=== PATIENT | female | born 1945 | race Caucasian/White ===

== ENCOUNTER 2017-07-30 09:58 | Observation (INO) | payer MEDICARE, OTHER ==
[2017-07-30] MEDS ORDERED: DUONEB 0.5-3 MG/3 ml Neb IH ONE ×2 (10:34→10:45)
--- NOTE | 2017-07-30 10:42 | ERPHSYRPT ---
- History of Present Illness Time Seen by Provider: 07/30/17 10:20 Source: patient Exam Limitations: clinical condition Patient Subjective Stated Complaint: Cough since 07/11, worse x3 days. Triage Nursing Assessment: Pt presents to the ED with complaints of cough since 07/11/2017. Hx of cough. Daughter states pt was diagnosed with pneumonia on 2017. No distress noted. Pt denies pain. Skin PWD. Physician History: PATIENT WITH A HISTORY OF 50 PACK YEAR SMOKER, QUIT 5 YEARS AGO, TYPE 2 DIABETES, HYPERTENSION, TREATED FOR BRONCHITIS 3 WEEKS AGO, NOW COMPLAINS OF NONPRODUCTIVE COUGH X 3 DAYS. DENIES DYPNEA, FEVER, CHILLS OR CHEST PAIN. Timing/Duration: day(s) Cough Quality/Degree: moderate, dry cough Possible Cause: occasional episodes Modifying Factors: Improves With: coughing Associated Symptoms: denies symptoms International travel in last 2 weeks: No Allergies/Adverse Reactions: tramadol Allergy (Mild, Verified 05/27/14 11:53) dizzy Home Medications: Aspirin 81 gm Chew [Baby Aspirin 81 mg Chew] 81 mg PO HS 01/01/14 [History ] Donepezil HCl [Aricept] 5 mg PO DAILY 01/01/14 [History] Furosemide [Lasix] 40 mg PO DAILY 01/01/14 [History] Metoprolol Succinate 50 mg [Toprol Xl 50 MG] 50 mg PO BID 01/01/14 [ History] Potassium Chloride 10 Meq Tab* [Klor Con 10 MEQ] 10 meq PO HS 01/01/14 [ History] Ranitidine HCl [Zantac] 300 mg PO DAILY 01/01/14 [History] Insulin Aspart [NovoLOG Insulin] 10 unit SQ TID 05/27/14 [History] Insulin Glargine [Lantus Insulin] 20 unit SQ HS 05/27/14 [History] Liraglutide [Victoza 2-Ang] 1.8 mg SQ DAILY 07/30/17 [History] Methenamine 1 gm MC BID 07/30/17 [History] Solifenacin Succinate [Vesicare] 10 mg PO DAILY 07/30/17 [History] Venlafaxine HCl ER 75 mg [Effexor XR 75 MG] 75 mg PO DAILY 07/30/17 [ History] Hx Tetanus, Diphtheria Vaccination/Date Given: Yes Hx Influenza Vaccination/Date Given: Yes Hx Pneumococcal Vaccination/Date Given: Yes Immunizations Up to Date: Yes - Review of Systems Constitutional: No Fever, No Chills Eyes: No Symptoms Ears, Nose, & Throat: No Symptoms Respiratory: Cough, No Dyspnea Cardiac: No Chest Pain, No Edema, No Syncope Abdominal/Gastrointestinal: No Symptoms, No Abdominal Pain, No Nausea, No Vomiting, No Diarrhea Genitourinary Symptoms: No Symptoms, No Dysuria Musculoskeletal: No Symptoms, No Back Pain, No Neck Pain Skin: No Rash Neurological: No Symptoms, No Dizziness, No Focal Weakness, No Sensory Changes Psychological: No Symptoms Endocrine: No Symptoms All Other Systems: Reviewed and Negative - Past Medical History Pertinent Past Medical History: Yes Neurological History: No Pertinent History ENT History: Cataracts Cardiac History: High Cholesterol, Hypertension, Myocardial Infarction ([place]) Respiratory History: COPD Endocrine Medical History: Diabetes Type II Musculoskeletal History: Arthritis, Fractures GI Medical History: Polyps History: Renal Disease, Other Psycho-Social History: Bipolar, Depression Female Reproductive Disorders: No Pertinent History - Past Surgical History Past Surgical History: Yes Neuro Surgical History: No Pertinent History Cardiac: Cardiac Catheterization, Cardiac Stent Respiratory: No Pertinent History Genitourinary: No Pertinent History Musculoskeletal: Joint Replacement Female Surgical History: Hysterectomy Other Surgical History: SEVERAL STENTS. SURGERY ON BOTH FEET FROM CLUB FEET - Social History Smoking Status: Former smoker How long have you smoked: 50 Exposure to second hand smoke: No Drug Use: none Patient Lives Alone: No - Female History Hx Now: No - Nursing Vital Signs Nursing Vital Signs: Initial Vital Signs Temperature 98.5 F 07/30/17 10:03 Pulse Rate 80 07/30/17 10:03 Respiratory Rate 18 07/30/17 10:03 Blood Pressure 125/74 07/30/17 10:03 O2 Sat by Pulse Oximetry 94 L 07/30/17 10:03 Pain Scale Pain Intensity 0 - Physical Exam General Appearance: no apparent distress, alert Eye Exam: PERRL/EOMI, eyes nml inspection Ears, Nose, Throat Exam: normal ENT inspection, TMs normal, pharynx normal, moist mucous membranes Neck Exam: normal inspection, non-tender, supple, full range of motion Respiratory Exam: normal breath sounds, lungs clear, other (WITH OCCASIONAL RIGHT BASILAR WHEEZE), No respiratory distress Cardiovascular Exam: regular rate/rhythm, normal heart sounds Gastrointestinal/Abdomen Exam: soft, normal bowel sounds (OBESITY, NONTENDER), No tenderness Back Exam: normal inspection, No CVA tenderness, No vertebral tenderness Extremity Exam: normal inspection, normal range of motion Neurologic Exam: alert, oriented x 3, cooperative, normal mood/affect, sensation nml, No motor deficits Skin Exam: normal color, warm, dry, No rash Lymphatic Exam: No adenopathy SpO2: 94 Oxygen Delivery: Room Air - Radiology Exams Chest X-ray Interpretation: Discussed w/ radiologist (NEW RIGHT INFRAHILAR ) Ordered Tests: Active Orders 24 hr Category Date Time Status Up With Assistance ROUTINE Activity 07/30/17 13:22 Active Code Status Order ROUTINE Care 07/30/17 13:22 Active IV Care Q6H Care 07/30/17 13:22 Active IV Insertion STAT Care 07/30/17 10:[address] in Observation ROUTINE Care 07/30/17 13:22 Active Saleem Dubone, Apply ROUTINE Care 07/30/17 13:22 Active Vital Signs Q4H Care 07/30/17 13:22 Active Weight,Daily 0600 Care 07/30/17 13:22 Active 2000 Calorie ADA Diet 07/30/17 Dinner Active Regular Diet Diet 07/30/17 Dinner Active CHEST 1 VIEW (PORTABLE) Stat Exams 07/30/17 10:46 Completed BLOOD CULTURE Stat Lab 07/30/17 10:35 Received BMP Stat Lab 07/30/17 10:45 Completed CBC W DIFF Stat Lab 07/30/17 10:45 Completed UA W/RFX UR CULTURE Stat Lab 07/30/17 13:16 Ordered Oxygen NASAL CANNULA 2 lpm RT 07/30/17 13:22 Active Peak Expiratory Flow Rate ONCE RT 07/30/17 10:34 Active Pulse Oximetry CONTINUOUS RT 07/30/17 13:24 Active Respiratory Nebulizer STAT RT 07/30/17 10:36 Active Transfer Order Routine Transfer 07/30/17 Ordered Medication Summary Generic Name Dose Route Start Last Admin Trade Name Freq PRN Reason Stop Dose Admin Albuterol/Ipratropium 3 ml 07/30/17 15:00 Duoneb 0.5-3 Mg/3 Ml Neb IH 08/29/17 14:59 Q4HRT ROQUE Aspirin 81 mg 07/30/17 22:00 Ecotrin 81 Mg PO 08/29/17 21:59 QHS [facility] Donepezil HCl 5 mg 07/31/17 10:00 Aricept 10 Mg PO 08/30/17 09:59 DAILY [facility] Furosemide 40 mg 07/31/17 10:00 Lasix 40 Mg PO 08/30/17 09:59 DAILY [facility] Azithromycin 500 mg in 250 mls @ 250 mls/hr 07/31/17 10:00 Zithromax 500 Mg/ 250 Ml Nacl Premix IV 08/30/17 09:59 Q24H10 ROQUE Ceftriaxone Sodium/Dextrose 1 g in 50 mls @ 100 mls/hr 07/31/17 10:00 Rocephin 1 Gm-D5w 50 Ml Bag IV 08/30/17 09:59 Q24H10 [facility] Insulin Aspart 10 unit 07/30/17 17:00 Novolog Insulin SQ 08/29/17 16:59 TIDWM [facility] Insulin Glargine 20 unit 07/30/17 22:00 Lantus Insulin SQ 08/29/17 21:59 HS [facility] Levalbuterol HCl 1.25 mg 07/30/17 13:36 Xopenex 1.25 Mg/0.5 Ml Ud Nebule IH 08/29/17 13:35 Q2HPRN PRN DIFFICULTY BREATHING Metoprolol Tartrate 50 mg 07/30/17 22:00 Lopressor 50 Mg PO 08/29/17 21:59 BID [facility] Venlafaxine HCl 75 mg 07/31/17 10:00 Effexor Xr 75 Mg PO 08/30/17 09:59 DAILY [facility] Discontinued Medications Generic Name Dose Route Start Last Admin Trade Name Freq PRN Reason Stop Dose Admin Albuterol/Ipratropium 3 ml 07/30/17 10:34 07/30/17 10:46 Duoneb 0.5-3 Mg/3 Ml Neb IH 07/30/17 10:35 3 ml STAT ONE Administration Albuterol/Ipratropium Confirm 07/30/17 10:45 Duoneb 0.5-3 Mg/3 Ml Neb Administered 07/30/17 10:46 Dose 3 ml IH .STK-MED ONE Ceftriaxone Sodium/Dextrose 1 g in 50 mls @ 100 mls/hr 07/30/17 11:15 11:26 Rocephin 1 Gm-D5w 50 Ml Bag IV 07/30/17 11:44 100 ml/hr STAT STA 100 mls/hr Administration Azithromycin 500 mg in 250 mls @ 250 mls/hr 07/30/17 11:15 07/30/17 13:00 Zithromax 500 Mg/ 250 Ml Nacl Premix IV 07/30/17 12:14 Not Given STAT STA Azithromycin Confirm 07/30/17 11:22 Zithromax 500 Mg/ 250 Ml Nacl Premix Administered 07/30/17 11:23 Dose 500 mg in 250 mls @ ud IV .STK-MED ONE Ceftriaxone Sodium/Dextrose Confirm 07/30/17 11:22 Rocephin 1 Gm-D5w 50 Ml Bag Administered 07/30/17 11:23 Dose 1 g in 50 mls @ ud IV .STK-MED ONE Azithromycin 500 mg in 250 mls @ 250 mls/hr 07/30/17 11:36 07/30/17 11:48 Zithromax 500 Mg/ 250 Ml Nacl Premix IV 07/30/17 12:35 250 ml/hr STAT STA 250 mls/hr Administration Lab/Rad Data: Laboratory Result Diagrams 07/30/17 10:45 07/30/17 10:45 Laboratory Results 07/30/17 07/30/17 Range/Units 10:45 10:45 WBC 8.2 (4.0-10.5) K/mm3 RBC 3.89 L (4.1-5.4) M/mm3 Hgb 10.7 L (12.0-16.0) gm/dl Hct 34.4 L (35-47) % MCV 88.4 (78-100) fl MCH 27.5 (26-32) pg MCHC 31.1 L (32-36) g/dl RDW 15.9 H (11.5-14.0) % Plt Count 212 (150-450) K/mm3 MPV 10.1 H (6-9.5) fl Gran % 68.0 H (36.0-66.0) % Eos # (Auto) 0.26 (0-0.5) Absolute Lymphs (auto) 1.78 (1.0-4.6) Absolute Monos (auto) 0.58 (0.0-1.3) Lymphocytes % 21.6 L (24.0-44.0) % Monocytes % 7.0 (0.0-12.0) % Eosinophils % 3.2 (0.00-5.0) % Basophils % 0.2 (0.0-0.4) % Absolute Granulocytes 5.60 (1.4-6.9) Basophils # 0.02 (0-0.4) Sodium 140 (137-145) mmol/L Potassium 4.7 (3.5-5.1) mmol/L Chloride 102 (98-107) mmol/L Carbon Dioxide 26 (22-30) mmol/L Anion Gap 16.1 H (5-15) MEQ/L BUN 38 H (7-17) mg/dL Creatinine 1.40 H (0.52-1.04) mg/dL Estimated GFR 39.3 ML/MIN Glucose 319 H (74-106) mg/dL Calcium 9.0 (8.4-10.2) mg/dL - Progress Progress Note: 07/30/17 11:48 IV SALINE LOCK, ROCEPPHIN 1GM AND ZITHROMAX 500MG IVPB Blood Culture(s) Obtained: Yes Antibiotics given: Yes Discussed with DrMaurizio: Shona (DISCUSSED WITH DR Yunior RODRÍGUEZ AT 1310 FOR OBSERVATION) - Departure Time of Disposition: 14:47 Departure Disposition: Observation Clinical Impression: PNEUMONIA Condition: Stable Critical Care Time: No Referrals: EREN RODRÍGUEZ [Primary Care Provider] -
--- NOTE | 2017-07-30 10:58 | XRAY ---
Indication: Cough. Comparison: May 27, 2014. Portable apical lordotic chest demonstrates new right infrahilar infiltrate/atelectasis. Remaining heart and lungs unremarkable. Bony thorax intact again with mild osteopenia and degenerative changes.
[2017-07-30 11:13] LABS: BASOPHIL % 0.2 % (0.0-0.4); Basophil (Absolute #) 0.02 (0-0.4); Eosinophil % 3.2 % (0.00-5.0); Eosinophil (Absolute #) 0.26 (0-0.5); Hematocrit 34.4 % (35-47); Hemoglobin 10.7 gm/dl (12.0-16.0); Lymphocyte (Absolute #) 1.78 (1.0-4.6); Lymphocytes % 21.6 % (24.0-44.0); Mean Cell Volume 88.4 fl (78-100); Mean Corpuscular Hemoglobin 27.5 pg (26-32); Mean Corpuscular Hgb Concent. 31.1 g/dl (32-36); Mean Platelet Volume 10.1 fl (6-9.5); Monocyte (Absolute #) 0.58 (0.0-1.3); Platelet Count 212 K/mm3 (150-450); Red Blood Count 3.89 M/mm3 (4.1-5.4); Red Cell Distribution Width 15.9 % (11.5-14.0); White Blood Count 8.2 K/mm3 (4.0-10.5)
[2017-07-30] MEDS ORDERED: ROCEPHIN 1 Gm-D5w 50 ml Bag** 1 G/50 ML IVPB IV STA (11:15)
[2017-07-30] MEDS ORDERED: Zithromax 500 MG/ 250 ML NaCl Premix 500 MG/250 ML IVPB IV STA ×2 (11:15→11:36)
[2017-07-30] MEDS ORDERED: Zithromax 500 MG/ 250 ML NaCl Premix 500 MG/250 ML IVPB IV ONE (11:22)
[2017-07-30] MEDS ORDERED: ROCEPHIN 1 Gm-D5w 50 ml Bag** 1 G/50 ML IVPB IV ONE (11:22)
[2017-07-30 11:32] LABS: ANION GAP 16.1 MEQ/L (5-15); Creatinine 1 1.4 mg/dL (0.52-1.04); Potassium 4.7 mmol/L (3.5-5.1)
[2017-07-30] MEDS ORDERED: Xopenex 1.25 MG/0.5 ML UD NEBULE IH PRN (13:36)
[2017-07-30] MEDS ORDERED: DUONEB 0.5-3 MG/3 ml Neb IH PRN (14:44)
[2017-07-30] MEDS ORDERED: DUONEB 0.5-3 MG/3 ml Neb IH SCH (15:00)
[2017-07-30] MEDS: NovoLOG Insulin SQ PRN ×2 (17:20→22:13)
[2017-07-30] MEDS: NovoLOG Insulin SQ SCH (17:20)
[2017-07-30] MEDS ORDERED: Klor Con 10 MEQ PO SCH (22:00)
[2017-07-30] MEDS ORDERED: Lopressor 50 MG PO SCH (22:00)
[2017-07-30] MEDS ORDERED: ECOTRIN 81 MG PO SCH (22:00)
[2017-07-30] MEDS ORDERED: Lantus Insulin SQ SCH (22:00)
[2017-07-30] MEDS: Toprol Xl 50 MG PO SCH (22:12)
[2017-07-31 01:44] LABS: Appearance CLEAR (CLEAR); Bacteria FEW /HPF (NEGATIVE); Bilirubin NEGATIVE (NEGATIVE); Blood TRACE NON-HEM Ery/ul (0-5); Epithelial Cells RARE /HPF (FEW); Glucose NEGATIVE (NEGATIVE); Ketones NEGATIVE (NEGATIVE); Leukocyte Esterase 1+ (NEGATIVE); Nitrite NEGATIVE (NEGATIVE); Protein,Urine Dip TRACE (Negative); RBC 0-2 /HPF (0-2); Urobilinogen NORMAL mg/dL (0-1)
[2017-07-31 07:39] VITALS: O2SAT 95
[2017-07-31 07:40] VITALS: BP 158/70; PULSE 90
[2017-07-31] MEDS: NovoLOG Insulin SQ SCH (08:17)
[2017-07-31] MEDS: NovoLOG Insulin SQ PRN (08:17)
--- NOTE | 2017-07-31 08:46 | PCM.HP ---
History of Present Illness - Chief Complaint Chief Complaint: pneumonia Date: 07/31/17 History of Present Illness: is a 72 year old female. who was treated for pneumonia last month but was still having coughing and choking from the coughing and having severe pain in her epigastric area. She was choking on her phlegm and her daughter witnessed this and shew as having difficult breathing from this and she was brought to the ED. She has been having intermittent diarrhea and gas and nausea and indigestion as well. She was having pain and didn't want to eat some of her meals. Medications & Allergies Home Medications: Home Medication List Aspirin 81 gm Chew [Baby Aspirin 81 mg Chew] 81 mg PO HS 01/01/14 [ History Confirmed 07/30/17] Donepezil HCl [Aricept] 5 mg PO DAILY 01/01/14 [History Confirmed 07/30/17] Furosemide [Lasix] 40 mg PO DAILY 01/01/14 [History Confirmed 07/30/17] Metoprolol Succinate 50 mg [Toprol Xl 50 MG] 50 mg PO BID 01/01/14 [ History Confirmed 07/30/17] Potassium Chloride 10 Meq Tab* [Klor Con 10 MEQ] 10 meq PO HS 01/01/14 [ History Confirmed 07/30/17] Ranitidine HCl [Zantac] 300 mg PO DAILY 01/01/14 [History Confirmed 07/30/17] Insulin Aspart [NovoLOG Insulin] 10 unit SQ TID 05/27/14 [History Confirmed 07/30/17] Insulin Glargine [Lantus Insulin] 20 unit SQ HS 05/27/14 [History Confirmed 07/30/17] Liraglutide [Victoza 2-Ang] 1.8 mg SQ DAILY 07/30/17 [History Confirmed 07/30/17 ] Methenamine 1 gm MC BID 07/30/17 [History Confirmed 07/30/17] Solifenacin Succinate [Vesicare] 10 mg PO DAILY 07/30/17 [History Confirmed 05/18] Venlafaxine HCl ER 75 mg [Effexor XR 75 MG] 75 mg PO DAILY 07/30/17 [ History Confirmed 07/30/17] Allergies/Adverse Reactions: Allergies Allergy/AdvReac Type Severity Reaction Status Date / Time tramadol Allergy Mild dizzy Verified 05/27/14 11:53 - Past Medical History Past Medical History: Yes Neurological History: No Pertinent History ENT History: Cataracts Cardiac History: High Cholesterol, Hypertension, Myocardial Infarction ([place]) Respiratory History: COPD Endocrine Medical History: Diabetes Type II Musculoskelatal History: Arthritis, Fractures GI Medical History: Polyps History: Renal Disease, Other Pyscho-Social History: Bipolar, Depression Reproductive Disorders: No Pertinent History - Female History Are you now?: No - Past Surgical History Past Surgical History: Yes Neuro Surgical History: No Pertinent History Cardiac History: Cardiac Catheterization, Cardiac Stent Respiratory Surgery: No Pertinent History Genitourinary Surgical Hx: No Pertinent History Musculskeletal Surgical Hx: Joint Replacement Female Surgical History: Hysterectomy Other Surgical History: SEVERAL STENTS. SURGERY ON BOTH FEET FROM CLUB FEET - Social History Smoking Status: Former smoker How long have you smoked: 55 Exposure to second hand smoke: No Alcohol: None Drug Use: none - Physical Exam Vital Signs: Vital Signs - 24 hr Temp Pulse Resp BP Pulse Ox 07/31/17 07:39 90 20 158/70 95 07/31/17 07:38 82 18 95 07/31/17 04:00 18 07/31/17 00:00 98.7 F 93 H 18 136/79 93 L 07/30/17 20:17 83 18 93 L 07/30/17 19:59 99.7 F 87 16 116/67 93 L 07/30/17 16:00 98.1 F 79 22 137/65 94 L 07/30/17 14:51 98.1 F 79 22 137/65 94 L 07/30/17 14:44 79 18 93 L 07/30/17 13:46 94 L 07/30/17 13:05 75 18 07/30/17 10:46 71 22 93 L 07/30/17 10:03 98.5 F 80 18 125/74 94 L General Appearance: no apparent distress, alert, obese Neurologic Exam: alert, oriented x 3, cooperative, normal mood/affect, nml cerebellar function, nml station & gait, sensation nml, No motor deficits Eye Exam: PERRL/EOMI, eyes nml inspection Ears, Nose, Throat Exam: normal ENT inspection, TMs normal, pharynx normal, moist mucous membranes Neck Exam: normal inspection, non-tender, supple, full range of motion Respiratory Exam: normal breath sounds, lungs clear, No respiratory distress Cardiovascular Exam: regular rate/rhythm, normal heart sounds, normal peripheral pulses Gastrointestinal/Abdomen Exam: soft, normal bowel sounds, No tenderness, No mass Back Exam: normal inspection, normal range of motion, No CVA tenderness, No vertebral tenderness Extremity Exam: normal inspection, normal range of motion, pelvis stable Skin Exam: normal color, warm, dry, No rash Lymphatic Exam: No adenopathy Results - Labs Lab/Micro Results: Accuchecks Date 07/30/17 Time 21:00 Accucheck Value: 227 Accucheck Value: 205 Lab Results-Last 24 Hours 07/31/17 Range/Units 01:06 Ur Collection Type CLEAN CATCH Urine Color YELLOW (YELLOW) Urine Appearance CLEAR (CLEAR) Urine pH 9.0 (5-6) Ur Specific [place] 00 (1.005-1.025) Urine Protein TRACE (Negative) Urine Ketones NEGATIVE (NEGATIVE) Urine Blood TRACE NON-HEM (0-5) David/ul Urine Nitrite NEGATIVE (NEGATIVE) Urine Bilirubin NEGATIVE (NEGATIVE) Urine Urobilinogen NORMAL (0-1) mg/dL Ur Leukocyte Esterase 1+ (NEGATIVE) Urine Microscopic RBC 0-2 (0-2) /HPF Urine Microscopic WBC 2-5 (0-5) /HPF Ur Epithelial Cells RARE (FEW) /HPF Calcium Oxalate Crystal 5-10 (NEGATIVE) /HPF Triple Phos Crystals 10-25 (NEGATIVE) /HPF Urine Bacteria FEW (NEGATIVE) /HPF Urine Culture Reflexed YES (NO) Urine Glucose NEGATIVE (NEGATIVE) mg/dL Specimen Received 07/31/17 0115 Microbiology 07/31/17 01:06 Urine Culture - Preliminary Clean Catch Midstream NO GROWTH TO DATE Accuchecks Date 07/30/17 Time 21:00 Accucheck Value: 227 Accucheck Value: 205 - Other Procedures and Tests Respiratory Therapy 07/30/17 13:22 Oxygen NASAL CANNULA 2 lpm 07/30/17 14:44 Respiratory Nebulizer UD Assessment/Plan (1) Pneumonia Current Visit: Yes Status: Acute Assessment & Plan: doing much better will finish coarse with cefidinir and azithromycin Code(s): J18.9 - PNEUMONIA, UNSPECIFIED ORGANISM (2) GERD (gastroesophageal reflux disease) Current Visit: Yes Status: Acute Assessment & Plan: will change her h2 margarito to ppi and f/u in office in 2 weeks she is currently eating gravy with no abdominal pain or nausea making gerd seem more likely then gallbladder dysfunction at this time. Code(s): K21.9 - GASTRO-ESOPHAGEAL REFLUX DISEASE WITHOUT ESOPHAGITIS (3) Diabetes mellitus Current Visit: Yes Status: Chronic Assessment & Plan: uncontrolled due to diet noncompliance Code(s): E11.9 - TYPE 2 DIABETES MELLITUS WITHOUT COMPLICATIONS (4) COPD (chronic obstructive pulmonary disease) Current Visit: Yes Status: Acute (5) CKD (chronic kidney disease) Current Visit: Yes Status: Acute Qualifiers: Chronic kidney disease stage: stage 3 (moderate) Qualified Code(s): N18.3 - Chronic kidney disease, stage 3 (moderate) Code(s): N18.9 - CHRONIC KIDNEY DISEASE, UNSPECIFIED (6) CAD (coronary artery disease) Current Visit: Yes Status: Chronic Code(s): I25.10 - ATHSCL HEART DISEASE OF [place] CORONARY ARTERY W/O ANG PCTRS (7) Obesity Current Visit: Yes Status: Chronic Code(s): E66.9 - OBESITY, UNSPECIFIED
--- NOTE | 2017-07-31 08:57 | PCM.DCORD ---
- Discharge Discharge Date: 07/31/17 Disposition: Home, Self-Care Condition: Stable Prescriptions: New Omeprazole 40 mg PO DAILY #30 capsule. Cefdinir 300 mg [Omnicef 300 mg] 300 mg PO BID #14 capsule Azithromycin 250 mg [Zithromax 250 MG TABLET] 250 mg PO DAILY #4 tablet Continue Furosemide [Lasix] 40 mg PO DAILY Aspirin 81 gm Chew [Baby Aspirin 81 mg Chew] 81 mg PO HS Metoprolol Succinate 50 mg [Toprol Xl 50 MG] 50 mg PO BID Potassium Chloride 10 Meq Tab* [Klor Con 10 MEQ] 10 meq PO HS Donepezil HCl [Aricept] 5 mg PO DAILY Insulin Glargine [Lantus Insulin] 20 unit SQ HS Insulin Aspart [NovoLOG Insulin] 10 unit SQ TID Liraglutide [Victoza 2-Ang] 1.8 mg SQ DAILY Solifenacin Succinate [Vesicare] 10 mg PO DAILY Methenamine 1 gm MC BID Venlafaxine HCl ER 75 mg [Effexor XR 75 MG] 75 mg PO DAILY Discontinued Ranitidine HCl [Zantac] 300 mg PO DAILY Follow up with: EREN RODRÍGUEZ [Primary Care Provider] - 1 Week
[2017-07-31] MEDS: Toprol Xl 50 MG PO SCH (09:40)
[2017-07-31] MEDS ORDERED: ROCEPHIN 1 Gm-D5w 50 ml Bag** 1 G/50 ML IVPB IV SCH (10:00)
[2017-07-31] MEDS ORDERED: Zithromax 500 MG/ 250 ML NaCl Premix 500 MG/250 ML IVPB IV SCH (10:00)
[2017-07-31] MEDS ORDERED: Pepcid 20 MG PO SCH (10:00)
[2017-07-31] MEDS ORDERED: Lasix 40 MG PO SCH (10:00)
[2017-07-31] MEDS ORDERED: Aricept 10 MG PO SCH (10:00)
[2017-07-31] MEDS ORDERED: NON-FORMULARY ITEM (Ranitidine Hcl [Zantac] 300 MG) PO SCH (10:00)
[2017-07-31] MEDS ORDERED: Effexor XR 75 MG PO SCH ×2 (10:00)
== END 2017-07-31 10:35 | disposition home health service (06) ==
LOC: ED 09:58 → MED SURG 14:01
PROVIDERS: ADMIT Family Medicine; ATTEND Family Medicine
DX: J18.9 Pneumonia, unspecified organism (principal); K21.9 Gastro-esophageal reflux disease without esophagitis; E11.9 Type 2 diabetes mellitus without complications; Z79.4 Long term (current) use of insulin; J44.9 Chronic obstructive pulmonary disease, unspecified; N18.3 Chronic kidney disease, stage 3 (moderate); I25.10 Atherosclerotic heart disease of native coronary artery without angina pectoris; E66.9 Obesity, unspecified; Z79.899 Other long term (current) drug therapy
CPT/HCPCS: 36000; 36415; 71045; 80048; 81000; 83036; 85025; 87040; 87086; 93268; 94150; 94640; 94760; 96365; 96366; 99285; J0456; J0696; A9270-GY; G0378

== ENCOUNTER 2017-12-08 08:07 | Day surgery (SDC) | payer MEDICARE, OTHER ==
--- NOTE | 2017-12-08 07:57 | OP ---
DATE OF SURGERY: 12/08/2017 HISTORY OF PRESENT ILLNESS: The patient is a 72 year-old with no prior colonoscopy. She had some rectal bleeding, morbidly obese. She has had some rectal bleeding. She is in need of a colonoscopy for further evaluation. PAST MEDICAL HISTORY: Significant for dementia, diabetes, cardiopulmonary disease and obesity. Suprapubic catheter in the past noted to have urinary retention. Hypertension, diabetes, chronic obstructive pulmonary disease. She had seven or nine stents in the past she said. She had spastic bladder requiring cath. PAST SURGICAL HISTORY: Hysterectomy. Foot surgery. Right knee surgery. Left hip surgery. She had some hemorrhoid surgery in the past. She had prior hysterectomy per Dr. Woodruff in the past. MEDICATIONS: Lasix, Lopressor, VESIcare, methenamine, NovoLog, aspirin, Effexor, Zocor, Lopressor, Victoza, potassium, Lantus, trazodone, tramadol, stool softener. ALLERGIES: NKDA. FAMILY HISTORY: Negative in regards to this problem. SOCIAL HISTORY: No alcohol abuse. REVIEW OF SYSTEMS: Twelve systems reviewed per admission assessment. No chest pain or palpitations other systems negative or noncontributory as above and per preadmission questionnaire. PHYSICAL EXAMINATION: GENERAL: No acute distress. HEENT: Sclerae nonicteric. NECK: No JVD. CHEST: Equal excursion, nonlabored breathing. CVS: Regular rate and rhythm. ABDOMEN: Soft. No peritoneal signs. EXTREMITIES: No significant edema. NEURO: Alert, oriented, moving extremities symmetrically. No gross motor deficits noted. IMPRESSION: A chronically ill female with history of rectal bleeding. I felt she would benefit from colonoscopy. She is in quite good health. Shown the risk sheet. Risk explained in detail risk of bleeding and infection, risk of bowel injury or perforation possibly requiring open procedure, risk of missed or nondiagnosis or incomplete exam possibly requiring barium enema, other studies or procedures, general risk of anesthesia or sedation, risk of cardiopulmonary event given her comorbidities but not limited to. Otherwise proceed with outpatient colonoscopy.
[~2017-12-08 08:07] MED LIST: Lactated Ringers 1,000 ML IV SCH
[2017-12-08 10:29] VITALS: BP 137/91; PULSE 95; O2SAT 94
== END 2017-12-08 11:50 | disposition home or self-care (01) ==
LOC: SDC 08:07
PROVIDERS: ATTEND Surgery
DX: K62.5 Hemorrhage of anus and rectum (principal); Z53.09 Procedure and treatment not carried out because of other contraindication; E66.01 Morbid (severe) obesity due to excess calories; F03.90 Unspecified dementia, unspecified severity, without behavioral disturbance, psychotic disturbance, mood disturbance, and anxiety; E11.9 Type 2 diabetes mellitus without complications; I10 Essential (primary) hypertension; J44.9 Chronic obstructive pulmonary disease, unspecified; N32.89 Other specified disorders of bladder; Z79.899 Other long term (current) drug therapy

== ENCOUNTER 2017-12-08 11:45 | Observation (INO) | payer MEDICARE, OTHER ==
[2017-12-08] MEDS ORDERED: Golytely Solution 4000 ML PO ONE (12:27)
[2017-12-08] MEDS ORDERED: Colace 100 MG PO PRN (13:49)
[2017-12-08] MEDS ORDERED: MEDICATION INTERVENTION MC SCH ×2 (14:45→15:00)
[2017-12-08] MEDS ORDERED: NovoLOG Insulin SQ PRN (16:23)
[2017-12-08] MEDS ORDERED: NovoLOG Insulin SQ SCH (16:30)
--- NOTE | 2017-12-08 17:57 | PCM.HP ---
History of Present Illness - Chief Complaint Chief Complaint: GI BLEED; colonoscopy prep Date: 12/08/17 History of Present Illness: is a 72 year old female. 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 She was having the colonoscopy for rectal bleeding and is still having rectal bleeding. She has home nursing but does not have 24 hour care and is dependent on others to help change her depends. She has a suprapubic urine catheter. She denies any current pain. - Review of Systems Constitutional: No Fever, No Chills Eyes: No Symptoms Ears, Nose, & Throat: No Symptoms Respiratory: No Cough, No Short Of Breath Cardiac: No Chest Pain, No Edema, No Syncope Abdominal/Gastrointestinal: No Abdominal Pain, No Vomiting Genitourinary Symptoms: No Dysuria Musculoskeletal: No Back Pain, No Neck Pain Skin: No Rash Neurological: No Dizziness, No Focal Weakness, No Sensory Changes Psychological: No Symptoms Endocrine: No Symptoms Hematologic/Lymphatic: No Symptoms Immunological/Allergic: No Symptoms Medications & Allergies Home Medications: Home Medication List Aspirin 81 gm Chew [Baby Aspirin 81 mg Chew] 81 mg PO HS 01/01/14 [ History Confirmed 12/08/17] Donepezil HCl [Aricept] 5 mg PO DAILY 01/01/14 [History Confirmed 12/08/17] Furosemide [Lasix] 40 mg PO DAILY 01/01/14 [History Confirmed 12/08/17] Potassium Chloride 10 Meq Tab* [Klor Con 10 MEQ] 10 meq PO HS 01/01/14 [ History Confirmed 12/08/17] Insulin Aspart [NovoLOG Insulin] 15 unit SQ TID 05/27/14 [History Confirmed 12/08/17] Insulin Glargine [Lantus Insulin] 45 unit SQ HS 05/27/14 [History Confirmed 12/08/17] Liraglutide [Victoza 2-Ang] 1.8 mg SQ DAILY 07/30/17 [History Confirmed 12/08/17 ] Methenamine 1 gm MC BID 07/30/17 [History Confirmed 12/08/17] Solifenacin Succinate [Vesicare] 10 mg PO DAILY 07/30/17 [History Confirmed 01/15] Venlafaxine HCl ER 75 mg [Effexor XR 75 MG] 75 mg PO DAILY 07/30/17 [ History Confirmed 12/08/17] Docusate Sodium [Stool Softener] 100 mg PO DAILY PRN 12/01/17 [History Confirmed 12/08/17] Metoprolol Tartrate 50 mg [Lopressor 50 MG] 50 mg PO BID 12/01/17 [ History Confirmed 12/08/17] Simvastatin 10 mg [Zocor 10MG] 10 mg PO QPM 12/01/17 [History Confirmed 01/15] Trazodone HCl 50 mg [Desyrel 50 mg] 50 mg PO HS 12/01/17 [History Confirmed 12/08/17] Allergies/Adverse Reactions: Allergies Allergy/AdvReac Type Severity Reaction Status Date / Time tramadol Allergy Mild dizzy Verified 05/27/14 11:53 - Past Medical History Past Medical History: Yes Neurological History: No Pertinent History ENT History: Cataracts Cardiac History: High Cholesterol, Hypertension, Myocardial Infarction ([place]) Respiratory History: COPD Endocrine Medical History: Diabetes Type II Musculoskelatal History: Arthritis, Fractures GI Medical History: Polyps History: Renal Disease, Other Pyscho-Social History: Bipolar, Depression Reproductive Disorders: No Pertinent History Comment: daughter states "she is difficulty at times and won't do what she is told" "going to try to get her to take the bowel prep" - Female History Hx Last Menstrual Period: N/A Are you now?: No - Past Surgical History Past Surgical History: Yes Neuro Surgical History: No Pertinent History Cardiac History: Cardiac Catheterization, Cardiac Stent Respiratory Surgery: No Pertinent History GI Surgical History: No Pertinent History Genitourinary Surgical Hx: No Pertinent History Musculskeletal Surgical Hx: Joint Replacement Female Surgical History: Hysterectomy Other Surgical History: SEVERAL STENTS. SURGERY ON BOTH FEET FROM CLUB FEET - Social History Smoking Status: Former smoker How long have you smoked: 55 Exposure to second hand smoke: No Alcohol: None Drug Use: none - Physical Exam Vital Signs: Vital Signs - 24 hr Temp Pulse Resp BP Pulse Ox 12/08/17 15:59 97.7 F 89 18 164/89 98 12/08/17 13:55 97.8 F 97 H 18 142/65 98 12/08/17 12:22 97.8 F 97 H 18 142/65 98 12/08/17 11:59 97.8 F 97 H 18 142/65 98 General Appearance: no apparent distress, alert, obese Neurologic Exam: alert, cooperative (she is not oriented to current time. she is oriented to person and place. She has difficulty with the situation and is unable to recall recent events for the last 48 hours.), No normal mood/affect ( she has a jovial affect but also cussing at the nurses abruptly often as well then smiling and laughing.) Eye Exam: No scleral icterus Ears, Nose, Throat Exam: moist mucous membranes Neck Exam: non-tender, supple Respiratory Exam: normal breath sounds, lungs clear Cardiovascular Exam: regular rate/rhythm, normal heart sounds, normal peripheral pulses Gastrointestinal/Abdomen Exam: soft, normal bowel sounds, No tenderness Extremity Exam: pedal edema Skin Exam: warm, dry Results - Labs Lab/Micro Results: Accuchecks Accucheck Value: 184 Accuchecks Accucheck Value: 184 Assessment/Plan (1) Rectal bleeding Current Visit: Yes Status: Acute Assessment & Plan: she has been having rectal bleeding and attempted outpatient prep but was unsuccessful limited by her dementia and her obesity with limited mobility and dependence on nursing for changing her depends at home. She will continue with bowel prep and plan for colonoscopy in am. Code(s): K62.5 - HEMORRHAGE OF ANUS AND RECTUM (2) Diabetes mellitus Current Visit: Yes Status: Chronic Code(s): E11.9 - TYPE 2 DIABETES MELLITUS WITHOUT COMPLICATIONS (3) COPD (chronic obstructive pulmonary disease) Current Visit: Yes Status: Chronic (4) CAD (coronary artery disease) Current Visit: Yes Status: Chronic Code(s): I25.10 - ATHSCL HEART DISEASE OF [place] CORONARY ARTERY W/O ANG PCTRS (5) GERD (gastroesophageal reflux disease) Current Visit: Yes Status: Acute Code(s): K21.9 - GASTRO-ESOPHAGEAL REFLUX DISEASE WITHOUT ESOPHAGITIS (6) Obesity Current Visit: Yes Status: Chronic Code(s): E66.9 - OBESITY, UNSPECIFIED (7) CKD stage 3 secondary to diabetes Current Visit: Yes Status: Chronic Code(s): E11.22 - TYPE 2 DIABETES MELLITUS W DIABETIC CHRONIC KIDNEY DISEASE; N18.3 - CHRONIC KIDNEY DISEASE, STAGE 3 (MODERATE) (8) Vascular dementia Current Visit: Yes Status: Chronic Code(s): F01.50 - VASCULAR DEMENTIA WITHOUT BEHAVIORAL DISTURBANCE (9) Pseudobulbar affect Current Visit: Yes Status: Chronic Code(s): F48.2 - PSEUDOBULBAR AFFECT
[2017-12-08] MEDS ORDERED: Zocor 10MG PO SCH (22:00)
[2017-12-08] MEDS ORDERED: Klor Con 10 MEQ PO SCH (22:00)
[2017-12-08] MEDS ORDERED: Lantus Insulin SQ SCH (22:00)
[2017-12-08] MEDS ORDERED: Lopressor 50 MG PO SCH (22:00)
[2017-12-08] MEDS ORDERED: DESYREL 50 MG PO SCH (22:00)
[2017-12-08] MEDS ORDERED: METHENAMINE 1 GM MC SCH (22:00)
[2017-12-09] MEDS ORDERED: Lactated Ringers 1,000 ML IV SCH (05:00)
[2017-12-09 07:20] VITALS: BP 178/93; PULSE 87; O2SAT 94
--- NOTE | 2017-12-09 08:31 | OP ---
SURGERY DATE/TIME: 12/09/2017 0739 PREOPERATIVE DIAGNOSIS: Rectal bleeding. POSTOPERATIVE DIAGNOSIS: Transverse colon polyp sessile measuring approximately 1 x 2 cm in diameter. Sigmoid diverticulosis. PROCEDURE: Colonoscopy with polypectomy. SURGEON: Dr. Solis. ANESTHESIA: MAC. Medications given by anesthesia department. HISTORY: The patient is a 72 year-old white female who presents now with problems with rectal bleeding. Apparently the patient had difficulty getting cleaned out and she had to be brought into the hospital. She was apparently originally scheduled for Dr. Fernando but she was not cleaned out properly enough. They therefore asked me to do the procedure on subsequent day after having received Golytely. The patient was appraised of the risks of the procedure including the risk of perforation, phlebitis, untoward reaction to medication, bleeding and missed lesions. The patient verbalized her understanding and desired to have the procedure performed. DESCRIPTION OF PROCEDURE: The patient was given the medications by the anesthesia department. She had continuous pulse oximetry, ECG monitoring, intermittent blood pressure monitoring and tidal CO2 monitoring during the examination. She was placed in the left lateral decubitus position. A digital rectal examination was performed and revealed normal anal sphincter tone and no masses. The flexible Olympus pediatric colonoscope was used to intubate the rectum. A view of the colon was developed sequentially to the cecum. Upon insertion and withdrawal there was noted a sessile polyp in the transverse colon and this was removed using multiple passes of hot biopsy forceps. There was also noted to be sigmoid diverticula with no stigmata of recent bleeding. The scope was removed from the patient who tolerated the procedure well and was sent back to OP recovery in good condition. The prep was noted to be fair to good.
[2017-12-09] MEDS ORDERED: TRANDATE 20 MG/5 ML SYRINGE IV ONE (09:49)
[2017-12-09] MEDS ORDERED: SUBLIMAZE 100 MCG/2 ML IV ONE (09:49)
[2017-12-09] MEDS ORDERED: DIPRIVAN 200 MG/20 ML IV ONE (09:49)
[2017-12-09] MEDS ORDERED: NON-FORMULARY ITEM (Solifenacin Succinate [Vesicare] 10 MG) PO SCH (10:00)
[2017-12-09] MEDS ORDERED: Aricept 10 MG PO SCH (10:00)
[2017-12-09] MEDS ORDERED: Lasix 40 MG PO SCH (10:00)
[2017-12-09] MEDS ORDERED: Effexor XR 75 MG PO SCH (10:00)
[2017-12-09] MEDS ORDERED: Ditropan 5 MG PO SCH (10:00)
[2017-12-09] MEDS ORDERED: NON-FORMULARY ITEM (Donepezil Hcl [Aricept] 5 MG) PO SCH (10:00)
--- NOTE | 2017-12-09 21:56 | PCM.DS ---
Discharge Summary Date of Admission: 12/08/17 11:45 Admitting Physician: EREN RODRÍGUEZ Primary Care Provider: EREN RODRÍGUEZ Allergies Allergies tramadol Allergy (Mild, Verified 05/27/14 11:53) dizzy Hospital Summary - Vitals & Intake/Output Vital Signs: Vital Signs Temperature 98.1 F 12/09/17 07:18 Pulse Rate 87 12/09/17 07:18 Respiratory Rate 18 12/09/17 09:30 Blood Pressure 178/93 12/09/17 07:18 O2 Sat by Pulse Oximetry 94 L 12/09/17 07:18 Intake & Output: Intake & Output 12/07/17 12/08/17 12/09/17 12/10/17 11:59 11:59 11:59 11:59 Intake Total 3140 Output Total 2750 Balance 390 Weight 136.9 kg - Lab Lab Results-Last 24 Hrs: Accuchecks Date 12/09/17 Date 12/08/17 Time 07:14 Time 22:00 Accucheck Value: 107 Lab Results-Last 24 Hours 12/08/17 Range/Units 07:00 Hemoglobin A1c 8.15 H (4.5-6.0) % Micro Results-Entire Visit: Accuchecks Date 12/09/17 Date 12/08/17 Time 07:14 Time 22:00 Accucheck Value: 107 - Procedures and Test Procedures and Tests throughout Hospitalization: Therapy Orders & Screens 12/08/17 14:54 OT Screen per Nursing Assess ONCE Comment: Protocol Order Physician Instructions: Greater than 3 points order OT Admission Screening Reason For Exam: Triggered on Admission Diagnosis: GI BLEED; colonoscopy prep Open Wound/Cellutlitis/Pressure Ulcers: No Acute Fx/ORIF/Change in wt bearing status: No Severe MUSCULOSKELETAL pain: No ADL Dysfunction: Yes Acute CVA w/Hemiparesis/Hemiplegia: No Decreased Functional Mobility/Strength: Yes Sprain/Strain: No Acute Post-op Mobility Dysfunction: No Total Points: 4 PT Screen per Nursing Assess ONCE Comment: Protocol Order Physician Instructions: Greater than 3 points order PT Admission Screenin Reason For Exam: Triggered on Admission Diagnosis: GI BLEED; colonoscopy prep Open Wound/Cellutlitis/Pressure Ulcers: No Acute Fx/ORIF/Change in wt bearing status: No Severe MUSCULOSKELETAL pain: No ADL Dysfunction: Yes Acute CVA w/Hemiparesis/Hemiplegia: No Decreased Functional Mobility/Strength: Yes Sprain/Strain: No Acute Post-op Mobility Dysfunction: No Total Points: 4 12/08/17 16:12 OT Screen per Nursing Assess ONCE Comment: Protocol Order Physician Instructions: Greater than 3 points order OT Admission Screening Reason For Exam: Triggered on Admission Diagnosis: GI BLEED; colonoscopy prep Open Wound/Cellutlitis/Pressure Ulcers: No Acute Fx/ORIF/Change in wt bearing status: No Severe MUSCULOSKELETAL pain: No ADL Dysfunction: Yes Acute CVA w/Hemiparesis/Hemiplegia: No Decreased Functional Mobility/Strength: Yes Sprain/Strain: No Acute Post-op Mobility Dysfunction: No Total Points: 4 PT Screen per Nursing Assess ONCE Comment: Protocol Order Physician Instructions: Greater than 3 points order PT Admission Screenin Reason For Exam: Triggered on Admission Diagnosis: GI BLEED; colonoscopy prep Open Wound/Cellutlitis/Pressure Ulcers: No Acute Fx/ORIF/Change in wt bearing status: No Severe MUSCULOSKELETAL pain: No ADL Dysfunction: Yes Acute CVA w/Hemiparesis/Hemiplegia: No Decreased Functional Mobility/Strength: Yes Sprain/Strain: No Acute Post-op Mobility Dysfunction: No Total Points: 4 Final Diagnosis/Problem List - Final Discharge Diagnosis/Problem (1) Rectal bleeding Status: Acute (2) Diabetes mellitus Status: Chronic (3) COPD (chronic obstructive pulmonary disease) Status: Chronic (4) CAD (coronary artery disease) Status: Chronic (5) GERD (gastroesophageal reflux disease) Status: Acute (6) Obesity Status: Chronic (7) CKD stage 3 secondary to diabetes Status: Chronic (8) Vascular dementia Status: Chronic (9) Pseudobulbar affect Status: Chronic - Discharge Disposition: Home, Self-Care Condition: Good Prescriptions: Continue Furosemide [Lasix] 40 mg PO DAILY Aspirin 81 gm Chew [Baby Aspirin 81 mg Chew] 81 mg PO HS Potassium Chloride 10 Meq Tab* [Klor Con 10 MEQ] 10 meq PO HS Donepezil HCl [Aricept] 5 mg PO DAILY Insulin Glargine [Lantus Insulin] 45 unit SQ HS Insulin Aspart [NovoLOG Insulin] 15 unit SQ TID Liraglutide [Victoza 2-Ang] 1.8 mg SQ DAILY Solifenacin Succinate [Vesicare] 10 mg PO DAILY Methenamine 1 gm MC BID Venlafaxine HCl ER 75 mg [Effexor XR 75 MG] 75 mg PO DAILY Metoprolol Tartrate 50 mg [Lopressor 50 MG] 50 mg PO BID Simvastatin 10 mg [Zocor 10MG] 10 mg PO QPM Docusate Sodium [Stool Softener] 100 mg PO DAILY PRN PRN Reason: soft stools Trazodone HCl 50 mg [Desyrel 50 mg] 50 mg PO HS Instructions: Diverticulosis (DC), Colon Polyps (DC) Follow up with: EREN RODRÍGUEZ [Primary Care Provider] - 12/24/17 1:00 pm
== END 2017-12-09 09:50 | disposition home or self-care (01) ==
LOC: MED SURG 11:45
PROVIDERS: ADMIT Family Medicine; ATTEND Family Medicine
DX: K63.5 Polyp of colon (principal); K57.30 Diverticulosis of large intestine without perforation or abscess without bleeding; K62.5 Hemorrhage of anus and rectum; J44.9 Chronic obstructive pulmonary disease, unspecified; I25.10 Atherosclerotic heart disease of native coronary artery without angina pectoris; K21.9 Gastro-esophageal reflux disease without esophagitis; F01.50 Vascular dementia, unspecified severity, without behavioral disturbance, psychotic disturbance, mood disturbance, and anxiety; F48.2 Pseudobulbar affect; E11.22 Type 2 diabetes mellitus with diabetic chronic kidney disease; E11.65 Type 2 diabetes mellitus with hyperglycemia; I12.9 Hypertensive chronic kidney disease with stage 1 through stage 4 chronic kidney disease, or unspecified chronic kidney disease; N18.3 Chronic kidney disease, stage 3 (moderate); Z79.4 Long term (current) use of insulin; I25.2 Old myocardial infarction; M19.90 Unspecified osteoarthritis, unspecified site; Z86.010 Personal history of colon polyps; F31.9 Bipolar disorder, unspecified; Z79.899 Other long term (current) drug therapy
CPT/HCPCS: 36415; 45384; 82962; 83036; 94250; G0378; 88305; 99100; J2704; J3010; A9270-GY

== ENCOUNTER 2018-02-06 10:08 | Emergency (ER) | payer MEDICARE, OTHER ==
--- NOTE | 2018-02-06 10:43 | ERPHSYRPT ---
- History of Present Illness Time Seen by Provider: 02/06/18 10:31 Source: family, EMS Exam Limitations: other (dementia) Patient Subjective Stated Complaint: Pt states "I am not getting much urine in my urinary cath and I have been urinating out my urethra and normally I just dribble." Triage Nursing Assessment: Pt alert and oriented X 3, skin pwd. PT able to speak in clear full sentences. PT has supra pubic cath in place with slight pink colored urine. PT leaking around suprpubic insertion site. Physician History: The patient is a morbidly obese 72-year-old female with her daughter who has POA complaining of not urinating through her suprapubic catheter for 2 days. The home health care nurse evaluated her catheter yesterday and flushed. Today there is scant pink urine coming through her suprapubic catheter. She is urinating around the catheter. She denies fever or chills. She denies pain of any kind. She is a diabetic and for the last 5 days her morning blood glucose levels have gone from 100 on Friday to 400 on Friday. She has not changed her diabetic medicine regimen. Pt rivaspo complains of cough for 1 week. Her past medical history is significant for orbital obesity, neurogenic bladder, suprapubic catheter placement 5 years ago, hypertension, high cholesterol, diabetes, GERD, dementia, psuedobulbar affect, CAD, and cardiac stents. She arrived by ambulance this morning. She has an appointment with the nurse practitioner in urology on . Timing/Duration: day(s) (2), gradual onset, worse Activites at Onset: none Severity of Pain-Max: none Severity of Pain-Current: none Prior abdominal problems: none Sexual intercourse history: not active Modifying Factors: Improves With: nothing Associated Symptoms: dysuria Allergies/Adverse Reactions: tramadol Allergy (Mild, Verified 05/27/14 11:53) dizzy Home Medications: Aspirin 81 gm Chew [Baby Aspirin 81 mg Chew] 81 mg PO HS 01/01/14 [History ] Donepezil HCl [Aricept] 5 mg PO DAILY 01/01/14 [History] Furosemide [Lasix] 40 mg PO DAILY 01/01/14 [History] Potassium Chloride 10 Meq Tab* [Klor Con 10 MEQ] 10 meq PO HS 01/01/14 [ History] Insulin Aspart [NovoLOG Insulin] 15 unit SQ TID 05/27/14 [History] Insulin Glargine [Lantus Insulin] 45 unit SQ HS 05/27/14 [History] Liraglutide [Victoza 2-Ang] 1.8 mg SQ DAILY 07/30/17 [History] Methenamine 1 gm MC BID 07/30/17 [History] Solifenacin Succinate [Vesicare] 10 mg PO DAILY 07/30/17 [History] Venlafaxine HCl ER 75 mg [Effexor XR 75 MG] 75 mg PO DAILY 07/30/17 [ History] Docusate Sodium [Stool Softener] 100 mg PO DAILY PRN 12/01/17 [History] Metoprolol Tartrate 50 mg [Lopressor 50 MG] 50 mg PO BID 12/01/17 [History ] Simvastatin 10 mg [Zocor 10MG] 10 mg PO QPM 12/01/17 [History] Trazodone HCl 50 mg [Desyrel 50 mg] 50 mg PO HS 12/01/17 [History] Ferrous Sulfate 325 mg [Feosol 325 mg] 65 mg PO DAILY 02/06/18 [History] Omeprazole 40 mg PO DAILY 02/06/18 [History] Hx Tetanus, Diphtheria Vaccination/Date Given: Yes Hx Influenza Vaccination/Date Given: Yes Hx Pneumococcal Vaccination/Date Given: No - Review of Systems Constitutional: No Fever, No Chills Eyes: No Symptoms Ears, Nose, & Throat: No Symptoms Respiratory: No Cough, No Dyspnea Cardiac: No Chest Pain, No Edema, No Syncope Abdominal/Gastrointestinal: No Abdominal Pain, No Nausea, No Vomiting, No Diarrhea Genitourinary Symptoms: Other (urination around her suprapubic cath) Musculoskeletal: No Back Pain, No Neck Pain Skin: No Rash Neurological: No Dizziness, No Focal Weakness, No Sensory Changes Psychological: No Symptoms Endocrine: No Symptoms Hematologic/Lymphatic: No Symptoms Immunological/Allergic: No Symptoms All Other Systems: Reviewed and Negative - Past Medical History Pertinent Past Medical History: Yes Neurological History: No Pertinent History ENT History: Cataracts Cardiac History: High Cholesterol, Hypertension, Myocardial Infarction ([place]) Respiratory History: COPD Endocrine Medical History: Diabetes Type II Musculoskeletal History: Arthritis, Fractures GI Medical History: Polyps History: Renal Disease, Other Psycho-Social History: Bipolar, Depression Female Reproductive Disorders: No Pertinent History Other Medical History: daughter states "she is difficulty at times and won't do what she is told" "going to try to get her to take the bowel prep" - Past Surgical History Past Surgical History: Yes Neuro Surgical History: No Pertinent History Cardiac: Cardiac Catheterization, Cardiac Stent Respiratory: No Pertinent History Gastrointestinal: No Pertinent History Genitourinary: No Pertinent History Musculoskeletal: Joint Replacement Female Surgical History: Hysterectomy Other Surgical History: SEVERAL STENTS. SURGERY ON BOTH FEET FROM CLUB FEET - Social History Smoking Status: Former smoker How long have you smoked: 55 Exposure to second hand smoke: No Drug Use: none Patient Lives Alone: Yes - Female History Hx Now: No - Nursing Vital Signs Nursing Vital Signs: Initial Vital Signs Temperature 97.8 F 02/06/18 10:10 Pulse Rate 82 02/06/18 10:10 Respiratory Rate 16 02/06/18 10:10 Blood Pressure 151/94 02/06/18 10:10 O2 Sat by Pulse Oximetry 99 02/06/18 10:10 Pain Scale Pain Intensity 2 - Physical Exam General Appearance: no apparent distress, alert, obese Eye Exam: PERRL/EOMI, eyes nml inspection Ears, Nose, Throat Exam: normal ENT inspection, TMs normal, pharynx normal, moist mucous membranes Neck Exam: normal inspection, non-tender, supple, full range of motion Respiratory Exam: normal breath sounds, lungs clear, No respiratory distress Cardiovascular Exam: regular rate/rhythm, normal heart sounds, normal peripheral pulses Gastrointestinal/Abdomen Exam: soft, other (suprapubic cath in place; scant pink tinged liquid in cath tubing), No tenderness, No mass Pelvic Exam: not done Rectal Exam: not done Back Exam: normal inspection, normal range of motion, No CVA tenderness, No vertebral tenderness Extremity Exam: normal inspection, normal range of motion, pelvis stable Neurologic Exam: alert, oriented x 3, cooperative, field support representative II-XII nml as tested, normal mood/affect, sensation nml, No motor deficits Skin Exam: normal color, warm, dry Lymphatic Exam: No adenopathy SpO2 Interpretation: normal SpO2: 99 Oxygen Delivery: Room Air - Radiology Exams Chest X-ray Interpretation: Reviewed by me, Teleradiologist Report (per Dr Duron), Negative Ordered Tests: Active Orders 24 hr Category Date Time Status CHEST 1 VIEW (PORTABLE) Stat Exams 02/06/18 10:50 Completed BMP Stat Lab 02/06/18 11:13 Completed CBC W DIFF Stat Lab 02/06/18 11:13 Completed CULTURE,URINE Stat Lab 02/06/18 10:50 Received UA W/RFX UR CULTURE Stat Lab 02/06/18 10:50 Completed Lab/Rad Data: Laboratory Result Diagrams 02/06/18 11:13 02/06/18 11:13 Laboratory Results 02/06/18 02/06/18 02/06/18 Range/Units 11:13 11:13 10:50 WBC 8.4 (4.0-10.5) K/mm3 RBC 4.00 L (4.1-5.4) M/mm3 Hgb 10.8 L (12.0-16.0) gm/dl Hct 35.1 (35-47) % MCV 87.8 (78-100) fl MCH 27.0 (26-32) pg MCHC 30.8 L (32-36) g/dl RDW 15.8 H (11.5-14.0) % Plt Count 226 (150-450) K/mm3 MPV 10.0 H (6-9.5) fl Gran % 70.9 H (36.0-66.0) % Eos # (Auto) 0.25 (0-0.5) Absolute Lymphs (auto) 1.59 (1.0-4.6) Absolute Monos (auto) 0.58 (0.0-1.3) Lymphocytes % 19.0 L (24.0-44.0) % Monocytes % 6.9 (0.0-12.0) % Eosinophils % 3.0 (0.00-5.0) % Basophils % 0.2 (0.0-0.4) % Absolute Granulocytes 5.93 (1.4-6.9) Basophils # 0.02 (0-0.4) Sodium 137 (137-145) mmol/L Potassium 5.0 (3.5-5.1) mmol/L Chloride 99 (98-107) mmol/L Carbon Dioxide 32 H (22-30) mmol/L Anion Gap 11.6 (5-15) MEQ/L BUN 42 H (7-17) mg/dL Creatinine 1.54 H (0.52-1.04) mg/dL Estimated GFR 35.2 ML/MIN Glucose 344 H (74-106) mg/dL Calcium 8.8 (8.4-10.2) mg/dL Urine Color YELLOW (YELLOW) Urine Appearance SLIGHTLY CLOUDY (CLEAR) Urine pH 7.0 (5-6) Ur Specific [place] 1.012 (1.005-1.025) Urine Protein 100 (Negative) Urine Ketones NEGATIVE (NEGATIVE) Urine Blood LARGE (0-5) David/ul Urine Nitrite NEGATIVE (NEGATIVE) Urine Bilirubin NEGATIVE (NEGATIVE) Urine Urobilinogen NEGATIVE (0-1) mg/dL Ur Leukocyte Esterase LARGE (NEGATIVE) Urine WBC (Auto) 51-100 (0-5) /HPF Urine RBC (Auto) >101 (0-2) /HPF U Epithel Cells (Auto) RARE (FEW) /HPF Urine Bacteria (Auto) FEW (NEGATIVE) /HPF Amorphous Crystals FEW (NEGATIVE) /HPF Urine Mucus (Auto) SLIGHT (NEGATIVE) /HPF Urine Culture Reflexed YES (NO) Urine Glucose >=500 (NEGATIVE) mg/dL - Progress Progress: unchanged Progress Note: 02/06/18 13:36 The patient has a UTI and a nonfunctional or at least intermittently functional suprapubic catheter. I spoke with the home health care nurse about replacing the catheter. She will come to the patient's home late this afternoon and replace it. In the meantime the patient will begin antibiotic treatment. Counseled pt/family regarding: diagnosis, need for follow-up - Departure Time of Disposition: 13:37 Departure Disposition: Home Clinical Impression: UTI (urinary tract infection) Condition: Stable Critical Care Time: No Referrals: EREN RODRÍGUEZ [Primary Care Provider] - Additional Instructions: You have a suprapubic catheter that is only functioning intermittently. You also have a UTI. You were given Rocephin 1 g IM in the ER. Take Keflex 500 mg 4 times a day for 7 days. As you know, I spoke with the home health nurse and she will arrive at your home noted this afternoon to change the suprapubic catheter. Follow-up with the urology nurse practitioner as scheduled next . Prescriptions: Cephalexin Mh 500 mg [Keflex 500 mg] 1 cap PO QID #28 capsule
--- NOTE | 2018-02-06 11:14 | XRAY ---
Indication: Cough. Comparison: July 30, 2017. Portable chest demonstrates minimal left midlung atelectasis/scarring with stable left infrahilar calcified nodes. No focal infiltrate, consolidation, or large effusion. Heart is not enlarged again with heavy mitral valve calcifications. Bony thorax intact again with mild osteopenia and degenerative changes. Impression: Nonacute chest with chronic features.
[2018-02-06 11:33] LABS: BASOPHIL % 0.2 % (0.0-0.4); Basophil (Absolute #) 0.02 (0-0.4); Eosinophil (Absolute #) 0.25 (0-0.5); Granulocyte Absolute (ANC) 5.93 (1.4-6.9); Granulocytes % 70.9 % (36.0-66.0); Hematocrit 35.1 % (35-47); Hemoglobin 10.8 gm/dl (12.0-16.0); Lymphocyte (Absolute #) 1.59 (1.0-4.6); Mean Cell Volume 87.8 fl (78-100); Mean Corpuscular Hgb Concent. 30.8 g/dl (32-36); Monocyte (Absolute #) 0.58 (0.0-1.3); Monocytes % 6.9 % (0.0-12.0); Platelet Count 226 K/mm3 (150-450); Red Cell Distribution Width 15.8 % (11.5-14.0); White Blood Count 8.4 K/mm3 (4.0-10.5)
[2018-02-06 11:51] LABS: ANION GAP 11.6 MEQ/L (5-15); Calcium 8.8 mg/dL (8.4-10.2); Creatinine 1 1.54 mg/dL (0.52-1.04)
[2018-02-06 12:55] LABS: Appearance SLIGHTLY CLOUDY (CLEAR); Bilirubin NEGATIVE (NEGATIVE); Blood LARGE Ery/ul (0-5); Glucose >=500 mg/dL (NEGATIVE); Ketones NEGATIVE (NEGATIVE); Leukocyte Esterase LARGE (NEGATIVE); Nitrite NEGATIVE (NEGATIVE); Protein,Urine Dip 100 (Negative); Specific Gravity 1.012 (1.005-1.025); Urobilinogen NEGATIVE mg/dL (0-1)
[2018-02-06 12:59] VITALS: BP 175/92; PULSE 85
[2018-02-06] MEDS ORDERED: Rocephin 1000 MG INJ IM ONE (13:39)
[2018-02-06 13:41] VITALS: O2SAT 99
[2018-02-06] MEDS ORDERED: Rocephin 1000 MG INJ ONE (13:46)
== END 2018-02-06 14:08 | disposition home or self-care (01) ==
LOC: ED 10:08
DX: N39.0 Urinary tract infection, site not specified (principal); T83.018A Breakdown (mechanical) of other urinary catheter, initial encounter; Z79.899 Other long term (current) drug therapy; E11.9 Type 2 diabetes mellitus without complications; Z79.4 Long term (current) use of insulin
CPT/HCPCS: 36415; 71045; 80048; 81001; 85025; 87077; 87086; 87186; 96372; 99284; J0696

== ENCOUNTER 2018-06-03 09:55 | Emergency (ER) | payer MEDICARE, OTHER ==
[2018-06-03] MEDS ORDERED: Zofran 4 MG/2 ML VIAL IV ONE (10:17)
--- NOTE | 2018-06-03 10:25 | ERPHSYRPT ---
- History of Present Illness Time Seen by Provider: 06/03/18 10:03 Historian: patient, family, old records Exam Limitations: no limitations Physician History: patient presents with CC of Abd pain for 2-3 days intermittant with N&V x 1-2 days; also diarrhea x 1 week - yellow ; no fever; no chills; no trauma or travel ; no change in meds other then stopped stool softners when diarrhea started Timing/Duration: yesterday (pain wiht N&V started), week(s) (one onset diarhea) , intermittent, worse Activities at Onset: none Quality: cramping, sharpness Abdominal Pain Onset Location: RUQ Pain Radiation: no radiation Severity of Pain-Max: severe Severity of Pain-Current: mild Modifying Factors: Improves With: vomiting, other (belching) Associated Symptoms: diarrhea, loss of appetite, nausea, vomiting Previous symptoms: no prior history Allergies/Adverse Reactions: tramadol Allergy (Mild, Verified 06/03/18 10:26) dizzy Home Medications: Aspirin 81 gm Chew [Baby Aspirin 81 mg Chew] 81 mg PO HS 01/01/14 [History ] Donepezil HCl [Aricept] 5 mg PO DAILY 01/01/14 [History] Furosemide [Lasix] 40 mg PO DAILY 01/01/14 [History] Potassium Chloride 10 Meq Tab* [Klor Con 10 MEQ] 10 meq PO HS 01/01/14 [ History] Insulin Aspart [NovoLOG Insulin] 15 unit SQ TID 05/27/14 [History] Insulin Glargine [Lantus Insulin] 45 unit SQ HS 05/27/14 [History] Liraglutide [Victoza 2-Ang] 1.8 mg SQ DAILY 07/30/17 [History] Methenamine 1 gm MC BID 07/30/17 [History] Solifenacin Succinate [Vesicare] 10 mg PO DAILY 07/30/17 [History] Venlafaxine HCl ER 75 mg [Effexor XR 75 MG] 75 mg PO DAILY 07/30/17 [ History] Docusate Sodium [Stool Softener] 100 mg PO DAILY PRN 12/01/17 [History] Metoprolol Tartrate 50 mg [Lopressor 50 MG] 50 mg PO BID 12/01/17 [History ] Simvastatin 10 mg [Zocor 10MG] 10 mg PO QPM 12/01/17 [History] Trazodone HCl 50 mg [Desyrel 50 mg] 150 mg PO HS 12/01/17 [History] Ferrous Sulfate 325 mg [Feosol 325 mg] 65 mg PO DAILY 02/06/18 [History] Omeprazole 40 mg PO DAILY 02/06/18 [History] Metformin HCl 500 mg [Glucophage 500 MG] 500 mg PO BIDWM 06/03/18 [History ] Mirabegron [Myrbetriq] 50 mg PO DAILY 06/03/18 [History] Hx Tetanus, Diphtheria Vaccination/Date Given: Yes Hx Influenza Vaccination/Date Given: Yes Hx Pneumococcal Vaccination/Date Given: No - Review of Systems Constitutional: No Symptoms Eyes: No Symptoms Ears, Nose, & Throat: No Symptoms Respiratory: No Cough, No Dyspnea, No Wheezing Cardiac: No Chest Pain, No Palpitations, No Syncope Abdominal/Gastrointestinal: Abdominal Pain, Nausea, Vomiting (bile), Diarrhea ( yellow), No Constipation, No Hematemesis, No Hematochezia, No Melena Genitourinary Symptoms: Other (indwelling catheter not changed this week) Musculoskeletal: Arthralgias, No Fall, No Injury, No Joint Redness, No Joint Pain Skin: No Symptoms Neurological: No Symptoms Psychological: Emotional Lability (increased recently), No Alcohol Abuse, No Drug Abuse, No Suicidal Ideations, No Homicidal Ideations, No Hallucinations Endocrine: No Symptoms Hematologic/Lymphatic: No Symptoms Immunological/Allergic: No Symptoms - Past Medical History Pertinent Past Medical History: Yes Neurological History: No Pertinent History ENT History: Cataracts Cardiac History: High Cholesterol, Hypertension, Myocardial Infarction ([place]) Respiratory History: COPD Endocrine Medical History: Diabetes Type II Musculoskeletal History: Arthritis, Fractures GI Medical History: Polyps History: Renal Disease, Other Psycho-Social History: Bipolar, Depression Female Reproductive Disorders: No Pertinent History Other Medical History: daughter states "she is difficulty at times and won't do what she is told" "going to try to get her to take the bowel prep" - Past Surgical History Past Surgical History: Yes Neuro Surgical History: No Pertinent History Cardiac: Cardiac Catheterization, Cardiac Stent Respiratory: No Pertinent History Gastrointestinal: No Pertinent History Genitourinary: No Pertinent History Musculoskeletal: Joint Replacement Female Surgical History: Hysterectomy Other Surgical History: SEVERAL STENTS. SURGERY ON BOTH FEET FROM CLUB FEET - Social History Smoking Status: Former smoker How long have you smoked: 55 Exposure to second hand smoke: No Alcohol Use: None Drug Use: none Patient Lives Alone: Yes Significant Family History: heart disease, diabetes, hypertension - Female History Hx Now: No - Nursing Vital Signs Nursing Vital Signs: Initial Vital Signs Temperature 97.5 F 06/03/18 10:09 Pulse Rate 83 06/03/18 10:09 Blood Pressure 153/101 06/03/18 10:09 O2 Sat by Pulse Oximetry 96 06/03/18 10:09 Pain Scale Pain Intensity 0 - Physical Exam General Appearance: mild distress, alert, obese (morbid) Eye Exam: PERRL/EOMI, eyes nml inspection, No photophobia Ears, Nose, Throat Exam: normal ENT inspection, TMs normal, pharynx normal, dry mucous membranes, No pharyngeal erythema, No tonsillar exudate Neck Exam: normal inspection, non-tender, supple, full range of motion, No meningismus, No JVD Respiratory Exam: normal breath sounds, lungs clear, airway intact, No chest tenderness, No respiratory distress, No crackles/rales, No rhonchi, No wheezing Cardiovascular Exam: regular rate/rhythm, normal heart sounds, normal peripheral pulses, capillary refill <2 sec, edema, No murmur Gastrointestinal/Abdomen Exam: soft, normal bowel sounds, tenderness (RUQ> LLQ; ), distention (minimal), guarding (RUQ only), hernia (small soft umbilical easily reducible), No mass, No rebound, No hepatomegaly, No organomegaly Pelvic Exam: deferred Rectal Exam: deferred Back Exam: normal inspection, normal range of motion, No CVA tenderness, No vertebral tenderness, No decreased range of motion Extremity Exam: normal inspection, normal range of motion, pelvis stable, pedal edema (3+ bialteral), No rose marie's sign, No joint swelling Neurologic Exam: alert, oriented x 3, cooperative, dinkey operator II-XII nml as tested, normal mood/affect, nml cerebellar function, sensation nml, No nml station & gait (du to obesity; inswelling catheter and general aches and pains) Skin Exam: normal color, warm, dry, No rash, No petechiae, No cyanosis Lymphatic Exam: No adenopathy SpO2 Interpretation: normal SpO2: 96 O2 Delivery: Room Air - Course Nursing assessment & vital signs reviewed: Yes - CT Exams Abdomen/Pelvis CT Interpretation: Tele-radiologist Report, Other (renal cysts; diverticulosis; small umbilical hernia) - Radiology Ultrasound Exam Gallbladder Ultrasound: tele radiology report, negative (for stones), Other (multiple renal cysts and a fatty pancreas) Ordered Tests: Active Orders 24 hr Category Date Time Status IV Insertion STAT Care 06/03/18 10:17 Active NPO (ED) STAT Care 06/03/18 10:17 Active Re-Check Vital Signs STAT Care 06/03/18 10:17 Active ABDOMEN AND PELVIS W/0 CONTRAS [CT] Stat Exams 06/03/18 10:51 Ordered GALLBLADDER [US] Stat Exams 06/03/18 10:18 Completed AMYLASE Stat Lab 06/03/18 10:25 Completed CBC W DIFF Stat Lab 06/03/18 10:25 Completed CMP Stat Lab 06/03/18 10:25 Completed CULTURE,URINE Stat Lab 06/03/18 11:22 Received LIPASE Stat Lab 06/03/18 10:25 Completed Lactic Acid Stat Lab 06/03/18 10:28 Results UA W/RFX UR CULTURE Stat Lab 06/03/18 10:18 Uncollected Medication Summary Generic Name Dose Route Start Last Admin Trade Name Freq PRN Reason Stop Dose Admin Sodium Chloride 1,000 mls @ 50 mls/hr 06/03/18 10:30 06/03/18 10:51 Sodium Chloride 0.9% 1000 Ml IV 07/03/18 10:29 50 mls/hr .Q20H ROQUE Administration Discontinued Medications Generic Name Dose Route Start Last Admin Trade Name Freq PRN Reason Stop Dose Admin Ondansetron HCl 4 mg 06/03/18 10:17 06/03/18 10:51 Zofran 4 Mg/2 Ml Vial IV 06/03/18 10:18 4 mg STAT ONE Administration Ondansetron HCl Confirm 06/03/18 10:48 Zofran 4 Mg/2 Ml Vial Administered 06/03/18 10:49 Dose 4 mg .ROUTE .[employer] ONE Lab/Rad Data: Laboratory Result Diagrams 06/03/18 10:25 06/03/18 10:25 Laboratory Results 06/03/18 06/03/18 06/03/18 Range/Units 11:22 10:28 10:25 WBC (4.0-10.5) K/mm3 RBC (4.1-5.4) M/mm3 Hgb (12.0-16.0) gm/dl Hct (35-47) % MCV (78-100) fl MCH (26-32) pg MCHC (32-36) g/dl RDW (11.5-14.0) % Plt Count (150-450) K/mm3 MPV (6-9.5) fl Gran % (36.0-66.0) % Eos # (Auto) (0-0.5) Absolute Lymphs (auto) (1.0-4.6) Absolute Monos (auto) (0.0-1.3) Lymphocytes % (24.0-44.0) % Monocytes % (0.0-12.0) % Eosinophils % (0.00-5.0) % Basophils % (0.0-0.4) % Absolute Granulocytes (1.4-6.9) Basophils # (0-0.4) Sodium 138 (137-145) mmol/L Potassium 4.4 (3.5-5.1) mmol/L Chloride 101 (98-107) mmol/L Carbon Dioxide 28 (22-30) mmol/L Anion Gap 14.5 (5-15) MEQ/L BUN 40 H (7-17) mg/dL Creatinine 1.82 H (0.52-1.04) mg/dL Estimated GFR 29.0 ML/MIN Glucose 270 H (74-106) mg/dL Lactic Acid 2.1 H (0.4-2.0) Calcium 9.4 (8.4-10.2) mg/dL Total Bilirubin 0.40 (0.2-1.3) mg/dL AST 19 (14-36) U/L ALT 19 (0-35) U/L Alkaline Phosphatase 121 (38-126) U/L Serum Total Protein 8.3 H (6.3-8.2) g/dL Albumin 4.0 (3.5-5.0) g/dL Amylase 57 (30-110) U/L Lipase 53 (23-300) U/L Urine Color YELLOW (YELLOW) Urine Appearance CLOUDY (CLEAR) Urine pH 5.0 (5-6) Ur Specific [place] 1.016 (1.005-1.025) Urine Protein 100 (Negative) Urine Ketones NEGATIVE (NEGATIVE) Urine Blood MODERATE (0-5) David/ul Urine Nitrite POSITIVE (NEGATIVE) Urine Bilirubin NEGATIVE (NEGATIVE) Urine Urobilinogen NEGATIVE (0-1) mg/dL Ur Leukocyte Esterase LARGE (NEGATIVE) Urine WBC (Auto) >100 (0-5) /HPF Urine RBC (Auto) 51-100 (0-2) /HPF U Epithel Cells (Auto) NONE (FEW) /HPF Urine Bacteria (Auto) MANY (NEGATIVE) /HPF Amorphous Crystals FEW (NEGATIVE) /HPF Urine Mucus (Auto) SLIGHT (NEGATIVE) /HPF Urine Culture Reflexed YES (NO) Urine Glucose 50 (NEGATIVE) mg/dL 06/03/18 Range/Units 10:25 WBC 8.4 (4.0-10.5) K/mm3 RBC 4.18 (4.1-5.4) M/mm3 Hgb 11.4 L (12.0-16.0) gm/dl Hct 36.5 (35-47) % MCV 87.3 (78-100) fl MCH 27.2 (26-32) pg MCHC 31.2 L (32-36) g/dl RDW 15.7 H (11.5-14.0) % Plt Count 220 (150-450) K/mm3 MPV 9.7 H (6-9.5) fl Gran % 62.8 (36.0-66.0) % Eos # (Auto) 0.25 (0-0.5) Absolute Lymphs (auto) 2.27 (1.0-4.6) Absolute Monos (auto) 0.56 (0.0-1.3) Lymphocytes % 27.1 (24.0-44.0) % Monocytes % 6.7 (0.0-12.0) % Eosinophils % 3.0 (0.00-5.0) % Basophils % 0.4 (0.0-0.4) % Absolute Granulocytes 5.27 (1.4-6.9) Basophils # 0.03 (0-0.4) Sodium (137-145) mmol/L Potassium (3.5-5.1) mmol/L Chloride (98-107) mmol/L Carbon Dioxide (22-30) mmol/L Anion Gap (5-15) MEQ/L BUN (7-17) mg/dL Creatinine (0.52-1.04) mg/dL Estimated GFR ML/MIN Glucose (74-106) mg/dL Lactic Acid (0.4-2.0) Calcium (8.4-10.2) mg/dL Total Bilirubin (0.2-1.3) mg/dL AST (14-36) U/L ALT (0-35) U/L Alkaline Phosphatase (38-126) U/L Serum Total Protein (6.3-8.2) g/dL Albumin (3.5-5.0) g/dL Amylase (30-110) U/L Lipase (23-300) U/L Urine Color (YELLOW) Urine Appearance (CLEAR) Urine pH (5-6) Ur Specific [place] (1.005-1.025) Urine Protein (Negative) Urine Ketones (NEGATIVE) Urine Blood (0-5) David/ul Urine Nitrite (NEGATIVE) Urine Bilirubin (NEGATIVE) Urine Urobilinogen (0-1) mg/dL Ur Leukocyte Esterase (NEGATIVE) Urine WBC (Auto) (0-5) /HPF Urine RBC (Auto) (0-2) /HPF U Epithel Cells (Auto) (FEW) /HPF Urine Bacteria (Auto) (NEGATIVE) /HPF Amorphous Crystals (NEGATIVE) /HPF Urine Mucus (Auto) (NEGATIVE) /HPF Urine Culture Reflexed (NO) Urine Glucose (NEGATIVE) mg/dL reviewed - Progress Progress: improved (after meds and tests), pain not gone completely, re- examined (after tests) Progress Note: 06/03/18 10:33 will start IV; give meds; daughter at bedside; labs pending; US GB pending; will monitor and recheck 06/03/18 10:53 N&V resolved currently; daughter at bedside; GB US neg for stones- did show multiple renal cysts and a fatty pancrease; will get a CT of the Abdomen for etiology of pain; CBC ok Lactic acid slight up at 2.1; will monitor and recheck 06/03/18 11:[address]; CMP ok except BS = 270; BUN/CR = 40/ 1.82 06/03/18 11:48 daughter at bedside; discussed findings and treatment plan; instructions given Counseled pt/family regarding: lab results, diagnosis, need for follow-up, rad results - Departure Time of Disposition: 11:49 Departure Disposition: Home Clinical Impression: Diabetes mellitus, Renal insufficiency, Obesity, UTI (urinary tract infection) , Abdominal pain in female, Vomiting Condition: Stable Critical Care Time: No Referrals: EREN RODRÍGUEZ [Primary Care Provider] - Instructions: Acute Abdomen (Belly Pain), Adult (DC), Urinary Tract Infections in Adults Additional Instructions: clear fluids 12 hrs; Follow-up with family doctor as directed. Call for appointment. Return if any problems. If you smoke please stop. Call or follow up with your family doctor for assistance if you need it to stop. Please wear your seatbelt when driving. Have a nice day. Thank you for allowing us to participate in your care today. :o) Dr Irvin Davila Prescriptions: Sulfamethoxazole/Trimethoprim [Bactrim 400-80 mg Tablet] 1 each PO BID #20 tablet
[2018-06-03 10:29] LABS: Lactic Acid 2.1 (0.4-2.0)
[2018-06-03] MEDS ORDERED: Sodium Chloride 0.9% 1000 ML 1,000 ML IV SCH (10:30)
[2018-06-03 10:38] LABS: BASOPHIL % 0.4 % (0.0-0.4); Basophil (Absolute #) 0.03 (0-0.4); Eosinophil (Absolute #) 0.25 (0-0.5); Granulocyte Absolute (ANC) 5.27 (1.4-6.9); Granulocytes % 62.8 % (36.0-66.0); Hematocrit 36.5 % (35-47); Hemoglobin 11.4 gm/dl (12.0-16.0); Lymphocyte (Absolute #) 2.27 (1.0-4.6); Lymphocytes % 27.1 % (24.0-44.0); Mean Cell Volume 87.3 fl (78-100); Mean Corpuscular Hemoglobin 27.2 pg (26-32); Mean Corpuscular Hgb Concent. 31.2 g/dl (32-36); Mean Platelet Volume 9.7 fl (6-9.5); Monocyte (Absolute #) 0.56 (0.0-1.3); Monocytes % 6.7 % (0.0-12.0); Platelet Count 220 K/mm3 (150-450); Red Blood Count 4.18 M/mm3 (4.1-5.4); Red Cell Distribution Width 15.7 % (11.5-14.0); White Blood Count 8.4 K/mm3 (4.0-10.5)
[2018-06-03 10:46] LABS: ANION GAP 14.5 MEQ/L (5-15); BILIRUBIN,TOTAL 0.4 mg/dL (0.2-1.3); Calcium 9.4 mg/dL (8.4-10.2); Creatinine 1 1.82 mg/dL (0.52-1.04); Potassium 4.4 mmol/L (3.5-5.1); Total Protein 8.3 g/dL (6.3-8.2)
[2018-06-03] MEDS ORDERED: Sodium Chloride 0.9% 1000 ML 1,000 ML ONE (10:48)
[2018-06-03] MEDS ORDERED: Zofran 4 MG/2 ML VIAL ONE (10:48)
--- NOTE | 2018-06-03 11:20 | XRAY ---
Indication: Right upper quadrant pain/tenderness. Nausea and vomiting. Two-dimensional gallbladder sonogram performed. Comparison: April 22, 2008. Gallbladder normally distended again without gallstones, wall thickening, or pericholecystic fluid. Common bile duct measures 5.1 mm. No intrahepatic biliary distention. Right kidney measures 8.8 x 4.6 x 5.4 cm with a few new cysts, largest 2.9 cm. Remaining visualized portions of the liver and pancreas appear sonographically unremarkable. No ascites. Impression: 1. New right renal cysts. 2. Remaining gallbladder sonogram is negative.
[2018-06-03 11:35] LABS: Amourphous Crystal FEW /HPF (NEGATIVE); Appearance CLOUDY (CLEAR); Bacteria MANY /HPF (NEGATIVE); Bilirubin NEGATIVE (NEGATIVE); Blood MODERATE Ery/ul (0-5); Glucose 50 mg/dL (NEGATIVE); Ketones NEGATIVE (NEGATIVE); Leukocyte Esterase LARGE (NEGATIVE); Mucus SLIGHT /HPF (NEGATIVE); Nitrite POSITIVE (NEGATIVE); Protein,Urine Dip 100 (Negative); RBC 51-100 /HPF (0-2); Specific Gravity 1.016 (1.005-1.025); Urobilinogen NEGATIVE mg/dL (0-1); WBC >100 /HPF (0-5)
--- NOTE | 2018-06-03 11:40 | XRAY ---
Indication: Abdomen pain 2-3 days. Intermittent nausea and vomiting. Diarrhea. Multiple contiguous axial images obtained through the abdomen and pelvis without contrast as ordered. Comparison: September 07, 2009. Lung bases again demonstrates minimal bibasilar atelectasis/scarring, left posterior gutter calcified granuloma, and chunky left infrahilar calcified nodes. No infiltrate or effusion. Heart is not enlarged again with mitral valve and coronary calcifications. Interval left hip arthroplasty with bipolar prosthesis producing beam artifact limiting this level. Noncontrasted stomach and bowel loops appear nonobstructed. Appendix not seen. There are now scattered descending and sigmoid diverticulosis. Again previous hysterectomy. Again there are bilateral renal cysts, largest left upper pole today measuring 5.1 cm, previously 3.1 cm. Also new 3.4 cm right lower pole exophytic cyst. New small bilateral perinephric fluid/stranding as seen with obstructive uropathy as well as inflammatory/infectious process. However no renal calculus or hydronephrosis. New suprapubic catheter in situ. Stable hepatic/splenic calcified granulomas. Remaining liver, gallbladder, pancreas, spleen, adrenal glands, kidneys, and ureters are unremarkable for noncontrast exam. Again mild scattered aortoiliac calcifications without AAA. Osseous structures again demonstrates mild/moderate multilevel degenerative spondylosis and mild levoscoliosis. New small fatty umbilical hernia. Impression: 1. New left hip arthroplasty with prosthesis producing extreme beam artifact limiting this level. 2. Again bilateral renal cysts with enlarging left upper pole exophytic cyst. Also new right lower pole exophytic cyst, new small bilateral perinephric fluid/stranding, and new suprapubic catheter in situ. Negative solid renal mass or evidence for obstructive uropathy on this noncontrast exam. 3. New descending/sigmoid diverticulosis without diverticulitis and new small fatty umbilical hernia. 4. Again heavy mitral valve calcifications and evidence for old granulomatous disease. CT DI 23.68
[2018-06-03 12:09] VITALS: BP 100/57; PULSE 89; O2SAT 93
== END 2018-06-03 12:25 | disposition home or self-care (01) ==
LOC: ED 09:55
DX: E11.9 Type 2 diabetes mellitus without complications (principal); N28.9 Disorder of kidney and ureter, unspecified; E66.01 Morbid (severe) obesity due to excess calories; N39.0 Urinary tract infection, site not specified; R10.9 Unspecified abdominal pain; I10 Essential (primary) hypertension; R11.10 Vomiting, unspecified; J44.9 Chronic obstructive pulmonary disease, unspecified; E78.00 Pure hypercholesterolemia, unspecified; F31.9 Bipolar disorder, unspecified; K63.5 Polyp of colon; Z79.899 Other long term (current) drug therapy; I25.2 Old myocardial infarction
CPT/HCPCS: 36000; 36415; 74176; 76705; 80053; 81001; 82150; 83605; 83690; 85025; 87077; 87086; 87186; 96374; 99284; J2405

== ENCOUNTER 2018-10-22 08:30 | Inpatient (IN) | payer MEDICARE, OTHER ==
[2018-10-22] MEDS ORDERED: Sodium Chloride 0.9% 1000 ML 1,000 ML IV SCH (09:00)
--- NOTE | 2018-10-22 09:18 | ERPHSYRPT ---
- History of Present Illness Time Seen by Provider: 10/22/18 08:45 Source: patient, family, EMS Exam Limitations: clinical condition Patient Subjective Stated Complaint: PT states "they tell my I fell last night. ". Pt Daughter states "She moved an oak dresser 6 inches, her walker was 4 feet in front of her and she has all these new bruises on her from last night." Triage Nursing Assessment: PT presented via medic 1 and placed in room 4. PT alert and oriented X 3, skin pwd. Pt has bruising noted to left arm, chest, left chin, right hand. PT in no apparent respiratory confused. Physician History: PATIENT WITH A HISTORY OF DEMENTIA, CORONARY ARTERY DISEASE, MYOCARDIAL INFARCTION WITH 9 STENTS, TYPE 2 DIABETES, HYPERTENSION, MORBIDLY OBESE, WAS FOUND ON FLOOR SINCE LAST NIGHT AFTER FALL. PATIENT DENIES PAIN, HEADACHE, NECK PAIN BUT HAS BRUISING OVER FACE, CHEST AND EXTREMITIES. Occurred: yesterday Reason for Fall: lost balance (WHILE ATTEMPTING TO MOVE DRESSER) Injuries/Pain Location: upper extremity, chest Loss of Consciousness: other (UNKNOWN) Severity of Pain-Max: none Severity of Pain-Current: none Modifying Factors: Improves With: nothing Associated Symptoms (Fall): denies symptoms Allergies/Adverse Reactions: tramadol Allergy (Mild, Verified 06/03/18 10:26) dizzy Home Medications: Aspirin 81 gm Chew [Baby Aspirin 81 mg Chew] 81 mg PO HS 01/01/14 [History ] Donepezil HCl [Aricept] 5 mg PO DAILY 01/01/14 [History] Furosemide [Lasix] 40 mg PO DAILY 01/01/14 [History] Potassium Chloride 10 Meq Tab* [Klor Con 10 MEQ] 10 meq PO HS 01/01/14 [ History] Insulin Aspart [NovoLOG Insulin] 15 unit SQ TID 05/27/14 [History] Insulin Glargine [Lantus Insulin] 45 unit SQ HS 05/27/14 [History] Liraglutide [Victoza 2-Ang] 1.8 mg SQ DAILY 07/30/17 [History] Methenamine 1 gm MC BID 07/30/17 [History] Solifenacin Succinate [Vesicare] 10 mg PO DAILY 07/30/17 [History] Venlafaxine HCl ER 75 mg [Effexor XR 75 MG] 75 mg PO DAILY 07/30/17 [ History] Docusate Sodium [Stool Softener] 100 mg PO DAILY PRN 12/01/17 [History] Metoprolol Tartrate 50 mg [Lopressor 50 MG] 50 mg PO BID 12/01/17 [History ] Simvastatin 10 mg [Zocor 10MG] 10 mg PO QPM 12/01/17 [History] Trazodone HCl 50 mg [Desyrel 50 mg] 150 mg PO HS 12/01/17 [History] Ferrous Sulfate 325 mg [Feosol 325 mg] 65 mg PO DAILY 02/06/18 [History] Omeprazole 40 mg PO DAILY 02/06/18 [History] Mirabegron [Myrbetriq] 50 mg PO DAILY 06/03/18 [History] Hx Tetanus, Diphtheria Vaccination/Date Given: Yes Hx Influenza Vaccination/Date Given: Yes Hx Pneumococcal Vaccination/Date Given: No Immunizations Up to Date: Yes - Review of Systems Constitutional: No Fever, No Chills Eyes: No Symptoms Ears, Nose, & Throat: No Symptoms Respiratory: No Symptoms, No Cough, No Dyspnea Cardiac: No Symptoms, No Chest Pain, No Edema, No Syncope Abdominal/Gastrointestinal: No Symptoms, No Abdominal Pain, No Nausea, No Vomiting, No Diarrhea Genitourinary Symptoms: No Symptoms, No Dysuria Musculoskeletal: No Symptoms, No Back Pain, No Neck Pain Skin: No Rash Neurological: No Dizziness, No Focal Weakness, No Sensory Changes Psychological: No Symptoms Endocrine: No Symptoms All Other Systems: Reviewed and Negative - Past Medical History Pertinent Past Medical History: Yes Neurological History: No Pertinent History ENT History: Cataracts Cardiac History: High Cholesterol, Hypertension, Myocardial Infarction (NH) Respiratory History: COPD Endocrine Medical History: Diabetes Type II Musculoskeletal History: Arthritis, Fractures GI Medical History: Polyps History: Renal Disease, Other Psycho-Social History: Bipolar, Depression Female Reproductive Disorders: No Pertinent History Other Medical History: daughter states "she is difficulty at times and won't do what she is told" "going to try to get her to take the bowel prep" - Past Surgical History Past Surgical History: Yes Neuro Surgical History: No Pertinent History Cardiac: Cardiac Catheterization, Cardiac Stent Respiratory: No Pertinent History Gastrointestinal: No Pertinent History Genitourinary: No Pertinent History Musculoskeletal: Joint Replacement Female Surgical History: Hysterectomy Other Surgical History: SEVERAL STENTS. SURGERY ON BOTH FEET FROM CLUB FEET - Social History Smoking Status: Former smoker How long have you smoked: 55 Exposure to second hand smoke: Yes Alcohol Use: None Drug Use: none Patient Lives Alone: Yes Significant Family History: heart disease, diabetes, hypertension - Female History Hx Now: No - Nursing Vital Signs Nursing Vital Signs: Initial Vital Signs Temperature 97.8 F 10/22/18 08:31 Pulse Rate 116 H 10/22/18 08:31 Respiratory Rate 20 10/22/18 08:31 Blood Pressure 151/98 10/22/18 08:31 O2 Sat by Pulse Oximetry 96 10/22/18 08:31 Pain Scale Pain Intensity 0 - Shea Coma Score Best Eye Response (Shea): (4) open spontaneously Best Verbal Response (Shea): (5) oriented Best Motor Response (Shea): (6) obeys commands Shea Total: 15 - Physical Exam General Appearance: no apparent distress, alert Head Injury: ecchymosis (OVER LEFT MANDIBLE), swelling, tenderness Eye Exam: PERRL/EOMI ENT Exam: airway nml Neck Exam: normal inspection, No tenderness Respiratory/Chest Exam: chest tenderness, normal breath sounds, ecchymosis ( ECCHYMOSIS WITH TENDERNESS ACROSS ANTERIOR CHEST WALL, 3RD TO 6TH RIBS WITH TENDERNESS AND STERNAL TENDERNESS), No respiratory distress Cardiovascular Exam: normal heart sounds, regular rate/rhythm Gastrointestinal Exam: soft, normal bowel sounds, tenderness (LEFT UPPER QUAD, NO PALBABLE), No distention, No guarding, No ecchymosis Back Exam: normal inspection, No vertebral tenderness Extremity Exam: normal range of motion, pelvis stable, bony point tenderness ( SLIGHT ECCHYMOSIS OVER LEFT HAND PROXIMAL TO DISTAL 5TH METATARSAL, THERE IS MARKED BILATERAL CALF TENDERNESS, 2+ PITTING EDEMA), No deformities Peripheral Pulses: carotid (R): 2+, carotid (L): 2+, femoral (R): 2+, femoral (L ): 2+, dorsalis-pedis (R): 2+, dorsalis-pedis (L): 2+ Neurologic Exam: alert, oriented x 3, cooperative, sensation nml, No motor deficits Skin Exam: normal color, warm, dry SpO2 Interpretation: normal SpO2: 96 O2 Delivery: Room Air - Course EKG Interpreted by Me: RATE, Sinus Rhythm, Sinus Tach, Left Garretson Deviation, Non- specific ST Changes - Radiology Exams Left Hand X-ray Interpretation: Discussed w/ radiologist, Negative, No Fracture - CT Exams Head CT Interpretation: Discussed w/radiologist, No/Intracranial Hemorrhag Maxillofacial Bones CT Interpretation: Discussed w/radiologist, No Fracture (LEFT TMJ DEGENERATIVE ARTHRITIS) Chest CT Interpretation: Discussed w/radiologist, No Fracture, Other (THERE IS AN 11MM RIGHT LOWER LOBE NONCALCIFIED SPICULATED NODULE) Cervical Spine CT Interpretation: Discussed w/radiologist, No Fracture Ordered Tests: Active Orders 24 hr Category Date Time Status ACCUCHECK [Accucheck] STAT Care 10/22/18 13:03 Ordered Statement Clerks Supervisor STAT Care 10/22/18 09:04 Active EKG-ER Only STAT Care 10/22/18 09:00 Active IV Insertion STAT Care 10/22/18 09:00 Active ABDOMEN AND PELVIS W/0 CONTRAS [CT] Stat Exams 10/22/18 09:45 Completed CERVICAL SPINE WO CONTRAST [CT] Stat Exams 10/22/18 09:02 Completed CHEST WITHOUT CONTRAST [CT] Stat Exams 10/22/18 09:46 Completed FACIAL BONES WO CONTRAST [CT] Stat Exams 10/22/18 09:02 Completed HAND (MINIMUM 3 VIEWS) Stat Exams 10/22/18 09:05 Completed HEAD WITHOUT CONTRAST [CT] Stat Exams 10/22/18 09:02 Completed VENOUS BILATERAL EXTREMITY [US] Stat Exams 10/22/18 11:07 Completed AMYLASE Stat Lab 10/22/18 09:30 Completed BLOOD CULTURE Stat Lab 10/22/18 11:10 Received CBC W DIFF Stat Lab 10/22/18 09:30 Completed CMP Stat Lab 10/22/18 09:30 Completed CULTURE,URINE Stat Lab 10/22/18 10:00 Received LIPASE Stat Lab 10/22/18 09:30 Completed Lactic Acid Stat Lab 10/22/18 09:08 Completed MAGNESIUM Stat Lab 10/22/18 09:30 Completed PROTIME WITH INR Stat Lab 10/22/18 09:30 Completed TROPONIN Q3H Lab 10/22/18 09:15 Completed TROPONIN Q3H Lab 10/22/18 15:15 Ordered TROPONIN Q3H Lab 10/22/18 18:15 Ordered TROPONIN Q3H Lab 10/22/18 21:15 Ordered UA W/RFX UR CULTURE Stat Lab 10/22/18 10:00 Completed Medication Summary Generic Name Dose Route Start Last Admin Trade Name Doreen PRN Reason Stop Dose Admin Sodium Chloride 1,000 mls @ 20 mls/hr 10/22/18 09:00 10/22/18 09:21 Sodium Chloride 0.9% 1000 Ml IV 11/21/18 08:59 20 mls/hr .Q24H ROQUE Administration Discontinued Medications Generic Name Dose Route Start Last Admin Trade Name Doreen PRN Reason Stop Dose Admin Fentanyl Citrate 25 mcg 10/22/18 09:55 10/22/18 10:07 Sublimaze 100 Mcg/2 Ml IV 10/22/18 09:56 25 mcg STAT ONE Administration Fentanyl Citrate Confirm 10/22/18 10:06 Sublimaze 100 Mcg/2 Ml Administered 10/22/18 10:07 Dose 100 mcg .ROUTE .STK-MED ONE Ceftriaxone Sodium/Dextrose 2 g in 50 mls @ 100 mls/hr 10/22/18 10:39 10:53 Rocephin 2 Gm-D5w 50ml Bag IV 10/22/18 11:08 50 mls/hr STAT STA 50 mls/hr Administration Ceftriaxone Sodium/Dextrose Confirm 10/22/18 10:46 Rocephin 2 Gm-D5w 50ml Bag Administered 10/22/18 10:47 Dose 2 g in 50 mls @ ud IV .STK-MED ONE Insulin Human Regular 4 unit 10/22/18 10:41 10/22/18 10:53 Novolin R IV 10/22/18 10:42 4 unit STAT ONE Administration Insulin Human Regular Confirm 10/22/18 10:46 Novolin R Administered 10/22/18 10:47 Dose 4 unit .ROUTE .STK-MED ONE Ondansetron HCl 4 mg 10/22/18 09:54 10/22/18 10:07 Zofran 4 Mg/2 Ml Vial IV 10/22/18 09:55 4 mg STAT ONE Administration Ondansetron HCl Confirm 10/22/18 10:06 Zofran 4 Mg/2 Ml Vial Administered 10/22/18 10:07 Dose 4 mg .ROUTE .STK-MED ONE Lab/Rad Data: Laboratory Result Diagrams 10/22/18 09:30 10/22/18 09:30 Laboratory Results 10/22/18 10/22/18 10/22/18 Range/Units 10:00 09:30 09:30 WBC (4.0-10.5) K/mm3 RBC (4.1-5.4) M/mm3 Hgb (12.0-16.0) gm/dl Hct (35-47) % MCV (78-100) fl MCH (26-32) pg MCHC (32-36) g/dl RDW (11.5-14.0) % Plt Count (150-450) K/mm3 MPV (6-9.5) fl Gran % (36.0-66.0) % Eos # (Auto) (0-0.5) Absolute Lymphs (auto) (1.0-4.6) Absolute Monos (auto) (0.0-1.3) Lymphocytes % (24.0-44.0) % Monocytes % (0.0-12.0) % Eosinophils % (0.00-5.0) % Basophils % (0.0-0.4) % Absolute Granulocytes (1.4-6.9) Basophils # (0-0.4) PT 11.8 (9.95-12.35) SECONDS INR 1.04 (0.8-3.0) Sodium 140 (137-145) mmol/L Potassium 4.7 (3.5-5.1) mmol/L Chloride 104 (98-107) mmol/L Carbon Dioxide 27 (22-30) mmol/L Anion Gap 13.1 (5-15) MEQ/L BUN 48 H (7-17) mg/dL Creatinine 1.71 H (0.52-1.04) mg/dL Estimated GFR 31.1 ML/MIN Glucose 361 H (74-106) mg/dL Lactic Acid (0.4-2.0) Calcium 9.5 (8.4-10.2) mg/dL Magnesium 1.6 (1.6-2.3) mg/dL Total Bilirubin 0.40 (0.2-1.3) mg/dL AST 29 (14-36) U/L ALT 17 (0-35) U/L Alkaline Phosphatase 123 (38-126) U/L Troponin I (0.000-0.034) ng/mL Serum Total Protein 8.1 (6.3-8.2) g/dL Albumin 3.9 (3.5-5.0) g/dL Amylase 79 (30-110) U/L Lipase 64 (23-300) U/L Urine Color YELLOW (YELLOW) Urine Appearance CLOUDY (CLEAR) Urine pH 6.0 (5-6) Ur Specific [place] 1.013 (1.005-1.025) Urine Protein 100 (Negative) Urine Ketones TRACE (NEGATIVE) Urine Blood LARGE (0-5) David/ul Urine Nitrite NEGATIVE (NEGATIVE) Urine Bilirubin NEGATIVE (NEGATIVE) Urine Urobilinogen NEGATIVE (0-1) mg/dL Ur Leukocyte Esterase LARGE (NEGATIVE) Urine WBC (Auto) >100 (0-5) /HPF Urine RBC (Auto) 26-50 (0-2) /HPF U Epithel Cells (Auto) RARE (FEW) /HPF Urine Bacteria (Auto) MODERATE (NEGATIVE) /HPF Urine Mucus (Auto) SLIGHT (NEGATIVE) /HPF Urine Culture Reflexed ORDERED SEPARATELY (NO) Urine Glucose >=500 (NEGATIVE) mg/dL 10/22/18 10/22/18 10/22/18 Range/Units 09:30 09:15 09:08 WBC 12.0 H (4.0-10.5) K/mm3 RBC 4.38 (4.1-5.4) M/mm3 Hgb 12.4 (12.0-16.0) gm/dl Hct 38.6 (35-47) % MCV 88.1 (78-100) fl MCH 28.3 (26-32) pg MCHC 32.1 (32-36) g/dl RDW 15.8 H (11.5-14.0) % Plt Count 216 (150-450) K/mm3 MPV 10.2 H (6-9.5) fl Gran % 84.7 H (36.0-66.0) % Eos # (Auto) 0.08 (0-0.5) Absolute Lymphs (auto) 1.07 (1.0-4.6) Absolute Monos (auto) 0.65 (0.0-1.3) Lymphocytes % 8.9 L (24.0-44.0) % Monocytes % 5.4 (0.0-12.0) % Eosinophils % 0.7 (0.00-5.0) % Basophils % 0.3 (0.0-0.4) % Absolute Granulocytes 10.16 H (1.4-6.9) Basophils # 0.03 (0-0.4) PT (9.95-12.35) SECONDS INR (0.8-3.0) Sodium (137-145) mmol/L Potassium (3.5-5.1) mmol/L Chloride (98-107) mmol/L Carbon Dioxide (22-30) mmol/L Anion Gap (5-15) MEQ/L BUN (7-17) mg/dL Creatinine (0.52-1.04) mg/dL Estimated GFR ML/MIN Glucose (74-106) mg/dL Lactic Acid 1.8 (0.4-2.0) Calcium (8.4-10.2) mg/dL Magnesium (1.6-2.3) mg/dL Total Bilirubin (0.2-1.3) mg/dL AST (14-36) U/L ALT (0-35) U/L Alkaline Phosphatase (38-126) U/L Troponin I 0.034 (0.000-0.034) ng/mL Serum Total Protein (6.3-8.2) g/dL Albumin (3.5-5.0) g/dL Amylase (30-110) U/L Lipase (23-300) U/L Urine Color (YELLOW) Urine Appearance (CLEAR) Urine pH (5-6) Ur Specific [place] (1.005-1.025) Urine Protein (Negative) Urine Ketones (NEGATIVE) Urine Blood (0-5) David/ul Urine Nitrite (NEGATIVE) Urine Bilirubin (NEGATIVE) Urine Urobilinogen (0-1) mg/dL Ur Leukocyte Esterase (NEGATIVE) Urine WBC (Auto) (0-5) /HPF Urine RBC (Auto) (0-2) /HPF U Epithel Cells (Auto) (FEW) /HPF Urine Bacteria (Auto) (NEGATIVE) /HPF Urine Mucus (Auto) (NEGATIVE) /HPF Urine Culture Reflexed (NO) Urine Glucose (NEGATIVE) mg/dL - Progress Progress Note: 10/22/18 13:09 IV NORMAL SALINE 50ML/HR, ZOFRAN 4MG, FENTANYL 25MCG IV, 10/22/18 13:22 ACCUCHECK [id number] Discussed with : Irma (DISCUSSED WITH DR HICKS AT 1323 FOR ADMISSION) - Departure Departure Disposition: In-patient Admission Clinical Impression: FREQUENT FALLS, FACIAL/CHEST CONTUSIONS, URINARY TRACT INFECTION Condition: Stable Critical Care Time: No Referrals: EREN RODRÍGUEZ [ACTIVE STAFF] -
[2018-10-22 09:26] LABS: BASOPHIL % 0.3 % (0.0-0.4); Basophil (Absolute #) 0.03 (0-0.4); Eosinophil % 0.7 % (0.00-5.0); Eosinophil (Absolute #) 0.08 (0-0.5); Granulocyte Absolute (ANC) 10.16 (1.4-6.9); Granulocytes % 84.7 % (36.0-66.0); Hematocrit 38.6 % (35-47); Hemoglobin 12.4 gm/dl (12.0-16.0); Lymphocyte (Absolute #) 1.07 (1.0-4.6); Lymphocytes % 8.9 % (24.0-44.0); Mean Cell Volume 88.1 fl (78-100); Mean Corpuscular Hemoglobin 28.3 pg (26-32); Mean Corpuscular Hgb Concent. 32.1 g/dl (32-36); Mean Platelet Volume 10.2 fl (6-9.5); Monocyte (Absolute #) 0.65 (0.0-1.3); Monocytes % 5.4 % (0.0-12.0); Platelet Count 216 K/mm3 (150-450); Red Blood Count 4.38 M/mm3 (4.1-5.4); Red Cell Distribution Width 15.8 % (11.5-14.0)
[2018-10-22 09:27] LABS: INR 1.04 (0.8-3.0); PROTIME 11.8 SECONDS (9.95-12.35)
--- NOTE | 2018-10-22 09:30 | XRAY ---
Indication: Pain following fall. Comparison: None 3 views of the left hand demonstrates osteopenia, minimal/mild degenerative changes of all IP joints, moderate degenerative changes base of 1st metacarpal, and radiocarpal joint space narrowing. No other bony, articular, or soft tissue abnormalities.
[2018-10-22 09:34] LABS: ALBUMIN 3.9 g/dL (3.5-5.0); ANION GAP 13.1 MEQ/L (5-15); BILIRUBIN,TOTAL 0.4 mg/dL (0.2-1.3); Calcium 9.5 mg/dL (8.4-10.2); Creatinine 1 1.71 mg/dL (0.52-1.04); Potassium 4.7 mmol/L (3.5-5.1); Total Protein 8.1 g/dL (6.3-8.2)
[2018-10-22 09:39] LABS: MAGNESIUM 1.6 mg/dL (1.6-2.3)
[2018-10-22] MEDS ORDERED: Zofran 4 MG/2 ML VIAL IV ONE (09:54)
[2018-10-22] MEDS ORDERED: SUBLIMAZE 100 MCG/2 ML IV ONE (09:55)
[2018-10-22] MEDS ORDERED: Zofran 4 MG/2 ML VIAL ONE (10:06)
[2018-10-22] MEDS ORDERED: SUBLIMAZE 100 MCG/2 ML ONE (10:06)
[2018-10-22 10:24] LABS: Appearance CLOUDY (CLEAR); Bacteria MODERATE /HPF (NEGATIVE); Bilirubin NEGATIVE (NEGATIVE); Blood LARGE Ery/ul (0-5); Epithelial Cells RARE /HPF (FEW); Glucose >=500 mg/dL (NEGATIVE); Ketones TRACE (NEGATIVE); Leukocyte Esterase LARGE (NEGATIVE); Mucus SLIGHT /HPF (NEGATIVE); Nitrite NEGATIVE (NEGATIVE); Protein,Urine Dip 100 (Negative); RBC 26-50 /HPF (0-2); Specific Gravity 1.013 (1.005-1.025); Urobilinogen NEGATIVE mg/dL (0-1); WBC >100 /HPF (0-5)
[2018-10-22] MEDS ORDERED: ROCEPHIN 2 Gm-D5w 50ML BAG** 2 G/50 ML IVPB IV STA (10:39)
[2018-10-22] MEDS ORDERED: NovoLIN R IV ONE (10:41)
[2018-10-22] MEDS ORDERED: NovoLIN R ONE (10:46)
[2018-10-22] MEDS ORDERED: ROCEPHIN 2 Gm-D5w 50ML BAG** 2 G/50 ML IVPB IV ONE (10:46)
--- NOTE | 2018-10-22 11:24 | XRAY ---
Indication: Bilateral calf pain and swelling. Two-dimensional sonogram and color Doppler imaging of the major venous vessels of the left and right leg was performed. Comparison: Left leg venous exam August 10, 2010. General Service Technician notes technically difficult exam due to uncooperative patient. No thrombus seen in the examined deep venous vessels of the left and right leg including greater saphenous vein. Veins demonstrate normal compressibility. Venous waveforms are normal with and without augmentation. Impression: Left and right legs again negative for DVT.
--- NOTE | 2018-10-22 12:24 | XRAY ---
Indication: Patient found on floor. Left chin bruising. History dementia. Multiple contiguous axial images obtained through the head without contrast. Comparison: June 02, 2011. A few images slightly degraded by motion artifact. Grossly stable age-appropriate global atrophy and minimal periventricular degenerative micro-ischemia. No gross acute intracranial hemorrhage, abnormal extra-axial fluid collection, or mass effect. Fourth ventricle is midline without hydrocephalus. Bony calvarium intact. Visualized paranasal sinuses and mastoid air cells are clear. Impression: Mild motion artifact. Grossly stable nonacute senile brain. CTDI 69.79
--- NOTE | 2018-10-22 12:29 | XRAY ---
Indication: Patient found on floor. Left chin bruising. History dementia. Multiple contiguous axial images obtained through the facial bones. Sagittal and coronal reformatted images obtained. Comparison: None. No acute fracture, suspicious bony lesions, or radiopaque foreign body. Orbits including roof, rose, and floors intact. Paranasal sinuses and nasal passages are clear. Mild nasal septal deviation to the right. Right upper tooth dental caries. Left TMJ demonstrate moderate degenerative changes. Visualized noncontrasted soft tissues unremarkable. CT head and CT cervical spine reported separately. Impression: 1. Negative acute facial bone fracture. 2. Incidental nasal septal deviation, right upper tooth dental caries, and left TMJ degenerative joint disease. CTDI 59.47
--- NOTE | 2018-10-22 12:33 | XRAY ---
Indication: Patient found on floor. Left chin bruising. History dementia. Multiple contiguous axial images obtained through the cervical spine. Sagittal and coronal reformatted images obtained. Comparison: None. Age-related osteopenia. Axial images are negative for acute fracture, suspicious bony lesions, or spinal canal stenosis. Mild C3-T1 degenerative endplate spurring and mild/moderate multilevel bilateral degenerative facet hypertrophy. Sagittal and coronal reformatted images demonstrates cervical lordotic reversal, positional versus paraspinal spasm. C5-T1 disc space loss. No acute compression fracture, subluxation, or jumped facet. Normal-appearing craniocervical junction. Visualized noncontrasted soft tissues demonstrates moderate bilateral carotid calcifications. CT head and CT chest reported separately. Impression: 1. Cervical lordotic reversal, positional versus paraspinal spasm. 2. Negative acute fracture/subluxation. 3. Osteopenia multilevel degenerative changes. CTDI 62.04
--- NOTE | 2018-10-22 12:51 | XRAY ---
Indication: Patient found on floor. Left chin bruising. History dementia. Multiple contiguous axial images obtained through the chest without contrast as ordered. Comparison: None. There is mild beam artifact from patient's arms. Lungs demonstrates mild bilateral dependent atelectasis and minimal scattered fibrosis/scarring bilaterally. Anterosuperior right lower lobe demonstrates 11 mm noncalcified spiculated nodule (image 35, series 3). 5 mm noncalcified nodule seen in the peripheral left upper lobe (image 33, series 3). Small left posterior gutter calcified granuloma. No infiltrate, consolidation, or effusion. Heart is not enlarged with mitral valve calcifications. Aorta is normal in course and caliber. Mild scattered vascular calcifications including coronary. Subcarinal and left hilar calcified nodes. No pathologic mediastinal lymphadenopathy. Bony thorax intact with age-related osteopenia and mild degenerative changes throughout the spine. Posterior right 9 rib demonstrates 5 mm round sclerotic lesion favoring bone island. CT abdomen reported separately. Impression: 1. Beam artifact from patient's arms. 2. 11 mm right lower lobe noncalcified spiculated nodule. Rule out malignancy. Smaller 5 mm left upper lobe noncalcified indeterminant nodule. 3. Mediastinal/hilar calcified nodes and left lower lobe calcified granuloma appearing old granulomatous disease. 4. Remaining CT chest without contrast exam is negative. CTDI 17.76
--- NOTE | 2018-10-22 12:54 | XRAY ---
Indication: Patient found on floor. Left chin bruising. History dementia. Multiple contiguous axial images obtained through the abdomen and pelvis without contrast as ordered. Comparison: June 03, 2018. There is now mild beam artifact from patient's arms. Again left hip arthroplasty with bipolar prosthesis also produces beam artifact limiting images through the pelvis. CT chest reported separately. Noncontrasted stomach and bowel loops appear nonobstructed again with descending and sigmoid diverticulosis. Stable fatty liver, hepatic/splenic calcified granulomas, bilateral renal cysts, bilateral perinephric fluid/stranding, suprapubic urinary bladder catheter, and hysterectomy. No free fluid/air. Remaining liver, gallbladder, pancreas, spleen, adrenal glands, kidneys, ureters, and bladder appear unremarkable for noncontrast exam. There remains mild scattered aortoiliac calcifications without AAA. Osseous structures intact again with osteopenia, multilevel degenerative spondylosis, and mild levoscoliosis. Stable small fatty umbilical hernia. Impression: 1. Beam artifact from patient's arms and left hip prosthesis. 2. Stable bilateral renal cysts, bilateral perinephric fluid/stranding, and suprapubic bladder catheter. 3. Stable fatty liver, descending/sigmoid diverticulosis without diverticulitis, and small fatty umbilical hernia. 4. Stable osteopenia, multilevel degenerative spondylosis, and levoscoliosis. 5. Remaining CT abdomen/pelvis without contrast exam is negative. CTDI 20.45
[2018-10-22] MEDS ORDERED: DUONEB 0.5-3 MG/3 ml Neb IH PRN (13:27)
[2018-10-22] MEDS: TYLENOL 325 MG PO PRN ×2 (15:24→22:29)
[2018-10-22] MEDS ORDERED: NovoLOG Insulin SQ SCH (16:30)
[2018-10-22] MEDS ORDERED: NovoLOG Insulin SQ PRN (17:30)
[2018-10-22] MEDS ORDERED: MEDICATION INTERVENTION MC SCH (17:30)
[2018-10-22] MEDS: solu-MEDROL 125 MG IV SCH (18:10)
[2018-10-22] MEDS ORDERED: Lantus Insulin SQ SCH (22:00)
[2018-10-22] MEDS ORDERED: BABY ASPIRIN 81 MG CHEW PO SCH (22:00)
[2018-10-22] MEDS ORDERED: ECOTRIN 81 MG PO SCH (22:00)
[2018-10-22] MEDS ORDERED: DESYREL 50 MG PO SCH (22:00)
[2018-10-22] MEDS: Ditropan 5 MG PO SCH (22:28)
[2018-10-22] MEDS: Klor Con 10 MEQ PO SCH (22:29)
[2018-10-22] MEDS: Lopressor 50 MG PO SCH (22:29)
[2018-10-22] MEDS: ENOXAPARIN SODIUM SQ SCH (22:33)
[2018-10-23] MEDS: solu-MEDROL 125 MG IV SCH ×3 (01:57→17:57)
[2018-10-23] MEDS: Sodium Chloride 0.9% 1000 ML 1,000 ML IV SCH ×3 (01:57→20:25)
[2018-10-23] MEDS: TYLENOL 325 MG PO PRN ×2 (02:39→09:23)
[2018-10-23 05:22] LABS: BASOPHIL % 0.1 % (0.0-0.4); Basophil (Absolute #) 0.01 (0-0.4); Eosinophil % 0.1 % (0.00-5.0); Eosinophil (Absolute #) 0.01 (0-0.5); Granulocyte Absolute (ANC) 8.37 (1.4-6.9); Granulocytes % 91.1 % (36.0-66.0); Hematocrit 36.6 % (35-47); Hemoglobin 11.4 gm/dl (12.0-16.0); Lymphocyte (Absolute #) 0.73 (1.0-4.6); Lymphocytes % 7.9 % (24.0-44.0); Mean Cell Volume 90.1 fl (78-100); Mean Corpuscular Hgb Concent. 31.1 g/dl (32-36); Mean Platelet Volume 10.2 fl (6-9.5); Monocyte (Absolute #) 0.07 (0.0-1.3); Monocytes % 0.8 % (0.0-12.0); Platelet Count 206 K/mm3 (150-450); Red Blood Count 4.06 M/mm3 (4.1-5.4); Red Cell Distribution Width 16.1 % (11.5-14.0); White Blood Count 9.2 K/mm3 (4.0-10.5)
[2018-10-23 05:44] LABS: ALBUMIN 3.4 g/dL (3.5-5.0); ANION GAP 12.8 MEQ/L (5-15); BILIRUBIN,TOTAL 0.3 mg/dL (0.2-1.3); Calcium 8.7 mg/dL (8.4-10.2); Creatinine 1 1.77 mg/dL (0.52-1.04); Potassium 5.6 mmol/L (3.5-5.1); Total Protein 7.3 g/dL (6.3-8.2)
[2018-10-23] MEDS ORDERED: NovoLOG Insulin IV ONE ×2 (07:00→08:30)
[2018-10-23] MEDS ORDERED: Lasix 20 MG/2 ML IV SCH (08:45)
--- NOTE | 2018-10-23 09:14 | HP ---
CHIEF COMPLAINT: Fall and could not get up. HISTORY OF PRESENT ILLNESS: The patient is a 73 year-old white female with morbid obesity and diabetes. She normally gets around with a walker at home and is on oxygen as well. Apparently she had fallen sustaining bruising to her left chin area and on her flank areas as well. Apparently the patient reports that she had been on the floor for twelve hours although someone suspected that the patient has some mild dementia. PAST MEDICAL/SURGICAL HISTORY: Otherwise significant for diabetes mellitus type 2, coronary artery disease with previous myocardial infarction. The patient's history was significant for several stents placed. 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 She had joint replacement surgery as well. HOME MEDICATIONS: Includes aspirin 81 mg a day, Aricept 5 mg daily, Lasix 40 mg a day, potassium 10 mEq a day. She uses NovoLog insulin 15 units with meals and 45 units of Lantus in the evening. She is also on Victoza 1.8 mg subcu daily, methenamine 1 gm b.i.d. The patient does have a suprapubic catheter in place. VESIcare 10 mg a day, Effexor 75 mg a day, docusate sodium for stool softener, metoprolol 50 mg b.i.d., Simvastatin 10 mg a day, Desyrel 50 mg 3 tablets at night, iron 325 mg daily, omeprazole 40 mg a day, Myrbetriq 50 mg daily. ALLERGIES: TRAMADOL. PHYSICAL EXAMINATION: The patient's vital signs on admission showed a temperature 97.8F, pulse 116, respiratory rate 20, blood pressure 151/98 with O2 saturation 96%. HEENT: Normocephalic, atraumatic. Pupils equal round reactive to light. Extraocular movements intact. Oropharynx is pink and moist. There is a bruise on the left side of the mandibular area. CHEST: Clear to auscultation with good air movement bilaterally. HEART: Regular rate and rhythm. There is some ecchymosis to the area over the left third to sixth rib area. ABDOMEN: Soft. No palpable masses. EXTREMITIES: Revealed some pitting edema. NEUROLOGIC: The patient appears to be alert and oriented x3 presently. LAB DATA AND TESTS: Lactic acid 1.8. International normalized ratio 1.04. Metabolic panel showed a sugar of 361, BUN 48, creatinine 1.71. Electrolytes normal. Liver enzymes were normal. CBC showed a white count of 12,000, hemoglobin 12.4, PLT count 216,000. Troponin was 0.034. Urine with specific gravity 1.013, yellow and cloudy. Glucose greater than 500. There was greater than 100 white blood cells per high power field and 26 to 50 red blood cells. Chronic indwelling suprapubic catheter. The patient had a creatinine of 6.91. Her x-rays showed no fractures. CT scan of the spine was essentially negative for fracture or subluxation. CT scan of the head showed normal nonacute senile brain. The patient did have venous Doppler's of both legs which were negative for deep venous thrombosis. She had CT scan of the pelvis which essentially showed stable bilateral renal cysts, fatty liver disease but was otherwise essentially negative. CT scan of the chest however did show an 11 mm right lower lobe noncalcified spiculated nodule concerning for malignancy. ASSESSMENT: A patient with fall, dehydration, worrisome possible development of rhabdomyolysis due to the patient's prolonged period of being on the floor and CPK is elevated somewhat. We have been pushing IV fluids at this time to help flush her kidneys and follow that with Lasix. The patient also has urinary tract infection from the chronic indwelling [place] catheter. She has been placed empirically on Rocephin while the cultures for blood and urine are pending. The patient has significant diabetes mellitus type 2 somewhat insulin resistant as her A1C levels are always high and now the patient also has trouble with ambulation. Will obtain OT/PT evaluations for intent of placing her in rehab after her discharge home. We will discuss with her and her family about the possibility of lung malignancy and have direction how aggressive they wish to pursue this management option. We may have to pursue this as an outpatient as I do not believe we will be able to get a CT-guided biopsy of this lesion in this facility.
[2018-10-23] MEDS: Lasix 40 MG PO SCH (09:23)
[2018-10-23] MEDS: Ditropan 5 MG PO SCH ×2 (09:23→22:01)
[2018-10-23] MEDS: ROCEPHIN 2 Gm-D5w 50ML BAG** 2 G/50 ML IVPB IV SCH (09:23)
[2018-10-23] MEDS: Protonix 40MG Tablet PO SCH (09:23)
[2018-10-23] MEDS: Lopressor 50 MG PO SCH ×2 (09:23→22:01)
[2018-10-23] MEDS: Effexor XR 75 MG PO SCH (09:32)
[2018-10-23] MEDS: ENOXAPARIN SODIUM SQ SCH (09:32)
[2018-10-23] MEDS: Aricept 10 MG PO SCH (09:33)
[2018-10-23] MEDS: ECOTRIN 81 MG PO SCH (09:33)
[2018-10-23] MEDS ORDERED: NON-FORMULARY ITEM (Donepezil Hcl [Aricept] 5 MG) PO SCH (10:00)
[2018-10-23] MEDS ORDERED: NON-FORMULARY ITEM (Omeprazole [Omeprazole] 40 MG) PO SCH (10:00)
[2018-10-23] MEDS ORDERED: Klor Con 10 MEQ PO SCH (10:00)
[2018-10-23] MEDS ORDERED: ENOXAPARIN SODIUM SQ SCH (10:00)
[2018-10-23] MEDS ORDERED: NON-FORMULARY ITEM (Solifenacin Succinate [Vesicare] 10 MG) PO SCH (10:00)
[2018-10-23] MEDS ORDERED: ECOTRIN 81 MG PO SCH (10:00)
[2018-10-23] MEDS ORDERED: NovoLOG Insulin SQ ONE (12:21)
[2018-10-23] MEDS: NovoLOG Insulin SQ PRN ×2 (16:56→20:17)
[2018-10-23] MEDS: Lantus Insulin SQ SCH (22:00)
[2018-10-23] MEDS: Klor Con 10 MEQ PO SCH (22:01)
[2018-10-23] MEDS: Desyrel 150 MG PO SCH (22:01)
[2018-10-24] MEDS: NovoLOG Insulin SQ PRN ×6 (00:09→20:19)
[2018-10-24] MEDS: solu-MEDROL 125 MG IV SCH ×3 (02:18→17:03)
[2018-10-24] MEDS: Sodium Chloride 0.9% 1000 ML 1,000 ML IV SCH ×2 (06:15→17:03)
[2018-10-24 06:24] LABS: Hematocrit 33.8 % (35-47); Hemoglobin 10.6 gm/dl (12.0-16.0); Mean Cell Volume 88.9 fl (78-100); Mean Corpuscular Hgb Concent. 31.4 g/dl (32-36); Mean Platelet Volume 10.3 fl (6-9.5); Platelet Count 186 K/mm3 (150-450); Red Cell Distribution Width 15.9 % (11.5-14.0)
[2018-10-24 06:38] LABS: Mean Corpuscular Hemoglobin 27.8 pg (26-32)
[2018-10-24 06:42] LABS: ALBUMIN 3.2 g/dL (3.5-5.0); ANION GAP 11.1 MEQ/L (5-15); BILIRUBIN,TOTAL 0.2 mg/dL (0.2-1.3); Calcium 8.6 mg/dL (8.4-10.2); Creatinine 1 1.72 mg/dL (0.52-1.04); Potassium 4.5 mmol/L (3.5-5.1); Total Protein 6.9 g/dL (6.3-8.2)
[2018-10-24 07:32] LABS: BAND 2 % (0.0-2.0); Lymphocytes 8 % (24-44); Monocyte 1 % (0.0-12.0); Neutrophils 89 % (36.0-66.0); Polychromasia 1+; Rouleau 1+; Total Cells Counted 100
[2018-10-24 07:37] LABS: Basophilic Stippling 1+
[2018-10-24 07:38] LABS: Platelet Estimate NORMAL (NORMAL)
[2018-10-24] MEDS: ROCEPHIN 2 Gm-D5w 50ML BAG** 2 G/50 ML IVPB IV SCH (09:53)
[2018-10-24] MEDS: Lopressor 50 MG PO SCH ×2 (09:54→22:28)
[2018-10-24] MEDS: Aricept 10 MG PO SCH (09:54)
[2018-10-24] MEDS: ECOTRIN 81 MG PO SCH (09:54)
[2018-10-24] MEDS: Ditropan 5 MG PO SCH ×2 (09:54→22:28)
[2018-10-24] MEDS: Lasix 40 MG PO SCH (09:54)
[2018-10-24] MEDS: Protonix 40MG Tablet PO SCH (09:54)
[2018-10-24] MEDS: Effexor XR 75 MG PO SCH (09:54)
[2018-10-24] MEDS: ENOXAPARIN SODIUM SQ SCH (09:55)
[2018-10-24] MEDS ORDERED: PHARMACY DOSING REQUEST MC ONE (11:26)
--- NOTE | 2018-10-24 11:56 | PCM.NOTE ---
Date and Time: 10/24/18 1154 Subjective Assessment: Patient is still feeling ready weak. Patient denies any fever. - Review of Systems Constitutional: No Fever, No Chills Eyes: No Symptoms Ears, Nose, & Throat: No Symptoms Respiratory: No Cough, No Short Of Breath Cardiac: No Chest Pain, No Edema, No Syncope Abdominal/Gastrointestinal: No Abdominal Pain, No Nausea, No Vomiting, No Diarrhea Genitourinary Symptoms: No Dysuria Musculoskeletal: No Back Pain, No Neck Pain Skin: No Rash Neurological: No Dizziness, No Focal Weakness, No Sensory Changes Psychological: No Symptoms Endocrine: No Symptoms Hematologic/Lymphatic: No Symptoms Immunological/Allergic: No Symptoms Objective Exam General Appearance: no apparent distress, alert Neurologic Exam: alert, oriented x 3, cooperative, normal mood/affect, nml cerebellar function, sensation nml, No motor deficits Skin Exam: normal color, warm, dry Eye Exam: PERRL, EOMI, eyes nml inspection Ears, Nose, Throat Exam: normal ENT inspection, pharynx normal, moist mucous membranes Neck Exam: normal inspection, non-tender, supple, full range of motion Respiratory Exam: normal breath sounds, lungs clear, No respiratory distress Cardiovascular Exam: regular rate/rhythm, normal heart sounds Gastrointestinal/Abdomen Exam: soft, No tenderness, No mass Extremity Exam: normal inspection, normal range of motion Back Exam: normal inspection, normal range of motion, No CVA tenderness, No vertebral tenderness Pelvic Exam: deferred Rectal Exam: deferred OBJECTIVE DATA Vital Signs: Vital Signs - 24 hr Temp Pulse Resp BP BP Pulse Ox 10/24/18 08:09 73 18 96 10/24/18 07:15 97.8 F 86 22 144/88 96 10/24/18 04:00 97.9 F 78 19 144/88 94 L 10/24/18 00:00 98.3 F 72 20 149/70 95 10/23/18 20:00 97.9 F 88 19 174/83 94 L 10/23/18 19:46 82 18 94 L 10/23/18 16:00 97.1 F 77 24 161/75 156/72 95 10/23/18 12:00 98.2 F 72 24 150/92 156/72 90 L Oxygen-Last 24 hours O2 Percentage 2 Liters = 28% Oxygen Flowrate (L/min)-RT 2 Oxygen Flowrate (L/min)-RT 2 Oxygen Flowrate (L/min)-RT 2 Pain Assessment - Last Documented Pain Intensity 6 Pain Scale Used 0-10 Pain Scale Intake and Output: Intake & Output 10/21/18 10/22/18 10/23/18 10/24/18 11:59 11:59 11:59 11:59 Intake Total 3699 3854 Output Total 3378 3300 Balance 324 554 Weight 138.346 kg 134.5 kg Lab Results: Accuchecks Date 10/24/18 Date 10/24/18 Date 10/23/18 Date 10/23/18 Time 04:15 Time 00:00 Time 20:00 Time 16:20 Accucheck Value: 384 Accucheck Value: 314 Accucheck Value: 458 Accucheck Value: 469 Lab Results-Last 24 Hours 10/23/18 10/24/18 10/24/18 Range/Units 12:30 05:30 05:30 WBC 11.0 H (4.0-10.5) K/mm3 RBC 3.80 L (4.1-5.4) M/mm3 Hgb 10.6 L (12.0-16.0) gm/dl Hct 33.8 L (35-47) % MCV 88.9 (78-100) fl MCH 27.8 (26-32) pg MCHC 31.4 L (32-36) g/dl RDW 15.9 H (11.5-14.0) % Plt Count 186 (150-450) K/mm3 MPV 10.3 H (6-9.5) fl Segmented Neutrophils 89 H (36.0-66.0) % Band Neutrophils 2 (0.0-2.0) % Lymphocytes (Manual) 8 L (24-44) % Monocytes (Manual) 1 (0.0-12.0) % Platelet Estimate NORMAL (NORMAL) RBC Morphology ABNORMAL Polychromasia 1+ Basophilic Stippling 1+ Rouleaux 1+ Sodium 137 (137-145) mmol/L Potassium 4.5 (3.5-5.1) mmol/L Chloride 106 (98-107) mmol/L Carbon Dioxide 25 (22-30) mmol/L Anion Gap 11.1 (5-15) MEQ/L BUN 55 H (7-17) mg/dL Creatinine 1.72 H (0.52-1.04) mg/dL Estimated GFR 30.9 ML/MIN Glucose 608 H* 353 H (74-106) mg/dL Calcium 8.6 (8.4-10.2) mg/dL Total Bilirubin 0.20 (0.2-1.3) mg/dL AST 23 (14-36) U/L ALT 19 (0-35) U/L Alkaline Phosphatase 82 (38-126) U/L Creatine Kinase 194 H (30-135) U/L Serum Total Protein 6.9 (6.3-8.2) g/dL Albumin 3.2 L (3.5-5.0) g/dL Radiology Exams: Radiology Procedures Category Date Time Status VENOUS BILATERAL EXTREMITY [US] Stat Exams 10/22/18 11:07 Completed Multi-Disciplinary Progress Notes: Multi-Disciplinary Progress Notes 10/24/18 08:12 Respiratory Note by Brianda Encarnacion ROOM AIR RESTING SPO2 95% NO SOB Initialized on 10/24/18 08:12 - END OF NOTE 10/23/18 16:18 Case Management Note by Juana Henderson [employer] PAPERS INITIATED. LEVEL II WAS TRIGGERED. ASSESSMENT PENDING Initialized on 10/23/18 16:18 - END OF NOTE Assessment/Plan (1) UTI (urinary tract infection) Current Visit: Yes Status: Acute Onset Date: ~10/22/18 Qualifiers: Urinary tract infection type: acute cystitis Assessment & Plan: Laboratory Results 10/24/18 10/24/18 10/23/18 Range/Units 05:30 05:30 12:30 WBC 11.0 H (4.0-10.5) K/mm3 RBC 3.80 L (4.1-5.4) M/mm3 Hgb 10.6 L (12.0-16.0) gm/dl Hct 33.8 L (35-47) % MCV 88.9 (78-100) fl MCH 27.8 (26-32) pg MCHC 31.4 L (32-36) g/dl RDW 15.9 H (11.5-14.0) % Plt Count 186 (150-450) K/mm3 MPV 10.3 H (6-9.5) fl Gran % (36.0-66.0) % Eos # (Auto) (0-0.5) Absolute Lymphs (auto) (1.0-4.6) Absolute Monos (auto) (0.0-1.3) Lymphocytes % (24.0-44.0) % Monocytes % (0.0-12.0) % Eosinophils % (0.00-5.0) % Basophils % (0.0-0.4) % Absolute Granulocytes (1.4-6.9) Segmented Neutrophils 89 H (36.0-66.0) % Band Neutrophils 2 (0.0-2.0) % Lymphocytes (Manual) 8 L (24-44) % Monocytes (Manual) 1 (0.0-12.0) % Basophils # (0-0.4) Platelet Estimate NORMAL (NORMAL) RBC Morphology ABNORMAL Polychromasia 1+ Basophilic Stippling 1+ Rouleaux 1+ PT (9.95-12.35) SECONDS INR (0.8-3.0) Sodium 137 (137-145) mmol/L Potassium 4.5 (3.5-5.1) mmol/L Chloride 106 (98-107) mmol/L Carbon Dioxide 25 (22-30) mmol/L Anion Gap 11.1 (5-15) MEQ/L BUN 55 H (7-17) mg/dL Creatinine 1.72 H (0.52-1.04) mg/dL Estimated GFR 30.9 ML/MIN Glucose 353 H 608 H* (74-106) mg/dL Hemoglobin A1c (4.5-6.0) % Lactic Acid (0.4-2.0) Calcium 8.6 (8.4-10.2) mg/dL Magnesium (1.6-2.3) mg/dL Total Bilirubin 0.20 (0.2-1.3) mg/dL AST 23 (14-36) U/L ALT 19 (0-35) U/L Alkaline Phosphatase 82 (38-126) U/L Creatine Kinase 194 H (30-135) U/L Troponin I (0.000-0.034) ng/mL Serum Total Protein 6.9 (6.3-8.2) g/dL Albumin 3.2 L (3.5-5.0) g/dL Prealbumin (17.6-36.0) mg/dL Amylase (30-110) U/L Lipase (23-300) U/L Urine Color (YELLOW) Urine Appearance (CLEAR) Urine pH (5-6) Ur Specific [place] (1.005-1.025) Urine Protein (Negative) Urine Ketones (NEGATIVE) Urine Blood (0-5) David/ul Urine Nitrite (NEGATIVE) Urine Bilirubin (NEGATIVE) Urine Urobilinogen (0-1) mg/dL Ur Leukocyte Esterase (NEGATIVE) Urine WBC (Auto) (0-5) /HPF Urine RBC (Auto) (0-2) /HPF U Epithel Cells (Auto) (FEW) /HPF Urine Bacteria (Auto) (NEGATIVE) /HPF Urine Mucus (Auto) (NEGATIVE) /HPF Urine Culture Reflexed (NO) Urine Glucose (NEGATIVE) mg/dL 10/23/18 10/23/18 10/22/18 Range/Units 05:23 05:23 10:00 WBC 9.2 (4.0-10.5) K/mm3 RBC 4.06 L (4.1-5.4) M/mm3 Hgb 11.4 L (12.0-16.0) gm/dl Hct 36.6 (35-47) % MCV 90.1 (78-100) fl MCH 28.0 (26-32) pg MCHC 31.1 L (32-36) g/dl RDW 16.1 H (11.5-14.0) % Plt Count 206 (150-450) K/mm3 MPV 10.2 H (6-9.5) fl Gran % 91.1 H (36.0-66.0) % Eos # (Auto) 0.01 (0-0.5) Absolute Lymphs (auto) 0.73 L (1.0-4.6) Absolute Monos (auto) 0.07 (0.0-1.3) Lymphocytes % 7.9 L (24.0-44.0) % Monocytes % 0.8 (0.0-12.0) % Eosinophils % 0.1 (0.00-5.0) % Basophils % 0.1 (0.0-0.4) % Absolute Granulocytes 8.37 H (1.4-6.9) Segmented Neutrophils (36.0-66.0) % Band Neutrophils (0.0-2.0) % Lymphocytes (Manual) (24-44) % Monocytes (Manual) (0.0-12.0) % Basophils # 0.01 (0-0.4) Platelet Estimate (NORMAL) RBC Morphology Polychromasia Basophilic Stippling Rouleaux PT (9.95-12.35) SECONDS INR (0.8-3.0) Sodium 136 L (137-145) mmol/L Potassium 5.6 H (3.5-5.1) mmol/L Chloride 103 (98-107) mmol/L Carbon Dioxide 26 (22-30) mmol/L Anion Gap 12.8 (5-15) MEQ/L BUN 50 H (7-17) mg/dL Creatinine 1.77 H (0.52-1.04) mg/dL Estimated GFR 29.9 ML/MIN Glucose 618 H* (74-106) mg/dL Hemoglobin A1c (4.5-6.0) % Lactic Acid (0.4-2.0) Calcium 8.7 (8.4-10.2) mg/dL Magnesium (1.6-2.3) mg/dL Total Bilirubin 0.30 (0.2-1.3) mg/dL AST 38 H (14-36) U/L ALT 21 (0-35) U/L Alkaline Phosphatase 98 (38-126) U/L Creatine Kinase 582 H (30-135) U/L Troponin I (0.000-0.034) ng/mL Serum Total Protein 7.3 (6.3-8.2) g/dL Albumin 3.4 L (3.5-5.0) g/dL Prealbumin (17.6-36.0) mg/dL Amylase (30-110) U/L Lipase (23-300) U/L Urine Color YELLOW (YELLOW) Urine Appearance CLOUDY (CLEAR) Urine pH 6.0 (5-6) Ur Specific [place] 1.013 (1.005-1.025) Urine Protein 100 (Negative) Urine Ketones TRACE (NEGATIVE) Urine Blood LARGE (0-5) David/ul Urine Nitrite NEGATIVE (NEGATIVE) Urine Bilirubin NEGATIVE (NEGATIVE) Urine Urobilinogen NEGATIVE (0-1) mg/dL Ur Leukocyte Esterase LARGE (NEGATIVE) Urine WBC (Auto) >100 (0-5) /HPF Urine RBC (Auto) 26-50 (0-2) /HPF U Epithel Cells (Auto) RARE (FEW) /HPF Urine Bacteria (Auto) MODERATE (NEGATIVE) /HPF Urine Mucus (Auto) SLIGHT (NEGATIVE) /HPF Urine Culture Reflexed ORDERED SEPARATELY (NO) Urine Glucose >=500 (NEGATIVE) mg/dL 10/22/18 10/22/18 10/22/18 Range/Units 09:30 09:30 09:30 WBC (4.0-10.5) K/mm3 RBC (4.1-5.4) M/mm3 Hgb (12.0-16.0) gm/dl Hct (35-47) % MCV (78-100) fl MCH (26-32) pg MCHC (32-36) g/dl RDW (11.5-14.0) % Plt Count (150-450) K/mm3 MPV (6-9.5) fl Gran % (36.0-66.0) % Eos # (Auto) (0-0.5) Absolute Lymphs (auto) (1.0-4.6) Absolute Monos (auto) (0.0-1.3) Lymphocytes % (24.0-44.0) % Monocytes % (0.0-12.0) % Eosinophils % (0.00-5.0) % Basophils % (0.0-0.4) % Absolute Granulocytes (1.4-6.9) Segmented Neutrophils (36.0-66.0) % Band Neutrophils (0.0-2.0) % Lymphocytes (Manual) (24-44) % Monocytes (Manual) (0.0-12.0) % Basophils # (0-0.4) Platelet Estimate (NORMAL) RBC Morphology Polychromasia Basophilic Stippling Rouleaux PT 11.8 (9.95-12.35) SECONDS INR 1.04 (0.8-3.0) Sodium (137-145) mmol/L Potassium (3.5-5.1) mmol/L Chloride (98-107) mmol/L Carbon Dioxide (22-30) mmol/L Anion Gap (5-15) MEQ/L BUN (7-17) mg/dL Creatinine (0.52-1.04) mg/dL Estimated GFR ML/MIN Glucose (74-106) mg/dL Hemoglobin A1c (4.5-6.0) % Lactic Acid (0.4-2.0) Calcium (8.4-10.2) mg/dL Magnesium (1.6-2.3) mg/dL Total Bilirubin (0.2-1.3) mg/dL AST (14-36) U/L ALT (0-35) U/L Alkaline Phosphatase (38-126) U/L Creatine Kinase 691 H (30-135) U/L Troponin I (0.000-0.034) ng/mL Serum Total Protein (6.3-8.2) g/dL Albumin (3.5-5.0) g/dL Prealbumin 15.11 L (17.6-36.0) mg/dL Amylase (30-110) U/L Lipase (23-300) U/L Urine Color (YELLOW) Urine Appearance (CLEAR) Urine pH (5-6) Ur Specific [place] (1.005-1.025) Urine Protein (Negative) Urine Ketones (NEGATIVE) Urine Blood (0-5) David/ul Urine Nitrite (NEGATIVE) Urine Bilirubin (NEGATIVE) Urine Urobilinogen (0-1) mg/dL Ur Leukocyte Esterase (NEGATIVE) Urine WBC (Auto) (0-5) /HPF Urine RBC (Auto) (0-2) /HPF U Epithel Cells (Auto) (FEW) /HPF Urine Bacteria (Auto) (NEGATIVE) /HPF Urine Mucus (Auto) (NEGATIVE) /HPF Urine Culture Reflexed (NO) Urine Glucose (NEGATIVE) mg/dL 10/22/18 10/22/18 10/22/18 Range/Units 09:30 09:30 09:15 WBC 12.0 H (4.0-10.5) K/mm3 RBC 4.38 (4.1-5.4) M/mm3 Hgb 12.4 (12.0-16.0) gm/dl Hct 38.6 (35-47) % MCV 88.1 (78-100) fl MCH 28.3 (26-32) pg MCHC 32.1 (32-36) g/dl RDW 15.8 H (11.5-14.0) % Plt Count 216 (150-450) K/mm3 MPV 10.2 H (6-9.5) fl Gran % 84.7 H (36.0-66.0) % Eos # (Auto) 0.08 (0-0.5) Absolute Lymphs (auto) 1.07 (1.0-4.6) Absolute Monos (auto) 0.65 (0.0-1.3) Lymphocytes % 8.9 L (24.0-44.0) % Monocytes % 5.4 (0.0-12.0) % Eosinophils % 0.7 (0.00-5.0) % Basophils % 0.3 (0.0-0.4) % Absolute Granulocytes 10.16 H (1.4-6.9) Segmented Neutrophils (36.0-66.0) % Band Neutrophils (0.0-2.0) % Lymphocytes (Manual) (24-44) % Monocytes (Manual) (0.0-12.0) % Basophils # 0.03 (0-0.4) Platelet Estimate (NORMAL) RBC Morphology Polychromasia Basophilic Stippling Rouleaux PT (9.95-12.35) SECONDS INR (0.8-3.0) Sodium 140 (137-145) mmol/L Potassium 4.7 (3.5-5.1) mmol/L Chloride 104 (98-107) mmol/L Carbon Dioxide 27 (22-30) mmol/L Anion Gap 13.1 (5-15) MEQ/L BUN 48 H (7-17) mg/dL Creatinine 1.71 H (0.52-1.04) mg/dL Estimated GFR 31.1 ML/MIN Glucose 361 H (74-106) mg/dL Hemoglobin A1c (4.5-6.0) % Lactic Acid (0.4-2.0) Calcium 9.5 (8.4-10.2) mg/dL Magnesium 1.6 (1.6-2.3) mg/dL Total Bilirubin 0.40 (0.2-1.3) mg/dL AST 29 (14-36) U/L ALT 17 (0-35) U/L Alkaline Phosphatase 123 (38-126) U/L Creatine Kinase (30-135) U/L Troponin I 0.034 (0.000-0.034) ng/mL Serum Total Protein 8.1 (6.3-8.2) g/dL Albumin 3.9 (3.5-5.0) g/dL Prealbumin (17.6-36.0) mg/dL Amylase 79 (30-110) U/L Lipase 64 (23-300) U/L Urine Color (YELLOW) Urine Appearance (CLEAR) Urine pH (5-6) Ur Specific [place] (1.005-1.025) Urine Protein (Negative) Urine Ketones (NEGATIVE) Urine Blood (0-5) David/ul Urine Nitrite (NEGATIVE) Urine Bilirubin (NEGATIVE) Urine Urobilinogen (0-1) mg/dL Ur Leukocyte Esterase (NEGATIVE) Urine WBC (Auto) (0-5) /HPF Urine RBC (Auto) (0-2) /HPF U Epithel Cells (Auto) (FEW) /HPF Urine Bacteria (Auto) (NEGATIVE) /HPF Urine Mucus (Auto) (NEGATIVE) /HPF Urine Culture Reflexed (NO) Urine Glucose (NEGATIVE) mg/dL 10/22/18 10/22/18 Range/Units 09:08 09:00 WBC (4.0-10.5) K/mm3 RBC (4.1-5.4) M/mm3 Hgb (12.0-16.0) gm/dl Hct (35-47) % MCV (78-100) fl MCH (26-32) pg MCHC (32-36) g/dl RDW (11.5-14.0) % Plt Count (150-450) K/mm3 MPV (6-9.5) fl Gran % (36.0-66.0) % Eos # (Auto) (0-0.5) Absolute Lymphs (auto) (1.0-4.6) Absolute Monos (auto) (0.0-1.3) Lymphocytes % (24.0-44.0) % Monocytes % (0.0-12.0) % Eosinophils % (0.00-5.0) % Basophils % (0.0-0.4) % Absolute Granulocytes (1.4-6.9) Segmented Neutrophils (36.0-66.0) % Band Neutrophils (0.0-2.0) % Lymphocytes (Manual) (24-44) % Monocytes (Manual) (0.0-12.0) % Basophils # (0-0.4) Platelet Estimate (NORMAL) RBC Morphology Polychromasia Basophilic Stippling Rouleaux PT (9.95-12.35) SECONDS INR (0.8-3.0) Sodium (137-145) mmol/L Potassium (3.5-5.1) mmol/L Chloride (98-107) mmol/L Carbon Dioxide (22-30) mmol/L Anion Gap (5-15) MEQ/L BUN (7-17) mg/dL Creatinine (0.52-1.04) mg/dL Estimated GFR ML/MIN Glucose (74-106) mg/dL Hemoglobin A1c 11.16 H (4.5-6.0) % Lactic Acid 1.8 (0.4-2.0) Calcium (8.4-10.2) mg/dL Magnesium (1.6-2.3) mg/dL Total Bilirubin (0.2-1.3) mg/dL AST (14-36) U/L ALT (0-35) U/L Alkaline Phosphatase (38-126) U/L Creatine Kinase (30-135) U/L Troponin I (0.000-0.034) ng/mL Serum Total Protein (6.3-8.2) g/dL Albumin (3.5-5.0) g/dL Prealbumin (17.6-36.0) mg/dL Amylase (30-110) U/L Lipase (23-300) U/L Urine Color (YELLOW) Urine Appearance (CLEAR) Urine pH (5-6) Ur Specific [place] (1.005-1.025) Urine Protein (Negative) Urine Ketones (NEGATIVE) Urine Blood (0-5) David/ul Urine Nitrite (NEGATIVE) Urine Bilirubin (NEGATIVE) Urine Urobilinogen (0-1) mg/dL Ur Leukocyte Esterase (NEGATIVE) Urine WBC (Auto) (0-5) /HPF Urine RBC (Auto) (0-2) /HPF U Epithel Cells (Auto) (FEW) /HPF Urine Bacteria (Auto) (NEGATIVE) /HPF Urine Mucus (Auto) (NEGATIVE) /HPF Urine Culture Reflexed (NO) Urine Glucose (NEGATIVE) mg/dL UA positive for e coli, sensitive to meropenem Code(s): N39.0 - URINARY TRACT INFECTION, SITE NOT SPECIFIED (2) COPD with acute exacerbation Current Visit: Yes Status: Acute Onset Date: ~10/22/18 Code(s): J44.1 - CHRONIC OBSTRUCTIVE PULMONARY DISEASE W (ACUTE) EXACERBATION (3) Lung nodule Current Visit: Yes Status: Acute Onset Date: ~10/22/18 Code(s): R91.1 - SOLITARY PULMONARY NODULE (4) CAD (coronary artery disease) Current Visit: Yes Status: Chronic Qualifiers: Coronary Disease-Associated Artery/Lesion type: [place] artery Code(s): I25.10 - ATHSCL HEART DISEASE OF [place] CORONARY ARTERY W/O ANG PCTRS (5) CKD (chronic kidney disease) Current Visit: No Status: Chronic Qualifiers: Code(s): N18.9 - CHRONIC KIDNEY DISEASE, UNSPECIFIED
[2018-10-24] MEDS: MERREM 500MG 500 MG in Sodium Chloride 100ML MINI-BAG PLUS 100 ML IV SCH ×2 (12:22→22:28)
[2018-10-24] MEDS: Lantus Insulin SQ SCH (22:28)
[2018-10-24] MEDS: Klor Con 10 MEQ PO SCH (22:28)
[2018-10-24] MEDS: Desyrel 150 MG PO SCH (22:28)
[2018-10-24] MEDS: TYLENOL 325 MG PO PRN (22:35)
[2018-10-25] MEDS: NovoLOG Insulin SQ PRN ×5 (00:18→20:24)
[2018-10-25] MEDS: solu-MEDROL 125 MG IV SCH ×2 (01:43→09:43)
[2018-10-25] MEDS: Sodium Chloride 0.9% 1000 ML 1,000 ML IV SCH ×2 (02:04→11:28)
[2018-10-25] MEDS: ENOXAPARIN SODIUM SQ SCH (09:36)
[2018-10-25] MEDS: Aricept 10 MG PO SCH (09:37)
[2018-10-25] MEDS: Effexor XR 75 MG PO SCH (09:38)
[2018-10-25] MEDS: Ditropan 5 MG PO SCH ×2 (09:39→20:25)
[2018-10-25] MEDS: Colace 100 MG PO PRN (09:39)
[2018-10-25] MEDS: Lasix 40 MG PO SCH (09:39)
[2018-10-25] MEDS: Protonix 40MG Tablet PO SCH (09:40)
[2018-10-25] MEDS: Lopressor 50 MG PO SCH ×2 (09:40→20:25)
[2018-10-25] MEDS: ECOTRIN 81 MG PO SCH (09:41)
[2018-10-25] MEDS: MERREM 500MG 500 MG in Sodium Chloride 100ML MINI-BAG PLUS 100 ML IV SCH ×2 (09:44→20:38)
[2018-10-25] MEDS: DUONEB 0.5-3 MG/3 ml Neb IH SCH ×2 (14:33→18:59)
[2018-10-25] MEDS ORDERED: DIFLUCAN PO SCH (15:00)
[2018-10-25] MEDS: Klor Con 10 MEQ PO SCH (20:26)
[2018-10-25] MEDS: Desyrel 150 MG PO SCH (20:26)
[2018-10-25] MEDS: Lantus Insulin SQ SCH (20:27)
[2018-10-25] MEDS: Sodium Chloride 0.9% 10 ML FLUSH Syringe IV SCH (20:44)
[2018-10-25] MEDS ORDERED: solu-MEDROL 40 MG IV SCH (22:00)
--- NOTE | 2018-10-25 23:54 | PCM.NOTE ---
Date and Time: 10/25/18 2351 Subjective Assessment: Patient's sugars have been higher than usual,is on IV solumedrol from ER,dose reduced.Is having minimal pain from contusions left upper arm and right chest. - Review of Systems Constitutional: Other (weakness is improving) Respiratory: Other, No Cough, No Short Of Breath (at rest) Cardiac: Other (no chest pain other than right sided chest wall tenderness s/p fall) Abdominal/Gastrointestinal: No Abdominal Pain, No Nausea, No Vomiting, No Diarrhea Genitourinary Symptoms: No Dysuria Skin: Rash (was using Nystatin powder but want something stronger.) Objective Exam General Appearance: no apparent distress, alert Neurologic Exam: alert, oriented x 3, normal mood/affect (pleasant ,talkative) Skin Exam: warm, dry, other (large contusion left upper arm with small hematoma, skin intact. is moving arm freely. Right chest contused area with skin intact does not affect breathing .) Respiratory Exam: other (no dyspnea,no rales no ronchi no wheeze.) Cardiovascular Exam: regular rate/rhythm Gastrointestinal/Abdomen Exam: other (obese ,soft nontender,rashunder abdominal lap light red confluent macular ,is dry no drainage.) OBJECTIVE DATA Vital Signs: Vital Signs - 24 hr Temp Pulse Resp BP Pulse Ox 10/25/18 19:52 97.7 F 67 20 198/84 94 L 10/25/18 18:59 66 18 94 L 10/25/18 16:00 98.2 F 67 18 139/65 97 10/25/18 14:37 83 16 95 10/25/18 11:08 97.6 F 63 24 170/85 92 L 10/25/18 09:31 67 18 95 10/25/18 07:06 97.4 F 66 20 185/85 94 L 10/25/18 04:00 98.1 F 62 20 131/79 95 10/25/18 00:00 97.7 F 85 20 137/99 94 L Pain Assessment - Last Documented Pain Intensity 4 Pain Scale Used 0-10 Pain Scale Intake and Output: Intake & Output 10/23/18 10/24/18 10/25/18 10/26/18 11:59 11:59 11:59 11:59 Intake Total 3699 3264 2811 680 Output Total 3377 3300 3100 2300 Balance 324 128 -786 -0681 Weight 134.5 kg Lab Results: Accuchecks Date 10/25/18 Date 10/25/18 Date 10/25/18 Date 10/25/18 Date 10/25/18 Date 10/25/18 Time 20:00 Time 16:30 Time 11:30 Time 07:30 Time 04:00 Time 00:03 Accucheck Value: 316 Accucheck Value: 343 Accucheck Value: 285 Accucheck Value: 197 Accucheck Value: 269 Accucheck Value: 330 Assessment/Plan (1) Hyperglycemia due to type 2 diabetes mellitus Current Visit: Yes Status: Acute Assessment & Plan: lowered IV solumedrol dose Code(s): E11.65 - TYPE 2 DIABETES MELLITUS WITH HYPERGLYCEMIA (2) COPD with acute exacerbation Current Visit: Yes Status: Acute Onset Date: ~10/22/18 Assessment & Plan: improving Code(s): J44.1 - CHRONIC OBSTRUCTIVE PULMONARY DISEASE W (ACUTE) EXACERBATION (3) Chest wall contusion Current Visit: Yes Status: Acute Onset Date: ~10/22/18 (4) UTI (urinary tract infection) Current Visit: Yes Status: Acute Onset Date: ~10/22/18 Qualifiers: Urinary tract infection type: acute cystitis Assessment & Plan: on sensitive antibiotic ,weakness improved. Code(s): N39.0 - URINARY TRACT INFECTION, SITE NOT SPECIFIED (5) Candidal skin infection Current Visit: Yes Status: Acute Assessment & Plan: one dose Diflucan given Code(s): B37.2 - CANDIDIASIS OF SKIN AND NAIL
[2018-10-26] MEDS: NovoLOG Insulin SQ PRN ×6 (00:04→21:39)
[2018-10-26] MEDS: DUONEB 0.5-3 MG/3 ml Neb IH SCH ×3 (06:54→19:05)
[2018-10-26 07:52] LABS: Hemoglobin 11.9 gm/dl (12.0-16.0); Mean Cell Volume 87.9 fl (78-100); Mean Corpuscular Hgb Concent. 32.2 g/dl (32-36); Mean Platelet Volume 10.2 fl (6-9.5); Platelet Count 199 K/mm3 (150-450); Red Blood Count 4.21 M/mm3 (4.1-5.4); Red Cell Distribution Width 16.4 % (11.5-14.0); White Blood Count 9.7 K/mm3 (4.0-10.5)
[2018-10-26 08:16] LABS: Mean Corpuscular Hemoglobin 28.2 pg (26-32)
[2018-10-26 08:27] LABS: ANISOCYTOSIS 1+; BAND 1 % (0.0-2.0); Lymphocytes 10 % (24-44); Monocyte 1 % (0.0-12.0); Neutrophils 88 % (36.0-66.0); Nucleated Red Blood Cell 3 %; Platelet Estimate NORMAL (NORMAL); Total Cells Counted 100
[2018-10-26 08:49] LABS: ALBUMIN 3.3 g/dL (3.5-5.0); ANION GAP 12.8 MEQ/L (5-15); BILIRUBIN,TOTAL 0.3 mg/dL (0.2-1.3); Calcium 8.7 mg/dL (8.4-10.2); Creatinine 1 1.48 mg/dL (0.52-1.04); Potassium 4.6 mmol/L (3.5-5.1); Total Protein 6.9 g/dL (6.3-8.2)
[2018-10-26] MEDS: ENOXAPARIN SODIUM SQ SCH (09:05)
[2018-10-26] MEDS: Ditropan 5 MG PO SCH ×2 (09:06→21:38)
[2018-10-26] MEDS: Effexor XR 75 MG PO SCH (09:06)
[2018-10-26] MEDS: ECOTRIN 81 MG PO SCH (09:06)
[2018-10-26] MEDS: Lasix 40 MG PO SCH (09:07)
[2018-10-26] MEDS: BACTRIM DS TABLET PO SCH ×2 (09:07→21:38)
[2018-10-26] MEDS: Aricept 10 MG PO SCH (09:07)
[2018-10-26] MEDS: Lopressor 50 MG PO SCH ×2 (09:07→21:38)
[2018-10-26] MEDS: Protonix 40MG Tablet PO SCH (09:07)
--- NOTE | 2018-10-26 15:20 | CONS ---
CONSULT DATE: 10/26/2018 REASON FOR CONSULT: Evaluation of abnormal CT scan. HISTORY: Swati Weller is a 73 year-old former smoker who had been hospitalized after being found down on the floor at home. The patient reportedly had severe hypoglycemia. She is noted to have bruises on her arm. As a part of fall work up the patient had a CT chest that revealed a lung nodule measuring 11 mm in the right lower lobe along with a 5 mm left upper lobe nodule which is noncalcified. A follow up was advised. The patient reported quit smoking 15 to 20 years ago but prior to that had smoked about 30 pack years. She denies prior history of pneumonia. She was diagnosed with chronic obstructive pulmonary disease and has a nebulizer but she does not recall the last time she had to use it. Her effort tolerance otherwise is reasonably good and partly limited due to body habitus. PAST MEDICAL HISTORY: Positive for history of diabetes mellitus, myocardial infarction, hyperlipidemia, gastroesophageal reflux disease, over active bladder. PAST SURGICAL HISTORY: Foot surgery. PERSONAL AND SOCIAL HISTORY: She is a . MEDICATIONS: Home and current medications are reviewed. ALLERGIES: ALLERGIES NOTED. PHYSICAL EXAMINATION: This is an elderly woman sitting comfortably in chair, voices no complaints. Vital signs noted. HEENT: Normocephalic. Oral exam shows small oropharynx. NECK: Short. CVS: First and second heart sounds are normal, regular, rhythmic. RESPIRATORY: Shows diminished breath sounds. Clear to auscultation. ABDOMEN: Obese. EXTREMITIES: Left arm bruise is noted. Lower extremities show no significant edema. LABORATORY DATA AND TESTS: Sodium 141, potassium 4.6, chloride 105, bicarb 28, glucose 224, BUN 16, creatinine 1.4. White blood cell count 9.7, hemoglobin 11.9, hematocrit 37, PLT 199,000. Urine show Escherichia coli. CT chest noted. ASSESSMENT: 1) This is a 73 year old woman admitted after a fall noted to have incidental finding of right lower lobe lung nodule and left upper lobe lung nodule measuring 11 and 5 mm respectively. 2) Likely underlying chronic obstructive pulmonary disease but reasonably well preserved effort tolerance. 3) Hyperglycemia. 4) Comorbids as listed above. RECOMMENDATIONS: 1) I discussed with patient the CT findings. 2) Will obtain a PET scan upon discharge, other recommendations depending on PET findings particularly for lung nodules. If it does light up the patient will require biopsy/excision. If not will monitor for stability for at least two years. 3) PFT as outpatient. 4) Further recommendations pending clinical improvement. Advised to follow up with me in two to three weeks upon discharge. Thank you for allowing me to participate in the care of this patient.
[2018-10-26] MEDS: Sodium Chloride 0.9% 10 ML FLUSH Syringe IV SCH ×2 (21:37→22:29)
[2018-10-26] MEDS: Klor Con 10 MEQ PO SCH (21:38)
[2018-10-26] MEDS: Desyrel 150 MG PO SCH (21:38)
[2018-10-26] MEDS: Lantus Insulin SQ SCH (21:38)
[2018-10-27] MEDS: DUONEB 0.5-3 MG/3 ml Neb IH SCH (07:33)
[2018-10-27 07:42] VITALS: PULSE 65; O2SAT 96
[2018-10-27 07:53] VITALS: BP 149/66
[2018-10-27] MEDS: Sodium Chloride 0.9% 10 ML FLUSH Syringe IV SCH (08:01)
[2018-10-27] MEDS: Ditropan 5 MG PO SCH (09:33)
[2018-10-27] MEDS: Aricept 10 MG PO SCH (09:33)
[2018-10-27] MEDS: Colace 100 MG PO PRN (09:33)
[2018-10-27] MEDS: ECOTRIN 81 MG PO SCH (09:33)
[2018-10-27] MEDS: Protonix 40MG Tablet PO SCH (09:33)
[2018-10-27] MEDS: Effexor XR 75 MG PO SCH (09:33)
[2018-10-27] MEDS: Lasix 40 MG PO SCH (09:33)
[2018-10-27] MEDS: Lopressor 50 MG PO SCH (09:33)
[2018-10-27] MEDS: ENOXAPARIN SODIUM SQ SCH (09:34)
[2018-10-27] MEDS: BACTRIM DS TABLET PO SCH (09:34)
== END 2018-10-27 10:42 | disposition swing bed (61) | DRG 690 ==
LOC: ED 08:30 → ICU 14:27
PROVIDERS: ADMIT Family Medicine; ATTEND Family Medicine
DX: N39.0 Urinary tract infection, site not specified (principal); J44.1 Chronic obstructive pulmonary disease with (acute) exacerbation; E11.65 Type 2 diabetes mellitus with hyperglycemia; E86.0 Dehydration; F03.90 Unspecified dementia, unspecified severity, without behavioral disturbance, psychotic disturbance, mood disturbance, and anxiety; N18.9 Chronic kidney disease, unspecified; R91.1 Solitary pulmonary nodule; I25.10 Atherosclerotic heart disease of native coronary artery without angina pectoris; S40.022A Contusion of left upper arm, initial encounter; S20.211A Contusion of right front wall of thorax, initial encounter; B37.2 Candidiasis of skin and nail; E66.01 Morbid (severe) obesity due to excess calories; W18.39XA Other fall on same level, initial encounter; Z68.42 Body mass index [BMI] 45.0-49.9, adult; Y93.89 Activity, other specified; Y92.009 Unspecified place in unspecified non-institutional (private) residence as the place of occurrence of the external cause; Z79.899 Other long term (current) drug therapy; E78.5 Hyperlipidemia, unspecified; M79.662 Pain in left lower leg; M79.661 Pain in right lower leg
CPT/HCPCS: 36000; 36415; 51702; 70450; 70486; 71250; 72125; 73130; 74176; 80053; 81001; 82150; 82550; 82947; 82962; 83036; 83605; 83690; 83735; 83874; 84134; 84484; 85025; 85610; 87040; 87077; 87086; 87186; 93005; 93041; 93970; 94150; 94640; 94760; 94762; 96360; 96361; 96365; 96374; 96375; 99285; J0696; J1650; J1940; J2405; J2920; J2930; J3010; A9270-GY

== ENCOUNTER 2018-10-27 10:06 | Inpatient (IN) | payer MEDICARE, OTHER ==
[2018-10-27] MEDS ORDERED: Aplisol ID ONE (10:11)
[2018-10-27] MEDS ORDERED: Aricept 10 MG PO SCH (11:25)
[2018-10-27] MEDS: TYLENOL 325 MG PO PRN ×2 (12:25→21:30)
[2018-10-27] MEDS: PROVENTIL 2.5 MG/3 ML NEB IH SCH ×2 (13:01→19:47)
[2018-10-27] MEDS: BACTRIM DS TABLET PO SCH (21:28)
[2018-10-27] MEDS: Ditropan 5 MG PO SCH (21:28)
[2018-10-27] MEDS: Desyrel 150 MG PO SCH (21:28)
[2018-10-27] MEDS: Klor Con 10 MEQ PO SCH (21:29)
[2018-10-27] MEDS: Lopressor 50 MG PO SCH (21:29)
[2018-10-27] MEDS: Lantus Insulin SQ SCH (21:29)
[2018-10-27] MEDS: NovoLOG Insulin SQ PRN (21:29)
[2018-10-28] MEDS: PROVENTIL 2.5 MG/3 ML NEB IH SCH ×2 (07:08→12:56)
[2018-10-28] MEDS: BACTRIM DS TABLET PO SCH ×2 (10:44→23:31)
[2018-10-28] MEDS: Protonix 40MG Tablet PO SCH (10:44)
[2018-10-28] MEDS: Ditropan 5 MG PO SCH ×2 (10:45→23:30)
[2018-10-28] MEDS: Effexor XR 75 MG PO SCH (10:45)
[2018-10-28] MEDS: Colace 100 MG PO PRN (10:45)
[2018-10-28] MEDS: ENOXAPARIN SODIUM SQ SCH (10:45)
[2018-10-28] MEDS: ECOTRIN 81 MG PO SCH (10:45)
[2018-10-28] MEDS: Aricept 10 MG PO SCH (10:45)
[2018-10-28] MEDS: Lopressor 50 MG PO SCH ×2 (10:45→23:31)
[2018-10-28] MEDS: Lasix 40 MG PO SCH (10:46)
[2018-10-28] MEDS: NovoLOG Insulin SQ PRN ×2 (13:02→23:31)
[2018-10-28] MEDS ORDERED: PROVENTIL 2.5 MG/3 ML NEB IH PRN (13:12)
[2018-10-28] MEDS: TYLENOL 325 MG PO PRN (13:14)
[2018-10-28] MEDS: Desyrel 150 MG PO SCH (23:30)
[2018-10-28] MEDS: Klor Con 10 MEQ PO SCH (23:30)
[2018-10-28] MEDS: Lantus Insulin SQ SCH (23:31)
[2018-10-29] MEDS: ECOTRIN 81 MG PO SCH (09:19)
[2018-10-29] MEDS: Aricept 10 MG PO SCH (09:19)
[2018-10-29] MEDS: Lopressor 50 MG PO SCH ×2 (09:19→22:26)
[2018-10-29] MEDS: Ditropan 5 MG PO SCH ×2 (09:19→22:25)
[2018-10-29] MEDS: Colace 100 MG PO PRN (09:19)
[2018-10-29] MEDS: Effexor XR 75 MG PO SCH (09:19)
[2018-10-29] MEDS: Protonix 40MG Tablet PO SCH (09:19)
[2018-10-29] MEDS: BACTRIM DS TABLET PO SCH ×2 (09:20→22:25)
[2018-10-29] MEDS: Lasix 40 MG PO SCH (09:20)
[2018-10-29] MEDS: ENOXAPARIN SODIUM SQ SCH (09:20)
[2018-10-29] MEDS: NovoLOG Insulin SQ PRN ×2 (11:53→22:26)
[2018-10-29] MEDS: TYLENOL 325 MG PO PRN ×2 (18:00→22:34)
[2018-10-29] MEDS: Desyrel 150 MG PO SCH (22:25)
[2018-10-29] MEDS: Klor Con 10 MEQ PO SCH (22:25)
[2018-10-29] MEDS: Lantus Insulin SQ SCH (22:27)
[2018-10-30] MEDS: Protonix 40MG Tablet PO SCH (09:24)
[2018-10-30] MEDS: Lopressor 50 MG PO SCH ×2 (09:24→22:14)
[2018-10-30] MEDS: ENOXAPARIN SODIUM SQ SCH (09:25)
[2018-10-30] MEDS: Ditropan 5 MG PO SCH ×2 (09:25→22:14)
[2018-10-30] MEDS: Lasix 40 MG PO SCH (09:25)
[2018-10-30] MEDS: Effexor XR 75 MG PO SCH (09:25)
[2018-10-30] MEDS: BACTRIM DS TABLET PO SCH ×2 (09:25→22:14)
[2018-10-30] MEDS: Colace 100 MG PO PRN (09:25)
[2018-10-30] MEDS: Aricept 10 MG PO SCH (09:25)
[2018-10-30] MEDS: ECOTRIN 81 MG PO SCH (09:25)
[2018-10-30] MEDS: NovoLOG Insulin SQ PRN ×2 (13:00→22:16)
[2018-10-30] MEDS: Desyrel 150 MG PO SCH (22:13)
[2018-10-30] MEDS: Klor Con 10 MEQ PO SCH (22:13)
[2018-10-30] MEDS: Lantus Insulin SQ SCH (22:15)
[2018-10-31] MEDS: Ditropan 5 MG PO SCH ×2 (10:24→22:03)
[2018-10-31] MEDS: BACTRIM DS TABLET PO SCH ×2 (10:24→22:03)
[2018-10-31] MEDS: ECOTRIN 81 MG PO SCH (10:24)
[2018-10-31] MEDS: Effexor XR 75 MG PO SCH (10:24)
[2018-10-31] MEDS: Colace 100 MG PO PRN (10:24)
[2018-10-31] MEDS: Lopressor 50 MG PO SCH ×2 (10:24→22:03)
[2018-10-31] MEDS: ENOXAPARIN SODIUM SQ SCH (10:25)
[2018-10-31] MEDS: Aricept 10 MG PO SCH (10:25)
[2018-10-31] MEDS: Lasix 40 MG PO SCH (10:25)
[2018-10-31] MEDS: Protonix 40MG Tablet PO SCH (10:25)
[2018-10-31] MEDS: NovoLOG Insulin SQ PRN ×2 (17:31→22:04)
[2018-10-31] MEDS: Klor Con 10 MEQ PO SCH (22:03)
[2018-10-31] MEDS: Desyrel 150 MG PO SCH (22:03)
[2018-10-31] MEDS: Lantus Insulin SQ SCH (22:04)
[2018-11-01] MEDS: NYSTOP POWDER 15 GM TP SCH ×2 (10:59→21:49)
[2018-11-01] MEDS: ENOXAPARIN SODIUM SQ SCH (11:00)
[2018-11-01] MEDS: Aricept 10 MG PO SCH (11:00)
[2018-11-01] MEDS: Ditropan 5 MG PO SCH ×2 (11:00→21:47)
[2018-11-01] MEDS: Effexor XR 75 MG PO SCH (11:00)
[2018-11-01] MEDS: Colace 100 MG PO PRN (11:01)
[2018-11-01] MEDS: Protonix 40MG Tablet PO SCH (11:01)
[2018-11-01] MEDS: BACTRIM DS TABLET PO SCH ×2 (11:02→21:48)
[2018-11-01] MEDS: Lopressor 50 MG PO SCH ×2 (11:02→21:48)
[2018-11-01] MEDS: Lasix 40 MG PO SCH (11:02)
[2018-11-01] MEDS: ECOTRIN 81 MG PO SCH (11:02)
[2018-11-01] MEDS: NovoLOG Insulin SQ PRN ×2 (11:14→17:09)
[2018-11-01] MEDS: TYLENOL 325 MG PO PRN (14:21)
[2018-11-01] MEDS: Desyrel 150 MG PO SCH (21:48)
[2018-11-01] MEDS: Lantus Insulin SQ SCH (21:48)
[2018-11-01] MEDS: Klor Con 10 MEQ PO SCH (21:48)
[2018-11-02] MEDS: ENOXAPARIN SODIUM SQ SCH (09:12)
[2018-11-02] MEDS: Aricept 10 MG PO SCH (09:12)
[2018-11-02] MEDS: Ditropan 5 MG PO SCH ×2 (09:13→21:49)
[2018-11-02] MEDS: BACTRIM DS TABLET PO SCH ×2 (09:13→21:49)
[2018-11-02] MEDS: ECOTRIN 81 MG PO SCH (09:13)
[2018-11-02] MEDS: Lopressor 50 MG PO SCH ×2 (09:14→21:50)
[2018-11-02] MEDS: NYSTOP POWDER 15 GM TP SCH ×2 (09:14→21:50)
[2018-11-02] MEDS: Protonix 40MG Tablet PO SCH (09:14)
[2018-11-02] MEDS: Effexor XR 75 MG PO SCH (09:14)
[2018-11-02] MEDS: Lasix 40 MG PO SCH (09:14)
[2018-11-02] MEDS: NovoLOG Insulin SQ PRN ×3 (11:25→21:50)
[2018-11-02] MEDS: TYLENOL 325 MG PO PRN (18:11)
[2018-11-02] MEDS: Desyrel 150 MG PO SCH (21:49)
[2018-11-02] MEDS: Klor Con 10 MEQ PO SCH (21:50)
[2018-11-02] MEDS: Lantus Insulin SQ SCH (21:50)
[2018-11-03] MEDS: Ditropan 5 MG PO SCH ×2 (08:56→22:32)
[2018-11-03] MEDS: ENOXAPARIN SODIUM SQ SCH (08:56)
[2018-11-03] MEDS: Effexor XR 75 MG PO SCH (08:56)
[2018-11-03] MEDS: Lopressor 50 MG PO SCH ×2 (08:56→22:32)
[2018-11-03] MEDS: Colace 100 MG PO PRN (08:56)
[2018-11-03] MEDS: Protonix 40MG Tablet PO SCH (08:56)
[2018-11-03] MEDS: Lasix 40 MG PO SCH (08:56)
[2018-11-03] MEDS: BACTRIM DS TABLET PO SCH ×2 (08:56→22:31)
[2018-11-03] MEDS: ECOTRIN 81 MG PO SCH (08:56)
[2018-11-03] MEDS: Aricept 10 MG PO SCH (08:57)
[2018-11-03] MEDS: NYSTOP POWDER 15 GM TP SCH ×2 (08:57→22:40)
[2018-11-03] MEDS: NovoLOG Insulin SQ PRN ×3 (08:58→22:31)
[2018-11-03] MEDS: TYLENOL 325 MG PO PRN (17:46)
[2018-11-03] MEDS: Desyrel 150 MG PO SCH (22:31)
[2018-11-03] MEDS: Lantus Insulin SQ SCH (22:31)
[2018-11-03] MEDS: Klor Con 10 MEQ PO SCH (22:32)
[2018-11-04] MEDS: Aricept 10 MG PO SCH (09:13)
[2018-11-04] MEDS: BACTRIM DS TABLET PO SCH ×2 (09:14→20:59)
[2018-11-04] MEDS: Lasix 40 MG PO SCH (09:15)
[2018-11-04] MEDS: Ditropan 5 MG PO SCH ×2 (09:15→21:00)
[2018-11-04] MEDS: ECOTRIN 81 MG PO SCH (09:15)
[2018-11-04] MEDS: ENOXAPARIN SODIUM SQ SCH (09:16)
[2018-11-04] MEDS: NYSTOP POWDER 15 GM TP SCH ×2 (09:16→21:02)
[2018-11-04] MEDS: Protonix 40MG Tablet PO SCH (09:16)
[2018-11-04] MEDS: Lopressor 50 MG PO SCH ×2 (09:30→21:00)
[2018-11-04] MEDS: Effexor XR 75 MG PO SCH (09:30)
[2018-11-04] MEDS: NovoLOG Insulin SQ PRN ×2 (11:41→22:28)
[2018-11-04] MEDS: TYLENOL 325 MG PO PRN (18:50)
[2018-11-04] MEDS: Desyrel 150 MG PO SCH (20:58)
[2018-11-04] MEDS: Klor Con 10 MEQ PO SCH (20:59)
[2018-11-04] MEDS: Lantus Insulin SQ SCH (21:00)
[2018-11-05] MEDS: Aricept 10 MG PO SCH (09:36)
[2018-11-05] MEDS: ENOXAPARIN SODIUM SQ SCH (09:36)
[2018-11-05] MEDS: Lasix 40 MG PO SCH (09:36)
[2018-11-05] MEDS: Colace 100 MG PO PRN (09:36)
[2018-11-05] MEDS: Ditropan 5 MG PO SCH ×2 (09:36→21:45)
[2018-11-05] MEDS: Protonix 40MG Tablet PO SCH (09:36)
[2018-11-05] MEDS: Lopressor 50 MG PO SCH ×2 (09:36→21:46)
[2018-11-05] MEDS: ECOTRIN 81 MG PO SCH (09:36)
[2018-11-05] MEDS: BACTRIM DS TABLET PO SCH ×2 (09:36→21:45)
[2018-11-05] MEDS: Effexor XR 75 MG PO SCH (09:36)
[2018-11-05] MEDS: NYSTOP POWDER 15 GM TP SCH ×3 (09:37→23:26)
[2018-11-05] MEDS: NovoLOG Insulin SQ PRN ×2 (12:03→21:47)
[2018-11-05] MEDS: Klor Con 10 MEQ PO SCH (21:45)
[2018-11-05] MEDS: Desyrel 150 MG PO SCH (21:45)
[2018-11-05] MEDS: Lantus Insulin SQ SCH (21:46)
[2018-11-06] MEDS: TYLENOL 325 MG PO PRN (01:02)
[2018-11-06] MEDS: Lasix 40 MG PO SCH (09:46)
[2018-11-06] MEDS: Protonix 40MG Tablet PO SCH (09:46)
[2018-11-06] MEDS: ENOXAPARIN SODIUM SQ SCH (09:47)
[2018-11-06] MEDS: Ditropan 5 MG PO SCH ×2 (09:47→22:57)
[2018-11-06] MEDS: Lopressor 50 MG PO SCH ×2 (09:47→22:57)
[2018-11-06] MEDS: Aricept 10 MG PO SCH (09:47)
[2018-11-06] MEDS: Effexor XR 75 MG PO SCH (09:47)
[2018-11-06] MEDS: ECOTRIN 81 MG PO SCH (09:47)
[2018-11-06] MEDS: BACTRIM DS TABLET PO SCH ×2 (09:47→22:57)
[2018-11-06] MEDS: Colace 100 MG PO PRN (09:47)
[2018-11-06] MEDS: NYSTOP POWDER 15 GM TP SCH ×2 (09:48→22:58)
[2018-11-06] MEDS: NovoLOG Insulin SQ PRN ×3 (11:49→22:58)
[2018-11-06] MEDS: Lantus Insulin SQ SCH (22:57)
[2018-11-06] MEDS: Desyrel 150 MG PO SCH (22:57)
[2018-11-06] MEDS: Klor Con 10 MEQ PO SCH (22:57)
[2018-11-07] MEDS: NovoLOG Insulin SQ PRN ×3 (08:06→22:13)
[2018-11-07] MEDS: Lopressor 50 MG PO SCH ×2 (10:12→22:01)
[2018-11-07] MEDS: TYLENOL 325 MG PO PRN ×2 (10:12→17:34)
[2018-11-07] MEDS: Colace 100 MG PO PRN (10:12)
[2018-11-07] MEDS: BACTRIM DS TABLET PO SCH ×2 (10:12→22:01)
[2018-11-07] MEDS: Aricept 10 MG PO SCH (10:12)
[2018-11-07] MEDS: NYSTOP POWDER 15 GM TP SCH ×2 (10:13→22:17)
[2018-11-07] MEDS: Lasix 40 MG PO SCH (10:13)
[2018-11-07] MEDS: Protonix 40MG Tablet PO SCH (10:13)
[2018-11-07] MEDS: Ditropan 5 MG PO SCH ×2 (10:13→22:01)
[2018-11-07] MEDS: Effexor XR 75 MG PO SCH (10:13)
[2018-11-07] MEDS: ENOXAPARIN SODIUM SQ SCH (10:14)
[2018-11-07] MEDS: ECOTRIN 81 MG PO SCH (10:17)
[2018-11-07] MEDS: Desyrel 150 MG PO SCH (22:01)
[2018-11-07] MEDS: Klor Con 10 MEQ PO SCH (22:01)
[2018-11-07] MEDS: Lantus Insulin SQ SCH (22:10)
[2018-11-08] MEDS: ENOXAPARIN SODIUM SQ SCH (10:52)
[2018-11-08] MEDS: Protonix 40MG Tablet PO SCH (10:52)
[2018-11-08] MEDS: Ditropan 5 MG PO SCH ×2 (10:52→22:52)
[2018-11-08] MEDS: Aricept 10 MG PO SCH (10:52)
[2018-11-08] MEDS: BACTRIM DS TABLET PO SCH ×2 (10:52→22:52)
[2018-11-08] MEDS: Effexor XR 75 MG PO SCH (10:52)
[2018-11-08] MEDS: Lopressor 50 MG PO SCH ×2 (10:52→22:52)
[2018-11-08] MEDS: Colace 100 MG PO PRN (10:52)
[2018-11-08] MEDS: ECOTRIN 81 MG PO SCH (10:53)
[2018-11-08] MEDS: NYSTOP POWDER 15 GM TP SCH ×2 (10:55→22:53)
[2018-11-08] MEDS: Lasix 40 MG PO SCH (10:55)
[2018-11-08] MEDS: NovoLOG Insulin SQ PRN ×2 (17:42→23:05)
[2018-11-08] MEDS: Desyrel 150 MG PO SCH (22:52)
[2018-11-08] MEDS: Klor Con 10 MEQ PO SCH (22:52)
[2018-11-08] MEDS: Lantus Insulin SQ SCH (23:05)
[2018-11-09] MEDS: Protonix 40MG Tablet PO SCH (08:57)
[2018-11-09] MEDS: BACTRIM DS TABLET PO SCH (08:58)
[2018-11-09] MEDS: ENOXAPARIN SODIUM SQ SCH (08:58)
[2018-11-09] MEDS: Effexor XR 75 MG PO SCH (08:58)
[2018-11-09] MEDS: ECOTRIN 81 MG PO SCH (08:58)
[2018-11-09] MEDS: Ditropan 5 MG PO SCH (08:58)
[2018-11-09] MEDS: Colace 100 MG PO PRN (08:58)
[2018-11-09] MEDS: Lasix 40 MG PO SCH (08:58)
[2018-11-09] MEDS: Lopressor 50 MG PO SCH (08:58)
[2018-11-09] MEDS: Aricept 10 MG PO SCH (08:58)
[2018-11-09] MEDS: NYSTOP POWDER 15 GM TP SCH (08:59)
[2018-11-09 10:01] VITALS: BP 134/64; PULSE 70; O2SAT 91
== END 2018-11-09 13:25 | DRG 690 ==
LOC: ICU 10:43 → MED SURG 10-30 10:35
PROVIDERS: ADMIT Family Medicine; ATTEND Family Medicine
DX: N39.0 Urinary tract infection, site not specified (principal); Z68.43 Body mass index [BMI] 50.0-59.9, adult; E86.0 Dehydration; E11.9 Type 2 diabetes mellitus without complications; J44.9 Chronic obstructive pulmonary disease, unspecified; R29.6 Repeated falls; Z99.81 Dependence on supplemental oxygen; I25.2 Old myocardial infarction; Z79.899 Other long term (current) drug therapy; E66.01 Morbid (severe) obesity due to excess calories; Z71.3 Dietary counseling and surveillance
CPT/HCPCS: 82962; 94150; 94640; 94760; J1650; J7609; 97110-GP; A9270-GY

== ENCOUNTER 2019-03-04 11:52 | Inpatient (IN) | payer MEDICARE, OTHER ==
--- NOTE | 2019-03-04 12:03 | ERPHSYRPT ---
- History of Present Illness Time Seen by Provider: 03/04/19 12:03 Source: patient, family Exam Limitations: no limitations Physician History: 73 y/o obese, diabetic white female with mild dementia and is a resident of [facility], presents with rapid heart rate. pt was being evaluated by information security architect dr. krystle kruger at the [facility]. pt has stable pulmonary nodules as evidence on a recent ct chest. pt was found to have a rapid hr of 140. pt has sig cardiac hx including 9 cardiac stents. pt is on asa but no anticoag tx. pt only complaint has been occas heartburn for last couple of weeks. pt has a suprapubic bladder catheter in place. per pts daughter, pt has not been eating or drinking well. 02/18/[address] chest revealing new cardiomegaly, interstitial edema and bilat pleural effusions Timing/Duration: today Activities at Onset: none Quality: burning, other (heartburn) Chest Pain Radiation: no radiation Severity of Pain-Max: none Severity of Pain-Current: none Modifying Factors: Improves With: nothing Nitro Today/Relief: no nitro taken today Aspirin Treatment Today: provided at home Associated Symptoms: heartburn, No shortness of breath, No chest pain Prior Chest Pain/Cardiac Workup: cardiac cath, heart attack (has 9 cardiac stents) Allergies/Adverse Reactions: tramadol Allergy (Mild, Verified 03/04/19 12:20) dizzy Home Medications: Aspirin 81 gm Chew [Baby Aspirin 81 mg Chew] 81 mg PO DAILY 01/01/14 [ History] Donepezil HCl [Aricept] 5 mg PO DAILY 01/01/14 [History] Furosemide [Lasix] 20 mg PO DAILY 01/01/14 [History] Potassium Chloride 10 Meq Tab* [Klor Con 10 MEQ] 10 meq PO HS 01/01/14 [ History] Insulin Aspart [NovoLOG Insulin] 20 unit SQ TIDAC 05/27/14 [History] Insulin Glargine [Lantus Insulin] 45 unit SQ HS 05/27/14 [History] Liraglutide [Victoza 2-Ang] 1.8 mg SQ HS 07/30/17 [History] Methenamine 1 gm PO BID 07/30/17 [History] Solifenacin Succinate [Vesicare] 10 mg PO DAILY 07/30/17 [History] Venlafaxine HCl ER 75 mg [Effexor XR 75 MG] 75 mg PO DAILY 07/30/17 [ History] Metoprolol Tartrate 50 mg [Lopressor 50 MG] 50 mg PO BID 12/01/17 [History ] Simvastatin 10 mg [Zocor 10MG] 10 mg PO QPM 12/01/17 [History] Trazodone HCl 50 mg [Desyrel 50 mg] 150 mg PO HS 12/01/17 [History] Omeprazole 40 mg PO DAILY 02/06/18 [History] Celecoxib [Celebrex] 200 mg PO DAILY 03/04/19 [History] Quetiapine Fumarate 25 mg [Seroquel 25 MG] 75 mg PO BID 03/04/19 [History] Hx Tetanus, Diphtheria Vaccination/Date Given: Yes Hx Influenza Vaccination/Date Given: Yes Hx Pneumococcal Vaccination/Date Given: No - Review of Systems Constitutional: No Symptoms Eyes: No Symptoms Ears, Nose, & Throat: No Symptoms Respiratory: No Symptoms Cardiac: No Symptoms Abdominal/Gastrointestinal: Other (heartburn) Genitourinary Symptoms: No Symptoms Musculoskeletal: No Symptoms Skin: No Symptoms Neurological: No Symptoms Psychological: No Symptoms Endocrine: No Symptoms Hematologic/Lymphatic: No Symptoms Immunological/Allergic: No Symptoms All Other Systems: Reviewed and Negative - Past Medical History Pertinent Past Medical History: Yes Neurological History: No Pertinent History ENT History: Cataracts Cardiac History: High Cholesterol, Hypertension, Myocardial Infarction ([place]) Respiratory History: COPD Endocrine Medical History: Diabetes Type II Musculoskeletal History: Arthritis, Fractures GI Medical History: Polyps History: Renal Disease, Other Psycho-Social History: Bipolar, Depression Female Reproductive Disorders: No Pertinent History Other Medical History: daughter states "she is difficulty at times and won't do what she is told" "going to try to get her to take the bowel prep" - Past Surgical History Past Surgical History: Yes Neuro Surgical History: No Pertinent History Cardiac: Cardiac Catheterization, Cardiac Stent Respiratory: No Pertinent History Gastrointestinal: No Pertinent History Genitourinary: No Pertinent History Musculoskeletal: Joint Replacement Female Surgical History: Hysterectomy Other Surgical History: SEVERAL STENTS. SURGERY ON BOTH FEET FROM CLUB FEET - Social History Smoking Status: Former smoker How long have you smoked: 55 Exposure to second hand smoke: Yes Alcohol Use: None Drug Use: none Patient Lives Alone: Yes Significant Family History: heart disease, diabetes, hypertension - Nursing Vital Signs Nursing Vital Signs: Initial Vital Signs Temperature 98.2 F 03/04/19 11:54 Pulse Rate 135 H 03/04/19 11:54 Respiratory Rate 18 03/04/19 11:54 Blood Pressure 101/78 03/04/19 11:54 O2 Sat by Pulse Oximetry 92 L 03/04/19 11:54 Pain Scale Pain Intensity 0 - Physical Exam General Appearance: no apparent distress, alert, obese Eye Exam: PERRL/EOMI, eyes nml inspection Ears, Nose, Throat Exam: normal ENT inspection, moist mucous membranes Neck Exam: normal inspection, non-tender, supple, full range of motion Respiratory Exam: normal breath sounds, lungs clear, airway intact, No chest tenderness, No respiratory distress Cardiovascular Exam: tachycardia Gastrointestinal/Abdomen Exam: soft, normal bowel sounds, No tenderness Pelvic Exam: not done Rectal Exam: not done Back Exam: normal inspection, normal range of motion, No CVA tenderness, No vertebral tenderness Extremity Exam: normal inspection, normal range of motion, pelvis stable Neurologic Exam: alert, oriented x 3, cooperative, senior asset manager II-XII nml as tested Skin Exam: normal color, warm, dry Lymphatic Exam: No adenopathy SpO2 Interpretation: borderline oxygenation O2 Delivery: Room Air - Course Nursing assessment & vital signs reviewed: Yes EKG Interpreted by Me: RATE ([id number]), NORMAL AXIS, NORMAL INTERVALS, NORMAL QRS, Non-specific ST Changes, Other (new nonspecific st segment changes when compared to ekg dated 10/22/18) Ordered Tests: Active Orders 24 hr Category Date Time Status Tier Truck Driver STAT Care 03/04/19 12:05 Active EKG-ER Only STAT Care 03/04/19 12:03 Active IV Insertion STAT Care 03/04/19 12:03 Active Pulse Oximetry (ED) STAT Care 03/04/19 12:03 Active CBC W DIFF Stat Lab 03/04/19 12:15 Completed CMP Stat Lab 03/04/19 12:15 Completed CULTURE,URINE Stat Lab 03/04/19 13:56 Received D-DIMER QUANTITATION Stat Lab 03/04/19 12:15 Completed NT PRO BNP Stat Lab 03/04/19 12:15 Completed PROTIME WITH INR Stat Lab 03/04/19 12:15 Completed TROPONIN Q3H Lab 03/04/19 12:15 Completed TROPONIN Q3H Lab 03/04/19 15:00 Completed TROPONIN Q3H Lab 03/04/19 18:15 Ordered TROPONIN Q3H Lab 03/04/19 21:15 Ordered TROPONIN Q3H Lab 03/05/19 00:15 Ordered UA W/RFX UR CULTURE Stat Lab 03/04/19 14:10 Completed Transfer Order Routine Transfer 03/04/19 Ordered Medication Summary Generic Name Dose Route Start Last Admin Trade Name Freq PRN Reason Stop Dose Admin Diltiazem HCl 100 mls @ 5 mls/hr 03/04/19 16:09 03/04/19 16:14 Cardizem Drip 100 Mg/100 Ml D5w IV 04/03/19 16:08 5 mg/hr .Q20H PRN 5 mls/hr HEART RATE/ A-FIB Administration Protocol 5 MG/HR Discontinued Medications Generic Name Dose Route Start Last Admin Trade Name Freq PRN Reason Stop Dose Admin Diltiazem HCl 15 mg 03/04/19 14:16 03/04/19 14:25 Cardizem Iv 50 Mg/10 Ml IV 03/04/19 14:17 15 mg STAT ONE Administration Diltiazem HCl Confirm 03/04/19 14:24 Cardizem Iv 50 Mg/10 Ml Administered 03/04/19 14:25 Dose 50 mg IV .STK-MED ONE Enoxaparin Sodium 120 mg 03/04/19 16:14 03/04/19 16:16 Enoxaparin Sodium SQ 03/04/19 16:15 120 mg STAT STA Administration Enoxaparin Sodium Confirm 03/04/19 16:16 Enoxaparin Sodium Administered 03/04/19 16:17 Dose 120 mg SQ .STK-MED ONE Furosemide 40 mg 03/04/19 12:41 03/04/19 12:43 Lasix 40 Mg/4 Ml IV 03/04/19 12:42 40 mg STAT ONE Administration Furosemide Confirm 03/04/19 12:43 Lasix 40 Mg/4 Ml Administered 03/04/19 12:44 Dose 40 mg .ROUTE .STK-MED ONE Sodium Chloride 500 mls @ 250 mls/hr 03/04/19 13:00 03/04/19 15:07 Sodium Chloride 0.9% 500 Ml IV 03/04/19 14:59 Infused .Q2H ONE Infusion Sodium Chloride Confirm 03/04/19 13:06 Sodium Chloride 0.9% 500 Ml Administered 03/04/19 13:07 Dose 500 mls @ ud IV .STK-MED ONE Ceftriaxone Sodium/Dextrose 1 g in 50 mls @ 100 mls/hr 03/04/19 15:39 16:14 Rocephin 1 Gm-D5w 50 Ml Bag IV 03/04/19 16:08 Infused STAT STA Titration Ceftriaxone Sodium/Dextrose Confirm 03/04/19 15:42 Rocephin 1 Gm-D5w 50 Ml Bag Administered 03/04/19 15:43 Dose 1 g in 50 mls @ ud IV .STK-MED ONE Metoprolol Tartrate 2.5 mg 03/04/19 13:26 03/04/19 13:51 Lopressor 5 Mg/5 Ml Injection IV 03/04/19 13:27 2.5 mg STAT ONE Administration Metoprolol Tartrate Confirm 03/04/19 13:50 Lopressor 5 Mg/5 Ml Injection Administered 03/04/19 13:51 Dose 5 mg IV .STK-MED ONE Metoprolol Tartrate 2.5 mg 03/04/19 14:00 03/04/19 14:01 Lopressor 5 Mg/5 Ml Injection IV 03/04/19 14:01 2.5 mg STAT ONE Administration Lab/Rad Data: Laboratory Result Diagrams 03/04/19 12:15 03/04/19 12:15 Laboratory Results 03/04/19 03/04/19 03/04/19 Range/Units 15:00 14:10 12:15 WBC (4.0-10.5) K/mm3 RBC (4.1-5.4) M/mm3 Hgb (12.0-16.0) gm/dl Hct (35-47) % MCV (78-100) fl MCH (26-32) pg MCHC (32-36) g/dl RDW (11.5-14.0) % Plt Count (150-450) K/mm3 MPV (6-9.5) fl Gran % (36.0-66.0) % Eos # (Auto) (0-0.5) Absolute Lymphs (auto) (1.0-4.6) Absolute Monos (auto) (0.0-1.3) Lymphocytes % (24.0-44.0) % Monocytes % (0.0-12.0) % Eosinophils % (0.00-5.0) % Basophils % (0.0-0.4) % Absolute Granulocytes (1.4-6.9) Basophils # (0-0.4) PT (9.95-12.35) SECONDS INR (0.8-3.0) D-Dimer (215-500) ng/mL Sodium (137-145) mmol/L Potassium (3.5-5.1) mmol/L Chloride (98-107) mmol/L Carbon Dioxide (22-30) mmol/L Anion Gap (5-15) MEQ/L BUN (7-17) mg/dL Creatinine (0.52-1.04) mg/dL Estimated GFR ML/MIN Glucose (74-106) mg/dL Calcium (8.4-10.2) mg/dL Total Bilirubin (0.2-1.3) mg/dL AST (14-36) U/L ALT (0-35) U/L Alkaline Phosphatase (38-126) U/L Troponin I < 0.012 < 0.012 (0.000-0.034) ng/mL NT-Pro-B Natriuret Pep (0-900) pg/mL Serum Total Protein (6.3-8.2) g/dL Albumin (3.5-5.0) g/dL Urine Color YELLOW (YELLOW) Urine Appearance SLIGHTLY CLOUDY (CLEAR) Urine pH 7.0 (5-6) Ur Specific [place] 1.005 (1.005-1.025) Urine Protein NEGATIVE (Negative) Urine Ketones NEGATIVE (NEGATIVE) Urine Blood SMALL (0-5) David/ul Urine Nitrite NEGATIVE (NEGATIVE) Urine Bilirubin NEGATIVE (NEGATIVE) Urine Urobilinogen NEGATIVE (0-1) mg/dL Ur Leukocyte Esterase MODERATE (NEGATIVE) Urine WBC (Auto) 16-25 (0-5) /HPF Urine RBC (Auto) 3-5 (0-2) /HPF U Hyaline Cast (Auto) 0-2 (0-2) /LPF U Epithel Cells (Auto) RARE (FEW) /HPF Urine Bacteria (Auto) MODERATE (NEGATIVE) /HPF Urine Mucus (Auto) SLIGHT (NEGATIVE) /HPF Urine Culture Reflexed ORDERED SEPARATELY (NO) Urine Glucose NEGATIVE (NEGATIVE) mg/dL 03/04/19 03/04/19 03/04/19 Range/Units 12:15 12:15 12:15 WBC 8.3 (4.0-10.5) K/mm3 RBC 3.72 L (4.1-5.4) M/mm3 Hgb 10.4 L (12.0-16.0) gm/dl Hct 34.5 L (35-47) % MCV 92.7 (78-100) fl MCH 28.0 (26-32) pg MCHC 30.1 L (32-36) g/dl RDW 15.0 H (11.5-14.0) % Plt Count 235 (150-450) K/mm3 MPV 9.2 (6-9.5) fl Gran % 70.7 H (36.0-66.0) % Eos # (Auto) 0.34 (0-0.5) Absolute Lymphs (auto) 1.49 (1.0-4.6) Absolute Monos (auto) 0.55 (0.0-1.3) Lymphocytes % 18.1 L (24.0-44.0) % Monocytes % 6.7 (0.0-12.0) % Eosinophils % 4.1 (0.00-5.0) % Basophils % 0.4 (0.0-0.4) % Absolute Granulocytes 5.84 (1.4-6.9) Basophils # 0.03 (0-0.4) PT 12.6 H (9.95-12.35) SECONDS INR 1.11 (0.8-3.0) D-Dimer 1587 H* (215-500) ng/mL Sodium 142 (137-145) mmol/L Potassium 4.5 (3.5-5.1) mmol/L Chloride 106 (98-107) mmol/L Carbon Dioxide 28 (22-30) mmol/L Anion Gap 12.7 (5-15) MEQ/L BUN 26 H (7-17) mg/dL Creatinine 1.75 H (0.52-1.04) mg/dL Estimated GFR 30.3 ML/MIN Glucose 212 H (74-106) mg/dL Calcium 9.1 (8.4-10.2) mg/dL Total Bilirubin 0.70 (0.2-1.3) mg/dL AST 18 (14-36) U/L ALT 12 (0-35) U/L Alkaline Phosphatase 77 (38-126) U/L Troponin I (0.000-0.034) ng/mL NT-Pro-B Natriuret Pep 4040 H (0-900) pg/mL Serum Total Protein 7.7 (6.3-8.2) g/dL Albumin 3.7 (3.5-5.0) g/dL Urine Color (YELLOW) Urine Appearance (CLEAR) Urine pH (5-6) Ur Specific [place] (1.005-1.025) Urine Protein (Negative) Urine Ketones (NEGATIVE) Urine Blood (0-5) David/ul Urine Nitrite (NEGATIVE) Urine Bilirubin (NEGATIVE) Urine Urobilinogen (0-1) mg/dL Ur Leukocyte Esterase (NEGATIVE) Urine WBC (Auto) (0-5) /HPF Urine RBC (Auto) (0-2) /HPF U Hyaline Cast (Auto) (0-2) /LPF U Epithel Cells (Auto) (FEW) /HPF Urine Bacteria (Auto) (NEGATIVE) /HPF Urine Mucus (Auto) (NEGATIVE) /HPF Urine Culture Reflexed (NO) Urine Glucose (NEGATIVE) mg/dL - Progress Progress: improved (90), re-examined Air Movement: good Progress Note: 03/04/19 15:29 repeat 12 lead ekg after 500ml saline bolus, lopressor 5mg iv and cardizem 15mg iv time 1443 hr 90 s1/q111 pattern. 1st degree av block. 03/04/19 16:[address] potts and dr. ambriz(pts spud grader) about this pt. i reviewed pt hx, condition, labs, ekg. we all agree to admit pt here at [facility] , icu bed, ivf, cardizem drip, iv antibx, lovenox, and v/q scan in am. pt agrees and prefers to stay at [facility]. Blood Culture(s) Obtained: No Antibiotics given: No Discussed with Dr.: Matthew, Other (dr. dockery) Counseled pt/family regarding: lab results, diagnosis, need for follow-up - Departure Departure Disposition: In-patient Admission Clinical Impression: Tachycardia, UTI (urinary tract infection), CHF (congestive heart failure), Hypotension, Elevated d-dimer, Renal insufficiency Condition: Fair Critical Care Time: Yes Critical Care Time(excluding separately billable procedures): Critical 30-74 mins Referrals: [facility] [LOCATION] - Instructions: Heart Failure
[2019-03-04 12:27] LABS: INR 1.11 (0.8-3.0); PROTIME 12.6 SECONDS (9.95-12.35)
[2019-03-04 12:28] LABS: Absolute Neutrophil Ct (ANC) 5.84 (1.4-6.9); BASOPHIL % 0.4 % (0.0-0.4); Basophil (Absolute #) 0.03 (0-0.4); Eosinophil % 4.1 % (0.00-5.0); Eosinophil (Absolute #) 0.34 (0-0.5); Hematocrit 34.5 % (35-47); Hemoglobin 10.4 gm/dl (12.0-16.0); Lymphocyte (Absolute #) 1.49 (1.0-4.6); Lymphocytes % 18.1 % (24.0-44.0); Mean Cell Volume 92.7 fl (78-100); Mean Corpuscular Hgb Concent. 30.1 g/dl (32-36); Mean Platelet Volume 9.2 fl (6-9.5); Monocyte (Absolute #) 0.55 (0.0-1.3); Monocytes % 6.7 % (0.0-12.0); Neutrophil % 70.7 % (36.0-66.0); Platelet Count 235 K/mm3 (150-450); Red Blood Count 3.72 M/mm3 (4.1-5.4); White Blood Count 8.3 K/mm3 (4.0-10.5)
[2019-03-04 12:40] LABS: ALBUMIN 3.7 g/dL (3.5-5.0); ANION GAP 12.7 MEQ/L (5-15); BILIRUBIN,TOTAL 0.7 mg/dL (0.2-1.3); Calcium 9.1 mg/dL (8.4-10.2); Creatinine 1 1.75 mg/dL (0.52-1.04); Potassium 4.5 mmol/L (3.5-5.1); Total Protein 7.7 g/dL (6.3-8.2)
[2019-03-04] MEDS ORDERED: Lasix 40 MG/4 ML IV ONE (12:41)
[2019-03-04] MEDS ORDERED: Lasix 40 MG/4 ML ONE (12:43)
[2019-03-04] MEDS ORDERED: Sodium Chloride 0.9% 500 ML 500 ML IV ONE ×2 (13:00→13:06)
[2019-03-04] MEDS ORDERED: LOPRESSOR 5 MG/5 ML INJECTION IV ONE ×3 (13:26→14:00)
[2019-03-04] MEDS ORDERED: Cardizem IV 50 MG/10 ML IV ONE ×2 (14:16→14:24)
[2019-03-04 15:22] LABS: Appearance SLIGHTLY CLOUDY (CLEAR); Bacteria MODERATE /HPF (NEGATIVE); Bilirubin NEGATIVE (NEGATIVE); Blood SMALL Ery/ul (0-5); Epithelial Cells RARE /HPF (FEW); Glucose NEGATIVE (NEGATIVE); Hyaline Casts 0-2 /LPF (0-2); Ketones NEGATIVE (NEGATIVE); Leukocyte Esterase MODERATE (NEGATIVE); Mucus SLIGHT /HPF (NEGATIVE); Nitrite NEGATIVE (NEGATIVE); Protein,Urine Dip NEGATIVE (Negative); Specific Gravity 1.005 (1.005-1.025); Urobilinogen NEGATIVE mg/dL (0-1)
[2019-03-04] MEDS ORDERED: ROCEPHIN 1 Gm-D5w 50 ml Bag** 1 G/50 ML IVPB IV STA (15:39)
[2019-03-04] MEDS ORDERED: ROCEPHIN 1 Gm-D5w 50 ml Bag** 1 G/50 ML IVPB IV ONE (15:42)
[2019-03-04] MEDS ORDERED: CARDIZEM DRIP 100 MG/100 ML D5W 100 ML IV PRN (16:09)
[2019-03-04] MEDS ORDERED: ENOXAPARIN SODIUM SQ STA (16:14)
[2019-03-04] MEDS ORDERED: ENOXAPARIN SODIUM SQ ONE (16:16)
[2019-03-04] MEDS ORDERED: Lasix 40 MG/4 ML IV SCH (17:29)
[2019-03-04] MEDS ORDERED: Zofran 4 MG/2 ML VIAL IV PRN (17:29)
[2019-03-04] MEDS ORDERED: TYLENOL 325 MG PO PRN (17:29)
[2019-03-04] MEDS: Sodium Chloride 0.9% 1000 ML 1,000 ML IV SCH (18:34)
[2019-03-04] MEDS: CARDIZEM DRIP 100 MG/100 ML D5W 100 ML IV PRN ×2 (19:00→22:22)
[2019-03-04] MEDS: Lopressor 50 MG PO SCH (19:42)
[2019-03-04] MEDS ORDERED: NovoLOG Insulin ONE (20:53)
[2019-03-04] MEDS: Seroquel 25 MG PO SCH (20:56)
[2019-03-04] MEDS: Lantus Insulin SQ SCH (20:57)
[2019-03-04] MEDS: Zocor 10MG PO SCH (20:57)
[2019-03-04] MEDS: Klor Con 10 MEQ PO SCH (20:57)
[2019-03-04] MEDS: Desyrel 150 MG PO SCH (20:57)
[2019-03-04] MEDS: NovoLIN R SQ PRN (20:58)
[2019-03-04] MEDS ORDERED: ENOXAPARIN SODIUM SQ SCH (22:00)
[2019-03-04] MEDS ORDERED: Sodium Chloride 0.9% 250 ML 250 ML IV SCH (23:20)
[2019-03-05] MEDS: Sodium Chloride 0.9% 1000 ML 1,000 ML IV SCH (03:25)
[2019-03-05 06:50] LABS: Absolute Neutrophil Ct (ANC) 4.29 (1.4-6.9); BASOPHIL % 0.3 % (0.0-0.4); Basophil (Absolute #) 0.02 (0-0.4); Eosinophil % 4.8 % (0.00-5.0); Eosinophil (Absolute #) 0.33 (0-0.5); Hematocrit 33.4 % (35-47); Hemoglobin 9.9 gm/dl (12.0-16.0); Lymphocyte (Absolute #) 1.73 (1.0-4.6); Lymphocytes % 25.1 % (24.0-44.0); Mean Cell Volume 94.4 fl (78-100); Mean Corpuscular Hgb Concent. 29.6 g/dl (32-36); Mean Platelet Volume 9.5 fl (6-9.5); Monocyte (Absolute #) 0.52 (0.0-1.3); Monocytes % 7.5 % (0.0-12.0); Neutrophil % 62.3 % (36.0-66.0); Platelet Count 204 K/mm3 (150-450); Red Blood Count 3.54 M/mm3 (4.1-5.4); Red Cell Distribution Width 15.4 % (11.5-14.0); White Blood Count 6.9 K/mm3 (4.0-10.5)
[2019-03-05] MEDS ORDERED: Bactroban OINTMENT TOP PRN (07:00)
[2019-03-05] MEDS ORDERED: MEDICATION INTERVENTION MC SCH (07:15)
[2019-03-05 07:26] LABS: ALBUMIN 3.4 g/dL (3.5-5.0); ANION GAP 11.5 MEQ/L (5-15); BILIRUBIN,TOTAL 0.4 mg/dL (0.2-1.3); Calcium 8.5 mg/dL (8.4-10.2); Creatinine 1 2.2 mg/dL (0.52-1.04); Potassium 4.2 mmol/L (3.5-5.1)
--- NOTE | 2019-03-05 08:27 | PCM.HP ---
History of Present Illness - Chief Complaint Chief Complaint: tachycardia. UTI. elevated D-Dimer. Renal Insuffienecy History of Present Illness: is a 73 year old female pt of Dr. Quintanilla from [facility] with dementia, CAD, DM, and suprapubic catheter who was admitted through ER with UTI and tachycardia. She was given lopressor IV without relief; HR decreased with cardizem IV push. ER called Dr. Serrano as well and he was fine with pt being admitted at [facility] for further tx. Pt does not remember why she came to the ER, but apparently she was at Dr. Burris's office and was noted to have an elevated HR. She apparently had a CT chest on 02/18/19 with interstitial edema, bilat pleural effusions, and new cardiomegaly. In ER her d-dimer was elevated but she cannot have CT with contrast due to renal function; VQ scan is scheduled and she is on therapeutic lovenox currently. - Review of Systems All Other Systems: Unable due to dementia Medications & Allergies Home Medications: Home Medication List Aspirin 81 gm Chew [Baby Aspirin 81 mg Chew] 81 mg PO DAILY 01/01/14 [ History Confirmed 03/04/19] Donepezil HCl [Aricept] 5 mg PO DAILY 01/01/14 [History Confirmed 03/04/19] Furosemide [Lasix] 20 mg PO DAILY 01/01/14 [History Confirmed 03/04/19] Potassium Chloride 10 Meq Tab* [Klor Con 10 MEQ] 10 meq PO HS 01/01/14 [ History Confirmed 03/04/19] Insulin Aspart [NovoLOG Insulin] 20 unit SQ TIDAC 05/27/14 [History Confirmed 03/04/19] Insulin Glargine [Lantus Insulin] 45 unit SQ HS 05/27/14 [History Confirmed 03/04/19] Liraglutide [Victoza 2-Ang] 1.8 mg SQ HS 07/30/17 [History Confirmed 03/04/19] Methenamine 1 gm PO BID 07/30/17 [History Confirmed 03/04/19] Solifenacin Succinate [Vesicare] 10 mg PO DAILY 07/30/17 [History Confirmed 08/16] Venlafaxine HCl ER 75 mg [Effexor XR 75 MG] 75 mg PO DAILY 07/30/17 [ History Confirmed 03/04/19] Metoprolol Tartrate 50 mg [Lopressor 50 MG] 50 mg PO BID 12/01/17 [ History Confirmed 03/04/19] Simvastatin 10 mg [Zocor 10MG] 10 mg PO QPM 12/01/17 [History Confirmed 08/16] Trazodone HCl 50 mg [Desyrel 50 mg] 150 mg PO HS 12/01/17 [History Confirmed 03/04/19] Omeprazole 40 mg PO DAILY 02/06/18 [History Confirmed 03/04/19] Celecoxib [Celebrex] 200 mg PO DAILY 03/04/19 [History Confirmed 03/04/19] Mupirocin [Bactroban OINTMENT] 1 gm TOP BID PRN 03/04/19 [History Confirmed 03/04/19] Nystatin Cream 30 gm [Nystop 30 gm Cream] 1 gm TOP Q12H 03/04/19 [History Confirmed 03/04/19] Quetiapine Fumarate 25 mg [Seroquel 25 MG] 75 mg PO BID 03/04/19 [History Confirmed 03/04/19] Allergies/Adverse Reactions: Allergies Allergy/AdvReac Type Severity Reaction Status Date / Time tramadol Allergy Mild dizzy Verified 03/04/19 12:20 - Past Medical History Past Medical History: Yes Neurological History: No Pertinent History ENT History: Cataracts Cardiac History: High Cholesterol, Hypertension, Myocardial Infarction ([place]) Respiratory History: COPD Endocrine Medical History: Diabetes Type II Musculoskelatal History: Arthritis, Fractures GI Medical History: Polyps History: Renal Disease, Other Pyscho-Social History: Bipolar, Depression Reproductive Disorders: No Pertinent History Comment: daughter states "she is difficulty at times and won't do what she is told" "going to try to get her to take the bowel prep" - Female History Are you now?: No - Past Surgical History Past Surgical History: Yes Neuro Surgical History: No Pertinent History Cardiac History: Cardiac Catheterization, Cardiac Stent Respiratory Surgery: No Pertinent History GI Surgical History: No Pertinent History Genitourinary Surgical Hx: No Pertinent History Musculskeletal Surgical Hx: Joint Replacement Female Surgical History: Hysterectomy Other Surgical History: SEVERAL STENTS. SURGERY ON BOTH FEET FROM CLUB FEET - Social History Smoking Status: Former smoker How long have you smoked: 55 Exposure to second hand smoke: Yes Alcohol: None Drug Use: none Significant Family History: heart disease, diabetes, hypertension - Physical Exam Vital Signs: Vital Signs - 24 hr Temp Pulse Pulse Resp BP BP Pulse Ox 03/05/19 08:00 97.5 F 135 H 20 135/94 94 L 03/05/19 07:44 134 H 03/05/19 06:00 105 H 15 109/71 109/71 97 03/05/19 05:00 101 H 16 100/64 100/64 94 L 03/05/19 04:00 97.9 F 109 H 16 114/73 114/73 94 L 03/05/19 03:00 102 H 19 107/66 107/66 95 03/05/19 02:00 107 H 17 92/66 92/66 96 03/05/19 01:00 103 H 17 119/58 119/58 92 L 03/05/19 00:01 100 H 03/05/19 00:00 98.5 F 100 H 17 92/58 92/58 93 L 03/04/19 23:00 107 H 18 85/74 85/74 95 03/04/19 22:22 118 H 20 100/75 03/04/19 22:00 118 H 22 100/75 100/75 92 L 03/04/19 21:05 125 H 15 129/83 03/04/19 21:00 125 H 24 129/83 129/83 94 L 03/04/19 20:08 124 H 19 94 L 03/04/19 20:00 115 H 14 98/74 03/04/19 19:57 98.0 F 115 H 19 98/74 93 L 03/04/19 19:00 132 H 20 108/78 03/04/19 17:38 97.9 F 102 H 20 98/61 93 L 03/04/19 17:33 97.9 F 102 H 20 98/61 93 L 03/04/19 17:29 93 L 03/04/19 16:58 100 H 20 99/75 03/04/19 16:57 100 H 20 99/75 95 12/05/19 16:50 130 H 20 119/83 97 03/04/19 16:46 130 H 20 90/79 96 03/04/19 15:43 112 H 18 92/58 96 03/04/19 15:08 94 H 20 104/60 95 03/04/19 14:42 92 H 20 82/73 95 03/04/19 14:37 88 20 78/63 94 L 03/04/19 13:59 130 H 18 111/89 97 03/04/19 12:40 132 H 101/78 96 03/04/19 12:39 132 H 101/78 96 03/04/19 12:21 90 L 03/04/19 11:54 98.2 F 134 H 135 H 18 101/78 92 L Oxygen-Last 24 hours O2 Percentage 2 Liters = 28% O2 Percentage 2 Liters = 28% O2 Percentage 2 Liters = 28% O2 Percentage 2 Liters = 28% O2 Percentage 2 Liters = 28% O2 Percentage 3 Liters = 32% O2 Percentage 3 Liters = 32% O2 Percentage 2 Liters = 28% O2 Percentage 2 Liters = 28% O2 Percentage 2 Liters = 28% O2 Percentage 2 Liters = 28% O2 Percentage 2 Liters = 28% O2 Percentage 2 Liters = 28% O2 Percentage 3 Liters = 32% O2 Percentage 3 Liters = 32% O2 Percentage 3 Liters = 32% O2 Percentage 2 Liters = 28% O2 Percentage 2 Liters = 28% O2 Percentage 2 Liters = 28% O2 Percentage 2 Liters = 28% O2 Percentage 2 Liters = 28% O2 Percentage 2 Liters = 28% O2 Percentage 2 Liters = 28% O2 Percentage 2 Liters = 28% O2 Percentage 2 Liters = 28% General Appearance: no apparent distress, alert (pleasant and conversant) Neurologic Exam: cooperative, normal mood/affect Eye Exam: eyes nml inspection Ears, Nose, Throat Exam: moist mucous membranes Neck Exam: normal inspection, non-tender, No lymphadenopathy Respiratory Exam: normal breath sounds, lungs clear, No crackles/rales, No rhonchi, No wheezing Cardiovascular Exam: other (reg rhythm, tachycardia), No murmur Gastrointestinal/Abdomen Exam: soft, normal bowel sounds, tenderness (diffuse), No distention, No mass, No guarding, No rebound Extremity Exam: tenderness (ankles/pretibial), No pedal edema, No swelling Skin Exam: normal color, warm, dry, No rash Wound Assessment: Skin/Wound Assessment Wound/Incision Assessment Start: 03/04/19 18: 10 Text: Status: Active Freq: Q6H Protocol: Document 03/05/19 04:00 BW (Rec: 03/05/19 04:20 BW [id number]) Wound Photo Photo Taken No Results - Labs Lab/Micro Results: Accuchecks Date 03/05/19 Date 03/04/19 Time 07:43 Time 22:00 Accucheck Value: 149 Accucheck Value: 206 Lab Results-Last 24 Hours 03/04/19 03/04/19 03/04/19 Range/Units 12:15 12:15 12:15 WBC 8.3 (4.0-10.5) K/mm3 RBC 3.72 L (4.1-5.4) M/mm3 Hgb 10.4 L (12.0-16.0) gm/dl Hct 34.5 L (35-47) % MCV 92.7 (78-100) fl MCH 28.0 (26-32) pg MCHC 30.1 L (32-36) g/dl RDW 15.0 H (11.5-14.0) % Plt Count 235 (150-450) K/mm3 MPV 9.2 (6-9.5) fl Gran % 70.7 H (36.0-66.0) % Eos # (Auto) 0.34 (0-0.5) Absolute Lymphs (auto) 1.49 (1.0-4.6) Absolute Monos (auto) 0.55 (0.0-1.3) Lymphocytes % 18.1 L (24.0-44.0) % Monocytes % 6.7 (0.0-12.0) % Eosinophils % 4.1 (0.00-5.0) % Basophils % 0.4 (0.0-0.4) % Absolute Granulocytes 5.84 (1.4-6.9) Basophils # 0.03 (0-0.4) PT 12.6 H (9.95-12.35) SECONDS INR 1.11 (0.8-3.0) D-Dimer 1587 H* (215-500) ng/mL Sodium 142 (137-145) mmol/L Potassium 4.5 (3.5-5.1) mmol/L Chloride 106 (98-107) mmol/L Carbon Dioxide 28 (22-30) mmol/L Anion Gap 12.7 (5-15) MEQ/L BUN 26 H (7-17) mg/dL Creatinine 1.75 H (0.52-1.04) mg/dL Estimated GFR 30.3 ML/MIN Glucose 212 H (74-106) mg/dL Calcium 9.1 (8.4-10.2) mg/dL Total Bilirubin 0.70 (0.2-1.3) mg/dL AST 18 (14-36) U/L ALT 12 (0-35) U/L Alkaline Phosphatase 77 (38-126) U/L Troponin I (0.000-0.034) ng/mL NT-Pro-B Natriuret Pep 4040 H (0-900) pg/mL Serum Total Protein 7.7 (6.3-8.2) g/dL Albumin 3.7 (3.5-5.0) g/dL Urine Color (YELLOW) Urine Appearance (CLEAR) Urine pH (5-6) Ur Specific [place] (1.005-1.025) Urine Protein (Negative) Urine Ketones (NEGATIVE) Urine Blood (0-5) David/ul Urine Nitrite (NEGATIVE) Urine Bilirubin (NEGATIVE) Urine Urobilinogen (0-1) mg/dL Ur Leukocyte Esterase (NEGATIVE) Urine WBC (Auto) (0-5) /HPF Urine RBC (Auto) (0-2) /HPF U Hyaline Cast (Auto) (0-2) /LPF U Epithel Cells (Auto) (FEW) /HPF Urine Bacteria (Auto) (NEGATIVE) /HPF Urine Mucus (Auto) (NEGATIVE) /HPF Urine Culture Reflexed (NO) Urine Glucose (NEGATIVE) mg/dL 03/04/19 03/04/19 03/04/19 Range/Units 12:15 14:10 15:00 WBC (4.0-10.5) K/mm3 RBC (4.1-5.4) M/mm3 Hgb (12.0-16.0) gm/dl Hct (35-47) % MCV (78-100) fl MCH (26-32) pg MCHC (32-36) g/dl RDW (11.5-14.0) % Plt Count (150-450) K/mm3 MPV (6-9.5) fl Gran % (36.0-66.0) % Eos # (Auto) (0-0.5) Absolute Lymphs (auto) (1.0-4.6) Absolute Monos (auto) (0.0-1.3) Lymphocytes % (24.0-44.0) % Monocytes % (0.0-12.0) % Eosinophils % (0.00-5.0) % Basophils % (0.0-0.4) % Absolute Granulocytes (1.4-6.9) Basophils # (0-0.4) PT (9.95-12.35) SECONDS INR (0.8-3.0) D-Dimer (215-500) ng/mL Sodium (137-145) mmol/L Potassium (3.5-5.1) mmol/L Chloride (98-107) mmol/L Carbon Dioxide (22-30) mmol/L Anion Gap (5-15) MEQ/L BUN (7-17) mg/dL Creatinine (0.52-1.04) mg/dL Estimated GFR ML/MIN Glucose (74-106) mg/dL Calcium (8.4-10.2) mg/dL Total Bilirubin (0.2-1.3) mg/dL AST (14-36) U/L ALT (0-35) U/L Alkaline Phosphatase (38-126) U/L Troponin I < 0.012 < 0.012 (0.000-0.034) ng/mL NT-Pro-B Natriuret Pep (0-900) pg/mL Serum Total Protein (6.3-8.2) g/dL Albumin (3.5-5.0) g/dL Urine Color YELLOW (YELLOW) Urine Appearance SLIGHTLY CLOUDY (CLEAR) Urine pH 7.0 (5-6) Ur Specific [place] 1.005 (1.005-1.025) Urine Protein NEGATIVE (Negative) Urine Ketones NEGATIVE (NEGATIVE) Urine Blood SMALL (0-5) David/ul Urine Nitrite NEGATIVE (NEGATIVE) Urine Bilirubin NEGATIVE (NEGATIVE) Urine Urobilinogen NEGATIVE (0-1) mg/dL Ur Leukocyte Esterase MODERATE (NEGATIVE) Urine WBC (Auto) 16-25 (0-5) /HPF Urine RBC (Auto) 3-5 (0-2) /HPF U Hyaline Cast (Auto) 0-2 (0-2) /LPF U Epithel Cells (Auto) RARE (FEW) /HPF Urine Bacteria (Auto) MODERATE (NEGATIVE) /HPF Urine Mucus (Auto) SLIGHT (NEGATIVE) /HPF Urine Culture Reflexed ORDERED SEPARATELY (NO) Urine Glucose NEGATIVE (NEGATIVE) mg/dL 03/04/19 03/04/19 03/05/19 Range/Units 18:15 21:30 06:35 WBC 6.9 (4.0-10.5) K/mm3 RBC 3.54 L (4.1-5.4) M/mm3 Hgb 9.9 L (12.0-16.0) gm/dl Hct 33.4 L (35-47) % MCV 94.4 (78-100) fl MCH 28.0 (26-32) pg MCHC 29.6 L (32-36) g/dl RDW 15.4 H (11.5-14.0) % Plt Count 204 (150-450) K/mm3 MPV 9.5 (6-9.5) fl Gran % 62.3 (36.0-66.0) % Eos # (Auto) 0.33 (0-0.5) Absolute Lymphs (auto) 1.73 (1.0-4.6) Absolute Monos (auto) 0.52 (0.0-1.3) Lymphocytes % 25.1 (24.0-44.0) % Monocytes % 7.5 (0.0-12.0) % Eosinophils % 4.8 (0.00-5.0) % Basophils % 0.3 (0.0-0.4) % Absolute Granulocytes 4.29 (1.4-6.9) Basophils # 0.02 (0-0.4) PT (9.95-12.35) SECONDS INR (0.8-3.0) D-Dimer (215-500) ng/mL Sodium (137-145) mmol/L Potassium (3.5-5.1) mmol/L Chloride (98-107) mmol/L Carbon Dioxide (22-30) mmol/L Anion Gap (5-15) MEQ/L BUN (7-17) mg/dL Creatinine (0.52-1.04) mg/dL Estimated GFR ML/MIN Glucose (74-106) mg/dL Calcium (8.4-10.2) mg/dL Total Bilirubin (0.2-1.3) mg/dL AST (14-36) U/L ALT (0-35) U/L Alkaline Phosphatase (38-126) U/L Troponin I < 0.012 < 0.012 (0.000-0.034) ng/mL NT-Pro-B Natriuret Pep (0-900) pg/mL Serum Total Protein (6.3-8.2) g/dL Albumin (3.5-5.0) g/dL Urine Color (YELLOW) Urine Appearance (CLEAR) Urine pH (5-6) Ur Specific [place] (1.005-1.025) Urine Protein (Negative) Urine Ketones (NEGATIVE) Urine Blood (0-5) David/ul Urine Nitrite (NEGATIVE) Urine Bilirubin (NEGATIVE) Urine Urobilinogen (0-1) mg/dL Ur Leukocyte Esterase (NEGATIVE) Urine WBC (Auto) (0-5) /HPF Urine RBC (Auto) (0-2) /HPF U Hyaline Cast (Auto) (0-2) /LPF U Epithel Cells (Auto) (FEW) /HPF Urine Bacteria (Auto) (NEGATIVE) /HPF Urine Mucus (Auto) (NEGATIVE) /HPF Urine Culture Reflexed (NO) Urine Glucose (NEGATIVE) mg/dL 03/05/19 Range/Units 06:35 WBC (4.0-10.5) K/mm3 RBC (4.1-5.4) M/mm3 Hgb (12.0-16.0) gm/dl Hct (35-47) % MCV (78-100) fl MCH (26-32) pg MCHC (32-36) g/dl RDW (11.5-14.0) % Plt Count (150-450) K/mm3 MPV (6-9.5) fl Gran % (36.0-66.0) % Eos # (Auto) (0-0.5) Absolute Lymphs (auto) (1.0-4.6) Absolute Monos (auto) (0.0-1.3) Lymphocytes % (24.0-44.0) % Monocytes % (0.0-12.0) % Eosinophils % (0.00-5.0) % Basophils % (0.0-0.4) % Absolute Granulocytes (1.4-6.9) Basophils # (0-0.4) PT (9.95-12.35) SECONDS INR (0.8-3.0) D-Dimer (215-500) ng/mL Sodium 144 (137-145) mmol/L Potassium 4.2 (3.5-5.1) mmol/L Chloride 109 H (98-107) mmol/L Carbon Dioxide 28 (22-30) mmol/L Anion Gap 11.5 (5-15) MEQ/L BUN 31 H (7-17) mg/dL Creatinine 2.20 H (0.52-1.04) mg/dL Estimated GFR 23.3 ML/MIN Glucose 142 H (74-106) mg/dL Calcium 8.5 (8.4-10.2) mg/dL Total Bilirubin 0.40 (0.2-1.3) mg/dL AST 17 (14-36) U/L ALT 9 (0-35) U/L Alkaline Phosphatase 79 (38-126) U/L Troponin I (0.000-0.034) ng/mL NT-Pro-B Natriuret Pep (0-900) pg/mL Serum Total Protein 7.0 (6.3-8.2) g/dL Albumin 3.4 L (3.5-5.0) g/dL Urine Color (YELLOW) Urine Appearance (CLEAR) Urine pH (5-6) Ur Specific [place] (1.005-1.025) Urine Protein (Negative) Urine Ketones (NEGATIVE) Urine Blood (0-5) David/ul Urine Nitrite (NEGATIVE) Urine Bilirubin (NEGATIVE) Urine Urobilinogen (0-1) mg/dL Ur Leukocyte Esterase (NEGATIVE) Urine WBC (Auto) (0-5) /HPF Urine RBC (Auto) (0-2) /HPF U Hyaline Cast (Auto) (0-2) /LPF U Epithel Cells (Auto) (FEW) /HPF Urine Bacteria (Auto) (NEGATIVE) /HPF Urine Mucus (Auto) (NEGATIVE) /HPF Urine Culture Reflexed (NO) Urine Glucose (NEGATIVE) mg/dL Accuchecks Date 03/05/19 Date 03/04/19 Time 07:43 Time 22:00 Accucheck Value: 149 Accucheck Value: 206 - Radiology Impressions Radiology Exams & Impressions: Radiology Procedures Category Date Time Status PULMONARY PERF VENTILATION [NUCMED] Stat Exams 03/05/19 Ordered - Other Procedures and Tests Respiratory Therapy 03/04/19 17:29 Oxygen Nasal Cannula 2 lpm Assessment/Plan (1) Dementia Current Visit: Yes Status: Acute Qualifiers: Dementia type: vascular dementia Dementia behavioral disturbance: without behavioral disturbance Qualified Code(s): F01.50 - Vascular dementia without behavioral disturbance Code(s): F03.90 - UNSPECIFIED DEMENTIA WITHOUT BEHAVIORAL DISTURBANCE (2) CHF (congestive heart failure) Current Visit: Yes Status: Acute Qualifiers: Heart failure type: unspecified Heart failure chronicity: unspecified Qualified Code(s): I50.9 - Heart failure, unspecified Code(s): I50.9 - HEART FAILURE, UNSPECIFIED (3) Elevated d-dimer Current Visit: Yes Status: Acute Assessment & Plan: VQ scan today. On therapeutic lovenox. Code(s): R79.89 - OTHER SPECIFIED ABNORMAL FINDINGS OF BLOOD CHEMISTRY (4) Hypotension Current Visit: Yes Status: Acute Qualifiers: Hypotension type: unspecified hypotension type Qualified Code(s): I95.9 - Hypotension, unspecified Assessment & Plan: Pt required fluid bolus to increase BP enough to tolerate cardizem. Code(s): I95.9 - HYPOTENSION, UNSPECIFIED (5) Tachycardia Current Visit: Yes Status: Acute Code(s): R00.0 - TACHYCARDIA, UNSPECIFIED (6) UTI (urinary tract infection) Current Visit: Yes Status: Acute Onset Date: ~10/22/18 Assessment & Plan: On rocephin 1g IV daily, day #2 today. Code(s): N39.0 - URINARY TRACT INFECTION, SITE NOT SPECIFIED (7) Hypoxia Current Visit: No Status: Acute Onset Date: ~10/22/18 Assessment & Plan: Pt says she doesn't wear O2 at [facility]. Code(s): R09.02 - HYPOXEMIA (8) CAD (coronary artery disease) Current Visit: No Status: Chronic Qualifiers: Coronary Disease-Associated Artery/Lesion type: [place] artery Assessment & Plan: Has had multiple stents in the past. On ASA chronically. Code(s): I25.10 - ATHSCL HEART DISEASE OF [place] CORONARY ARTERY W/O ANG PCTRS (9) COPD (chronic obstructive pulmonary disease) Current Visit: No Status: Chronic Qualifiers: COPD type: unspecified COPD Qualified Code(s): J44.9 - Chronic obstructive pulmonary disease, unspecified (10) Diabetes mellitus Current Visit: No Status: Chronic Qualifiers: Diabetes mellitus residential insulin use: with residential use Chronic kidney disease stage: stage 4 (severe) Assessment & Plan: Function has worsened since admission but she has been on IV lasix; however it had to be held last night due to her hypotension. Code(s): E11.9 - TYPE 2 DIABETES MELLITUS WITHOUT COMPLICATIONS
[2019-03-05] MEDS: NovoLOG Insulin SQ SCH ×3 (08:39→17:21)
[2019-03-05] MEDS ORDERED: NON-FORMULARY ITEM (Omeprazole [Omeprazole] 40 MG) PO SCH (10:00)
[2019-03-05] MEDS ORDERED: NON-FORMULARY ITEM (Donepezil Hcl [Aricept] 5 MG) PO SCH (10:00)
[2019-03-05] MEDS ORDERED: NON-FORMULARY ITEM (Celecoxib [Celebrex] 200 MG) PO SCH (10:00)
[2019-03-05] MEDS ORDERED: BABY ASPIRIN 81 MG CHEW PO SCH (10:00)
[2019-03-05] MEDS ORDERED: NON-FORMULARY ITEM (Solifenacin Succinate [Vesicare] 10 MG) PO SCH (10:00)
[2019-03-05] MEDS: ROCEPHIN 1 Gm-D5w 50 ml Bag** 1 G/50 ML IVPB IV SCH (10:38)
[2019-03-05] MEDS: Aricept 10 MG PO SCH (10:39)
[2019-03-05] MEDS: ECOTRIN 81 MG PO SCH (10:40)
[2019-03-05] MEDS: celeBREX 100 MG PO SCH (10:40)
[2019-03-05] MEDS: Ditropan 5 MG PO SCH ×2 (10:40→22:11)
[2019-03-05] MEDS: Effexor XR 75 MG PO SCH (10:40)
[2019-03-05] MEDS: Lopressor 50 MG PO SCH ×2 (10:41→20:19)
[2019-03-05] MEDS: Protonix 40MG Tablet PO SCH (10:41)
[2019-03-05] MEDS: Seroquel 25 MG PO SCH ×2 (10:41→22:11)
[2019-03-05] MEDS: NYSTOP 30 GM CREAM TOP SCH ×2 (12:19→22:12)
[2019-03-05] MEDS ORDERED: Lopressor 25MG Tab PO ONE (14:26)
[2019-03-05] MEDS ORDERED: Sodium Chloride 0.9% 250 ML 250 ML IV SCH (14:45)
--- NOTE | 2019-03-05 15:39 | XRAY ---
Examination: Two-view chest from 03/05/2019. Comparison: CT of the chest without IV contrast from 02/18/2019 and AP portable chest film from 02/06/2018. Indication: History of hypotension and atrial fibrillation, PE protocol. Findings: AP semierect upright and lateral chest radiographs are submitted for evaluation. The heart size again appears towards the upper limits of normal. Dense curvilinear calcification is seen within the mitral valve annulus. A calcified aortic arch and mild tortuosity of the descending thoracic aorta are seen. There is average inflation of the lungs. I see no active airspace disease. There is minimal pleural reaction within the major fissure on the left. I also see some minimal plate atelectasis or fibrotic scarring at the anterior and lateral left lung base. There appears to be a minimal amount of pleural fluid within both posterior lung sulci. Central pulmonary vascularity is not congested. There is no pneumothorax. Moderate degenerative changes are seen about the right shoulder girdle. The bones are mildly demineralized. There is mild lower dorsal kyphosis. Some vertebral endplate spurring is seen about the thoracolumbar junction. Impression: 1. There appear to be tiny bibasilar posterior pleural effusions. The amount of pleural fluid is decreased as compared to the CT chest study from 04/20/2018. Minimal pleural fluid or pleural reaction is also seen within the major fissure on the left. 2. No focal air space infiltrates are noted. 3. However, I believe there is some minimal linear scarring or plate atelectasis within the left lower lung field. 4. The heart size appears towards upper limits of normal and reveals a prominent calcified mitral valve annulus. This is unchanged.
--- NOTE | 2019-03-05 15:45 | XRAY ---
Exam: Radionuclide ventilation perfusion lung scan from 03/05/2019. Comparison: AP semierect upright and lateral chest films from 03/05/2019. Indication: Elevated d-dimer, renal insufficiency. Chest discomfort. Dose: Ventilation scan - 34.77 mCi of technetium 99m DTPA aerosol. Perfusion scan - 5.3 mCi of technetium 99m MAA IV. Findings: Anterior, posterior, both lateral, both posterior oblique, and both anterior oblique projections were obtained of the lungs for the ventilation and perfusion lung phases. No wedge-shaped or segmental perfusion defects are seen within either lung. There is minor inhomogeneity seen within the left lung base. However, no VQ mismatches are seen. The probability of pulmonary embolism is considered low. Impression: 1. The probability of pulmonary embolism is low.
[2019-03-05] MEDS ORDERED: ENOXAPARIN SODIUM SQ SCH ×2 (18:00)
[2019-03-05] MEDS: ELIQUIS 2.5 MG TABLET PO SCH (22:11)
[2019-03-05] MEDS: Klor Con 10 MEQ PO SCH (22:11)
[2019-03-05] MEDS: Zocor 10MG PO SCH (22:11)
[2019-03-05] MEDS: Desyrel 150 MG PO SCH (22:11)
[2019-03-05] MEDS: Lantus Insulin SQ SCH (22:12)
[2019-03-05] MEDS ORDERED: Lanoxin 0.5 MG/2 ML INJECTION IV ONE (23:34)
[2019-03-05] MEDS ORDERED: Cardizem IV 50 MG/10 ML IV ONE (23:34)
[2019-03-05] MEDS ORDERED: CARDIZEM DRIP 100 MG/100 ML D5W 100 ML IV PRN (23:35)
[2019-03-06] MEDS: Sodium Chloride 0.9% 1000 ML 1,000 ML IV SCH ×2 (01:04→21:56)
[2019-03-06 04:01] LABS: Hematocrit 30.5 % (35-47); Mean Cell Volume 94.7 fl (78-100); Mean Corpuscular Hgb Concent. 29.5 g/dl (32-36); Mean Platelet Volume 9.3 fl (6-9.5); Platelet Count 191 K/mm3 (150-450); Red Blood Count 3.22 M/mm3 (4.1-5.4); Red Cell Distribution Width 15.1 % (11.5-14.0); White Blood Count 6.9 K/mm3 (4.0-10.5)
[2019-03-06 04:21] LABS: ANION GAP 11.2 MEQ/L (5-15); Calcium 8.3 mg/dL (8.4-10.2); Creatinine 1 2.15 mg/dL (0.52-1.04); MAGNESIUM 1.6 mg/dL (1.6-2.3); Potassium 4.6 mmol/L (3.5-5.1)
[2019-03-06] MEDS: NovoLOG Insulin SQ SCH ×3 (09:25→17:17)
[2019-03-06] MEDS: ROCEPHIN 1 Gm-D5w 50 ml Bag** 1 G/50 ML IVPB IV SCH (09:27)
[2019-03-06] MEDS: Lopressor 50 MG PO SCH ×2 (09:27→21:44)
[2019-03-06] MEDS: Effexor XR 75 MG PO SCH (09:28)
[2019-03-06] MEDS: celeBREX 100 MG PO SCH (09:28)
[2019-03-06] MEDS: Ditropan 5 MG PO SCH ×2 (09:28→21:46)
[2019-03-06] MEDS: ELIQUIS 2.5 MG TABLET PO SCH ×2 (09:28→21:44)
[2019-03-06] MEDS: Protonix 40MG Tablet PO SCH (09:28)
[2019-03-06] MEDS: ECOTRIN 81 MG PO SCH (09:28)
[2019-03-06] MEDS: Seroquel 25 MG PO SCH ×2 (09:28→22:16)
[2019-03-06] MEDS: NYSTOP 30 GM CREAM TOP SCH ×2 (09:31→21:46)
[2019-03-06] MEDS: Aricept 10 MG PO SCH (09:34)
--- NOTE | 2019-03-06 12:07 | PCM.NOTE ---
Date and Time: 03/06/19 1202 Subjective Assessment: 73 yr old female seen and examined this am. Patient reports that she feels ok this am. She cant remember why she is here and she thinks it might have been that she was having chest pain at [place]. She denies chest pain today. She denies shortness of breath. She reports good appetite. She denies any heart palpitations. She had no reported concerns this am. - Review of Systems Constitutional: No Fever, No Weakness Eyes: No Double Vision Ears, Nose, & Throat: No Nose Congestion, No Nose Discharge, No Sinus Drainage, No Throat Pain Respiratory: No Cough, No Short Of Breath, No Wheezing Cardiac: No Chest Pain, No Edema Abdominal/Gastrointestinal: No Abdominal Pain, No Nausea, No Vomiting, No Diarrhea, No Constipation Genitourinary Symptoms: Other (Patient has suprapubic cath which gets changed regularly. She reports that she voids urine still occasionally through her urethra.), No Dysuria, No Frequency, No Hematuria Musculoskeletal: Other (Bilateral lower leg pain. ) Skin: No Rash Neurological: No Dizziness, No Headache Psychological: No Symptoms Hematologic/Lymphatic: No Anemia Objective Exam General Appearance: no apparent distress Neurologic Exam: alert, oriented x 3, cooperative, normal mood/affect, No confusion, No agitation Skin Exam: warm, dry, pale, other (chronic venous stasis changes on bilateral lower extremities.), No jaundice Eye Exam: eyes nml inspection Ears, Nose, Throat Exam: moist mucous membranes Neck Exam: normal inspection, No non-tender, No supple, No carotid bruit, No JVD Respiratory Exam: normal breath sounds, lungs clear, No respiratory distress, No diminished breath sounds, No crackles/rales, No rhonchi, No wheezing Cardiovascular Exam: irregular, other (Rate is bouncing from 86 to 129 during exam. Irregularly irregular), No murmur, No friction rub, No gallop Gastrointestinal/Abdomen Exam: soft, normal bowel sounds, No tenderness, No distention, No mass, No guarding Extremity Exam: swelling OBJECTIVE DATA Vital Signs: Vital Signs - 24 hr Temp Pulse Resp BP BP BP Pulse Ox 03/06/19 11:00 69 16 106/69 03/06/19 10:00 96 H 16 121/79 03/06/19 09:05 118 H 16 131/91 03/06/19 08:12 70 17 123/56 03/06/19 08:00 70 03/06/19 07:48 97.7 F 64 17 119/75 93 L 03/06/19 07:00 84 18 112/79 03/06/19 06:00 84 17 108/75 03/06/19 05:00 93 H 14 124/93 03/06/19 04:00 97.4 F 83 18 95/72 95/72 92 L 03/06/19 03:00 80 17 83/54 03/06/19 02:00 84 15 103/66 03/06/19 00:01 130 H 03/06/19 00:00 97.4 F 130 H 19 112/74 90 L 03/05/19 20:20 108/70 03/05/19 20:05 95 03/05/19 20:00 97.7 F 92 H 22 135/94 97/54 93 L 03/05/19 16:00 94 H 97/74 03/05/19 15:00 97.4 F 76 20 110/60 95 03/05/19 14:30 113/64 03/05/19 13:30 74/45 Oxygen-Last 24 hours O2 Percentage 2 Liters = 28% O2 Percentage 2 Liters = 28% Pain Assessment - Last Documented Pain Intensity 0 Pain Scale Used 0-10 Pain Scale Intake and Output: Intake & Output 03/04/19 03/05/19 03/06/19 03/07/19 11:59 11:59 11:59 11:59 Intake Total 1497 2036 Output Total 650 820 Balance 847 1216 Weight 138.346 kg 133 kg 133 kg Lab Results: Accuchecks Date 03/06/19 Date 03/06/19 Date 03/05/19 Date 03/05/19 Time 11:59 Time 08:01 Time 22:00 Time 16:30 Accucheck Value: 107 Accucheck Value: 119 Accucheck Value: 99 Lab Results-Last 24 Hours 03/06/19 03/06/19 Range/Units 04:04 04:04 WBC 6.9 (4.0-10.5) K/mm3 RBC 3.22 L (4.1-5.4) M/mm3 Hgb 9.0 L (12.0-16.0) gm/dl Hct 30.5 L (35-47) % MCV 94.7 (78-100) fl MCH 28.0 (26-32) pg MCHC 29.5 L (32-36) g/dl RDW 15.1 H (11.5-14.0) % Plt Count 191 (150-450) K/mm3 MPV 9.3 (6-9.5) fl Sodium 144 (137-145) mmol/L Potassium 4.6 (3.5-5.1) mmol/L Chloride 110 H (98-107) mmol/L Carbon Dioxide 27 (22-30) mmol/L Anion Gap 11.2 (5-15) MEQ/L BUN 35 H (7-17) mg/dL Creatinine 2.15 H (0.52-1.04) mg/dL Estimated GFR 23.9 ML/MIN Glucose 173 H (74-106) mg/dL Calcium 8.3 L (8.4-10.2) mg/dL Magnesium 1.6 (1.6-2.3) mg/dL NT-Pro-B Natriuret Pep 1980 H (0-900) pg/mL Radiology Exams: Radiology Procedures Category Date Time Status CHEST 2 VIEWS (PA AND LAT) Urgent Exams 03/05/19 15:01 Completed ECHO W/2D AND DOPPLER [US] Routine Exams 03/05/19 09:25 Taken PULMONARY PERF VENTILATION [NUCMED] Stat Exams 03/05/19 09:00 Completed Assessment/Plan (1) Afib Current Visit: Yes Status: Acute Assessment & Plan: Patient appeared to be in afib with RVR. She was started on cardizem drip and then was transitioned to PO metoprolol. Patient's was again afib with rates of 130 overnight. Cardiology was notified and added dig and increased metoprolol. Patient was then restarted on the cardizem drip per cardiology. She will continue to be monitored on tele. Patient's VQ scan showed low probability for PE. Patient was also started on eliquis. Will be discharging patient on rate/ rhythm control meds per cardiology. Code(s): I48.91 - UNSPECIFIED ATRIAL FIBRILLATION (2) Dementia Current Visit: Yes Status: Acute Qualifiers: Dementia type: vascular dementia Dementia behavioral disturbance: without behavioral disturbance Qualified Code(s): F01.50 - Vascular dementia without behavioral disturbance Assessment & Plan: Mild confusion at baseline. Patient is on donezipil. Will continue with this medication at same dosing Code(s): F03.90 - UNSPECIFIED DEMENTIA WITHOUT BEHAVIORAL DISTURBANCE (3) Elevated d-dimer Current Visit: Yes Status: Acute Assessment & Plan: VQ showed low probability of PE Code(s): R79.89 - OTHER SPECIFIED ABNORMAL FINDINGS OF BLOOD CHEMISTRY (4) Hypotension Current Visit: Yes Status: Acute Qualifiers: Hypotension type: unspecified hypotension type Qualified Code(s): I95.9 - Hypotension, unspecified Assessment & Plan: Related to medications used to treat her afib/tachycardia. Will continue to monitor and address as necessary Code(s): I95.9 - HYPOTENSION, UNSPECIFIED (5) Renal insufficiency Current Visit: Yes Status: Acute Assessment & Plan: Will trend her Creatinine GFR and BUN (6) UTI (urinary tract infection) Current Visit: Yes Status: Acute Onset Date: ~10/22/18 Assessment & Plan: Sensitivity is still pending. Will continue with IV rocephin at this time. Code(s): N39.0 - URINARY TRACT INFECTION, SITE NOT SPECIFIED
[2019-03-06] MEDS: Desyrel 150 MG PO SCH (21:44)
[2019-03-06] MEDS: Zocor 10MG PO SCH (21:45)
[2019-03-06] MEDS: Klor Con 10 MEQ PO SCH (21:46)
[2019-03-06] MEDS: Lantus Insulin SQ SCH (21:46)
[2019-03-06] MEDS: Colace 100 MG PO SCH (21:48)
[2019-03-06] MEDS ORDERED: Seroquel 25 MG ONE (22:12)
[2019-03-07] MEDS: Lopressor 50 MG PO SCH ×2 (08:00→21:52)
[2019-03-07] MEDS: NovoLOG Insulin SQ SCH ×3 (08:32→17:07)
[2019-03-07] MEDS: ROCEPHIN 1 Gm-D5w 50 ml Bag** 1 G/50 ML IVPB IV SCH (10:00)
[2019-03-07] MEDS: celeBREX 100 MG PO SCH (10:30)
[2019-03-07] MEDS: ECOTRIN 81 MG PO SCH (10:30)
[2019-03-07] MEDS: Effexor XR 75 MG PO SCH (10:30)
[2019-03-07] MEDS: Protonix 40MG Tablet PO SCH (10:30)
[2019-03-07] MEDS: Seroquel 25 MG PO SCH ×2 (10:30→21:54)
[2019-03-07] MEDS: ELIQUIS 2.5 MG TABLET PO SCH ×2 (10:30→21:52)
[2019-03-07] MEDS: Aricept 10 MG PO SCH (10:31)
[2019-03-07] MEDS: Colace 100 MG PO SCH ×2 (10:31→21:52)
[2019-03-07] MEDS: NYSTOP 30 GM CREAM TOP SCH ×2 (10:31→22:00)
[2019-03-07] MEDS: Ditropan 5 MG PO SCH ×2 (10:31→21:52)
[2019-03-07] MEDS ORDERED: PROVENTIL 2.5 MG/3 ML NEB IH PRN (10:38)
[2019-03-07] MEDS ORDERED: PROVENTIL 2.5 MG/3 ML NEB IH ONE (10:41)
--- NOTE | 2019-03-07 14:22 | PCM.NOTE ---
Date and Time: 03/07/191416 Subjective Assessment: 73 yr old female seen and examined this am. Patient is pleasantly confused. She denies any chest pain or SOB. She reports her lower legs have pain chronically. She reports that she is not very active. Nurse reported that patient's HR was 129 this am and that her urine looked dark and cloudy this am. - Review of Systems Constitutional: Weakness (Baseline weakness), No Fever, No Chills Eyes: No Symptoms Ears, Nose, & Throat: No Symptoms Respiratory: No Cough, No Short Of Breath Cardiac: Edema (bilateral lower extremities), No Chest Pain Abdominal/Gastrointestinal: No Abdominal Pain, No Nausea, No Vomiting, No Diarrhea, No Constipation Genitourinary Symptoms: Other (Dark urine with sedimate) Musculoskeletal: Other (Bilateral lower extremities) Skin: Dryness (Bilateral lower extremities) Neurological: No Symptoms Psychological: No Symptoms Endocrine: No Symptoms Hematologic/Lymphatic: No Symptoms Immunological/Allergic: No Symptoms Objective Exam General Appearance: no apparent distress Neurologic Exam: alert, other (Pleasantly confused. Patient did not remember me from yesterday. She cant remember how she ended up in hospital.) Skin Exam: normal color, warm, dry, other (Dry peeling skin on lower extremities bilaterally) Eye Exam: eyes nml inspection Ears, Nose, Throat Exam: moist mucous membranes Neck Exam: normal inspection, non-tender, supple, No carotid bruit, No JVD Respiratory Exam: wheezing (Diffused expiratory wheeze), No respiratory distress , No diminished breath sounds, No crackles/rales Cardiovascular Exam: other (Repeat EKG this am still show afib without RVR.) Gastrointestinal/Abdomen Exam: soft, normal bowel sounds, No tenderness, No distention Extremity Exam: pedal edema Back Exam: normal inspection OBJECTIVE DATA Vital Signs: Vital Signs - 24 hr Temp Pulse Resp BP Pulse Ox 03/07/19 12:43 97.4 F 99 H 20 112/83 94 L 03/07/19 10:50 90 18 96 03/07/19 08:00 124 H 03/07/19 07:35 97.8 F 122 H 20 99/83 96 03/07/19 04:22 97.4 F 124 H 17 114/94 96 03/07/19 04:00 124 H 03/07/19 00:01 121 H 03/06/19 23:35 98.3 F 121 H 18 118/73 95 03/06/19 20:00 109 H 94 L 03/06/19 19:57 98.0 F 128 H 20 100/70 94 L 03/06/19 16:00 97.8 F 74 19 110/50 94 L Oxygen-Last 24 hours O2 Percentage 2 Liters = 28% O2 Percentage 2 Liters = 28% O2 Percentage 2 Liters = 28% Pain Assessment - Last Documented Pain Intensity 0 Pain Scale Used 0-10 Pain Scale Intake and Output: Intake & Output 03/05/19 03/06/19 03/07/19 03/08/19 11:59 11:59 11:59 11:59 Intake Total 1497 2036 2063 Output Total 966 798 0294 Balance 847 1216 588 Weight 133 kg 133 kg 138 kg Lab Results: Accuchecks Date 03/07/19 Date 03/07/19 Date 03/06/19 Time 11:16 Time 08:05 Time 16:30 Accucheck Value: 101 Accucheck Value: 144 Accucheck Value: 150 Accucheck Value: 151 Lab Results-Last 24 Hours 03/06/19 Range/Units 04:00 Hemoglobin A1c 6.66 H (4.5-6.0) % Radiology Exams: Radiology Procedures Category Date Time Status CHEST 1 VIEW (PORTABLE) Urgent Exams 03/07/19 10:20 Taken CHEST 2 VIEWS (PA AND LAT) Urgent Exams 03/05/19 15:01 Completed Assessment/Plan (1) Afib Current Visit: Yes Status: Acute Assessment & Plan: Paroxysmal in nature. Patient rates continue to range from the high 120s to 80s. Was planning on discharging patient back to [place] however she has not had a stable enough HR to safely send back to [place]. Patient has been transitioned to PO meds. Will continue to monitor on tele. Transferred out of ICU as she has no longer required cardizem drip. Cardiology has been consulted will follow recs on cardiac meds to discharge patient on. Patient will also discharge on eliquis Code(s): I48.91 - UNSPECIFIED ATRIAL FIBRILLATION (2) Dementia Current Visit: Yes Status: Acute Qualifiers: Dementia type: vascular dementia Dementia behavioral disturbance: without behavioral disturbance Qualified Code(s): F01.50 - Vascular dementia without behavioral disturbance Assessment & Plan: Pleasantly confused at baseline. Will continue routine meds Code(s): F03.90 - UNSPECIFIED DEMENTIA WITHOUT BEHAVIORAL DISTURBANCE (3) Elevated d-dimer Current Visit: Yes Status: Acute Assessment & Plan: VQ scan showed low suspicion for PE Code(s): R79.89 - OTHER SPECIFIED ABNORMAL FINDINGS OF BLOOD CHEMISTRY (4) Hypotension Current Visit: Yes Status: Acute Qualifiers: Hypotension type: unspecified hypotension type Qualified Code(s): I95.9 - Hypotension, unspecified Assessment & Plan: Related to her arrhythmia medications. Will continue to monitor. Code(s): I95.9 - HYPOTENSION, UNSPECIFIED (5) Renal insufficiency Current Visit: Yes Status: Acute Assessment & Plan: Patient's Cr has trended up and GFR has trended down. Possibly due to cardiorenal syndrome or her UTI. Will continue to monitor and trend labs. May have to adjust any nephrotoxic meds (6) UTI (urinary tract infection) Current Visit: Yes Status: Acute Onset Date: ~10/22/18 Assessment & Plan: Patient has been getting Rocephin for UTI which sensitivities supported appropriate. Patient had flushing of suprapubic catheter performed. Will get repeat UA Code(s): N39.0 - URINARY TRACT INFECTION, SITE NOT SPECIFIED
[2019-03-07 14:49] LABS: Absolute Neutrophil Ct (ANC) 4.46 (1.4-6.9); BASOPHIL % 0.4 % (0.0-0.4); Basophil (Absolute #) 0.03 (0-0.4); Eosinophil % 4.4 % (0.00-5.0); Hematocrit 31.9 % (35-47); Hemoglobin 9.3 gm/dl (12.0-16.0); Lymphocyte (Absolute #) 1.51 (1.0-4.6); Lymphocytes % 22.2 % (24.0-44.0); Mean Cell Volume 95.5 fl (78-100); Mean Corpuscular Hemoglobin 27.8 pg (26-32); Mean Corpuscular Hgb Concent. 29.2 g/dl (32-36); Mean Platelet Volume 9.4 fl (6-9.5); Monocyte (Absolute #) 0.51 (0.0-1.3); Monocytes % 7.5 % (0.0-12.0); Neutrophil % 65.5 % (36.0-66.0); Platelet Count 187 K/mm3 (150-450); Red Blood Count 3.34 M/mm3 (4.1-5.4); White Blood Count 6.8 K/mm3 (4.0-10.5)
[2019-03-07 15:07] LABS: ANION GAP 11.6 MEQ/L (5-15); Calcium 8.3 mg/dL (8.4-10.2); Creatinine 1 1.93 mg/dL (0.52-1.04); Potassium 4.6 mmol/L (3.5-5.1)
[2019-03-07 15:22] LABS: Appearance TURBID (CLEAR); Bacteria PACKED /HPF (NEGATIVE); Bilirubin NEGATIVE (NEGATIVE); Blood MODERATE Ery/ul (0-5); Glucose NEGATIVE (NEGATIVE); Ketones NEGATIVE (NEGATIVE); Leukocyte Esterase LARGE (NEGATIVE); Mucus SLIGHT /HPF (NEGATIVE); Nitrite NEGATIVE (NEGATIVE); Non-Squamous Epithelial Cells RARE /HPF (FEW); Protein,Urine Dip 100 (Negative); RBC 26-50 /HPF (0-2); Specific Gravity 1.016 (1.005-1.025); Urobilinogen NEGATIVE mg/dL (0-1); WBC >100 /HPF (0-5)
[2019-03-07] MEDS: Sodium Chloride 0.9% 1000 ML 1,000 ML IV SCH (18:52)
--- NOTE | 2019-03-07 20:46 | XRAY ---
Indication: Expiratory wheezing. Comparison: 2 days ago. Portable chest demonstrates new central vascular congestion and right infrahilar infiltrate versus atelectasis. Stable left midlung fibrosis/scarring and borderline cardiomegaly with mitral valve calcifications. Remaining chest unremarkable. Comment: Preliminary interpretation was made by [facility]. No critical discrepancy.
[2019-03-07] MEDS: Desyrel 150 MG PO SCH (21:52)
[2019-03-07] MEDS: Klor Con 10 MEQ PO SCH (21:52)
[2019-03-07] MEDS: Zocor 10MG PO SCH (21:54)
[2019-03-07] MEDS: Lantus Insulin SQ SCH (21:57)
[2019-03-08] MEDS: NovoLOG Insulin SQ SCH ×3 (07:53→17:21)
--- NOTE | 2019-03-08 08:12 | PCM.NOTE ---
Date and Time: 03/08/19 0810 Subjective Assessment: patient denies any chest pain or shortness of breath, only complains of being NPO for kidney test. Objective Exam General Appearance: no apparent distress, alert, obese Skin Exam: normal color, warm, dry Respiratory Exam: normal breath sounds, lungs clear, No respiratory distress Cardiovascular Exam: tachycardia, irregular Gastrointestinal/Abdomen Exam: soft, No tenderness, No mass Extremity Exam: normal inspection, normal range of motion OBJECTIVE DATA Vital Signs: Vital Signs - 24 hr Temp Pulse Resp BP Pulse Ox 03/08/19 08:06 96 03/08/19 07:29 97.5 F 123 H 20 126/98 95 03/08/19 04:00 97.5 F 120 H 17 132/87 97 03/07/19 23:59 98.2 F 104 H 20 115/72 98 03/07/19 20:00 98.1 F 110 H 18 119/81 97 03/07/19 16:21 97.8 F 92 H 20 109/76 95 03/07/19 12:43 97.4 F 99 H 20 112/83 94 L 03/07/19 10:50 90 18 96 Oxygen-Last 24 hours O2 Percentage 2 Liters = 28% O2 Percentage 2 Liters = 28% O2 Percentage 2 Liters = 28% O2 Percentage 2 Liters = 28% Pain Assessment - Last Documented Pain Intensity 0 Pain Scale Used 0-10 Pain Scale Intake and Output: Intake & Output 03/05/19 03/06/19 03/07/19 03/08/19 11:59 11:59 11:59 11:59 Intake Total 1497 2036 2063 2582 Output Total 838 384 0641 1600 Balance 847 1216 588 982 Weight 133 kg 133 kg 138 kg 139.8 kg Lab Results: Accuchecks Date 03/07/19 Date 03/07/19 Time 17:00 Time 11:16 Accucheck Value: 121 Accucheck Value: 103 Accucheck Value: 117 Accucheck Value: 101 Lab Results-Last 24 Hours 03/06/19 03/07/19 03/07/19 Range/Units 04:00 14:45 14:50 WBC 6.8 (4.0-10.5) K/mm3 RBC 3.34 L (4.1-5.4) M/mm3 Hgb 9.3 L (12.0-16.0) gm/dl Hct 31.9 L (35-47) % MCV 95.5 (78-100) fl MCH 27.8 (26-32) pg MCHC 29.2 L (32-36) g/dl RDW 15.0 H (11.5-14.0) % Plt Count 187 (150-450) K/mm3 MPV 9.4 (6-9.5) fl Gran % 65.5 (36.0-66.0) % Eos # (Auto) 0.30 (0-0.5) Absolute Lymphs (auto) 1.51 (1.0-4.6) Absolute Monos (auto) 0.51 (0.0-1.3) Lymphocytes % 22.2 L (24.0-44.0) % Monocytes % 7.5 (0.0-12.0) % Eosinophils % 4.4 (0.00-5.0) % Basophils % 0.4 (0.0-0.4) % Absolute Granulocytes 4.46 (1.4-6.9) Basophils # 0.03 (0-0.4) Sodium (137-145) mmol/L Potassium (3.5-5.1) mmol/L Chloride (98-107) mmol/L Carbon Dioxide (22-30) mmol/L Anion Gap (5-15) MEQ/L BUN (7-17) mg/dL Creatinine (0.52-1.04) mg/dL Estimated GFR ML/MIN Glucose (74-106) mg/dL Hemoglobin A1c 6.66 H (4.5-6.0) % Calcium (8.4-10.2) mg/dL Urine Color DELISA (YELLOW) Urine Appearance TURBID (CLEAR) Urine pH 6.0 (5-6) Ur Specific [place] 1.016 (1.005-1.025) Urine Protein 100 (Negative) Urine Ketones NEGATIVE (NEGATIVE) Urine Blood MODERATE (0-5) David/ul Urine Nitrite NEGATIVE (NEGATIVE) Urine Bilirubin NEGATIVE (NEGATIVE) Urine Urobilinogen NEGATIVE (0-1) mg/dL Ur Leukocyte Esterase LARGE (NEGATIVE) Urine WBC (Auto) >100 (0-5) /HPF Urine RBC (Auto) 26-50 (0-2) /HPF U Epithel Cells (Auto) NONE (FEW) /HPF Urine Bacteria (Auto) PACKED (NEGATIVE) /HPF U Non-Squamous Epi Cells RARE (FEW) /HPF Urine Mucus (Auto) SLIGHT (NEGATIVE) /HPF Urine Culture Reflexed NO (NO) Urine Glucose NEGATIVE (NEGATIVE) mg/dL 03/07/19 Range/Units 14:50 WBC (4.0-10.5) K/mm3 RBC (4.1-5.4) M/mm3 Hgb (12.0-16.0) gm/dl Hct (35-47) % MCV (78-100) fl MCH (26-32) pg MCHC (32-36) g/dl RDW (11.5-14.0) % Plt Count (150-450) K/mm3 MPV (6-9.5) fl Gran % (36.0-66.0) % Eos # (Auto) (0-0.5) Absolute Lymphs (auto) (1.0-4.6) Absolute Monos (auto) (0.0-1.3) Lymphocytes % (24.0-44.0) % Monocytes % (0.0-12.0) % Eosinophils % (0.00-5.0) % Basophils % (0.0-0.4) % Absolute Granulocytes (1.4-6.9) Basophils # (0-0.4) Sodium 145 (137-145) mmol/L Potassium 4.6 (3.5-5.1) mmol/L Chloride 111 H (98-107) mmol/L Carbon Dioxide 27 (22-30) mmol/L Anion Gap 11.6 (5-15) MEQ/L BUN 36 H (7-17) mg/dL Creatinine 1.93 H (0.52-1.04) mg/dL Estimated GFR 27.0 ML/MIN Glucose 95 (74-106) mg/dL Hemoglobin A1c (4.5-6.0) % Calcium 8.3 L (8.4-10.2) mg/dL Urine Color (YELLOW) Urine Appearance (CLEAR) Urine pH (5-6) Ur Specific [place] (1.005-1.025) Urine Protein (Negative) Urine Ketones (NEGATIVE) Urine Blood (0-5) David/ul Urine Nitrite (NEGATIVE) Urine Bilirubin (NEGATIVE) Urine Urobilinogen (0-1) mg/dL Ur Leukocyte Esterase (NEGATIVE) Urine WBC (Auto) (0-5) /HPF Urine RBC (Auto) (0-2) /HPF U Epithel Cells (Auto) (FEW) /HPF Urine Bacteria (Auto) (NEGATIVE) /HPF U Non-Squamous Epi Cells (FEW) /HPF Urine Mucus (Auto) (NEGATIVE) /HPF Urine Culture Reflexed (NO) Urine Glucose (NEGATIVE) mg/dL Radiology Exams: Radiology Procedures Category Date Time Status CHEST 1 VIEW (PORTABLE) Urgent Exams 03/07/19 10:20 Completed KIDNEY [US] Routine Exams 03/08/19 08:00 Ordered Assessment/Plan (1) Atrial fibrillation with rapid ventricular response Current Visit: Yes Status: Acute Assessment & Plan: increase lopressor from 75 to 100mg po bid, persists with poor rate control. cardiology consulting, continue eliquis Code(s): I48.91 - UNSPECIFIED ATRIAL FIBRILLATION (2) UTI (urinary tract infection) Current Visit: Yes Status: Acute Onset Date: ~10/22/18 Assessment & Plan: culture reviewed, has been on rocephin and changed based on culture to levaquin Code(s): N39.0 - URINARY TRACT INFECTION, SITE NOT SPECIFIED (3) Renal insufficiency Current Visit: Yes Status: Acute Assessment & Plan: improved today, stable
[2019-03-08] MEDS: Seroquel 25 MG PO SCH ×2 (08:59→21:33)
[2019-03-08] MEDS: ECOTRIN 81 MG PO SCH (08:59)
[2019-03-08] MEDS: Protonix 40MG Tablet PO SCH (08:59)
[2019-03-08] MEDS: Ditropan 5 MG PO SCH ×2 (08:59→21:33)
[2019-03-08] MEDS: Aricept 10 MG PO SCH (08:59)
[2019-03-08] MEDS: ELIQUIS 2.5 MG TABLET PO SCH ×2 (09:00→21:32)
[2019-03-08] MEDS: Effexor XR 75 MG PO SCH (09:00)
[2019-03-08] MEDS: Lopressor 50 MG PO SCH ×2 (09:00→21:33)
[2019-03-08] MEDS: Colace 100 MG PO SCH ×2 (09:00→21:33)
[2019-03-08] MEDS: Levofloxacin 250MG Tablet PO SCH (09:00)
[2019-03-08] MEDS: celeBREX 100 MG PO SCH (09:00)
[2019-03-08] MEDS: NYSTOP 30 GM CREAM TOP SCH ×2 (10:17→21:33)
[2019-03-08] MEDS: Sodium Chloride 0.9% 1000 ML 1,000 ML IV SCH (15:47)
--- NOTE | 2019-03-08 21:25 | XRAY ---
Exam: Bilateral renal ultrasound from 03/08/2019. Comparison: CT of the abdomen and pelvis without IV contrast from 10/22/2018. Indication: Dark urine, elevated BUN. Findings: The technologist left a note that the exam was technically difficult, particularly involving the urinary bladder, due to the patient's body habitus, pain intolerance, and inability to hold required positions. The right kidney measured 8.7 cm x 4.2 cm x 3.9 cm and is remarkable for a small 1.6 cm x 1.1 cm x 1.3 cm cyst abutting the lower pole. No hydronephrosis or dominant posterior shadowing renal calculi are seen. Renal cortical echogenicity appears grossly unremarkable. The left kidney measured 8.8 cm x 4.1 cm x 3.75 cm. A 2.45 cm x 2.1 cm x 1.8 cm cyst was identified within the lower pole. Previously noted 5.1 cm in diameter apparent cyst within the posterior aspect of the upper pole of the left kidney is not definitely imaged on the current ultrasound. I see no hydronephrosis or dominant left renal calculus. The technologist stated the patient has a suprapubic catheter in place. Or will the urinary bladder appears small measuring about 4 cm in width and 6 cm in AP dimension on a transverse image. This is not well seen on the longitudinal projection. Impression: 1. Limited and technically difficult ultrasound exam. 2. Both kidneys appear slightly small in size. No hydronephrosis was identified. 3. At least one cyst was seen within each kidney. Prior apparent 5.1 cm cyst abutting the posterior margin of the upper pole of the left kidney on the CT study from 10/22/2018 is not clearly imaged on the current ultrasound study. Evaluation of the left kidney is more limited than the right kidney on today's ultrasound. 4. The patient has a suprapubic urinary catheter in place. The urinary bladder is mostly decompressed
[2019-03-08] MEDS: Klor Con 10 MEQ PO SCH (21:33)
[2019-03-08] MEDS: Desyrel 150 MG PO SCH (21:33)
[2019-03-08] MEDS: Zocor 10MG PO SCH (21:33)
[2019-03-08] MEDS: Lantus Insulin SQ SCH (21:34)
[2019-03-09 05:02] LABS: Absolute Neutrophil Ct (ANC) 3.89 (1.4-6.9); BASOPHIL % 0.3 % (0.0-0.4); Basophil (Absolute #) 0.02 (0-0.4); Eosinophil % 5.6 % (0.00-5.0); Eosinophil (Absolute #) 0.35 (0-0.5); Hematocrit 31.7 % (35-47); Hemoglobin 9.1 gm/dl (12.0-16.0); Lymphocyte (Absolute #) 1.47 (1.0-4.6); Lymphocytes % 23.7 % (24.0-44.0); Mean Cell Volume 95.5 fl (78-100); Mean Corpuscular Hemoglobin 27.4 pg (26-32); Mean Corpuscular Hgb Concent. 28.7 g/dl (32-36); Mean Platelet Volume 9.9 fl (6-9.5); Monocyte (Absolute #) 0.47 (0.0-1.3); Monocytes % 7.6 % (0.0-12.0); Neutrophil % 62.8 % (36.0-66.0); Platelet Count 197 K/mm3 (150-450); Red Blood Count 3.32 M/mm3 (4.1-5.4); Red Cell Distribution Width 15.2 % (11.5-14.0); White Blood Count 6.2 K/mm3 (4.0-10.5)
[2019-03-09 05:19] LABS: ANION GAP 8.2 MEQ/L (5-15); Calcium 8.7 mg/dL (8.4-10.2); Creatinine 1 1.69 mg/dL (0.52-1.04); Potassium 4.8 mmol/L (3.5-5.1)
[2019-03-09 06:21] LABS: Slide Review 1 YES
[2019-03-09] MEDS: Sodium Chloride 0.9% 1000 ML 1,000 ML IV SCH (08:08)
[2019-03-09] MEDS: NovoLOG Insulin SQ SCH ×3 (08:08→17:24)
[2019-03-09] MEDS: NovoLIN R SQ PRN (08:08)
[2019-03-09] MEDS: Aricept 10 MG PO SCH (08:09)
[2019-03-09] MEDS: Levofloxacin 250MG Tablet PO SCH (08:09)
[2019-03-09] MEDS: celeBREX 100 MG PO SCH (08:10)
[2019-03-09] MEDS: Lopressor 50 MG PO SCH ×2 (08:17→21:40)
[2019-03-09] MEDS: Colace 100 MG PO SCH ×2 (08:18→21:40)
[2019-03-09] MEDS: ECOTRIN 81 MG PO SCH (08:18)
[2019-03-09] MEDS: Effexor XR 75 MG PO SCH (08:18)
[2019-03-09] MEDS: Ditropan 5 MG PO SCH ×2 (08:18→21:40)
[2019-03-09] MEDS: Protonix 40MG Tablet PO SCH (08:18)
[2019-03-09] MEDS: Seroquel 25 MG PO SCH ×2 (08:18→21:40)
[2019-03-09] MEDS: ELIQUIS 2.5 MG TABLET PO SCH ×2 (08:18→21:40)
--- NOTE | 2019-03-09 09:02 | PCM.NOTE ---
Date and Time: 03/09/19856 Subjective Assessment: Her lopressor was increased to 100mg po BID yesterday; her BP have been 123/85, 138/93 most recently (low in past 24h of 105/82). Her HR was up to 130 at 8 pm yesterday. Overnight it went down to low 100s, a low 0f 80 at about 7 am, but when she woke and started eating breakfast it increased to 122. RN gave her a.m. lopressor a little early. Pt is completely alert and oriented today. Does have some appetite. No complaints. - Review of Systems Constitutional: No Fever Abdominal/Gastrointestinal: No Vomiting Objective Exam General Appearance: no apparent distress, alert, obese Neurologic Exam: oriented x 3, cooperative Skin Exam: warm, dry, other (bilat ant lower extr with mild erythema), No rash Neck Exam: normal inspection Respiratory Exam: normal breath sounds, lungs clear, No crackles/rales, No rhonchi, No wheezing Cardiovascular Exam: tachycardia, No murmur Gastrointestinal/Abdomen Exam: soft, normal bowel sounds, No tenderness, No distention, No mass, No guarding, No rebound Extremity Exam: other (trace pretibial edema bilat) OBJECTIVE DATA Vital Signs: Vital Signs - 24 hr Temp Pulse Resp BP Pulse Ox 03/09/19 08:40 122 H 18 94 L 03/09/19 07:11 98.1 F 87 18 138/93 94 L 03/09/19 04:00 97.5 F 95 H 18 140/86 95 03/09/19 00:00 97.3 F 115 H 14 123/85 95 03/08/19 20:00 97.6 F 130 H 21 109/94 96 03/08/19 19:53 128 H 18 93 L 03/08/19 16:00 97.9 F 111 H 20 105/82 95 03/08/19 11:24 97.6 F 95 H 20 111/70 98 Oxygen-Last 24 hours O2 Percentage 2 Liters = 28% O2 Percentage 2 Liters = 28% O2 Percentage 2 Liters = 28% O2 Percentage 2 Liters = 28% O2 Percentage 2 Liters = 28% O2 Percentage 2 Liters = 28% Pain Assessment - Last Documented Pain Intensity 0 Pain Scale Used FLACC Intake and Output: Intake & Output 03/06/19 03/07/19 03/08/1919 11:59 11:59 11:59 11:59 Intake Total 20358 6083 1744 Output Total 820 1475 1600 925 Balance 1216 038 982 815 Weight 133 kg 138 kg 139.8 kg 139.6 kg Lab Results: Accuchecks Date 03/09/19 Date 03/08/19 Time 08:26 Time 22:00 Accucheck Value: 95 Accucheck Value: 103 Accucheck Value: 166 Lab Results-Last 24 Hours 03/09/19 03/09/19 Range/Units 05:03 05:03 WBC 6.2 (4.0-10.5) K/mm3 RBC 3.32 L (4.1-5.4) M/mm3 Hgb 9.1 L (12.0-16.0) gm/dl Hct 31.7 L (35-47) % MCV 95.5 (78-100) fl MCH 27.4 (26-32) pg MCHC 28.7 L (32-36) g/dl RDW 15.2 H (11.5-14.0) % Plt Count 197 (150-450) K/mm3 MPV 9.9 H (6-9.5) fl Gran % 62.8 (36.0-66.0) % Eos # (Auto) 0.35 (0-0.5) Absolute Lymphs (auto) 1.47 (1.0-4.6) Absolute Monos (auto) 0.47 (0.0-1.3) Lymphocytes % 23.7 L (24.0-44.0) % Monocytes % 7.6 (0.0-12.0) % Eosinophils % 5.6 H (0.00-5.0) % Basophils % 0.3 (0.0-0.4) % Absolute Granulocytes 3.89 (1.4-6.9) Basophils # 0.02 (0-0.4) Sodium 143 (137-145) mmol/L Potassium 4.8 (3.5-5.1) mmol/L Chloride 113 H (98-107) mmol/L Carbon Dioxide 27 (22-30) mmol/L Anion Gap 8.2 (5-15) MEQ/L BUN 33 H (7-17) mg/dL Creatinine 1.69 H (0.52-1.04) mg/dL Estimated GFR 31.5 ML/MIN Glucose 188 H (74-106) mg/dL Calcium 8.7 (8.4-10.2) mg/dL Slides for Path Review YES Radiology Exams: Radiology Procedures Category Date Time Status CHEST 1 VIEW (PORTABLE) Urgent Exams 03/07/19 10:20 Completed KIDNEY [US] Routine Exams 03/08/19 08:00 Completed Multi-Disciplinary Progress Notes: Multi-Disciplinary Progress Notes 03/08/19 09:38 Case Management Note by Juana Henderson NO CHANGE IN DC PLANS AT THIS TIME Initialized on 03/08/19 09:38 - END OF NOTE Assessment/Plan (1) Atrial fibrillation with rapid ventricular response Current Visit: Yes Status: Acute Assessment & Plan: Difficult to control; now on lopressor 100mg po BID. BP seems oK on this dose. Will observe today and see, if HR stays down may be able to d/c back to [facility] tomorrow. On Eliquis. Code(s): I48.91 - UNSPECIFIED ATRIAL FIBRILLATION (2) Renal insufficiency Current Visit: Yes Status: Acute Assessment & Plan: persistent; eGFR up to 31.5 today. I have discontinued her celebrex. (3) Dementia Current Visit: Yes Status: Acute Qualifiers: Dementia type: vascular dementia Dementia behavioral disturbance: without behavioral disturbance Qualified Code(s): F01.50 - Vascular dementia without behavioral disturbance Code(s): F03.90 - UNSPECIFIED DEMENTIA WITHOUT BEHAVIORAL DISTURBANCE (4) CHF (congestive heart failure) Current Visit: Yes Status: Chronic Qualifiers: Heart failure type: unspecified Heart failure chronicity: unspecified Qualified Code(s): I50.9 - Heart failure, unspecified Code(s): I50.9 - HEART FAILURE, UNSPECIFIED (5) UTI (urinary tract infection) Current Visit: Yes Status: Acute Onset Date: ~10/22/18 Assessment & Plan: No on IV Levaquin per culture results Code(s): N39.0 - URINARY TRACT INFECTION, SITE NOT SPECIFIED (6) CAD (coronary artery disease) Current Visit: No Status: Chronic Qualifiers: Coronary Disease-Associated Artery/Lesion type: [place] artery Code(s): I25.10 - ATHSCL HEART DISEASE OF [place] CORONARY ARTERY W/O ANG PCTRS (7) COPD (chronic obstructive pulmonary disease) Current Visit: No Status: Chronic Qualifiers: COPD type: unspecified COPD Qualified Code(s): J44.9 - Chronic obstructive pulmonary disease, unspecified (8) Diabetes mellitus Current Visit: No Status: Chronic Qualifiers: Diabetes mellitus snf insulin use: with salvage determiner use Chronic kidney disease stage: stage 4 (severe) Code(s): E11.9 - TYPE 2 DIABETES MELLITUS WITHOUT COMPLICATIONS
[2019-03-09] MEDS: NYSTOP 30 GM CREAM TOP SCH ×2 (11:36→21:40)
--- NOTE | 2019-03-09 15:34 | ECHO ---
DATE OF PROCEDURE: 03/05/2019 CLINICAL INFORMATION: Tachycardia. The M-mode 2D, and Doppler echocardiogram including color flow Doppler shows the left ventricle is normal in size at 3.7 cm. The echocardiogram is technically difficult. The left ventricular apex is not well visualized. The septal wall thickness is increased at 1.5 cm. The left ventricular posterior wall thickness is increased at 1.7 cm. There is normal contractility of the left ventricle with an ejection fraction calculated to be 82%. The right ventricle is grossly normal. The left atrium is mildly dilated with a dimension of 4.4 cm. The interatrial septum is intact. The right atrium is normal. The aortic valve is not well visualized. There is mitral valve calcification associated with mild mitral regurgitation. There is mild tricuspid regurgitation. The inferior vena cava is not collapsible consistent with an elevated right atrial pressure. The pulmonic valve is not well visualized. The aortic root is normal at 2.9 cm. There is no pericardial effusion present. IMPRESSION: 1) TECHNICALLY DIFFICULT ECHOCARDIOGRAM. 2) NORMAL CONTRACTILITY OF THE LEFT VENTRICLE. 3) MILD MITRAL REGURGITATION. 4) MILD TRICUSPID REGURGITATION. 5) MILD TO MODERATE CONCENTRIC LEFT VENTRICULAR HYPERTROPHY. 6) ELEVATED RIGHT ATRIAL PRESSURE.
[2019-03-09] MEDS: Zocor 10MG PO SCH (21:39)
[2019-03-09] MEDS: Desyrel 150 MG PO SCH (21:40)
[2019-03-09] MEDS: Klor Con 10 MEQ PO SCH (21:40)
[2019-03-09] MEDS: Lantus Insulin SQ SCH (21:40)
[2019-03-10] MEDS: Sodium Chloride 0.9% 1000 ML 1,000 ML IV SCH (08:21)
--- NOTE | 2019-03-10 08:31 | PCM.NOTE ---
Date and Time: 03/10/19827 Subjective Assessment: patient denies chest pain or shortness of breath, heart rate persists to be elevated this morning, has been down at times but often in the 110-120's range Objective Exam General Appearance: no apparent distress, obese Neurologic Exam: alert, oriented x 3 Respiratory Exam: normal breath sounds, lungs clear, No respiratory distress Cardiovascular Exam: tachycardia, irregular Gastrointestinal/Abdomen Exam: soft, No tenderness, No mass Extremity Exam: normal inspection, normal range of motion OBJECTIVE DATA Vital Signs: Vital Signs - 24 hr Temp Pulse Resp BP Pulse Ox 03/10/19 04:25 97.5 F 121 H 20 135/89 96 03/10/19 04:00 122 H 16 03/09/19 23:59 98.0 F 91 H 18 91/66 96 03/09/19 20:10 132 H 24 96 03/09/19 20:00 98.2 F 128 H 20 147/92 95 03/09/19 16:00 98.1 F 103 H 24 111/82 94 L 03/09/19 11:30 87 18 105/58 93 L 03/09/19 08:40 122 H 18 94 L Oxygen-Last 24 hours O2 Percentage 2 Liters = 28% O2 Percentage 2 Liters = 28% O2 Percentage 2 Liters = 28% O2 Percentage 2 Liters = 28% Pain Assessment - Last Documented Pain Intensity 0 Pain Scale Used FLACC Intake and Output: Intake & Output 03/07/19 03/08/19 03/09/19 03/10/19 11:59 11:59 11:59 11:59 Intake Total 2063 2582 1740 1781 Output Total 1475 5121 456 5634 Balance 588 982 815 231 Weight 138 kg 139.8 kg 139.6 kg 143.2 kg Lab Results: Accuchecks Date 03/09/19 Date 03/09/19 Date 03/09/19 Time 22:00 Time 16:30 Time 11:40 Accucheck Value: 113 Accucheck Value: 89 Accucheck Value: 124 Accucheck Value: 93 Radiology Exams: Radiology Procedures Category Date Time Status KIDNEY [US] Routine Exams 03/08/19 08:00 Completed Multi-Disciplinary Progress Notes: Multi-Disciplinary Progress Notes 03/09/19 13:38 Nutrition Note by Jillian Paz F/u Note: 1800 ADA diet con't with 50-100% po intake. Labs 03/09= BUN 33, Cr 1.69, glu 188. adm weight 133 kg; current weight 139.6 kg. +fluid balance 815 mls. goal #1 of decreasing glu below 142 not met and ongoing goal #2 of maintaining po intake >=75% not met consistently and ongoing. Recommend to con't with 1800 ADA diet. Will con't to monitor and f/u prn. MARBELLA Coker Initialized on 03/09/19 13:38 - END OF NOTE 03/09/19 10:00 (created 03/09/19 11:20) Case Management Note by Lisa العلي WILL RETURN TO DETENTION ON DISCHARGE. NO ADDNL DISCHARGE NEEDS IDENTIFIED. Initialized on 03/09/19 11:20 - END OF NOTE Assessment/Plan (1) Atrial fibrillation with rapid ventricular response Current Visit: Yes Status: Acute Assessment & Plan: on metoprolol 100mg bid, bp 110-120 systolic. will consult with [facility] to consider digoxin or other agent to aid in rate control at this time. continue eliquis Code(s): I48.91 - UNSPECIFIED ATRIAL FIBRILLATION (2) UTI (urinary tract infection) Current Visit: Yes Status: Acute Onset Date: ~10/22/18 Assessment & Plan: continue levaquin Code(s): N39.0 - URINARY TRACT INFECTION, SITE NOT SPECIFIED (3) Renal insufficiency Current Visit: Yes Status: Acute
[2019-03-10] MEDS: NovoLOG Insulin SQ SCH ×3 (08:54→17:30)
[2019-03-10] MEDS: Protonix 40MG Tablet PO SCH (09:38)
[2019-03-10] MEDS: Levofloxacin 250MG Tablet PO SCH (09:38)
[2019-03-10] MEDS: Effexor XR 75 MG PO SCH (09:38)
[2019-03-10] MEDS: Seroquel 25 MG PO SCH ×2 (09:38→22:26)
[2019-03-10] MEDS: Colace 100 MG PO SCH ×2 (09:38→22:26)
[2019-03-10] MEDS: ECOTRIN 81 MG PO SCH (09:39)
[2019-03-10] MEDS: ELIQUIS 2.5 MG TABLET PO SCH ×2 (09:39→22:26)
[2019-03-10] MEDS: Lopressor 50 MG PO SCH ×2 (09:39→22:26)
[2019-03-10] MEDS: Ditropan 5 MG PO SCH ×2 (09:39→22:26)
[2019-03-10] MEDS: Aricept 10 MG PO SCH (09:39)
[2019-03-10] MEDS: NYSTOP 30 GM CREAM TOP SCH (09:39)
[2019-03-10] MEDS: Zocor 10MG PO SCH (22:26)
[2019-03-10] MEDS: Klor Con 10 MEQ PO SCH (22:26)
[2019-03-10] MEDS: Desyrel 150 MG PO SCH (22:26)
[2019-03-11] MEDS: NYSTOP 30 GM CREAM TOP SCH ×2 (01:27→10:41)
[2019-03-11] MEDS: Lantus Insulin SQ SCH (01:27)
[2019-03-11] MEDS: Sodium Chloride 0.9% 1000 ML 1,000 ML IV SCH (05:16)
[2019-03-11 08:04] VITALS: BP 150/94; PULSE 124; O2SAT 93
[2019-03-11] MEDS: NovoLIN R SQ PRN (08:31)
[2019-03-11] MEDS: NovoLOG Insulin SQ SCH (08:31)
--- NOTE | 2019-03-11 08:59 | PCM.DS ---
Discharge Summary Date of Admission: 03/04/19 17:20 Admitting Physician: DIANELYS QUACH Consults: Consults on Case 03/05/19 08:27 Consult Cardiology ROUTINE 03/10/19 08:28 Consult Cardiology ROUTINE Primary Care Provider: DIANELYS QUACH Allergies Allergies tramadol Allergy (Mild, Verified 03/04/19 12:20) dizzy Hospital Summary - Hospital Course Hospital Course: patient was admitted with UTI and new onset a fib with rvr, rate has been better controlled on lopressor 100mg bid, Dr Aleman has been involved and agrees with current care and wants to see patient as outpatient. grew 3 bacteria from urine culture, sens to levaquin. - Vitals & Intake/Output Vital Signs: Vital Signs Temperature 97.7 F 03/11/19 08:00 Pulse Rate 124 H 03/11/19 08:00 Respiratory Rate 19 03/11/19 08:00 Blood Pressure 150/94 03/11/19 08:00 O2 Sat by Pulse Oximetry 93 L 03/11/19 08:00 Oxygen-Last Documented O2 Percentage 2 Liters = 28% Intake & Output: Intake & Output 03/08/19 03/09/19 03/10/19 03/11/19 11:59 11:59 11:59 11:59 Intake Total 2582 1740 1781 2094 Output Total 6503 901 2019 1675 Balance 982 815 231 419 Weight 139.8 kg 139.6 kg 143.2 kg 147.2 kg - Lab Result Diagrams: 03/09/19 05:03 03/09/19 05:03 Lab Results-Last 24 Hrs: Accuchecks Date 03/10/19 Time 21:00 Accucheck Value: 152 Accucheck Value: 68 Accucheck Value: 125 Accucheck Value: 132 Micro Results-Entire Visit: Microbiology 03/07/19 14:45 Urine Culture - Final Suprapubic Cath Enterococcus Faecalis 03/04/19 13:56 Urine Culture - Final Catherized Citrobacter Freundii Proteus Penneri Enterococcus Faecalis Accuchecks Date 03/10/19 Time 21:00 Accucheck Value: 152 Accucheck Value: 68 Accucheck Value: 125 Accucheck Value: 132 - Procedures and Test Procedures and Tests throughout Hospitalization: Therapy Orders & Screens 03/04/19 17:29 EKG REPEAT IN AM Comment: Oxygen Nasal Cannula 2 lpm Comment: Respiratory Therapy Consult Comment: Reason For Exam: 03/05/19 23:08 EKG ROUTINE Comment: Diagnosis: tachycardia. UTI. elevated D-Dimer. Renal Insuffienecy 03/06/19 10:00 EKG ONCE Comment: Diagnosis: tachycardia. UTI. elevated D-Dimer. Renal Insuffienecy 03/07/19 10:37 Peak Expiratory Flow Rate ONCE Comment: Reason For Exam: Diagnosis: tachycardia. UTI. elevated D-Dimer. Renal Insuffienecy Respiratory Therapy Assessment DAILY Comment: Diagnosis: tachycardia. UTI. elevated D-Dimer. Renal Insuffienecy Discharge Exam General Appearance: no apparent distress, obese Neurologic Exam: alert, oriented x 3 Respiratory Exam: normal breath sounds, lungs clear, No respiratory distress Cardiovascular Exam: irregular Gastrointestinal/Abdomen Exam: soft, No tenderness, No mass Skin Exam: normal color, warm, dry Final Diagnosis/Problem List - Final Discharge Diagnosis/Problem (1) Atrial fibrillation with rapid ventricular response Current Visit: Yes Status: Acute Code(s): I48.91 - UNSPECIFIED ATRIAL FIBRILLATION (2) UTI (urinary tract infection) Current Visit: Yes Status: Acute Onset Date: ~10/22/18 Code(s): N39.0 - URINARY TRACT INFECTION, SITE NOT SPECIFIED (3) Renal insufficiency Current Visit: Yes Status: Acute - Discharge Disposition: Skilled Care @ [facility] Condition: Good Prescriptions: New Apixaban [Eliquis 2.5 mg Tablet] 5 mg PO BID #60 tablet Levofloxacin [Levofloxacin 250MG Tablet] 250 mg PO DAILY #5 tab Metoprolol Tartrate 50 mg [Lopressor 50 MG] 100 mg PO BID #60 tablet Continue Furosemide [Lasix] 20 mg PO DAILY Aspirin 81 gm Chew [Baby Aspirin 81 mg Chew] 81 mg PO DAILY Potassium Chloride 10 Meq Tab* [Klor Con 10 MEQ] 10 meq PO HS Donepezil HCl [Aricept] 5 mg PO DAILY Insulin Glargine [Lantus Insulin] 45 unit SQ HS Insulin Aspart [NovoLOG Insulin] 20 unit SQ TIDAC Liraglutide [Victoza 2-Ang] 1.8 mg SQ HS Solifenacin Succinate [Vesicare] 10 mg PO DAILY Methenamine 1 gm PO BID Venlafaxine HCl ER 75 mg [Effexor XR 75 MG] 75 mg PO DAILY Simvastatin 10 mg [Zocor 10MG] 10 mg PO QPM Trazodone HCl 50 mg [Desyrel 50 mg] 150 mg PO HS Omeprazole 40 mg PO DAILY Celecoxib [Celebrex] 200 mg PO DAILY Quetiapine Fumarate 25 mg [Seroquel 25 MG] 75 mg PO BID Nystatin Cream 30 gm [Nystop 30 gm Cream] 1 gm TOP Q12H Mupirocin [Bactroban OINTMENT] 1 gm TOP BID PRN Discontinued Metoprolol Tartrate 50 mg [Lopressor 50 MG] 50 mg PO BID Follow up with: JONI ALEMAN MD [NON-STAFF PHY W/O PRIVILEGES] - 1 Week (Call for SAME WEEK APPOINTMENT UPON DISCHARGE)
[2019-03-11] MEDS: Ditropan 5 MG PO SCH (09:20)
[2019-03-11] MEDS: Aricept 10 MG PO SCH (09:20)
[2019-03-11] MEDS: Colace 100 MG PO SCH (09:20)
[2019-03-11] MEDS: Effexor XR 75 MG PO SCH (09:21)
[2019-03-11] MEDS: Levofloxacin 250MG Tablet PO SCH (09:21)
[2019-03-11] MEDS: Lopressor 50 MG PO SCH (09:21)
[2019-03-11] MEDS: ECOTRIN 81 MG PO SCH (09:21)
[2019-03-11] MEDS: ELIQUIS 2.5 MG TABLET PO SCH (09:21)
[2019-03-11] MEDS: Seroquel 25 MG PO SCH (09:22)
[2019-03-11] MEDS: Protonix 40MG Tablet PO SCH (09:22)
== END 2019-03-11 12:00 | DRG 309 ==
LOC: ED 11:52 → ICU 17:20
PROVIDERS: ADMIT Family Medicine; ATTEND Family Medicine
DX: I48.91 Unspecified atrial fibrillation (principal); N39.0 Urinary tract infection, site not specified; N28.9 Disorder of kidney and ureter, unspecified; R00.0 Tachycardia, unspecified; R79.1 Abnormal coagulation profile; F03.90 Unspecified dementia, unspecified severity, without behavioral disturbance, psychotic disturbance, mood disturbance, and anxiety; I25.10 Atherosclerotic heart disease of native coronary artery without angina pectoris; E11.9 Type 2 diabetes mellitus without complications; I10 Essential (primary) hypertension; J44.9 Chronic obstructive pulmonary disease, unspecified; E78.00 Pure hypercholesterolemia, unspecified; Z79.899 Other long term (current) drug therapy; Z79.01 Long term (current) use of anticoagulants; I25.2 Old myocardial infarction; F31.9 Bipolar disorder, unspecified; I95.9 Hypotension, unspecified; I50.9 Heart failure, unspecified; R09.02 Hypoxemia
CPT/HCPCS: 36415; 71045; 71046; 76770; 78582; 80048; 80053; 81001; 82962; 83036; 83735; 83880; 84484; 85025; 85027; 85379; 85610; 87077; 87086; 87186; 93005; 93041; 93306; 94150; 94640; 94762; 96365; 96372; 96374; 96375; 96376; 99291; A9540; A9567; Q3014; 36000; 94760; 99285; J0696; J1160; J1650; J1940; J7609; A9270-GY

== ENCOUNTER 2021-03-25 15:30 | Emergency (ER) | payer MEDICARE, OTHER ==
--- NOTE | 2021-03-25 16:48 | ERPHSYRPT ---
- History of Present Illness Source: patient, EMS, group home records Exam Limitations: no limitations Patient Subjective Stated Complaint: pt reports she fell today approx noon while trying to sit in her recliner at the group home with assistance of an aide. reports left knee pain at this time. pt denies any other injury or accident. denies striking her head. pt daughter was contacted by this nurse, she is aware of incident and has also been in contact with the group home. Triage Nursing Assessment: pt is aox3, pupils perrl, afebrile, resps easy and non labored, cap refill < 3 seconds, pt skin pale warm dry. no obvious injury or deformity is noted. pedal pulses strong and equal bilat. ROM limited to L Knee r/t pain. Occurred: this afternoon Reason for Fall: fell from standing pos Injuries/Pain Location: lower extremity (Left) Loss of Consciousness: no loss of consciousness Quality: aching, sharpness, stabbing Severity of Pain-Max: moderate Severity of Pain-Current: moderate Modifying Factors: Improves With: movement Associated Symptoms (Fall): extremity injury (Left knee), trouble walking, other (Cannot bear weight on the left leg) Hx Tetanus, Diphtheria Vaccination/Date Given: Yes Hx Influenza Vaccination/Date Given: Yes Hx Pneumococcal Vaccination/Date Given: Yes Immunizations Up to Date: Yes - History of Present Illness Time Seen by Provider: 03/25/21 16:43 Physician History: This is a 75-year-old morbidly obese white female group home patient from [facility]. She is brought in by ambulance service secondary to left knee pain after falling at the group home. Patient specifically denies shoulder pain back pain chest pain or shortness of breath. She denies abdominal pain. Patient told me that she just wants to hurry up and get the left knee x- rayed so she can get back to group home to take part in [place] dinner. She did not hit her head. She has no headache. She has no neck pain. Patient is morbidly obese, has insulin-dependent diabetes and COPD. She also has hypertension. (JERAD XAVIER) Allergies/Adverse Reactions: tramadol Allergy (Mild, Verified 03/25/21 15:56) dizzy Home Medications: Aspirin 81 gm Chew [Baby Aspirin 81 mg Chew] 81 mg PO DAILY 01/01/14 [History] Donepezil HCl [Aricept] 5 mg PO DAILY 01/01/14 [History] Furosemide [Lasix] 20 mg PO DAILY 01/01/14 [History] Potassium Chloride 10 Meq Tab* [Klor Con 10 MEQ] 10 meq PO HS 01/01/14 [History] Insulin Aspart [NovoLOG Insulin] 20 unit SQ TIDAC 05/27/14 [History] Insulin Glargine [Lantus Insulin] 45 unit SQ HS 05/27/14 [History] Liraglutide [Victoza 2-Ang] 1.8 mg SQ HS 07/30/17 [History] Methenamine 1 gm PO BID 07/30/17 [History] Solifenacin Succinate [Vesicare] 10 mg PO DAILY 07/30/17 [History] Venlafaxine HCl ER 75 mg [Effexor XR 75 MG] 75 mg PO DAILY 07/30/17 [History] Simvastatin 10 mg [Zocor 10MG] 10 mg PO QPM 12/01/17 [History] Trazodone HCl 50 mg [Desyrel 50 mg] 150 mg PO HS 12/01/17 [History] Omeprazole 40 mg PO DAILY 02/06/18 [History] Celecoxib [Celebrex] 200 mg PO DAILY 03/04/19 [History] Mupirocin [Bactroban OINTMENT] 1 gm TOP BID PRN 03/04/19 [History] Nystatin Cream 30 gm [Nystop 30 gm Cream] 1 gm TOP Q12H 03/04/19 [History] Quetiapine Fumarate 25 mg [Seroquel 25 MG] 75 mg PO BID 03/04/19 [History] Travel Risk - International Travel Have you traveled outside of the country in past 3 weeks: No - Coronavirus Screening Are you exhibiting any of the following symptoms?: No Close contact with a COVID-19 positive Pt in past 14-21 Days: No - Vaccine Status Have you recieved a Covid-19 vaccination: Yes Floor Specialist: Moderna - Vaccination Dates Date of 2cond Vaccination (if applicable): UNK - Review of Systems Constitutional: No Symptoms Eyes: No Symptoms Ears, Nose, & Throat: No Symptoms Respiratory: No Symptoms Cardiac: No Symptoms Abdominal/Gastrointestinal: No Symptoms Genitourinary Symptoms: No Symptoms Musculoskeletal: Fall, Injury (Left lower extremity) Skin: No Symptoms Neurological: No Symptoms Psychological: No Symptoms Endocrine: No Symptoms Hematologic/Lymphatic: No Symptoms Immunological/Allergic: No Symptoms All Other Systems: Reviewed and Negative - Past Medical History Pertinent Past Medical History: Yes Neurological History: No Pertinent History ENT History: Cataracts Cardiac History: High Cholesterol, Hypertension, Myocardial Infarction ([place]) Respiratory History: COPD Endocrine Medical History: Diabetes Type II Musculoskeletal History: Arthritis, Fractures GI Medical History: Polyps History: Renal Disease, Other Psycho-Social History: Bipolar, Depression Female Reproductive Disorders: No Pertinent History Other Medical History: daughter states "she is difficulty at times and won't do what she is told" "going to try to get her to take the bowel prep" - Past Surgical History Past Surgical History: Yes Neuro Surgical History: No Pertinent History Cardiac: Cardiac Catheterization, Cardiac Stent Respiratory: No Pertinent History Gastrointestinal: No Pertinent History Genitourinary: No Pertinent History Musculoskeletal: Joint Replacement Female Surgical History: Hysterectomy Other Surgical History: SEVERAL STENTS. SURGERY ON BOTH FEET FROM CLUB FEET - Social History Smoking Status: Never smoker How long have you smoked: 55 Exposure to second hand smoke: Yes Alcohol Use: None Drug Use: none Patient Lives Alone: No ([place]) Significant Family History: heart disease, diabetes, hypertension - Female History Hx Now: No - [place] Coma Score Best Eye Response ([place]): (4) open spontaneously Best Verbal Response ([place]): (5) oriented Best Motor Response ([place]): (6) obeys commands [place] Total: 15 - Physical Exam General Appearance: mild distress, alert, anxiety, obese Head Injury: no evidence of injury Eye Exam: PERRL/EOMI, eyes nml inspection ENT Exam: airway nml Neck Exam: supple, trachea midline, full range of motion, normal alignment, normal inspection Respiratory/Chest Exam: normal breath sounds, No chest tenderness, No respira tory distress Cardiovascular Exam: tachycardia Gastrointestinal Exam: soft, normal bowel sounds, No tenderness Rectal Exam: not done Back Exam: normal inspection, normal range of motion, No CVA tenderness, No vertebral tenderness Extremity Exam: joint swelling (Left knee), pain with movement (Left knee), tenderness Neurologic Exam: alert, oriented x 3, cooperative, dispute specialist II-XII nml as tested, normal mood/affect, sensation nml Skin Exam: normal color, warm, dry SpO2 Interpretation: normal SpO2: 95 O2 Delivery: Room Air - Nursing Vital Signs Nursing Vital Signs: Initial Vital Signs Temperature 98.2 F 03/25/21 15:32 Pulse Rate 120 H 03/25/21 15:32 Respiratory Rate 18 03/25/21 15:32 Blood Pressure 140/97 03/25/21 15:32 O2 Sat by Pulse Oximetry 95 03/25/21 15:32 Pain Scale Pain Intensity 3 Ordered Tests: Active Orders 24 hr Category Date Time Status Catheter-Pooler Avendaño STAT Care 03/25/21 16:37 Active EKG-ER Only STAT Care 03/25/21 16:37 Active IV Insertion STAT Care 03/25/21 16:37 Active HEAD WITHOUT CONTRAST [CT] Stat Exams 03/25/21 19:12 Taken KNEE (1 OR 2 VIEW) Stat Exams 03/25/21 16:15 Completed CBC W DIFF Stat Lab 03/25/21 16:37 Completed CMP Stat Lab 03/25/21 16:37 Completed Lab/Rad Data: Laboratory Result Diagrams 03/25/21 16:37 03/25/21 16:37 Laboratory Results 03/25/21 03/25/21 Range/Units 16:37 16:37 WBC 14.0 H (4.0-10.5) K/mm3 RBC 3.82 L (4.1-5.4) M/mm3 Hgb 10.3 L (12.0-16.0) gm/dl Hct 34.7 L (35-47) % MCV 90.8 (78-100) fl MCH 27.0 (26-32) pg MCHC 29.7 L (32-36) g/dl RDW 15.7 H (11.5-14.0) % Plt Count 221 (150-450) K/mm3 MPV 9.6 (7.5-11.0) fl Gran % 75.8 H (36.0-66.0) % Eos # (Auto) 0.25 (0-0.5) Absolute Lymphs (auto) 2.06 (1.0-4.6) Absolute Monos (auto) 1.03 (0.0-1.3) Lymphocytes % 14.8 L (24.0-44.0) % Monocytes % 7.4 (0.0-12.0) % Eosinophils % 1.8 (0.00-5.0) % Basophils % 0.2 (0.0-0.4) % Absolute Granulocytes 10.58 H (1.4-6.9) Basophils # 0.03 (0-0.4) Sodium 138 (137-145) mmol/L Potassium 5.2 H (3.5-5.1) mmol/L Chloride 104 (98-107) mmol/L Carbon Dioxide 26 (22-30) mmol/L Anion Gap 13.0 (5-15) MEQ/L BUN 54 H (7-17) mg/dL Creatinine 1.58 H (0.52-1.04) mg/dL Estimated GFR 33.9 ML/MIN Glucose 170 H (74-106) mg/dL Calcium 8.7 (8.4-10.2) mg/dL Total Bilirubin 0.30 (0.2-1.3) mg/dL AST 19 (14-36) U/L ALT 12 (0-35) U/L Alkaline Phosphatase 103 (38-126) U/L Serum Total Protein 6.8 (6.3-8.2) g/dL Albumin 3.2 L (3.5-5.0) g/dL - Progress Progress: improved, pain not gone completely, re-examined Counseled pt/family regarding: lab results, diagnosis, need for follow-up, rad results - Progress Progress Note: 03/25/21 18:24 X-ray of the left knee and femur shows no acute, displaced, oblique fracture of the distal shaft and distal metaphysis of the femur on the left side. Medical decision making: This patient's family wants the patient to go to [facility] in [facility] for possible. They also are requesting that we perform a right shoulder x-ray and CAT scan of the head. Patient states that she has not have any headache and did not hit her head. She also states she has no shoulder pain. The utility locate technician went to the room to take the x-ray of the patient's right shoulder and then take the patient to the CAT scanner. Patient is refusing. At this point, the family is talking to the patient and they will decide the next step. 03/25/21 18:37 Medical decision making: The patient is now decided to allow us to perform a CAT scan of the head and right shoulder x-ray. I will sign the patient out to Dr. Ramos Dawson at shift change at 7 PM. He will make the final disposition. (JERAD XAVIER) 03/25/21 19:[address] appears to be within normal limits and the patient refused her shoulder x-ray. Are currently contacting [facility] to have the patient transferred the patient was offered pain medication and refused. I reassessed her and she is still neurovascular intact in the left foot. 03/25/21 19:42 (RAMOS DAWSON) - Departure Departure Disposition: Transfer Critical Care Time: No - Departure Clinical Impression: Femoral distal fracture Condition: Stable Referrals: SEA GATES [Primary Care Provider] - Follow up/PCP as directed
[2021-03-25 17:13] LABS: Absolute Neutrophil Ct (ANC) 10.58 (1.4-6.9); BASOPHIL % 0.2 % (0.0-0.4); Basophil (Absolute #) 0.03 (0-0.4); Eosinophil % 1.8 % (0.00-5.0); Eosinophil (Absolute #) 0.25 (0-0.5); Hematocrit 34.7 % (35-47); Hemoglobin 10.3 gm/dl (12.0-16.0); Lymphocyte (Absolute #) 2.06 (1.0-4.6); Lymphocytes % 14.8 % (24.0-44.0); Mean Cell Volume 90.8 fl (78-100); Mean Corpuscular Hgb Concent. 29.7 g/dl (32-36); Mean Platelet Volume 9.6 fl (7.5-11.0); Monocyte (Absolute #) 1.03 (0.0-1.3); Monocytes % 7.4 % (0.0-12.0); Neutrophil % 75.8 % (36.0-66.0); Platelet Count 221 K/mm3 (150-450); Red Blood Count 3.82 M/mm3 (4.1-5.4); Red Cell Distribution Width 15.7 % (11.5-14.0)
[2021-03-25 17:29] LABS: ALBUMIN 3.2 g/dL (3.5-5.0); BILIRUBIN,TOTAL 0.3 mg/dL (0.2-1.3); Calcium 8.7 mg/dL (8.4-10.2); Creatinine 1 1.58 mg/dL (0.52-1.04); EST GLOMERULAR FILTRATION RATE 33.9 ML/MIN; Potassium 5.2 mmol/L (3.5-5.1); Total Protein 6.8 g/dL (6.3-8.2)
--- NOTE | 2021-03-25 19:16 | XRAY ---
Indication: Pain following fall. Comparison: None AP/crosstable lateral left knee demonstrates comminuted displaced oblique fracture distal metadiaphysis femur with effusion. Elsewhere osteopenia, incompletely visualized mid femur intramedullary orthopedic asaf, and tiny soft tissue calcific granulomas anterior lower leg. Comment: Preliminary interpretation made by [facility]. No critical discrepancy.
[2021-03-25 19:25] VITALS: O2SAT 94
[2021-03-25 20:06] VITALS: BP 114/101; PULSE 119
--- NOTE | 2021-03-26 08:43 | XRAY ---
Indication: Status post fall. Multiple contiguous axial images obtained through the head without contrast. Comparison: October 22, 2018. Again age-appropriate global atrophy, mild periventricular degenerative micro-ischemia, and small focus old left occipital lobe infarct. No acute intracranial hemorrhage, abnormal extra-axial fluid collection, or mass effect. Fourth ventricle is midline without hydrocephalus. Bony calvarium intact. Visualized paranasal sinuses and mastoid air cells are clear. 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 Comment: Preliminary interpretation made by [facility]. No critical discrepancy.
== END 2021-03-25 20:31 | disposition short-term general hospital (02) ==
LOC: ED 15:30
DX: S72.492A Other fracture of lower end of left femur, initial encounter for closed fracture (principal); W18.30XA Fall on same level, unspecified, initial encounter; Y92.129 Unspecified place in nursing home as the place of occurrence of the external cause; I10 Essential (primary) hypertension; E78.5 Hyperlipidemia, unspecified; E11.9 Type 2 diabetes mellitus without complications; Z79.4 Long term (current) use of insulin
CPT/HCPCS: 36000; 36415; 51702; 70450; 73560; 73562; 80053; 85025; 93005; 99285; L1830

== ENCOUNTER 2021-05-21 22:17 | Inpatient (IN) | payer MEDICARE, OTHER ==
[2021-05-21] MEDS ORDERED: Sodium Chloride 0.9% 1000 ML 1,000 ML IV STA (22:55)
[2021-05-21] MEDS ORDERED: Sodium Chloride 0.9% 1000 ML 1,000 ML ONE (23:01)
[2021-05-21 23:25] LABS: INR 2.14 (0.8-3.0); PROTIME 25.2 SECONDS (9.4-12.5)
[2021-05-21 23:27] LABS: PTT 31.2 SECONDS (25.1-36.5)
[2021-05-21 23:29] LABS: ANION GAP 13.7 MEQ/L (5-15); BILIRUBIN,TOTAL 0.4 mg/dL (0.2-1.3); Calcium 8.3 mg/dL (8.4-10.2); Creatinine 1 1.9 mg/dL (0.52-1.04); EST GLOMERULAR FILTRATION RATE 27.4 ML/MIN; Potassium 4.2 mmol/L (3.5-5.1); Total Protein 6.5 g/dL (6.3-8.2)
--- NOTE | 2021-05-21 23:57 | ERPHSYRPT ---
- History of Present Illness Source: patient, EMS Exam Limitations: other (Pt poor historian) Patient Subjective Stated Complaint: "I don't know. I didn't want to come." Triage Nursing Assessment: patient presented from [facility] via EMS with reported dark colored urine, confusion, and low blood pressure. Reported from sending facility was the same. patient presented alert et oriented x3 answering questions appropriately. She denied any complaints at this time. Patient was very upset that she was sent by the facility. Pupils 3mm bilateral. Oral mucosa dry/pale with poor dentition. neck supple without JVD. Symmetrical chest expansion. heart tones S1/S2 tachycardic and regular without extra sounds. Lungs vesicular with poor movement and no adventitious sounds. Abdomen morbidly obese with bowel sounds present in all quadrants. Palpation of organs or masses was difficult d/t body habitus. Peripheral pulses very faint at bilateral radial sites. Patient has a suprapubic catheter in place with mild drainage at the site which is malodorous. Catheter tubing and bag with little to no urine output. The out that was in the catheter was very dark brown/black. The patient has a surgical dressing over the left superior hip which was reported to be d/t recent hip surgery. Physician History: 75 yo wf from [place] w possbile hematuria from supra-pubic catheter associated w hypotension. Pt is mild lethargic but oriented x3. She had a recent femur fx repaired and is nonambulatory. Pt denies N/V/D/chest pain/fever. Pt is a DNR per paperwork. Timing/Duration: today Severity: severe Modifying Factors: Improves With: nothing Associated Symptoms: No nausea, No vomiting, No abdominal pain, No shortness of breath, No heartburn, No diaphoresis, No cough, No chills, No chest pain, No fever, No headaches, No loss of appetite, No malaise, No rash Allergies/Adverse Reactions: tramadol Allergy (Mild, Verified 03/25/21 15:56) dizzy Home Medications: Aspirin 81 gm Chew [Baby Aspirin 81 mg Chew] 81 mg PO DAILY 01/01/14 [History] Donepezil HCl [Aricept] 5 mg PO DAILY 01/01/14 [History] Furosemide [Lasix] 20 mg PO DAILY 01/01/14 [History] Potassium Chloride 10 Meq Tab* [Klor Con 10 MEQ] 10 meq PO HS 01/01/14 [History] Insulin Aspart [NovoLOG Insulin] 20 unit SQ TIDAC 05/27/14 [History] Insulin Glargine [Lantus Insulin] 45 unit SQ HS 05/27/14 [History] Liraglutide [Victoza 2-Ang] 1.8 mg SQ HS 07/30/17 [History] Methenamine 1 gm PO BID 07/30/17 [History] Venlafaxine HCl ER 75 mg [Effexor XR 75 MG] 125 mg PO DAILY 07/30/17 [History] Simvastatin 10 mg [Zocor 10MG] 10 mg PO QPM 12/01/17 [History] Trazodone HCl 50 mg [Desyrel 50 mg] 50 mg PO HS 12/01/17 [History] Omeprazole 40 mg PO DAILY 02/06/18 [History] Nystatin Cream 30 gm [Nystop 30 gm Cream] 1 gm TOP Q12H 03/04/19 [History] Ferrous Sulfate 325 mg [Feosol 325 mg] 325 mg PO DAILY 05/22/21 [History] Hydrocodone/Acetaminophen [Hydrocodone-Acetamin 7.5-325] 1 each PO Q6H PRN 05/22/21 [History] Oxybutynin Chloride [Oxybutynin Chloride ER] 10 mg PO DAILY 05/22/21 [History] PANTOPRAZOLE 40 mg Tablet [Protonix 40MG Tablet] 40 mg PO DAILY 05/22/21 [History] Hx Tetanus, Diphtheria Vaccination/Date Given: Yes Hx Influenza Vaccination/Date Given: Yes Hx Pneumococcal Vaccination/Date Given: Yes Travel Risk - International Travel Have you traveled outside of the country in past 3 weeks: No - Coronavirus Screening Are you exhibiting any of the following symptoms?: No Close contact with a COVID-19 positive Pt in past 14-21 Days: No - Vaccine Status Have you recieved a Covid-19 vaccination: 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 - Vaccination Dates Date of 2cond Vaccination (if applicable): UNK - Review of Systems Constitutional: No Symptoms Eyes: No Symptoms Ears, Nose, & Throat: No Symptoms Respiratory: No Symptoms Cardiac: No Symptoms Abdominal/Gastrointestinal: No Symptoms Genitourinary Symptoms: No Symptoms Musculoskeletal: Arthralgias Skin: No Symptoms Neurological: No Symptoms, Lethargy Psychological: No Symptoms Endocrine: No Symptoms Hematologic/Lymphatic: No Symptoms Immunological/Allergic: No Symptoms - Past Medical History Pertinent Past Medical History: Yes Neurological History: No Pertinent History ENT History: Cataracts Cardiac History: High Cholesterol, Hypertension, Myocardial Infarction (ND) Respiratory History: COPD Endocrine Medical History: Diabetes Type II Musculoskeletal History: Arthritis, Fractures GI Medical History: Polyps History: Renal Disease, Other Psycho-Social History: Bipolar, Depression Female Reproductive Disorders: No Pertinent History Other Medical History: daughter states "she is difficulty at times and won't do what she is told" "going to try to get her to take the bowel prep" - Past Surgical History Past Surgical History: Yes Neuro Surgical History: No Pertinent History Cardiac: Cardiac Catheterization, Cardiac Stent Respiratory: No Pertinent History Gastrointestinal: No Pertinent History Genitourinary: No Pertinent History Musculoskeletal: Joint Replacement Female Surgical History: Hysterectomy Other Surgical History: SEVERAL STENTS. SURGERY ON BOTH FEET FROM CLUB FEET - Social History Smoking Status: Never smoker How long have you smoked: 55 Exposure to second hand smoke: Yes Alcohol Use: None Drug Use: none Patient Lives Alone: No ([place]) Significant Family History: heart disease, diabetes, hypertension - Nursing Vital Signs Nursing Vital Signs: Initial Vital Signs Temperature 97.9 F 05/21/21 22:18 Pulse Rate 124 H 05/21/21 22:18 Respiratory Rate 20 05/21/21 22:18 O2 Sat by Pulse Oximetry 97 05/21/21 22:18 Pain Scale Pain Intensity 0 Tachycardic/hypotensive - Physical Exam General Appearance: moderate distress, lethargy Eye Exam: PERRL/EOMI, eyes nml inspection Ears, Nose, Throat Exam: normal ENT inspection, TMs normal, dry mucous membranes Neck Exam: normal inspection, non-tender, supple Respiratory Exam: lungs clear (Very poor exam due to obesity and lack of pt cooperation), airway intact, No respiratory distress Cardiovascular Exam: tachycardia, No murmur Gastrointestinal/Abdomen Exam: soft, other (Supra-pubic catheter w very dark drainage/Chronic skin break down between abdominal folds), No tenderness Back Exam: normal inspection (Limitied exam) Extremity Exam: other (L distal-lateral femur incision w drainage) Neurologic Exam: oriented x 3, cooperative, tours hostess II-XII nml as tested Skin Exam: pale Lymphatic Exam: No adenopathy SpO2 Interpretation: normal SpO2: 97 O2 Delivery: Room Air - Course Nursing assessment & vital signs reviewed: Yes EKG Interpreted by Me: RATE (Aflutter/R119/Prolonged QTc/Poor R wave progression V2-V3/Nonspecific ST-Twave changes) - CT Exams Abdomen/Pelvis CT Interpretation: Tele-radiologist Report (Gas in bladder/Stool in rectum) Ordered Tests: Active Orders 24 hr Category Date Time Status Bedrest ROUTINE Activity 05/22/21 02:36 Active Code Status Order ROUTINE Care 05/22/21 02:34 Active EKG-ER Only STAT Care 05/22/21 02:54 Active IV Care Q6H Care 05/22/21 02:34 Active Intake and Output Q12H Care 05/22/21 02:[address] in Observation ROUTINE Care 05/22/21 02:34 Active NPO Diet 05/22/21 02:36 Active ABDOMEN AND PELVIS W/0 CONTRAS [CT] Stat Exams 05/21/21 23:45 Taken BLOOD CULTURE Stat Lab 05/22/21 01:00 Received CBC W DIFF AM.LAB Lab 05/22/21 04:00 Ordered CBC W DIFF Stat Lab 05/21/21 23:10 Completed CBC W DIFF Stat Lab 05/22/21 02:30 Ordered CMP AM.LAB Lab 05/22/21 04:00 Ordered CMP Stat Lab 05/21/21 23:10 Completed CULTURE,URINE Stat Lab 05/21/21 22:56 Ordered Lactic Acid Stat Lab 05/21/21 23:12 Completed Manual Differential NC Stat Lab 05/21/21 23:10 Completed Occult Blood Stool [FECAL OCCULT BLOOD -DIAGNOSTIC] Lab 05/22/21 00:05 Completed Stat PROTIME WITH INR Stat Lab 05/21/21 23:10 Completed PTT Stat Lab 05/21/21 23:10 Completed TROPONIN Q3H Lab 05/21/21 23:10 Completed TROPONIN Q3H Lab 05/22/21 02:50 Received TROPONIN Q3H Lab 05/22/21 05:00 Ordered TROPONIN Q3H Lab 05/22/21 08:00 Ordered TROPONIN Q3H Lab 05/22/21 11:00 Ordered Oxygen Nasal Cannula 2 lpm RT 05/22/21 02:33 Active Transfer Order Routine Transfer 05/22/21 Ordered Medication Summary Generic Name Dose Route Start Last Admin Trade Name Freq PRN Reason Stop Dose Admin Sodium Chloride 1,000 mls @ 0 mls/hr 05/22/21 02:45 Sodium Chloride 0.9% 1000 Ml IV 06/21/21 02:44 .Q0M ROQUE KVO Ceftriaxone Sodium/Dextrose 1 g in 50 mls @ 100 mls/hr 05/22/21 10:00 Rocephin 1 Gm-D5w 50 Ml Bag IV 05/25/21 09:59 Q24H10 ROQUE Ondansetron HCl 4 mg 05/22/21 00:39 05/22/21 00:59 Ondansetron Hcl 4 Mg/2 Ml Vial IV 06/21/21 00:38 4 mg Q6H PRN PRN Administration NAUSEA/VOMITING Ondansetron HCl 4 mg 05/22/21 02:33 Ondansetron Hcl 4 Mg/2 Ml Vial IV 06/21/21 02:32 Q6H PRN PRN NAUSEA/VOMITING Pantoprazole Sodium 40 mg 05/22/21 10:00 Pantoprazole 40 Mg Vial IV 06/21/21 09:59 Q24H10 ROQUE Discontinued Medications Generic Name Dose Route Start Last Admin Trade Name Doreen PRN Reason Stop Dose Admin Furosemide 40 mg 05/22/21 00:57 05/22/21 00:59 Furosemide 40 Mg/4 Ml Vial IV 05/22/21 00:58 40 mg STAT ONE Administration Furosemide Confirm 05/22/21 00:58 Furosemide 40 Mg/4 Ml Vial Administered 05/22/21 00:59 Dose 40 mg .ROUTE .STK-MED ONE Sodium Chloride 1,000 mls @ 999 mls/hr 05/21/21 22:55 05/22/21 00:07 Sodium Chloride 0.9% 1000 Ml IV 05/21/21 23:55 Infused .Q1H1M STA Infusion Sodium Chloride Confirm 05/21/21 23:01 Sodium Chloride 0.9% 1000 Ml Administered 05/21/21 23:02 Dose 1,000 mls @ ud .ROUTE .STK-MED ONE Sodium Chloride Confirm 05/22/21 00:20 Sodium Chloride 0.9% 1000 Ml Administered 05/22/21 00:21 Dose 2,000 mls @ ud .ROUTE .STK-MED ONE Sodium Chloride 1,000 mls @ 999 mls/hr 05/22/21 01:00 05/22/21 02:04 Sodium Chloride 0.9% 1000 Ml IV 05/22/21 02:00 Infused .Q1H1M STA Infusion Ceftriaxone Sodium/Dextrose 1 g in 50 mls @ 100 mls/hr 05/22/21 01:59 05/22/21 03:02 Rocephin 1 Gm-D5w 50 Ml Bag IV 05/22/21 02:28 Infused STAT STA Infusion Ceftriaxone Sodium/Dextrose Confirm 05/22/21 02:07 Rocephin 1 Gm-D5w 50 Ml Bag Administered 05/22/21 02:08 Dose 1 g in 50 mls @ ud IV .STK-MED ONE Ondansetron HCl Confirm 05/22/21 00:39 Ondansetron Hcl 4 Mg/2 Ml Vial Administered 05/22/21 00:40 Dose 4 mg .ROUTE .STK-MED ONE Pantoprazole Sodium 40 mg 05/22/21 02:31 05/22/21 02:34 Pantoprazole 40 Mg Vial IV 05/22/21 02:32 40 mg STAT ONE Administration Pantoprazole Sodium Confirm 05/22/21 02:33 Pantoprazole 40 Mg Vial Administered 05/22/21 02:34 Dose 40 mg IV .STK-MED ONE Lab/Rad Data: Laboratory Result Diagrams 05/21/21 23:10 05/21/21 23:10 Laboratory Results 05/22/21 05/22/21 05/21/21 Range/Units 01:18 00:05 23:12 WBC (4.0-10.5) K/mm3 RBC (4.1-5.4) M/mm3 Hgb (12.0-16.0) gm/dl Hct (35-47) % MCV (78-100) fl MCH (26-32) pg MCHC (32-36) g/dl RDW (11.5-14.0) % Plt Count (150-450) K/mm3 MPV (7.5-11.0) fl Gran % (36.0-66.0) % Eos # (Auto) (0-0.5) Absolute Lymphs (auto) (1.0-4.6) Absolute Monos (auto) (0.0-1.3) Lymphocytes % (24.0-44.0) % Monocytes % (0.0-12.0) % Eosinophils % (0.00-5.0) % Basophils % (0.0-0.4) % Absolute Granulocytes (1.4-6.9) Basophils # (0-0.4) PT (9.4-12.5) SECONDS INR (0.8-3.0) APTT (25.1-36.5) SECONDS Sodium (137-145) mmol/L Potassium (3.5-5.1) mmol/L Chloride (98-107) mmol/L Carbon Dioxide (22-30) mmol/L Anion Gap (5-15) MEQ/L BUN (7-17) mg/dL Creatinine (0.52-1.04) mg/dL Estimated GFR ML/MIN Glucose (74-106) mg/dL Lactic Acid 1.5 (0.4-2.0) Calcium (8.4-10.2) mg/dL Total Bilirubin (0.2-1.3) mg/dL AST (14-36) U/L ALT (0-35) U/L Alkaline Phosphatase (38-126) U/L Troponin I (0.000-0.034) ng/mL Serum Total Protein (6.3-8.2) g/dL Albumin (3.5-5.0) g/dL Urine Color (YELLOW) Urine Appearance (CLEAR) Urine pH (5-6) Ur Specific [place] (1.005-1.025) Urine Protein (Negative) Urine Ketones (NEGATIVE) Urine Blood (0-5) David/ul Urine Nitrite (NEGATIVE) Urine Bilirubin (NEGATIVE) Urine Urobilinogen (0-1) mg/dL Ur Leukocyte Esterase (NEGATIVE) Urine WBC (Auto) (0-5) /HPF Urine RBC (Auto) (0-2) /HPF U Hyaline Cast (Auto) (0-2) /LPF U Epithel Cells (Auto) (FEW) /HPF Urine Bacteria (Auto) (NEGATIVE) /HPF Urine Mucus (Auto) (NEGATIVE) /HPF Urine Culture Reflexed (NO) Urine Glucose (NEGATIVE) mg/dL Stl Occult Blood (IFOB) POSITIVE A (NEGATIVE) Influenza Type A Ag NEGATIVE (NEGATIVE) Influenza Type B Ag NEGATIVE (NEGATIVE) RSV (PCR) NEGATIVE (Negative) SARS-CoV-2 (PCR) NEGATIVE (NEGATIVE) 05/21/21 05/21/21 05/21/21 Range/Units 23:10 23:10 23:10 WBC (4.0-10.5) K/mm3 RBC (4.1-5.4) M/mm3 Hgb (12.0-16.0) gm/dl Hct (35-47) % MCV (78-100) fl MCH (26-32) pg MCHC (32-36) g/dl RDW (11.5-14.0) % Plt Count (150-450) K/mm3 MPV (7.5-11.0) fl Gran % (36.0-66.0) % Eos # (Auto) (0-0.5) Absolute Lymphs (auto) (1.0-4.6) Absolute Monos (auto) (0.0-1.3) Lymphocytes % (24.0-44.0) % Monocytes % (0.0-12.0) % Eosinophils % (0.00-5.0) % Basophils % (0.0-0.4) % Absolute Granulocytes (1.4-6.9) Basophils # (0-0.4) PT 25.2 H (9.4-12.5) SECONDS INR 2.14 (0.8-3.0) APTT 31.2 (25.1-36.5) SECONDS Sodium 134 L (137-145) mmol/L Potassium 4.2 (3.5-5.1) mmol/L Chloride 97 L (98-107) mmol/L Carbon Dioxide 27 (22-30) mmol/L Anion Gap 13.7 (5-15) MEQ/L BUN 86 H (7-17) mg/dL Creatinine 1.90 H (0.52-1.04) mg/dL Estimated GFR 27.4 ML/MIN Glucose 174 H (74-106) mg/dL Lactic Acid (0.4-2.0) Calcium 8.3 L (8.4-10.2) mg/dL Total Bilirubin 0.40 (0.2-1.3) mg/dL AST 19 (14-36) U/L ALT 10 (0-35) U/L Alkaline Phosphatase 78 (38-126) U/L Troponin I < 0.012 (0.000-0.034) ng/mL Serum Total Protein 6.5 (6.3-8.2) g/dL Albumin 3.0 L (3.5-5.0) g/dL Urine Color (YELLOW) Urine Appearance (CLEAR) Urine pH (5-6) Ur Specific [place] (1.005-1.025) Urine Protein (Negative) Urine Ketones (NEGATIVE) Urine Blood (0-5) David/ul Urine Nitrite (NEGATIVE) Urine Bilirubin (NEGATIVE) Urine Urobilinogen (0-1) mg/dL Ur Leukocyte Esterase (NEGATIVE) Urine WBC (Auto) (0-5) /HPF Urine RBC (Auto) (0-2) /HPF U Hyaline Cast (Auto) (0-2) /LPF U Epithel Cells (Auto) (FEW) /HPF Urine Bacteria (Auto) (NEGATIVE) /HPF Urine Mucus (Auto) (NEGATIVE) /HPF Urine Culture Reflexed (NO) Urine Glucose (NEGATIVE) mg/dL Stl Occult Blood (IFOB) (NEGATIVE) Influenza Type A Ag (NEGATIVE) Influenza Type B Ag (NEGATIVE) RSV (PCR) (Negative) SARS-CoV-2 (PCR) (NEGATIVE) 05/21/21 05/21/21 Range/Units 23:10 01:57 WBC 17.2 H (4.0-10.5) K/mm3 RBC 1.39 L (4.1-5.4) M/mm3 Hgb 3.9 L* (12.0-16.0) gm/dl Hct 13.8 L (35-47) % MCV 99.3 (78-100) fl MCH 28.1 (26-32) pg MCHC 28.3 L (32-36) g/dl RDW 19.0 H (11.5-14.0) % Plt Count 322 (150-450) K/mm3 MPV 9.4 (7.5-11.0) fl Gran % 77.3 H (36.0-66.0) % Eos # (Auto) 0.22 (0-0.5) Absolute Lymphs (auto) 2.64 (1.0-4.6) Absolute Monos (auto) 1.01 (0.0-1.3) Lymphocytes % 15.3 L (24.0-44.0) % Monocytes % 5.9 (0.0-12.0) % Eosinophils % 1.3 (0.00-5.0) % Basophils % 0.2 (0.0-0.4) % Absolute Granulocytes 13.31 H (1.4-6.9) Basophils # 0.04 (0-0.4) PT (9.4-12.5) SECONDS INR (0.8-3.0) APTT (25.1-36.5) SECONDS Sodium (137-145) mmol/L Potassium (3.5-5.1) mmol/L Chloride (98-107) mmol/L Carbon Dioxide (22-30) mmol/L Anion Gap (5-15) MEQ/L BUN (7-17) mg/dL Creatinine (0.52-1.04) mg/dL Estimated GFR ML/MIN Glucose (74-106) mg/dL Lactic Acid (0.4-2.0) Calcium (8.4-10.2) mg/dL Total Bilirubin (0.2-1.3) mg/dL AST (14-36) U/L ALT (0-35) U/L Alkaline Phosphatase (38-126) U/L Troponin I (0.000-0.034) ng/mL Serum Total Protein (6.3-8.2) g/dL Albumin (3.5-5.0) g/dL Urine Color DELISA (YELLOW) Urine Appearance CLOUDY (CLEAR) Urine pH 5.0 (5-6) Ur Specific [place] 1.013 (1.005-1.025) Urine Protein 30 (Negative) Urine Ketones NEGATIVE (NEGATIVE) Urine Blood LARGE (0-5) David/ul Urine Nitrite NEGATIVE (NEGATIVE) Urine Bilirubin NEGATIVE (NEGATIVE) Urine Urobilinogen NEGATIVE (0-1) mg/dL Ur Leukocyte Esterase LARGE (NEGATIVE) Urine WBC (Auto) >100 (0-5) /HPF Urine RBC (Auto) 16-25 (0-2) /HPF U Hyaline Cast (Auto) 3-5 (0-2) /LPF U Epithel Cells (Auto) RARE (FEW) /HPF Urine Bacteria (Auto) MODERATE (NEGATIVE) /HPF Urine Mucus (Auto) SLIGHT (NEGATIVE) /HPF Urine Culture Reflexed ORDERED SEPARATELY (NO) Urine Glucose NEGATIVE (NEGATIVE) mg/dL Stl Occult Blood (IFOB) (NEGATIVE) Influenza Type A Ag (NEGATIVE) Influenza Type B Ag (NEGATIVE) RSV (PCR) (Negative) SARS-CoV-2 (PCR) (NEGATIVE) - Progress Progress: improved Progress Note: 05/22/21 01:45 Pt arrived per EMS hypotensive/tachycardic. IV access started L antecubital after multiple tries, and 1L NS bolus given. Due to the dark color of her stool and with the subsequent result of her Hb being 4.1 which was later confirmed w 3.9 result, 4units of PRBC's ordered w 2 units of O neg given which raised systolic BP to greater than 90. GI bleed most likely due to Eliquis. Although pt is a DNR, she gave consent for transfusion. UA out of supra-pubic catheter extremely dark, so catheter easily replaced per nursing. 05/22/21 02:[address] Solis for Dr. Oneil 05/22/21 02:38 Pt given 2units of Oneg PRBC's/2L NS/2units of FFP/40mg IV Lasix after blood/1gm IV Rocephin/4mg IV Zofran/ Pt w systolic BP >100 when transferred to ICU and in NAD 05/22/21 03:03 Discussed with .: Tito Counseled pt/family regarding: lab results, diagnosis, rad results - Departure Departure Disposition: Observation Clinical Impression: GI bleed, UTI (urinary tract infection) Condition: Critical Critical Care Time: Yes Critical Care Time(excluding separately billable procedures): Critcal > 194 mins Referrals: ALL TRAN [Primary Care Provider] - Follow up/PCP as directed
[2021-05-22] MEDS ORDERED: Sodium Chloride 0.9% 1000 ML 2,000 ML ONE (00:20)
[2021-05-22 00:36] LABS: Absolute Neutrophil Ct (ANC) 13.31 (1.4-6.9); Basophil (Absolute #) 0.04 (0-0.4); Eosinophil % 1.3 % (0.00-5.0); Eosinophil (Absolute #) 0.22 (0-0.5); Hematocrit 13.8 % (35-47); Lymphocyte (Absolute #) 2.64 (1.0-4.6); Lymphocytes % 15.3 % (24.0-44.0); Mean Cell Volume 99.3 fl (78-100); Mean Corpuscular Hemoglobin 28.1 pg (26-32); Mean Corpuscular Hgb Concent. 28.3 g/dl (32-36); Mean Platelet Volume 9.4 fl (7.5-11.0); Monocyte (Absolute #) 1.01 (0.0-1.3); Monocytes % 5.9 % (0.0-12.0); Neutrophil % 77.3 % (36.0-66.0); Platelet Count 322 K/mm3 (150-450); Red Blood Count 1.39 M/mm3 (4.1-5.4); White Blood Count 17.2 K/mm3 (4.0-10.5)
[2021-05-22 00:37] LABS: Hemoglobin 3.9 gm/dl (12.0-16.0)
[2021-05-22] MEDS ORDERED: Zofran 4 MG/2 ML VIAL ONE (00:39)
[2021-05-22] MEDS ORDERED: Zofran 4 MG/2 ML VIAL IV PRN ×2 (00:39→02:33)
[2021-05-22] MEDS ORDERED: Lasix 40 MG/4 ML IV ONE (00:57)
[2021-05-22] MEDS ORDERED: Lasix 40 MG/4 ML ONE (00:58)
[2021-05-22] MEDS ORDERED: Sodium Chloride 0.9% 1000 ML 1,000 ML IV STA (01:00)
[2021-05-22 01:36] LABS: FFP-ORDER READY TO INFUSE
[2021-05-22 01:56] LABS: Appearance CLOUDY (CLEAR); Bacteria MODERATE /HPF (NEGATIVE); Bilirubin NEGATIVE (NEGATIVE); Blood LARGE Ery/ul (0-5); Epithelial Cells RARE /HPF (FEW); Glucose NEGATIVE (NEGATIVE); Ketones NEGATIVE (NEGATIVE); Leukocyte Esterase LARGE (NEGATIVE); Mucus SLIGHT /HPF (NEGATIVE); Nitrite NEGATIVE (NEGATIVE); Protein,Urine Dip 30 (Negative); Specific Gravity 1.013 (1.005-1.025); Urobilinogen NEGATIVE mg/dL (0-1); WBC >100 /HPF (0-5)
[2021-05-22 01:57] LABS: INFLUENZA A NEGATIVE (NEGATIVE); INFLUENZA B NEGATIVE (NEGATIVE); RESPIRATORY SYNCTIAL VIRUS NEGATIVE (Negative); SARS-CoV-2 Xpert Express NEGATIVE (NEGATIVE)
[2021-05-22] MEDS ORDERED: ROCEPHIN 1 Gm-D5w 50 ml Bag** 1 G/50 ML IVPB IV STA (01:59)
[2021-05-22] MEDS ORDERED: ROCEPHIN 1 Gm-D5w 50 ml Bag** 1 G/50 ML IVPB IV ONE (02:07)
[2021-05-22] MEDS ORDERED: PROTONIX 40 MG IV IV ONE ×2 (02:31→02:33)
[2021-05-22] MEDS: Sodium Chloride 0.9% 1000 ML 1,000 ML IV SCH (04:08)
[2021-05-22 04:20] LABS: CROSS MATCH (PRBC) COMPATIBLE (COMPATIBLE)
[2021-05-22 05:38] LABS: Absolute Neutrophil Ct (ANC) 11.86 (1.4-6.9); Basophil (Absolute #) 0.03 (0-0.4); Eosinophil % 1.3 % (0.00-5.0); Hematocrit 20.1 % (35-47); Lymphocyte (Absolute #) 2.57 (1.0-4.6); Lymphocytes % 16.3 % (24.0-44.0); Mean Cell Volume 94.8 fl (78-100); Mean Corpuscular Hemoglobin 28.3 pg (26-32); Mean Corpuscular Hgb Concent. 29.9 g/dl (32-36); Mean Platelet Volume 9.6 fl (7.5-11.0); Monocyte (Absolute #) 1.09 (0.0-1.3); Monocytes % 6.9 % (0.0-12.0); Neutrophil % 75.3 % (36.0-66.0); Platelet Count 265 K/mm3 (150-450); Red Blood Count 2.12 M/mm3 (4.1-5.4); Red Cell Distribution Width 18.6 % (11.5-14.0); White Blood Count 15.8 K/mm3 (4.0-10.5)
[2021-05-22 05:52] LABS: ALBUMIN 2.9 g/dL (3.5-5.0); ANION GAP 13.2 MEQ/L (5-15); BILIRUBIN,TOTAL 0.5 mg/dL (0.2-1.3); Calcium 7.7 mg/dL (8.4-10.2); Creatinine 1 1.77 mg/dL (0.52-1.04); EST GLOMERULAR FILTRATION RATE 29.7 ML/MIN; Potassium 3.7 mmol/L (3.5-5.1); Total Protein 6.3 g/dL (6.3-8.2)
[2021-05-22] MEDS ORDERED: TYLENOL EXTRA STRENGTH 500 MG PO PRN (08:18)
--- NOTE | 2021-05-22 08:55 | XRAY ---
Indication: Weakness. GI bleed. Discolored urine. Multiple contiguous axial images obtained through the abdomen and pelvis without contrast. Comparison: October 22, 2018. There is again beam artifact from patient's arms and left hip prosthesis. Lung bases again demonstrates subsegmental atelectasis/scarring and small left costophrenic angle calcified granuloma. Heart not enlarged again with mitral valve calcifications and left infrahilar calcified nodes. Noncontrasted stomach and bowel loops nonobstructed with again moderate rectal impaction. No free fluid/air. Stable sigmoid diverticulosis, fatty liver, hepatic/splenic calcified granulomas, bilateral renal cysts, bilateral perinephric fluid/stranding, suprapubic urinary bladder catheter, and hysterectomy. Remaining liver, gallbladder, pancreas, spleen, adrenal glands, kidneys, ureters, and bladder are unremarkable for noncontrast exam. Again mild scattered aortoiliac calcifications without AAA. Osseous structures intact again with osteopenia, multilevel degenerative spondylosis, and mild levoscoliosis. Impression: 1. Again beam artifact from patient's arms and left hip prosthesis. 2. Moderate rectal impaction. 3. Again chronic findings including sigmoid diverticulosis, fatty liver, bilateral renal cysts, bilateral perinephric fluid/stranding, suprapubic bladder catheter in situ, chronic bony findings, and old granulomatous disease. Comment: Preliminary interpretation made by C. No critical discrepancy.
[2021-05-22] MEDS ORDERED: SUBLIMAZE 250 MCG/5 ML IV PRN (09:12)
[2021-05-22] MEDS: SUBLIMAZE 100 MCG/2 ML IV PRN (09:26)
[2021-05-22] MEDS: PROTONIX 40 MG IV*** 80 MG in Sodium Chloride 0.9% 500 ML 500 ML IV SCH ×2 (09:36→19:55)
[2021-05-22] MEDS: EFFEXOR 37.5 MG PO SCH ×2 (09:37→21:01)
[2021-05-22] MEDS: Santyl OINTMENT TP SCH ×2 (09:47→21:02)
[2021-05-22 09:52] LABS: Hematocrit 24.6 % (35-47); Hemoglobin 7.5 gm/dl (12.0-16.0)
[2021-05-22] MEDS ORDERED: VENLAFAXINE HCL 100 MG PO SCH (10:00)
[2021-05-22] MEDS ORDERED: ROCEPHIN 1 Gm-D5w 50 ml Bag** 1 G/50 ML IVPB IV SCH (10:00)
[2021-05-22] MEDS ORDERED: PROTONIX 40 MG IV IV SCH (10:00)
[2021-05-22] MEDS ORDERED: HUMALOG SQ PRN (10:18)
[2021-05-22] MEDS ORDERED: Lasix 20 MG/2 ML IV ONE (10:30)
[2021-05-22 13:52] LABS: Slide Review 1 YES
--- NOTE | 2021-05-22 15:01 | XRAY ---
Indication: Pain. Comparison: None 2 portable views right shoulder demonstrates osteopenia and mild AC degenerative changes. High riding humeral head commonly seen with rotator cuff tear. No other bony, articular, or soft tissue abnormalities.
[2021-05-22 15:53] LABS: Hematocrit 26.2 % (35-47)
--- NOTE | 2021-05-22 17:00 | PCM.HP ---
History of Present Illness - Chief Complaint Chief Complaint: GI BLEED, UTI History of Present Illness: Late entry for 05/22/21 approx 0800. is a 75 year old female pt of Dr. Oneil, currently at [facility], with PMHx DM, multi-infarct dementia, chronic urinary retention (with suprapubic catheter), hyperlipidemia, and pseudobulbar affect who was admitted through ER with GI bleed (Hgb 3.9) and UTI. Her hemoccult was positive. CT abd/pelvis was nonacute. LTCF reported decreased urinary output. This a.m. she had 1,000 cc of yellow urine out. She was ordered 4 units PRBC and 2 units FFP. Pt is on Eliquis from fairly recent L femur repair by Dr. Rasheed. Pt complains of pain when touched. Only c/o pain when asked is R shoulder, and L leg at surgical site (3-/). She is whispering to talk this morning, she said because she had a sore throat. This morning she has had 3 of the 4 units of PRBC. - Review of Systems Ears, Nose, & Throat: Throat Pain Abdominal/Gastrointestinal: Diarrhea, Constipation, Melena Genitourinary Symptoms: Hematuria, Urinary Retention Musculoskeletal: Arthralgias All Other Systems: Reviewed and Negative Medications & Allergies Home Medications: Home Medication List Aspirin 81 gm Chew [Baby Aspirin 81 mg Chew] 81 mg PO HS 01/01/14 [History Confirmed 05/22/21] Donepezil HCl [Aricept] 5 mg PO HS 01/01/14 [History Confirmed 05/22/21] Furosemide [Lasix] 40 mg PO HS 01/01/14 [History Confirmed 05/22/21] Potassium Chloride 10 Meq Tab* [Klor Con 10 MEQ] 10 meq PO HS 01/01/14 [History Confirmed 05/22/21] Insulin Glargine [Lantus Insulin] 10 unit SQ HS 05/27/14 [History Confirmed 05/22/21] Liraglutide [Victoza 2-Ang] 1.8 mg SQ DAILY 07/30/17 [History Confirmed 05/22/21] Methenamine 1 gm PO BID 07/30/17 [History Confirmed 05/22/21] Trazodone HCl 50 mg [Desyrel 50 mg] 50 mg PO HS 12/01/17 [History Confirmed 05/22/21] Apixaban [Eliquis 2.5 mg Tablet] 5 mg PO BID #60 tablet 03/11/19 [Rx Confirmed 05/22/21] Metoprolol Tartrate 50 mg [Lopressor 50 MG] 100 mg PO BID #60 tablet 03/11/19 [Rx Confirmed 05/22/21] Acetaminophen [Acetaminophen Extra Strength] 1,000 mg PO Q6H PRN 05/22/21 [History Confirmed 05/22/21] Atorvastatin Calcium [Lipitor] 10 mg PO HS 05/22/21 [History Confirmed 05/22/21] Collagenase Oint [Santyl OINTMENT] 30 gm TP BID 05/22/21 [History Confirmed 05/22/21] Ergocalciferol (Vitamin D2) [Vitamin D2] 50,000 unit PO Q7D 05/22/21 [History Confirmed 05/22/21] Ferrous Sulfate 325 mg [Feosol 325 mg] 325 mg PO DAILY 05/22/21 [History Confirmed 05/22/21] Glucagon [Baqsimi] 3 mg NS DAILY PRN PRN 05/22/21 [History Confirmed 05/22/21] Hydrocodone/Acetaminophen [Hydrocodone-Acetamin 7.5-325] 1 each PO Q6H PRN 05/22/21 [History Confirmed 05/22/21] Memantine HCl 5 mg [Namenda 5 MG] 5 mg PO BID 05/22/21 [History Confirmed 05/22/21] Multivitamin [One-Daily Multi-Vitamin] 1 each PO DAILY 05/22/21 [History Confirmed 05/22/21] Oxybutynin Chloride [Oxybutynin Chloride ER] 10 mg PO DAILY 05/22/21 [History Confirmed 05/22/21] PANTOPRAZOLE 40 mg Tablet [Protonix 40MG Tablet] 40 mg PO DAILY 05/22/21 [History Confirmed 05/22/21] Sennosides/Docusate Sodium [Senna Plus 8.6-50 mg Softgel] 1 each PO BID 05/22/21 [History Confirmed 05/22/21] Venlafaxine HCl 125 mg PO BID 05/22/21 [History Confirmed 05/22/21] Allergies/Adverse Reactions: Allergies Allergy/AdvReac Type Severity Reaction Status Date / Time tramadol Allergy Mild dizzy Verified 03/25/21 15:56 - Past Medical History Past Medical History: Yes Neurological History: No Pertinent History ENT History: Cataracts Cardiac History: High Cholesterol, Hypertension, Myocardial Infarction (DE) Respiratory History: COPD Endocrine Medical History: Diabetes Type II Musculoskelatal History: Arthritis, Fractures GI Medical History: Polyps History: Renal Disease, Other Pyscho-Social History: Bipolar, Depression Reproductive Disorders: No Pertinent History Comment: daughter states "she is difficulty at times and won't do what she is told" "going to try to get her to take the bowel prep" - Female History Are you now?: No - Past Surgical History Past Surgical History: Yes Neuro Surgical History: No Pertinent History Cardiac History: Cardiac Catheterization, Cardiac Stent Respiratory Surgery: No Pertinent History GI Surgical History: No Pertinent History Genitourinary Surgical Hx: No Pertinent History Musculskeletal Surgical Hx: Joint Replacement Female Surgical History: Hysterectomy Other Surgical History: SEVERAL STENTS. SURGERY ON BOTH FEET FROM CLUB FEET - Social History Smoking Status: Never smoker How long have you smoked: 55 Exposure to second hand smoke: No Alcohol: None Drug Use: none Significant Family History: heart disease, diabetes, hypertension - Physical Exam Vital Signs: Vital Signs - 24 hr Temp Pulse Resp BP Pulse Ox 05/22/21 16:00 131 H 05/22/21 11:51 97.5 F 122 H 18 105/77 98 05/22/21 07:49 119 H 05/22/21 07:40 96.1 F 128 H 18 105/78 100 05/22/21 03:29 98.9 F 117 H 17 107/75 97 05/22/21 03:06 97 05/22/21 03:00 120 H 17 110/71 97 05/22/21 02:00 124 H 18 120/59 100 05/22/21 01:00 120 H 16 105/80 95 05/22/21 00:00 120 H 18 94 L 05/21/21 23:18 123 H 16 66/0 97 05/21/21 22:18 97.9 F 124 H 20 97 General Appearance: no apparent distress, alert, obese Neurologic Exam: oriented x 3, other (somewhat cooperative) Eye Exam: eyes nml inspection Ears, Nose, Throat Exam: moist mucous membranes Neck Exam: normal inspection Respiratory Exam: normal breath sounds, lungs clear, No crackles/rales, No rhonchi, No wheezing Cardiovascular Exam: normal heart sounds, tachycardia, No murmur Gastrointestinal/Abdomen Exam: soft, normal bowel sounds, No tenderness, No distention, No mass, No guarding, No rebound Back Exam: normal inspection, other (pt in pain when helped to lean forward), No rash Extremity Exam: No pedal edema, No swelling Skin Exam: normal color, warm, dry, No rash Wound Assessment: Skin/Wound Assessment Wound/Incision Assessment Start: 05/22/21 04:08 Text: Status: Active Freq: Q6H Protocol: Document 05/22/21 14:00 RN (Rec: 05/22/21 14:34 RN [id number]) Wound/Incision Assessment Left Thigh Wound Assessment Shift Assessment Wound Type Incision Wound Stage Non Pressure Wound Dressing Status Changed Drainage Amount Moderate Drainage Odor None/Absent General Appearance Draining Wound Bed Greatest Portion Yellow (Slough) Surrounding Tissue [place] Topical Solution/Irrigant Medicated Ointment Primary Dressing Non-Adherent Gauze Pads Results - Labs Lab/Micro Results: Lab Results-Last 24 Hours 05/21/21 05/21/21 05/21/21 Range/Units 01:57 23:10 23:10 WBC 17.2 H (4.0-10.5) K/mm3 RBC 1.39 L (4.1-5.4) M/mm3 Hgb 3.9 L* (12.0-16.0) gm/dl Hct 13.8 L (35-47) % MCV 99.3 (78-100) fl MCH 28.1 (26-32) pg MCHC 28.3 L (32-36) g/dl RDW 19.0 H (11.5-14.0) % Plt Count 322 (150-450) K/mm3 MPV 9.4 (7.5-11.0) fl Gran % 77.3 H (36.0-66.0) % Eos # (Auto) 0.22 (0-0.5) Absolute Lymphs (auto) 2.64 (1.0-4.6) Absolute Monos (auto) 1.01 (0.0-1.3) Lymphocytes % 15.3 L (24.0-44.0) % Monocytes % 5.9 (0.0-12.0) % Eosinophils % 1.3 (0.00-5.0) % Basophils % 0.2 (0.0-0.4) % Absolute Granulocytes 13.31 H (1.4-6.9) Basophils # 0.04 (0-0.4) Smear Path Review PT (9.4-12.5) SECONDS INR (0.8-3.0) APTT (25.1-36.5) SECONDS Sodium 134 L (137-145) mmol/L Potassium 4.2 (3.5-5.1) mmol/L Chloride 97 L (98-107) mmol/L Carbon Dioxide 27 (22-30) mmol/L Anion Gap 13.7 (5-15) MEQ/L BUN 86 H (7-17) mg/dL Creatinine 1.90 H (0.52-1.04) mg/dL Estimated GFR 27.4 ML/MIN Glucose 174 H (74-106) mg/dL POC Glucometer (74 to 106) mg/dL Lactic Acid (0.4-2.0) Calcium 8.3 L (8.4-10.2) mg/dL Total Bilirubin 0.40 (0.2-1.3) mg/dL AST 19 (14-36) U/L ALT 10 (0-35) U/L Alkaline Phosphatase 78 (38-126) U/L Troponin I (0.000-0.034) ng/mL Serum Total Protein 6.5 (6.3-8.2) g/dL Albumin 3.0 L (3.5-5.0) g/dL Urine Color DELISA (YELLOW) Urine Appearance CLOUDY (CLEAR) Urine pH 5.0 (5-6) Ur Specific Nabb 1.013 (1.005-1.025) Urine Protein 30 (Negative) Urine Ketones NEGATIVE (NEGATIVE) Urine Blood LARGE (0-5) David/ul Urine Nitrite NEGATIVE (NEGATIVE) Urine Bilirubin NEGATIVE (NEGATIVE) Urine Urobilinogen NEGATIVE (0-1) mg/dL Ur Leukocyte Esterase LARGE (NEGATIVE) Urine WBC (Auto) >100 (0-5) /HPF Urine RBC (Auto) 16-25 (0-2) /HPF U Hyaline Cast (Auto) 3-5 (0-2) /LPF U Epithel Cells (Auto) RARE (FEW) /HPF Urine Bacteria (Auto) MODERATE (NEGATIVE) /HPF Urine Mucus (Auto) SLIGHT (NEGATIVE) /HPF Urine Culture Reflexed ORDERED SEPARATELY (NO) Urine Glucose NEGATIVE (NEGATIVE) mg/dL Stl Occult Blood (IFOB) (NEGATIVE) Influenza Type A Ag (NEGATIVE) Influenza Type B Ag (NEGATIVE) RSV (PCR) (Negative) SARS-CoV-2 (PCR) (NEGATIVE) Slides for Path Review Crossmatch (COMPATIBLE) 05/21/21 05/21/21 05/21/21 Range/Units 23:10 23:10 23:12 WBC (4.0-10.5) K/mm3 RBC (4.1-5.4) M/mm3 Hgb (12.0-16.0) gm/dl Hct (35-47) % MCV (78-100) fl MCH (26-32) pg MCHC (32-36) g/dl RDW (11.5-14.0) % Plt Count (150-450) K/mm3 MPV (7.5-11.0) fl Gran % (36.0-66.0) % Eos # (Auto) (0-0.5) Absolute Lymphs (auto) (1.0-4.6) Absolute Monos (auto) (0.0-1.3) Lymphocytes % (24.0-44.0) % Monocytes % (0.0-12.0) % Eosinophils % (0.00-5.0) % Basophils % (0.0-0.4) % Absolute Granulocytes (1.4-6.9) Basophils # (0-0.4) Smear Path Review PT 25.2 H (9.4-12.5) SECONDS INR 2.14 (0.8-3.0) APTT 31.2 (25.1-36.5) SECONDS Sodium (137-145) mmol/L Potassium (3.5-5.1) mmol/L Chloride (98-107) mmol/L Carbon Dioxide (22-30) mmol/L Anion Gap (5-15) MEQ/L BUN (7-17) mg/dL Creatinine (0.52-1.04) mg/dL Estimated GFR ML/MIN Glucose (74-106) mg/dL POC Glucometer (74 to 106) mg/dL Lactic Acid 1.5 (0.4-2.0) Calcium (8.4-10.2) mg/dL Total Bilirubin (0.2-1.3) mg/dL AST (14-36) U/L ALT (0-35) U/L Alkaline Phosphatase (38-126) U/L Troponin I < 0.012 (0.000-0.034) ng/mL Serum Total Protein (6.3-8.2) g/dL Albumin (3.5-5.0) g/dL Urine Color (YELLOW) Urine Appearance (CLEAR) Urine pH (5-6) Ur Specific Nabb (1.005-1.025) Urine Protein (Negative) Urine Ketones (NEGATIVE) Urine Blood (0-5) David/ul Urine Nitrite (NEGATIVE) Urine Bilirubin (NEGATIVE) Urine Urobilinogen (0-1) mg/dL Ur Leukocyte Esterase (NEGATIVE) Urine WBC (Auto) (0-5) /HPF Urine RBC (Auto) (0-2) /HPF U Hyaline Cast (Auto) (0-2) /LPF U Epithel Cells (Auto) (FEW) /HPF Urine Bacteria (Auto) (NEGATIVE) /HPF Urine Mucus (Auto) (NEGATIVE) /HPF Urine Culture Reflexed (NO) Urine Glucose (NEGATIVE) mg/dL Stl Occult Blood (IFOB) (NEGATIVE) Influenza Type A Ag (NEGATIVE) Influenza Type B Ag (NEGATIVE) RSV (PCR) (Negative) SARS-CoV-2 (PCR) (NEGATIVE) Slides for Path Review Crossmatch (COMPATIBLE) 05/22/21 05/22/21 05/22/21 Range/Units 00:05 00:27 01:18 WBC (4.0-10.5) K/mm3 RBC (4.1-5.4) M/mm3 Hgb (12.0-16.0) gm/dl Hct (35-47) % MCV (78-100) fl MCH (26-32) pg MCHC (32-36) g/dl RDW (11.5-14.0) % Plt Count (150-450) K/mm3 MPV (7.5-11.0) fl Gran % (36.0-66.0) % Eos # (Auto) (0-0.5) Absolute Lymphs (auto) (1.0-4.6) Absolute Monos (auto) (0.0-1.3) Lymphocytes % (24.0-44.0) % Monocytes % (0.0-12.0) % Eosinophils % (0.00-5.0) % Basophils % (0.0-0.4) % Absolute Granulocytes (1.4-6.9) Basophils # (0-0.4) Smear Path Review PT (9.4-12.5) SECONDS INR (0.8-3.0) APTT (25.1-36.5) SECONDS Sodium (137-145) mmol/L Potassium (3.5-5.1) mmol/L Chloride (98-107) mmol/L Carbon Dioxide (22-30) mmol/L Anion Gap (5-15) MEQ/L BUN (7-17) mg/dL Creatinine (0.52-1.04) mg/dL Estimated GFR ML/MIN Glucose (74-106) mg/dL POC Glucometer (74 to 106) mg/dL Lactic Acid (0.4-2.0) Calcium (8.4-10.2) mg/dL Total Bilirubin (0.2-1.3) mg/dL AST (14-36) U/L ALT (0-35) U/L Alkaline Phosphatase (38-126) U/L Troponin I (0.000-0.034) ng/mL Serum Total Protein (6.3-8.2) g/dL Albumin (3.5-5.0) g/dL Urine Color (YELLOW) Urine Appearance (CLEAR) Urine pH (5-6) Ur Specific Nabb (1.005-1.025) Urine Protein (Negative) Urine Ketones (NEGATIVE) Urine Blood (0-5) David/ul Urine Nitrite (NEGATIVE) Urine Bilirubin (NEGATIVE) Urine Urobilinogen (0-1) mg/dL Ur Leukocyte Esterase (NEGATIVE) Urine WBC (Auto) (0-5) /HPF Urine RBC (Auto) (0-2) /HPF U Hyaline Cast (Auto) (0-2) /LPF U Epithel Cells (Auto) (FEW) /HPF Urine Bacteria (Auto) (NEGATIVE) /HPF Urine Mucus (Auto) (NEGATIVE) /HPF Urine Culture Reflexed (NO) Urine Glucose (NEGATIVE) mg/dL Stl Occult Blood (IFOB) POSITIVE A (NEGATIVE) Influenza Type A Ag NEGATIVE (NEGATIVE) Influenza Type B Ag NEGATIVE (NEGATIVE) RSV (PCR) NEGATIVE (Negative) SARS-CoV-2 (PCR) NEGATIVE (NEGATIVE) Slides for Path Review Crossmatch COMPATIBLE (COMPATIBLE) 05/22/21 05/22/21 05/22/21 Range/Units 02:50 04:19 04:19 WBC (4.0-10.5) K/mm3 RBC (4.1-5.4) M/mm3 Hgb (12.0-16.0) gm/dl Hct (35-47) % MCV (78-100) fl MCH (26-32) pg MCHC (32-36) g/dl RDW (11.5-14.0) % Plt Count (150-450) K/mm3 MPV (7.5-11.0) fl Gran % (36.0-66.0) % Eos # (Auto) (0-0.5) Absolute Lymphs (auto) (1.0-4.6) Absolute Monos (auto) (0.0-1.3) Lymphocytes % (24.0-44.0) % Monocytes % (0.0-12.0) % Eosinophils % (0.00-5.0) % Basophils % (0.0-0.4) % Absolute Granulocytes (1.4-6.9) Basophils # (0-0.4) Smear Path Review PT (9.4-12.5) SECONDS INR (0.8-3.0) APTT (25.1-36.5) SECONDS Sodium (137-145) mmol/L Potassium (3.5-5.1) mmol/L Chloride (98-107) mmol/L Carbon Dioxide (22-30) mmol/L Anion Gap (5-15) MEQ/L BUN (7-17) mg/dL Creatinine (0.52-1.04) mg/dL Estimated GFR ML/MIN Glucose (74-106) mg/dL POC Glucometer (74 to 106) mg/dL Lactic Acid (0.4-2.0) Calcium (8.4-10.2) mg/dL Total Bilirubin (0.2-1.3) mg/dL AST (14-36) U/L ALT (0-35) U/L Alkaline Phosphatase (38-126) U/L Troponin I < 0.012 (0.000-0.034) ng/mL Serum Total Protein (6.3-8.2) g/dL Albumin (3.5-5.0) g/dL Urine Color (YELLOW) Urine Appearance (CLEAR) Urine pH (5-6) Ur Specific Nabb (1.005-1.025) Urine Protein (Negative) Urine Ketones (NEGATIVE) Urine Blood (0-5) David/ul Urine Nitrite (NEGATIVE) Urine Bilirubin (NEGATIVE) Urine Urobilinogen (0-1) mg/dL Ur Leukocyte Esterase (NEGATIVE) Urine WBC (Auto) (0-5) /HPF Urine RBC (Auto) (0-2) /HPF U Hyaline Cast (Auto) (0-2) /LPF U Epithel Cells (Auto) (FEW) /HPF Urine Bacteria (Auto) (NEGATIVE) /HPF Urine Mucus (Auto) (NEGATIVE) /HPF Urine Culture Reflexed (NO) Urine Glucose (NEGATIVE) mg/dL Stl Occult Blood (IFOB) (NEGATIVE) Influenza Type A Ag (NEGATIVE) Influenza Type B Ag (NEGATIVE) RSV (PCR) (Negative) SARS-CoV-2 (PCR) (NEGATIVE) Slides for Path Review Crossmatch COMPATIBLE COMPATIBLE (COMPATIBLE) 05/22/21 05/22/21 05/22/21 Range/Units 04:19 04:48 04:48 WBC (4.0-10.5) K/mm3 RBC (4.1-5.4) M/mm3 Hgb (12.0-16.0) gm/dl Hct (35-47) % MCV (78-100) fl MCH (26-32) pg MCHC (32-36) g/dl RDW (11.5-14.0) % Plt Count (150-450) K/mm3 MPV (7.5-11.0) fl Gran % (36.0-66.0) % Eos # (Auto) (0-0.5) Absolute Lymphs (auto) (1.0-4.6) Absolute Monos (auto) (0.0-1.3) Lymphocytes % (24.0-44.0) % Monocytes % (0.0-12.0) % Eosinophils % (0.00-5.0) % Basophils % (0.0-0.4) % Absolute Granulocytes (1.4-6.9) Basophils # (0-0.4) Smear Path Review PT (9.4-12.5) SECONDS INR (0.8-3.0) APTT (25.1-36.5) SECONDS Sodium (137-145) mmol/L Potassium (3.5-5.1) mmol/L Chloride (98-107) mmol/L Carbon Dioxide (22-30) mmol/L Anion Gap (5-15) MEQ/L BUN (7-17) mg/dL Creatinine (0.52-1.04) mg/dL Estimated GFR ML/MIN Glucose (74-106) mg/dL POC Glucometer (74 to 106) mg/dL Lactic Acid (0.4-2.0) Calcium (8.4-10.2) mg/dL Total Bilirubin (0.2-1.3) mg/dL AST (14-36) U/L ALT (0-35) U/L Alkaline Phosphatase (38-126) U/L Troponin I (0.000-0.034) ng/mL Serum Total Protein (6.3-8.2) g/dL Albumin (3.5-5.0) g/dL Urine Color (YELLOW) Urine Appearance (CLEAR) Urine pH (5-6) Ur Specific Nabb (1.005-1.025) Urine Protein (Negative) Urine Ketones (NEGATIVE) Urine Blood (0-5) David/ul Urine Nitrite (NEGATIVE) Urine Bilirubin (NEGATIVE) Urine Urobilinogen (0-1) mg/dL Ur Leukocyte Esterase (NEGATIVE) Urine WBC (Auto) (0-5) /HPF Urine RBC (Auto) (0-2) /HPF U Hyaline Cast (Auto) (0-2) /LPF U Epithel Cells (Auto) (FEW) /HPF Urine Bacteria (Auto) (NEGATIVE) /HPF Urine Mucus (Auto) (NEGATIVE) /HPF Urine Culture Reflexed (NO) Urine Glucose (NEGATIVE) mg/dL Stl Occult Blood (IFOB) (NEGATIVE) Influenza Type A Ag (NEGATIVE) Influenza Type B Ag (NEGATIVE) RSV (PCR) (Negative) SARS-CoV-2 (PCR) (NEGATIVE) Slides for Path Review Crossmatch COMPATIBLE COMPATIBLE COMPATIBLE (COMPATIBLE) 05/22/21 05/22/21 05/22/21 Range/Units 05:20 05:20 05:20 WBC 15.8 H (4.0-10.5) K/mm3 RBC 2.12 L (4.1-5.4) M/mm3 Hgb 6.0 L* D (12.0-16.0) gm/dl Hct 20.1 L (35-47) % MCV 94.8 (78-100) fl MCH 28.3 (26-32) pg MCHC 29.9 L (32-36) g/dl RDW 18.6 H (11.5-14.0) % Plt Count 265 (150-450) K/mm3 MPV 9.6 (7.5-11.0) fl Gran % 75.3 H (36.0-66.0) % Eos # (Auto) 0.20 (0-0.5) Absolute Lymphs (auto) 2.57 (1.0-4.6) Absolute Monos (auto) 1.09 (0.0-1.3) Lymphocytes % 16.3 L (24.0-44.0) % Monocytes % 6.9 (0.0-12.0) % Eosinophils % 1.3 (0.00-5.0) % Basophils % 0.2 (0.0-0.4) % Absolute Granulocytes 11.86 H (1.4-6.9) Basophils # 0.03 (0-0.4) Smear Path Review PT (9.4-12.5) SECONDS INR (0.8-3.0) APTT (25.1-36.5) SECONDS Sodium 136 L (137-145) mmol/L Potassium 3.7 (3.5-5.1) mmol/L Chloride 101 (98-107) mmol/L Carbon Dioxide 25 (22-30) mmol/L Anion Gap 13.2 (5-15) MEQ/L BUN 77 H (7-17) mg/dL Creatinine 1.77 H (0.52-1.04) mg/dL Estimated GFR 29.7 ML/MIN Glucose 119 H (74-106) mg/dL POC Glucometer (74 to 106) mg/dL Lactic Acid (0.4-2.0) Calcium 7.7 L (8.4-10.2) mg/dL Total Bilirubin 0.50 (0.2-1.3) mg/dL AST 21 (14-36) U/L ALT 10 (0-35) U/L Alkaline Phosphatase 74 (38-126) U/L Troponin I < 0.012 (0.000-0.034) ng/mL Serum Total Protein 6.3 (6.3-8.2) g/dL Albumin 2.9 L (3.5-5.0) g/dL Urine Color (YELLOW) Urine Appearance (CLEAR) Urine pH (5-6) Ur Specific Nabb (1.005-1.025) Urine Protein (Negative) Urine Ketones (NEGATIVE) Urine Blood (0-5) David/ul Urine Nitrite (NEGATIVE) Urine Bilirubin (NEGATIVE) Urine Urobilinogen (0-1) mg/dL Ur Leukocyte Esterase (NEGATIVE) Urine WBC (Auto) (0-5) /HPF Urine RBC (Auto) (0-2) /HPF U Hyaline Cast (Auto) (0-2) /LPF U Epithel Cells (Auto) (FEW) /HPF Urine Bacteria (Auto) (NEGATIVE) /HPF Urine Mucus (Auto) (NEGATIVE) /HPF Urine Culture Reflexed (NO) Urine Glucose (NEGATIVE) mg/dL Stl Occult Blood (IFOB) (NEGATIVE) Influenza Type A Ag (NEGATIVE) Influenza Type B Ag (NEGATIVE) RSV (PCR) (Negative) SARS-CoV-2 (PCR) (NEGATIVE) Slides for Path Review YES Crossmatch (COMPATIBLE) 05/22/21 05/22/21 05/22/21 Range/Units 07:12 09:24 09:24 WBC (4.0-10.5) K/mm3 RBC (4.1-5.4) M/mm3 Hgb 7.5 L D (12.0-16.0) gm/dl Hct 24.6 L (35-47) % MCV (78-100) fl MCH (26-32) pg MCHC (32-36) g/dl RDW (11.5-14.0) % Plt Count (150-450) K/mm3 MPV (7.5-11.0) fl Gran % (36.0-66.0) % Eos # (Auto) (0-0.5) Absolute Lymphs (auto) (1.0-4.6) Absolute Monos (auto) (0.0-1.3) Lymphocytes % (24.0-44.0) % Monocytes % (0.0-12.0) % Eosinophils % (0.00-5.0) % Basophils % (0.0-0.4) % Absolute Granulocytes (1.4-6.9) Basophils # (0-0.4) Smear Path Review PT (9.4-12.5) SECONDS INR (0.8-3.0) APTT (25.1-36.5) SECONDS Sodium (137-145) mmol/L Potassium (3.5-5.1) mmol/L Chloride (98-107) mmol/L Carbon Dioxide (22-30) mmol/L Anion Gap (5-15) MEQ/L BUN (7-17) mg/dL Creatinine (0.52-1.04) mg/dL Estimated GFR ML/MIN Glucose (74-106) mg/dL POC Glucometer 136 H (74 to 106) mg/dL Lactic Acid (0.4-2.0) Calcium (8.4-10.2) mg/dL Total Bilirubin (0.2-1.3) mg/dL AST (14-36) U/L ALT (0-35) U/L Alkaline Phosphatase (38-126) U/L Troponin I < 0.012 (0.000-0.034) ng/mL Serum Total Protein (6.3-8.2) g/dL Albumin (3.5-5.0) g/dL Urine Color (YELLOW) Urine Appearance (CLEAR) Urine pH (5-6) Ur Specific Nabb (1.005-1.025) Urine Protein (Negative) Urine Ketones (NEGATIVE) Urine Blood (0-5) David/ul Urine Nitrite (NEGATIVE) Urine Bilirubin (NEGATIVE) Urine Urobilinogen (0-1) mg/dL Ur Leukocyte Esterase (NEGATIVE) Urine WBC (Auto) (0-5) /HPF Urine RBC (Auto) (0-2) /HPF U Hyaline Cast (Auto) (0-2) /LPF U Epithel Cells (Auto) (FEW) /HPF Urine Bacteria (Auto) (NEGATIVE) /HPF Urine Mucus (Auto) (NEGATIVE) /HPF Urine Culture Reflexed (NO) Urine Glucose (NEGATIVE) mg/dL Stl Occult Blood (IFOB) (NEGATIVE) Influenza Type A Ag (NEGATIVE) Influenza Type B Ag (NEGATIVE) RSV (PCR) (Negative) SARS-CoV-2 (PCR) (NEGATIVE) Slides for Path Review Crossmatch (COMPATIBLE) 05/22/21 05/22/21 05/22/21 Range/Units 11:47 15:38 15:38 WBC (4.0-10.5) K/mm3 RBC (4.1-5.4) M/mm3 Hgb 8.0 L (12.0-16.0) gm/dl Hct 26.2 L (35-47) % MCV (78-100) fl MCH (26-32) pg MCHC (32-36) g/dl RDW (11.5-14.0) % Plt Count (150-450) K/mm3 MPV (7.5-11.0) fl Gran % (36.0-66.0) % Eos # (Auto) (0-0.5) Absolute Lymphs (auto) (1.0-4.6) Absolute Monos (auto) (0.0-1.3) Lymphocytes % (24.0-44.0) % Monocytes % (0.0-12.0) % Eosinophils % (0.00-5.0) % Basophils % (0.0-0.4) % Absolute Granulocytes (1.4-6.9) Basophils # (0-0.4) Smear Path Review PT (9.4-12.5) SECONDS INR (0.8-3.0) APTT (25.1-36.5) SECONDS Sodium (137-145) mmol/L Potassium (3.5-5.1) mmol/L Chloride (98-107) mmol/L Carbon Dioxide (22-30) mmol/L Anion Gap (5-15) MEQ/L BUN (7-17) mg/dL Creatinine (0.52-1.04) mg/dL Estimated GFR ML/MIN Glucose (74-106) mg/dL POC Glucometer 162 H (74 to 106) mg/dL Lactic Acid (0.4-2.0) Calcium (8.4-10.2) mg/dL Total Bilirubin (0.2-1.3) mg/dL AST (14-36) U/L ALT (0-35) U/L Alkaline Phosphatase (38-126) U/L Troponin I < 0.012 (0.000-0.034) ng/mL Serum Total Protein (6.3-8.2) g/dL Albumin (3.5-5.0) g/dL Urine Color (YELLOW) Urine Appearance (CLEAR) Urine pH (5-6) Ur Specific Nabb (1.005-1.025) Urine Protein (Negative) Urine Ketones (NEGATIVE) Urine Blood (0-5) David/ul Urine Nitrite (NEGATIVE) Urine Bilirubin (NEGATIVE) Urine Urobilinogen (0-1) mg/dL Ur Leukocyte Esterase (NEGATIVE) Urine WBC (Auto) (0-5) /HPF Urine RBC (Auto) (0-2) /HPF U Hyaline Cast (Auto) (0-2) /LPF U Epithel Cells (Auto) (FEW) /HPF Urine Bacteria (Auto) (NEGATIVE) /HPF Urine Mucus (Auto) (NEGATIVE) /HPF Urine Culture Reflexed (NO) Urine Glucose (NEGATIVE) mg/dL Stl Occult Blood (IFOB) (NEGATIVE) Influenza Type A Ag (NEGATIVE) Influenza Type B Ag (NEGATIVE) RSV (PCR) (Negative) SARS-CoV-2 (PCR) (NEGATIVE) Slides for Path Review Crossmatch (COMPATIBLE) 05/22/21 Range/Units 16:52 WBC (4.0-10.5) K/mm3 RBC (4.1-5.4) M/mm3 Hgb (12.0-16.0) gm/dl Hct (35-47) % MCV (78-100) fl MCH (26-32) pg MCHC (32-36) g/dl RDW (11.5-14.0) % Plt Count (150-450) K/mm3 MPV (7.5-11.0) fl Gran % (36.0-66.0) % Eos # (Auto) (0-0.5) Absolute Lymphs (auto) (1.0-4.6) Absolute Monos (auto) (0.0-1.3) Lymphocytes % (24.0-44.0) % Monocytes % (0.0-12.0) % Eosinophils % (0.00-5.0) % Basophils % (0.0-0.4) % Absolute Granulocytes (1.4-6.9) Basophils # (0-0.4) Smear Path Review PT (9.4-12.5) SECONDS INR (0.8-3.0) APTT (25.1-36.5) SECONDS Sodium (137-145) mmol/L Potassium (3.5-5.1) mmol/L Chloride (98-107) mmol/L Carbon Dioxide (22-30) mmol/L Anion Gap (5-15) MEQ/L BUN (7-17) mg/dL Creatinine (0.52-1.04) mg/dL Estimated GFR ML/MIN Glucose (74-106) mg/dL POC Glucometer 137 H (74 to 106) mg/dL Lactic Acid (0.4-2.0) Calcium (8.4-10.2) mg/dL Total Bilirubin (0.2-1.3) mg/dL AST (14-36) U/L ALT (0-35) U/L Alkaline Phosphatase (38-126) U/L Troponin I (0.000-0.034) ng/mL Serum Total Protein (6.3-8.2) g/dL Albumin (3.5-5.0) g/dL Urine Color (YELLOW) Urine Appearance (CLEAR) Urine pH (5-6) Ur Specific Nabb (1.005-1.025) Urine Protein (Negative) Urine Ketones (NEGATIVE) Urine Blood (0-5) David/ul Urine Nitrite (NEGATIVE) Urine Bilirubin (NEGATIVE) Urine Urobilinogen (0-1) mg/dL Ur Leukocyte Esterase (NEGATIVE) Urine WBC (Auto) (0-5) /HPF Urine RBC (Auto) (0-2) /HPF U Hyaline Cast (Auto) (0-2) /LPF U Epithel Cells (Auto) (FEW) /HPF Urine Bacteria (Auto) (NEGATIVE) /HPF Urine Mucus (Auto) (NEGATIVE) /HPF Urine Culture Reflexed (NO) Urine Glucose (NEGATIVE) mg/dL Stl Occult Blood (IFOB) (NEGATIVE) Influenza Type A Ag (NEGATIVE) Influenza Type B Ag (NEGATIVE) RSV (PCR) (Negative) SARS-CoV-2 (PCR) (NEGATIVE) Slides for Path Review Crossmatch (COMPATIBLE) Accuchecks Date 05/22/21 Time 11:45 - Radiology Impressions Radiology Exams & Impressions: Radiology Procedures Category Date Time Status ABDOMEN AND PELVIS W/0 CONTRAS [CT] Stat Exams 05/21/21 23:45 Completed SHOULDER Routine Exams 05/22/21 Completed - Other Procedures and Tests Respiratory Therapy 05/22/21 02:33 Oxygen Nasal Cannula 2 lpm Assessment/Plan (1) GI bleed Current Visit: Yes Status: Acute Qualifiers: GI bleed type/associated pathology: unspecified gastrointestinal hemorrhage type Qualified Code(s): K92.2 - Gastrointestinal hemorrhage, unspecified Assessment & Plan: With gross melena in ER. I have held the Eliquis; I called Dr. Rasheed's cell phone today and left a message but without any return call. My staff also left a message with his office staff. I anticipate holding it indefinitely in light of this severe anemia. Will defer any thought of EGD/colonoscopy for Dr. Oneil; in light of patient's overall health, I'm not sure she would tolerate the procedures. Code(s): K92.2 - GASTROINTESTINAL HEMORRHAGE, UNSPECIFIED (2) UTI (urinary tract infection) Current Visit: Yes Status: Acute Onset Date: ~10/22/18 Qualifiers: Urinary tract infection type: catheter-associated UTI Indwelling urinary catheter type: unspecified Encounter type: initial encounter Qualified Code(s): T83.511A - Infection and inflammatory reaction due to indwelling urethral catheter, initial encounter; N39.0 - Urinary tract infection, site not specified Assessment & Plan: indwelling suprapubic catheter. On rocephin 1g IV daily, day #2. Code(s): N39.0 - URINARY TRACT INFECTION, SITE NOT SPECIFIED (3) Afib Current Visit: No Status: Acute Qualifiers: Atrial fibrillation type: longstanding persistent Qualified Code(s): I48.11 - Longstanding persistent atrial fibrillation Assessment & Plan: HR in the 120s currently; restarting her metoprolol slowly as her BP can tolerate. Code(s): I48.91 - UNSPECIFIED ATRIAL FIBRILLATION (4) Dementia Current Visit: No Status: Chronic Qualifiers: Dementia type: vascular dementia Dementia behavioral disturbance: without behavioral disturbance Qualified Code(s): F01.50 - Vascular dementia without behavioral disturbance Code(s): F03.90 - UNSPECIFIED DEMENTIA WITHOUT BEHAVIORAL DISTURBANCE (5) Renal insufficiency Current Visit: No Status: Chronic (6) Diabetes mellitus Current Visit: No Status: Chronic Qualifiers: Diabetes mellitus [facility] insulin use: with [facility] use Chronic kidney disease stage: stage 4 (severe) Code(s): E11.9 - TYPE 2 DIABETES MELLITUS WITHOUT COMPLICATIONS (7) Obesity Current Visit: No Status: Chronic Qualifiers: Body mass index: BMI 40.0-44.9 Code(s): E66.9 - OBESITY, UNSPECIFIED (8) DNR (do not resuscitate) Current Visit: Yes Status: Chronic Assessment & Plan: In light of patient's anger at being sent to the hospital, I mentioned that should she want to stay out of the hospital, she should consider hospice. I feel confident she would qualify given her health conditions. She seemed frankly shocked that I would mention it. We discussed it briefly.
[2021-05-22] MEDS ORDERED: Lopressor 25MG Tab PO ONE (17:05)
[2021-05-22] MEDS: ROCEPHIN 1 Gm-D5w 50 ml Bag** 1 G/50 ML IVPB IV SCH (21:00)
[2021-05-22] MEDS: Zocor 10MG PO SCH (21:02)
[2021-05-22] MEDS ORDERED: NON-FORMULARY ITEM (Atorvastatin Calcium 10 MG Tablet) PO SCH (22:00)
[2021-05-23 05:42] LABS: Hemoglobin 7.1 gm/dl (12.0-16.0); Mean Cell Volume 93.9 fl (78-100); Mean Corpuscular Hgb Concent. 30.9 g/dl (32-36); Mean Platelet Volume 9.2 fl (7.5-11.0); Platelet Count 266 K/mm3 (150-450); Red Blood Count 2.45 M/mm3 (4.1-5.4); Red Cell Distribution Width 19.8 % (11.5-14.0); White Blood Count 15.3 K/mm3 (4.0-10.5)
[2021-05-23 06:03] LABS: ALBUMIN 2.7 g/dL (3.5-5.0); ANION GAP 13.1 MEQ/L (5-15); BILIRUBIN,TOTAL 0.4 mg/dL (0.2-1.3); Calcium 7.5 mg/dL (8.4-10.2); Creatinine 1 1.5 mg/dL (0.52-1.04); Potassium 3.8 mmol/L (3.5-5.1); Total Protein 6.1 g/dL (6.3-8.2)
[2021-05-23] MEDS: PROTONIX 40 MG IV*** 80 MG in Sodium Chloride 0.9% 500 ML 500 ML IV SCH ×2 (06:05→16:12)
[2021-05-23] MEDS: SUBLIMAZE 100 MCG/2 ML IV PRN (08:25)
[2021-05-23] MEDS: EFFEXOR 37.5 MG PO SCH ×2 (08:33→21:40)
[2021-05-23] MEDS: Santyl OINTMENT TP SCH ×2 (08:38→22:51)
--- NOTE | 2021-05-23 08:47 | PCM.NOTE ---
Date and Time: 05/23/21841 Subjective Assessment: no report of further melanotic stools overnight. patient is upset about being in the hospital, she complains of her buttocks hurting but no other pain. Objective Exam General Appearance: obese Neurologic Exam: alert Wound Assessment: Skin/Wound Assessment Wound/Incision Assessment Start: 05/22/21 04:08 Text: Status: Active Freq: Q6H Protocol: Document 05/23/21 01:47 (Rec: 05/23/21 01:49 [id number]) Wound/Incision Assessment Left Thigh Wound Assessment Shift Assessment Wound Type Incision Wound Stage Non Pressure Wound Dressing Status Changed Drainage Amount Moderate Drainage Odor None/Absent General Appearance Draining Wound Bed Greatest Portion Yellow (Slough) Surrounding Tissue [place] Topical Solution/Irrigant Medicated Ointment Primary Dressing Non-Adherent Gauze Pads Wound Photo Comment: photos taken upon admission Respiratory Exam: normal breath sounds, lungs clear, No respiratory distress Cardiovascular Exam: regular rate/rhythm, normal heart sounds Gastrointestinal/Abdomen Exam: soft, No tenderness, No distention, No mass OBJECTIVE DATA Vital Signs: Vital Signs - 24 hr Temp Pulse Resp BP Pulse Ox 05/23/21 07:28 98.6 F 136 H 20 102/75 97 05/23/21 07:24 95 05/23/21 05:33 102/75 05/23/21 03:46 131 H 24 99 05/22/21 23:40 97.3 F 127 H 17 88/68 99 05/22/21 23:31 127 H 05/22/21 23:29 127 H 22 97 05/22/21 19:40 97.1 F 128 H 18 89/73 98 05/22/21 19:20 100 05/22/21 16:00 97.3 F 134 H 20 119/71 100 05/22/21 11:51 97.5 F 122 H 18 105/77 98 Pain Assessment - Last Documented Pain Intensity 6 Pain Scale Used FLACC Intake and Output: Intake & Output 05/20/21 05/21/21 05/22/21 05/23/21 11:59 11:59 11:59 11:59 Intake Total 2828 3313 Output Total 475 2800 Balance 2353 513 Weight 107.3 kg Lab Results: Lab Results-Last 24 Hours 05/21/21 05/22/21 05/22/21 Range/Units 23:10 05:20 09:24 WBC (4.0-10.5) K/mm3 RBC (4.1-5.4) M/mm3 Hgb (12.0-16.0) gm/dl Hct (35-47) % MCV (78-100) fl MCH (26-32) pg MCHC (32-36) g/dl RDW (11.5-14.0) % Plt Count (150-450) K/mm3 MPV (7.5-11.0) fl Smear Path Review Sodium (137-145) mmol/L Potassium (3.5-5.1) mmol/L Chloride (98-107) mmol/L Carbon Dioxide (22-30) mmol/L Anion Gap (5-15) MEQ/L BUN (7-17) mg/dL Creatinine (0.52-1.04) mg/dL Estimated GFR ML/MIN Glucose (74-106) mg/dL POC Glucometer (74 to 106) mg/dL Calcium (8.4-10.2) mg/dL Total Bilirubin (0.2-1.3) mg/dL AST (14-36) U/L ALT (0-35) U/L Alkaline Phosphatase (38-126) U/L Troponin I < 0.012 (0.000-0.034) ng/mL NT-Pro-B Natriuret Pep (0-1800) pg/mL Serum Total Protein (6.3-8.2) g/dL Albumin (3.5-5.0) g/dL Slides for Path Review YES 05/22/21 05/22/21 05/22/21 Range/Units 09:24 11:47 15:38 WBC (4.0-10.5) K/mm3 RBC (4.1-5.4) M/mm3 Hgb 7.5 L D (12.0-16.0) gm/dl Hct 24.6 L (35-47) % MCV (78-100) fl MCH (26-32) pg MCHC (32-36) g/dl RDW (11.5-14.0) % Plt Count (150-450) K/mm3 MPV (7.5-11.0) fl Smear Path Review Sodium (137-145) mmol/L Potassium (3.5-5.1) mmol/L Chloride (98-107) mmol/L Carbon Dioxide (22-30) mmol/L Anion Gap (5-15) MEQ/L BUN (7-17) mg/dL Creatinine (0.52-1.04) mg/dL Estimated GFR ML/MIN Glucose (74-106) mg/dL POC Glucometer 162 H (74 to 106) mg/dL Calcium (8.4-10.2) mg/dL Total Bilirubin (0.2-1.3) mg/dL AST (14-36) U/L ALT (0-35) U/L Alkaline Phosphatase (38-126) U/L Troponin I < 0.012 (0.000-0.034) ng/mL NT-Pro-B Natriuret Pep (0-1800) pg/mL Serum Total Protein (6.3-8.2) g/dL Albumin (3.5-5.0) g/dL Slides for Path Review 05/22/21 05/22/21 05/22/21 Range/Units 15:38 16:52 21:26 WBC (4.0-10.5) K/mm3 RBC (4.1-5.4) M/mm3 Hgb 8.0 L (12.0-16.0) gm/dl Hct 26.2 L (35-47) % MCV (78-100) fl MCH (26-32) pg MCHC (32-36) g/dl RDW (11.5-14.0) % Plt Count (150-450) K/mm3 MPV (7.5-11.0) fl Smear Path Review Sodium (137-145) mmol/L Potassium (3.5-5.1) mmol/L Chloride (98-107) mmol/L Carbon Dioxide (22-30) mmol/L Anion Gap (5-15) MEQ/L BUN (7-17) mg/dL Creatinine (0.52-1.04) mg/dL Estimated GFR ML/MIN Glucose (74-106) mg/dL POC Glucometer 137 H 165 H (74 to 106) mg/dL Calcium (8.4-10.2) mg/dL Total Bilirubin (0.2-1.3) mg/dL AST (14-36) U/L ALT (0-35) U/L Alkaline Phosphatase (38-126) U/L Troponin I (0.000-0.034) ng/mL NT-Pro-B Natriuret Pep (0-1800) pg/mL Serum Total Protein (6.3-8.2) g/dL Albumin (3.5-5.0) g/dL Slides for Path Review 05/23/21 05/23/21 05/23/21 Range/Units 05:20 05:20 07:05 WBC 15.3 H (4.0-10.5) K/mm3 RBC 2.45 L (4.1-5.4) M/mm3 Hgb 7.1 L (12.0-16.0) gm/dl Hct 23.0 L (35-47) % MCV 93.9 (78-100) fl MCH 29.0 (26-32) pg MCHC 30.9 L (32-36) g/dl RDW 19.8 H (11.5-14.0) % Plt Count 266 (150-450) K/mm3 MPV 9.2 (7.5-11.0) fl Smear Path Review Sodium 135 L (137-145) mmol/L Potassium 3.8 (3.5-5.1) mmol/L Chloride 102 (98-107) mmol/L Carbon Dioxide 24 (22-30) mmol/L Anion Gap 13.1 (5-15) MEQ/L BUN 73 H (7-17) mg/dL Creatinine 1.50 H (0.52-1.04) mg/dL Estimated GFR 36.0 ML/MIN Glucose 173 H (74-106) mg/dL POC Glucometer 181 H (74 to 106) mg/dL Calcium 7.5 L (8.4-10.2) mg/dL Total Bilirubin 0.40 (0.2-1.3) mg/dL AST 19 (14-36) U/L ALT 10 (0-35) U/L Alkaline Phosphatase 68 (38-126) U/L Troponin I (0.000-0.034) ng/mL NT-Pro-B Natriuret Pep 5020 H (0-1800) pg/mL Serum Total Protein 6.1 L (6.3-8.2) g/dL Albumin 2.7 L (3.5-5.0) g/dL Slides for Path Review Radiology Exams: Radiology Procedures Category Date Time Status ABDOMEN AND PELVIS W/0 CONTRAS [CT] Stat Exams 05/21/21 23:45 Completed SHOULDER Routine Exams 05/22/21 Completed Assessment/Plan (1) Upper GI hemorrhage Current Visit: Yes Status: Acute Assessment & Plan: keep on clear liquids, patient is on protonix drip and h/h with small drop since yesterday. Code(s): K92.2 - GASTROINTESTINAL HEMORRHAGE, UNSPECIFIED (2) UTI (urinary tract infection) Current Visit: Yes Status: Acute Onset Date: ~10/22/18 Qualifiers: Urinary tract infection type: catheter-associated UTI Indwelling urinary catheter type: unspecified Encounter type: initial encounter Qualified Code(s): T83.511A - Infection and inflammatory reaction due to indwelling urethral catheter, initial encounter; N39.0 - Urinary tract infection, site not specified Assessment & Plan: on rocephin, culture pending from chronic suprapubic cath Code(s): N39.0 - URINARY TRACT INFECTION, SITE NOT SPECIFIED (3) Afib Current Visit: No Status: Acute Qualifiers: Atrial fibrillation type: longstanding persistent Qualified Code(s): I48.11 - Longstanding persistent atrial fibrillation Code(s): I48.91 - UNSPECIFIED ATRIAL FIBRILLATION (4) Femoral distal fracture Current Visit: No Status: Acute Code(s): S72.409A - UNSP FRACTURE OF LOWER END OF UNSP FEMUR, INIT FOR CLOS FX (5) CHF (congestive heart failure) Current Visit: No Status: Chronic Qualifiers: Heart failure type: unspecified Heart failure chronicity: unspecified Qualified Code(s): I50.9 - Heart failure, unspecified Code(s): I50.9 - HEART FAILURE, UNSPECIFIED (6) CKD (chronic kidney disease) Current Visit: No Status: Chronic Code(s): N18.9 - CHRONIC KIDNEY DISEASE, UNSPECIFIED (7) DNR (do not resuscitate) Current Visit: Yes Status: Chronic
[2021-05-23] MEDS ORDERED: NORCO 7.5/325 MG TAB PO PRN (08:52)
[2021-05-23] MEDS: PERCOCET TABLET 5/325MG PO PRN (11:57)
[2021-05-23] MEDS ORDERED: CITROMA 296 ML PO ONE (16:00)
[2021-05-23] MEDS ORDERED: GAVILAX PO ONE (17:00)
[2021-05-23] MEDS: Sodium Chloride 0.9% 1000 ML 1,000 ML IV SCH (17:34)
[2021-05-23] MEDS: Zocor 10MG PO SCH (21:39)
[2021-05-23] MEDS: ROCEPHIN 1 Gm-D5w 50 ml Bag** 1 G/50 ML IVPB IV SCH (21:43)
[2021-05-24] MEDS: PROTONIX 40 MG IV*** 80 MG in Sodium Chloride 0.9% 500 ML 500 ML IV SCH ×2 (02:17→02:24)
[2021-05-24] MEDS: Ativan 2 MG/1 ML VIAL IV PRN ×4 (03:34→19:35)
[2021-05-24 05:17] LABS: Hematocrit 21.5 % (35-47); Mean Cell Volume 95.6 fl (78-100); Mean Corpuscular Hemoglobin 28.4 pg (26-32); Mean Corpuscular Hgb Concent. 29.8 g/dl (32-36); Mean Platelet Volume 9.5 fl (7.5-11.0); Platelet Count 213 K/mm3 (150-450); Red Blood Count 2.25 M/mm3 (4.1-5.4); Red Cell Distribution Width 20.5 % (11.5-14.0); White Blood Count 11.8 K/mm3 (4.0-10.5)
[2021-05-24 05:24] LABS: Hemoglobin 6.4 gm/dl (12.0-16.0)
[2021-05-24 05:40] LABS: ALBUMIN 2.6 g/dL (3.5-5.0); BILIRUBIN,TOTAL 0.3 mg/dL (0.2-1.3); Calcium 7.9 mg/dL (8.4-10.2); Creatinine 1 1.29 mg/dL (0.52-1.04); EST GLOMERULAR FILTRATION RATE 42.8 ML/MIN; Potassium 3.7 mmol/L (3.5-5.1); Total Protein 5.7 g/dL (6.3-8.2)
[2021-05-24] MEDS: PERCOCET TABLET 5/325MG PO PRN (05:48)
[2021-05-24] MEDS ORDERED: Lasix 20 MG/2 ML IV PRN (05:58)
[2021-05-24] MEDS: Sodium Chloride 0.9% 1000 ML 1,000 ML IV SCH (06:26)
[2021-05-24] MEDS ORDERED: MORPHINE SULFATE 4 MG INJ IV PRN (07:20)
[2021-05-24 08:09] VITALS: O2SAT 100
[2021-05-24 08:57] LABS: Basophil 1 % (0.0-1.0); Eosinophil 1 % (0.00-3.0); Lymphocytes 8 % (24-44); Monocyte 1 % (0.0-12.0); Neutrophils 89 % (36.0-66.0); Total Cells Counted 100
[2021-05-24 08:59] LABS: Platelet Estimate NORMAL (NORMAL)
[2021-05-24 09:00] LABS: Hypochromia 2+; Polychromasia 1+
[2021-05-24 09:07] LABS: ANISOCYTOSIS 2+
[2021-05-24 09:08] LABS: Basophilic Stippling 1+; Toxic Granulation 1+
--- NOTE | 2021-05-24 09:55 | PCM.NOTE ---
Date and Time: 05/24/21 0952 Subjective Assessment: patient had a witnessed episode of shaking and seizure-like activity, with colonoscopy prep she had stool in her suprapubic cath and draining from her vagina as well. patient is currently comfortable with IV morphine and ativan Objective Exam General Appearance: no apparent distress, obese Neurologic Exam: cooperative (sleeping but arousable) Wound Assessment: Skin/Wound Assessment Wound/Incision Assessment Start: 05/22/21 04:08 Text: Status: Active Freq: Q6H Protocol: Document 05/24/21 08:00 RN (Rec: 05/24/21 08:22 RN [id number]) Wound/Incision Assessment Left Thigh Wound Assessment Shift Assessment Wound Type old surgical wound Wound Stage Non Pressure Wound Drainage Amount Moderate Drainage Description Purulent Drainage Odor None/Absent General Appearance Reddened Topical Solution/Irrigant Medicated Ointment Primary Dressing Non-Adherent Gauze Pads Respiratory Exam: normal breath sounds, lungs clear, No respiratory distress Cardiovascular Exam: regular rate/rhythm, normal heart sounds Gastrointestinal/Abdomen Exam: soft OBJECTIVE DATA Vital Signs: Vital Signs - 24 hr Temp Pulse Resp BP Pulse Ox 05/24/21 08:03 135 H 18 05/24/21 08:00 135 H 17 140/98 100 05/24/21 07:20 93 L 05/24/21 04:30 140 H 20 117/59 99 05/24/21 04:15 134 H 14 98/71 99 05/24/21 04:00 151 H 20 98/63 99 05/24/21 03:50 157 H 20 98/76 99 05/24/21 03:44 174 H 20 110/82 99 05/24/21 03:40 175 H 30 H 130/102 99 05/24/21 03:39 175 H 20 148/136 96 05/24/21 03:00 97.1 F 135 H 20 112/86 99 05/23/21 23:51 96.9 F 135 H 21 122/80 100 05/23/21 23:00 96.9 F 135 H 21 122/80 100 05/23/21 19:25 97.5 F 136 H 18 110/83 98 05/23/21 19:00 99 05/23/21 16:46 96.9 F 134 H 16 120/105 92 L 05/23/21 11:51 97.5 F 138 H 18 97/79 94 L Pain Assessment - Last Documented Pain Intensity 4 Pain Scale Used FLACC Intake and Output: Intake & Output 05/21/21 05/22/21 05/23/21 05/24/21 11:59 11:59 11:59 11:59 Intake Total 2828 3313 2951 Output Total 984 2800 2150 Balance 2353 513 801 Weight 107.3 kg Lab Results: Lab Results-Last 24 Hours 05/23/21 05/23/21 05/23/21 Range/Units 11:29 16:30 16:33 WBC (4.0-10.5) K/mm3 RBC (4.1-5.4) M/mm3 Hgb (12.0-16.0) gm/dl Hct (35-47) % MCV (78-100) fl MCH (26-32) pg MCHC (32-36) g/dl RDW (11.5-14.0) % Plt Count (150-450) K/mm3 MPV (7.5-11.0) fl Segmented Neutrophils (36.0-66.0) % Lymphocytes (Manual) (24-44) % Monocytes (Manual) (0.0-12.0) % Eosinophils (Manual) (0.00-3.0) % Basophils (Manual) (0.0-1.0) % Hypochromia Toxic Granulation Platelet Estimate (NORMAL) RBC Morphology Polychromasia Basophilic Stippling Anisocytosis Sodium (137-145) mmol/L Potassium (3.5-5.1) mmol/L Chloride (98-107) mmol/L Carbon Dioxide (22-30) mmol/L Anion Gap (5-15) MEQ/L BUN (7-17) mg/dL Creatinine (0.52-1.04) mg/dL Estimated GFR ML/MIN Glucose (74-106) mg/dL POC Glucometer 208 H TNP (74 to 106) mg/dL Hemoglobin A1c 5.35 (4.5-6.0) % Calcium (8.4-10.2) mg/dL Total Bilirubin (0.2-1.3) mg/dL AST (14-36) U/L ALT (0-35) U/L Alkaline Phosphatase (38-126) U/L Serum Total Protein (6.3-8.2) g/dL Albumin (3.5-5.0) g/dL 05/23/21 05/24/21 05/24/21 Range/Units 20:43 05:05 05:05 WBC 11.8 H (4.0-10.5) K/mm3 RBC 2.25 L (4.1-5.4) M/mm3 Hgb 6.4 L* (12.0-16.0) gm/dl Hct 21.5 L (35-47) % MCV 95.6 (78-100) fl MCH 28.4 (26-32) pg MCHC 29.8 L (32-36) g/dl RDW 20.5 H (11.5-14.0) % Plt Count 213 (150-450) K/mm3 MPV 9.5 (7.5-11.0) fl Segmented Neutrophils 89 H (36.0-66.0) % Lymphocytes (Manual) 8 L (24-44) % Monocytes (Manual) 1 (0.0-12.0) % Eosinophils (Manual) 1 (0.00-3.0) % Basophils (Manual) 1 (0.0-1.0) % Hypochromia 2+ Toxic Granulation 1+ Platelet Estimate NORMAL (NORMAL) RBC Morphology ABNORMAL Polychromasia 1+ Basophilic Stippling 1+ Anisocytosis 2+ Sodium 139 (137-145) mmol/L Potassium 3.7 (3.5-5.1) mmol/L Chloride 110 H (98-107) mmol/L Carbon Dioxide 22 (22-30) mmol/L Anion Gap 11.0 (5-15) MEQ/L BUN 58 H (7-17) mg/dL Creatinine 1.29 H (0.52-1.04) mg/dL Estimated GFR 42.8 ML/MIN Glucose 204 H (74-106) mg/dL POC Glucometer 137 H (74 to 106) mg/dL Hemoglobin A1c (4.5-6.0) % Calcium 7.9 L (8.4-10.2) mg/dL Total Bilirubin 0.30 (0.2-1.3) mg/dL AST 19 (14-36) U/L ALT 10 (0-35) U/L Alkaline Phosphatase 66 (38-126) U/L Serum Total Protein 5.7 L (6.3-8.2) g/dL Albumin 2.6 L (3.5-5.0) g/dL 05/24/21 Range/Units 07:03 WBC (4.0-10.5) K/mm3 RBC (4.1-5.4) M/mm3 Hgb (12.0-16.0) gm/dl Hct (35-47) % MCV (78-100) fl MCH (26-32) pg MCHC (32-36) g/dl RDW (11.5-14.0) % Plt Count (150-450) K/mm3 MPV (7.5-11.0) fl Segmented Neutrophils (36.0-66.0) % Lymphocytes (Manual) (24-44) % Monocytes (Manual) (0.0-12.0) % Eosinophils (Manual) (0.00-3.0) % Basophils (Manual) (0.0-1.0) % Hypochromia Toxic Granulation Platelet Estimate (NORMAL) RBC Morphology Polychromasia Basophilic Stippling Anisocytosis Sodium (137-145) mmol/L Potassium (3.5-5.1) mmol/L Chloride (98-107) mmol/L Carbon Dioxide (22-30) mmol/L Anion Gap (5-15) MEQ/L BUN (7-17) mg/dL Creatinine (0.52-1.04) mg/dL Estimated GFR ML/MIN Glucose (74-106) mg/dL POC Glucometer 170 H (74 to 106) mg/dL Hemoglobin A1c (4.5-6.0) % Calcium (8.4-10.2) mg/dL Total Bilirubin (0.2-1.3) mg/dL AST (14-36) U/L ALT (0-35) U/L Alkaline Phosphatase (38-126) U/L Serum Total Protein (6.3-8.2) g/dL Albumin (3.5-5.0) g/dL Multi-Disciplinary Progress Notes: Multi-Disciplinary Progress Notes 05/23/21 11:57 Case Management Note by Juana Henderson INCUBATOR MACHINE OPERATOR MADELIN S/W PATIENT AND DAUGHTER WHILE CARING FOR PATIENT THIS AM . PATIENT VOICED TO HER DAUGHTER " WHY CAN'T I JUST " DAUGHTER DISCUSSED HOSPICE WITH MADELIN. THEY WOULD LIKE TO RETURN TO [facility] WITH HOSPICE IF ABLE. CALLED CHARLIE AT [facility]- SHE STATED PATIENT IS ABLE TO DO THAT AND THEY USE [facility]. S/W DR. QUACH'S OFFICE NOTIFIED HIM OF WISHES- RECEIVED ORDER FOR HOSPICE. CALLED ARIK WITH [facility] NOTIFIED HER OF REFERRAL AND FAXED REFERRAL AT THIS TIME. 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 plan is to discharge back to [facility] on hospice care tomorrow Code(s): K63.2 - FISTULA OF INTESTINE (2) Upper GI hemorrhage Current Visit: Yes Status: Acute Code(s): K92.2 - GASTROINTESTINAL HEMORRHAGE, UNSPECIFIED (3) UTI (urinary tract infection) Current Visit: Yes Status: Acute Onset Date: ~10/22/18 Qualifiers: Urinary tract infection type: catheter-associated UTI Indwelling urinary catheter type: unspecified Encounter type: initial encounter Qualified Code(s): T83.511A - Infection and inflammatory reaction due to indwelling urethral catheter, initial encounter; N39.0 - Urinary tract infection, site not specified Code(s): N39.0 - URINARY TRACT INFECTION, SITE NOT SPECIFIED (4) Afib Current Visit: No Status: Acute Qualifiers: Atrial fibrillation type: longstanding persistent Qualified Code(s): I48.11 - Longstanding persistent atrial fibrillation Code(s): I48.91 - UNSPECIFIED ATRIAL FIBRILLATION (5) Femoral distal fracture Current Visit: No Status: Acute Code(s): S72.409A - UNSP FRACTURE OF LOWER END OF UNSP FEMUR, INIT FOR CLOS FX (6) CHF (congestive heart failure) Current Visit: No Status: Chronic Qualifiers: Heart failure type: unspecified Heart failure chronicity: unspecified Qualified Code(s): I50.9 - Heart failure, unspecified Code(s): I50.9 - HEART FAILURE, UNSPECIFIED (7) CKD (chronic kidney disease) Current Visit: No Status: Chronic Code(s): N18.9 - CHRONIC KIDNEY DISEASE, UNSPECIFIED (8) DNR (do not resuscitate) Current Visit: Yes Status: Chronic
[2021-05-24] MEDS: EFFEXOR 37.5 MG PO SCH ×2 (10:13→21:52)
[2021-05-24] MEDS: Santyl OINTMENT TP SCH ×2 (10:16→22:21)
[2021-05-24] MEDS: PROTONIX 40 MG IV IV SCH (10:16)
[2021-05-24] MEDS: MORPHINE SULFATE 4 MG INJ IV PRN ×2 (13:11→19:35)
[2021-05-24] MEDS: ROCEPHIN 1 Gm-D5w 50 ml Bag** 1 G/50 ML IVPB IV SCH (21:58)
[2021-05-25] MEDS: MORPHINE SULFATE 4 MG INJ IV PRN ×2 (01:13→09:36)
[2021-05-25] MEDS: Ativan 2 MG/1 ML VIAL IV PRN ×2 (01:13→09:36)
[2021-05-25] MEDS: Sodium Chloride 0.9% 1000 ML 1,000 ML IV SCH (03:35)
[2021-05-25 08:15] VITALS: BP 110/72; PULSE 135
--- NOTE | 2021-05-25 08:34 | PCM.DS ---
Discharge Summary Date of Admission: 05/22/21 08:00 Admitting Physician: ABDIEL HICKS Consults: Consults on Case 05/23/21 11:53 Consult Surgery ROUTINE Primary Care Provider: ALL TRAN Allergies Allergies tramadol Allergy (Mild, Verified 03/25/21 15:56) [facility] Summary - Hospital Course Hospital Course: patient was admitted from local [facility] with melanotic stools and profoundly anemic, was on blood thinner. had a femur fracture repair in February, she is non weight bearing with multiple comorbidities. 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 discussed prognosis and poor surgical candidacy with patient and family, she is a DNR and they have elected to return to [facility] on hospice for comfort measures at this time. - Vitals & Intake/Output Vital Signs: Vital Signs Temperature 96.3 F 05/25/21 08:00 Pulse Rate 135 H 05/25/21 08:00 Respiratory Rate 18 05/25/21 08:00 Blood Pressure 110/72 05/25/21 08:00 O2 Sat by Pulse Oximetry 100 05/25/21 08:00 Intake & Output: Intake & Output 05/22/21 05/23/21 05/24/21 05/25/21 11:59 11:59 11:59 11:59 Intake Total 2828 3313 2951 1072 Output Total 475 2800 2150 1250 Balance 2353 513 801 -178 Weight 107.3 kg 107.3 kg - Lab Result Diagrams: 05/24/21 05:05 05/24/21 05:05 Lab Results-Last 24 Hrs: Lab Results-Last 24 Hours 05/24/21 Range/Units 05:05 Segmented Neutrophils 89 H (36.0-66.0) % Lymphocytes (Manual) 8 L (24-44) % Monocytes (Manual) 1 (0.0-12.0) % Eosinophils (Manual) 1 (0.00-3.0) % Basophils (Manual) 1 (0.0-1.0) % Hypochromia 2+ Toxic Granulation 1+ Platelet Estimate NORMAL (NORMAL) RBC Morphology ABNORMAL Polychromasia 1+ Basophilic Stippling 1+ Anisocytosis 2+ Micro Results-Entire Visit: Microbiology 05/23/21 09:47 Wound Culture - Final Knee - Left Methicillin Resist Staph Aur 05/21/21 22:56 Urine Culture - Final Suprapubic Cath Escherichia Coli Enterococcus Faecium 05/22/21 01:00 Blood Culture - Preliminary Blood NO GROWTH TO DATE - Procedures and Test Procedures and Tests throughout Hospitalization: Therapy Orders & Screens 05/22/21 02:33 Oxygen Nasal Cannula 2 lpm Comment: 05/22/21 04:08 OT Screen per Nursing Assess ONCE Comment: Protocol Order Physician Instructions: Greater than 3 points order OT Admission Screening Reason For Exam: Triggered on Admission Diagnosis: GI BLEED, UTI Open Wound/Cellutlitis/Pressure Ulcers: Yes Acute Fx/ORIF/Change in wt bearing status: No Severe MUSCULOSKELETAL pain: No ADL Dysfunction: Yes Acute CVA w/Hemiparesis/Hemiplegia: No Decreased Functional Mobility/Strength: Yes Sprain/Strain: No Acute Post-op Mobility Dysfunction: No Total Points: 9 PT Screen per Nursing Assess ONCE Comment: Protocol Order Physician Instructions: Greater than 3 points order PT Admission Screenin Reason For Exam: Triggered on Admission Diagnosis: GI BLEED, UTI Open Wound/Cellutlitis/Pressure Ulcers: Yes Acute Fx/ORIF/Change in wt bearing status: No Severe MUSCULOSKELETAL pain: No ADL Dysfunction: Yes Acute CVA w/Hemiparesis/Hemiplegia: No Decreased Functional Mobility/Strength: Yes Sprain/Strain: No Acute Post-op Mobility Dysfunction: No Total Points: 9 Discharge Exam General Appearance: obese Neurologic Exam: alert, oriented x 3, cooperative Respiratory Exam: normal breath sounds, lungs clear, No respiratory distress Cardiovascular Exam: regular rate/rhythm, normal heart sounds Gastrointestinal/Abdomen Exam: soft, No tenderness, No mass Skin Exam: other (open area to left knee, drainage present. MRSA on culture) Wound Assessment: Skin/Wound Assessment Wound/Incision Assessment Start: 05/22/21 04:08 Text: Status: Active Freq: Q6H Protocol: Document 05/25/21 04:00 KN (Rec: 05/25/21 04:26 KN [id number]) Wound/Incision Assessment Left Thigh Wound Assessment Shift Assessment Wound Type old surgical wound Wound Stage Non Pressure Wound Dressing Status Dry & Intact Drainage Amount Minimal Drainage Description Purulent Drainage Odor None/Absent General Appearance Reddened Topical Solution/Irrigant Medicated Ointment Primary Dressing Non-Adherent Gauze Pads Comment alise and lazaro with paper tape Final Diagnosis/Problem List - Final Discharge Diagnosis/Problem (1) Colonic fistula Current Visit: Yes Status: Acute Assessment & Plan: patient is a very poor surgical candidate, does not wish to entertain and surgical intervention so no treatment will be given Code(s): K63.2 - FISTULA OF INTESTINE (2) Upper GI hemorrhage Current Visit: Yes Status: Acute Assessment & Plan: d/c blood thinners, will continue PPI Code(s): K92.2 - GASTROINTESTINAL HEMORRHAGE, UNSPECIFIED (3) UTI (urinary tract infection) Current Visit: Yes Status: Acute Onset Date: ~10/22/18 Assessment & Plan: advised that with fistula there will be constant urinary colonization with bacteria, had e coli and enterococcus on culture which is expected Code(s): N39.0 - URINARY TRACT INFECTION, SITE NOT SPECIFIED (4) Afib Current Visit: No Status: Acute Code(s): I48.91 - UNSPECIFIED ATRIAL FIBRILLATION (5) Femoral distal fracture Current Visit: No Status: Acute Code(s): S72.409A - UNSP FRACTURE OF LOWER END OF UNSP FEMUR, INIT FOR CLOS FX (6) CHF (congestive heart failure) Current Visit: No Status: Chronic Code(s): I50.9 - HEART FAILURE, UNSPECIFIED (7) CKD (chronic kidney disease) Current Visit: No Status: Chronic Code(s): N18.9 - CHRONIC KIDNEY DISEASE, UNSPECIFIED (8) DNR (do not resuscitate) Current Visit: Yes Status: Chronic - Discharge Disposition: DC TO [facility] Condition: Poor Prescriptions: New LORazepam [Lorazepam Intensol] 1 mg PO Q4-6HPRN PRN #30 ml PRN Reason: Agitation Morphine 10 mg Inj [Morphine Sulfate 10 mg/ml] 10 mg IV Q4H PRN PRN #30 ml MDD 60 PRN Reason: Pain Continue Methenamine 1 gm PO BID Metoprolol Tartrate 50 mg [Lopressor 50 MG] 100 mg PO BID #60 tablet Hydrocodone/Acetaminophen [Hydrocodone-Acetamin 7.5-325] 1 each PO Q6H PRN PRN Reason: Pain PANTOPRAZOLE 40 mg Tablet [Protonix 40MG Tablet] 40 mg PO DAILY Ferrous Sulfate 325 mg [Feosol 325 mg] 325 mg PO DAILY Acetaminophen [Acetaminophen Extra Strength] 1,000 mg PO Q6H PRN PRN Reason: Pain Collagenase Oint [Santyl OINTMENT] 30 gm TP BID Venlafaxine HCl 125 mg PO BID Sennosides/Docusate Sodium [Senna Plus 8.6-50 mg Softgel] 1 each PO BID Multivitamin [One-Daily Multi-Vitamin] 1 each PO DAILY Memantine HCl 5 mg [Namenda 5 MG] 5 mg PO BID Discontinued Furosemide [Lasix] 40 mg PO HS Aspirin 81 gm Chew [Baby Aspirin 81 mg Chew] 81 mg PO HS Potassium Chloride 10 Meq Tab* [Klor Con 10 MEQ] 10 meq PO HS Donepezil HCl [Aricept] 5 mg PO HS Insulin Glargine [Lantus Insulin] 10 unit SQ HS Liraglutide [Victoza 2-Ang] 1.8 mg SQ DAILY Trazodone HCl 50 mg [Desyrel 50 mg] 50 mg PO HS Apixaban [Eliquis 2.5 mg Tablet] 5 mg PO BID #60 tablet Oxybutynin Chloride [Oxybutynin Chloride ER] 10 mg PO DAILY Ergocalciferol (Vitamin D2) [Vitamin D2] 50,000 unit PO Q7D Atorvastatin Calcium [Lipitor] 10 mg PO HS Glucagon [Baqsimi] 3 mg NS DAILY PRN PRN PRN Reason: Hypoglycemia Follow up with: ALL TRAN [Primary Care Provider] -
[2021-05-25] MEDS: PROTONIX 40 MG IV IV SCH (09:35)
[2021-05-25] MEDS: EFFEXOR 37.5 MG PO SCH (09:36)
[2021-05-25] MEDS: Santyl OINTMENT TP SCH (09:36)
== END 2021-05-25 09:55 | DRG 394 ==
LOC: ED 22:17 → ICU 05-22 03:08 → OBSVTOIN 05-22 08:00
PROVIDERS: ADMIT Family Medicine; ATTEND Family Medicine
DX: K63.2 Fistula of intestine (principal); N39.0 Urinary tract infection, site not specified; T83.511A Infection and inflammatory reaction due to indwelling urethral catheter, initial encounter; K92.2 Gastrointestinal hemorrhage, unspecified; I48.91 Unspecified atrial fibrillation; S72.409D Unspecified fracture of lower end of unspecified femur, subsequent encounter for closed fracture with routine healing; I11.0 Hypertensive heart disease with heart failure; I50.9 Heart failure, unspecified; I12.9 Hypertensive chronic kidney disease with stage 1 through stage 4 chronic kidney disease, or unspecified chronic kidney disease; N18.9 Chronic kidney disease, unspecified; E11.9 Type 2 diabetes mellitus without complications; F03.90 Unspecified dementia, unspecified severity, without behavioral disturbance, psychotic disturbance, mood disturbance, and anxiety; E66.9 Obesity, unspecified; E78.5 Hyperlipidemia, unspecified; R56.9 Unspecified convulsions; D64.9 Anemia, unspecified; Z79.899 Other long term (current) drug therapy; Z79.01 Long term (current) use of anticoagulants; Z20.828 Contact with and (suspected) exposure to other viral communicable diseases; Z13.39 Encounter for screening examination for other mental health and behavioral disorders
CPT/HCPCS: 0241U; 36000; 36415; 36430; 73030; 74176; 80053; 81001; 82274; 82947; 83036; 83605; 83880; 84484; 85014; 85018; 85025; 85027; 85610; 85730; 86922; 87040; 87070; 87077; 87086; 87186; 93005; 93268; 94760; 94762; 96374; 96375; 99284; 99291; 99292; P9016; P9017; J0696; J1817; J1940; J2060; J2270; J2405; J3010; A9270-GY; J3590-GY

== ENCOUNTER 2021-06-06 00:01 | Emergency (ER) | payer MEDICARE, OTHER ==
[2021-06-06] MEDS ORDERED: Sodium Chloride 0.9% 500 ML 500 ML IV ONE (00:50)
[2021-06-06] MEDS ORDERED: Cardizem IV 50 MG/10 ML IV ONE ×2 (00:50→03:07)
[2021-06-06] MEDS: Sodium Chloride 0.9% 500 ML 500 ML IV ONE (00:51)
[2021-06-06] MEDS: Cardizem IV 50 MG/10 ML IV ONE ×2 (00:51→03:09)
--- NOTE | 2021-06-06 01:03 | ERPHSYRPT ---
- History of Present Illness Time Seen by Provider: 06/06/21 00:40 Source: patient Exam Limitations: clinical condition Patient Subjective Stated Complaint: "Oh I don't know." Triage Nursing Assessment: Patient to the ED from [facility] for reported tachycardia. EMS reported that the patient is a hospice patient through [facility] d/t GI bleed and fistula and the patient not being a surgical candidate. Report from sending senior care manager Moni was tachycardia, hypotension, no hypoxia, and no confusion. Patient is alert to self and place. She denied any pain at the time of traige. She denied any nausea/vomiting. Family at bedside reported vomiting earlier in the day. Pupils 4mm bilateral. oral mucosa pale/dry. Neck supple without JVD. Symmetrical chest expansion. heart tones S1/S2 tachycardic without extra sounds. Lungs vesicular with minimal airflow. Abdomen morbidly obese non-distended, without voluntary/involuntary guarding. Bowel sounds present in all quadrants. Avendaño catheter in place from sending facility. Physician History: This is a morbidly obese 75-year-old white female patient of Dr. Stewart who is also a resident of [facility] and is a DNR and on hospice care for profound anemia and poor surgical candidate. She presents to the emergency department because onset of shortness of breath and chest pain that began yesterday and is worsened throughout the evening and orthopedic radiologic technologist hours. Patient's family wanted to see if we could do something simple to help resolve/improve her symptoms of shortness of breath and chest pain. Patient is not a surgical candidate from the cardiac standpoint either. We also contacted Dr. Stewart and confirmed that we will be trying to do simple interventions and basic lab work to help improve the patient's symptoms. I spoke with the pa kristian's daughter in the patient's room and she wants the basic lab work and simple interventions to help improve the patient's symptoms. Patient has multiple medical problems including elevated cholesterol, hypertension, coronary artery disease, COPD and type 2 diabetes. The only medication the patient is currently taking is Ativan and morphine. Timing/Duration: yesterday Severity: mild (To moderate) Associated Symptoms: shortness of breath, chest pain Allergies/Adverse Reactions: tramadol Allergy (Mild, Verified 03/25/21 15:56) dizzy Home Medications: Methenamine 1 gm PO BID 07/30/17 [History] Acetaminophen [Acetaminophen Extra Strength] 1,000 mg PO Q6H PRN 05/22/21 [History] Collagenase Oint [Santyl OINTMENT] 30 gm TP BID 05/22/21 [History] Ferrous Sulfate 325 mg [Feosol 325 mg] 325 mg PO DAILY 05/22/21 [History] Hydrocodone/Acetaminophen [Hydrocodone-Acetamin 7.5-325] 1 each PO Q6H PRN 05/22/21 [History] Memantine HCl 5 mg [Namenda 5 MG] 5 mg PO BID 05/22/21 [History] Multivitamin [One-Daily Multi-Vitamin] 1 each PO DAILY 05/22/21 [History] PANTOPRAZOLE 40 mg Tablet [Protonix 40MG Tablet] 40 mg PO DAILY 05/22/21 [History] Sennosides/Docusate Sodium [Senna Plus 8.6-50 mg Softgel] 1 each PO BID 05/22/21 [History] Venlafaxine HCl 125 mg PO BID 05/22/21 [History] Hx Tetanus, Diphtheria Vaccination/Date Given: Yes Hx Influenza Vaccination/Date Given: Yes Hx Pneumococcal Vaccination/Date Given: Yes Travel Risk - International Travel Have you traveled outside of the country in past 3 weeks: No - Coronavirus Screening Are you exhibiting any of the following symptoms?: No Close contact with a COVID-19 positive Pt in past 14-21 Days: No - Vaccine Status Have you recieved a Covid-19 vaccination: Yes 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 - Vaccination Dates Dates if Unknown: UNKNOWN - Review of Systems Constitutional: Weakness Eyes: No Symptoms Ears, Nose, & Throat: No Symptoms Respiratory: Cough, Dyspnea Cardiac: Chest Pain Abdominal/Gastrointestinal: No Symptoms Genitourinary Symptoms: No Symptoms Musculoskeletal: No Symptoms Skin: No Symptoms Neurological: No Symptoms Psychological: No Symptoms Endocrine: No Symptoms Hematologic/Lymphatic: No Symptoms Immunological/Allergic: No Symptoms All Other Systems: Reviewed and Negative - Past Medical History Pertinent Past Medical History: Yes Neurological History: No Pertinent History ENT History: Cataracts Cardiac History: High Cholesterol, Hypertension, Myocardial Infarction (AR) Respiratory History: COPD Endocrine Medical History: Diabetes Type II Musculoskeletal History: Arthritis, Fractures GI Medical History: Polyps History: Renal Disease, Other Psycho-Social History: Bipolar, Depression Female Reproductive Disorders: No Pertinent History Other Medical History: daughter states "she is difficulty at times and won't do what she is told" "going to try to get her to take the bowel prep" - Past Surgical History Past Surgical History: Yes Neuro Surgical History: No Pertinent History Cardiac: Cardiac Catheterization, Cardiac Stent Respiratory: No Pertinent History Gastrointestinal: No Pertinent History Genitourinary: No Pertinent History Musculoskeletal: Joint Replacement Female Surgical History: Hysterectomy Other Surgical History: SEVERAL STENTS. SURGERY ON BOTH FEET FROM CLUB FEET - Social History Smoking Status: Never smoker How long have you smoked: 55 Exposure to second hand smoke: No Alcohol Use: None Drug Use: none Patient Lives Alone: No Significant Family History: heart disease, diabetes, hypertension - Nursing Vital Signs Nursing Vital Signs: Initial Vital Signs Temperature 97.6 F 06/06/21 00:01 Pulse Rate 141 H 06/06/21 00:01 Respiratory Rate 20 06/06/21 00:01 Blood Pressure 114/86 06/06/21 00:01 O2 Sat by Pulse Oximetry 99 06/06/21 00:01 Pain Scale Pain Intensity 2 - Physical Exam General Appearance: mild distress, alert, anxiety, obese Eye Exam: PERRL/EOMI, pale conjunctivae Ears, Nose, Throat Exam: dry mucous membranes Neck Exam: normal inspection, non-tender, supple, full range of motion Respiratory Exam: normal breath sounds, chest tenderness, lungs clear, airway intact, No respiratory distress Cardiovascular Exam: tachycardia Gastrointestinal/Abdomen Exam: soft, normal bowel sounds, No tenderness Pelvic Exam: not done Rectal Exam: not done Back Exam: normal inspection, normal range of motion, No CVA tenderness, No vertebral tenderness Extremity Exam: normal inspection, normal range of motion, pelvis stable Neurologic Exam: alert, cooperative, corporate traffic manager II-XII nml as tested Skin Exam: pale Lymphatic Exam: No adenopathy SpO2 Interpretation: normal SpO2: 99 O2 Delivery: Room Air - Course Nursing assessment & vital signs reviewed: Yes Ordered Tests: Medication Summary Discontinued Medications Generic Name Dose Route Start Last Admin Trade Name Freq PRN Reason Stop Dose Admin Diltiazem HCl 20 mg 06/06/21 00:39 06/06/21 00:51 Diltiazem Hcl Iv 5 Mg/Ml Vial IV 06/06/21 00:40 20 mg STAT ONE Administration Diltiazem HCl Confirm 06/06/21 00:50 Diltiazem Hcl Iv 5 Mg/Ml Vial Administered 06/06/21 00:51 Dose 50 mg IV .STK-MED ONE Diltiazem HCl 25 mg 06/06/21 03:01 06/06/21 03:09 Diltiazem Hcl Iv 5 Mg/Ml Vial IV 06/06/21 03:02 25 mg STAT ONE Administration Diltiazem HCl Confirm 06/06/21 03:07 Diltiazem Hcl Iv 5 Mg/Ml Vial Administered 06/06/21 03:08 Dose 50 mg IV .STK-MED ONE Sodium Chloride 500 mls @ 500 mls/hr 06/06/21 00:39 06/06/21 01:57 Sodium Chloride 0.9% 500 Ml IV 06/06/21 01:38 Infused .Q1H ONE Infusion Sodium Chloride Confirm 06/06/21 00:50 Sodium Chloride 0.9% 500 Ml Administered 06/06/21 00:51 Dose 500 mls @ ud IV .STK-MED ONE Metoprolol Tartrate 5 mg 06/06/21 01:07 06/06/21 01:42 Metoprolol Tartrate 5 Mg/5 Ml Injection IV 06/06/21 01:08 5 mg STAT ONE Administration Metoprolol Tartrate Confirm 06/06/21 01:38 Metoprolol Tartrate 5 Mg/5 Ml Injection Administered 06/06/21 01:39 Dose 5 mg IV .STK-MED ONE Morphine Sulfate 4 mg 06/06/21 01:44 06/06/21 01:46 Morphine Sulfate 4 Mg/Ml Injection IV 06/06/21 01:45 4 mg STAT ONE Administration Morphine Sulfate Confirm 06/06/21 01:43 Morphine Sulfate 4 Mg/Ml Injection Administered 06/06/21 01:44 Dose 4 mg .ROUTE .STK-MED ONE Ondansetron HCl 4 mg 06/06/21 01:44 06/06/21 01:45 Ondansetron Hcl 4 Mg/2 Ml Vial IV 06/06/21 01:45 4 mg STAT ONE Administration Ondansetron HCl Confirm 06/06/21 01:43 Ondansetron Hcl 4 Mg/2 Ml Vial Administered 06/06/21 01:44 Dose 4 mg .ROUTE .STK-MED ONE Pantoprazole Sodium 40 mg 06/06/21 03:09 06/06/21 03:10 Pantoprazole 40 Mg Vial IV 06/06/21 03:10 40 mg STAT ONE Administration Pantoprazole Sodium Confirm 06/06/21 03:09 Pantoprazole 40 Mg Vial Administered 06/06/21 03:10 Dose 40 mg IV .[facility] ONE Lab/Rad Data: Laboratory Result Diagrams 06/06/21 01:02 06/06/21 01:02 Laboratory Results 06/06/21 06/06/21 Range/Units 01:02 01:02 WBC 11.8 H (4.0-10.5) K/mm3 RBC 2.68 L (4.1-5.4) M/mm3 Hgb 7.6 L (12.0-16.0) gm/dl Hct 25.9 L (35-47) % MCV 96.6 (78-100) fl MCH 28.4 (26-32) pg MCHC 29.3 L (32-36) g/dl RDW 19.2 H (11.5-14.0) % Plt Count 158 (150-450) K/mm3 MPV 9.1 (7.5-11.0) fl Gran % 88.3 H (36.0-66.0) % Eos # (Auto) 0.03 (0-0.5) Absolute Lymphs (auto) 0.65 L (1.0-4.6) Absolute Monos (auto) 0.68 (0.0-1.3) Lymphocytes % 5.5 L (24.0-44.0) % Monocytes % 5.7 (0.0-12.0) % Eosinophils % 0.3 (0.00-5.0) % Basophils % 0.2 (0.0-0.4) % Absolute Granulocytes 10.45 H (1.4-6.9) Basophils # 0.02 (0-0.4) Sodium 137 (137-145) mmol/L Potassium 4.6 (3.5-5.1) mmol/L Chloride 102 (98-107) mmol/L Carbon Dioxide 28 (22-30) mmol/L Anion Gap 11.4 (5-15) MEQ/L BUN 23 H (7-17) mg/dL Creatinine 1.24 H (0.52-1.04) mg/dL Estimated GFR 44.8 ML/MIN Glucose 237 H (74-106) mg/dL Calcium 8.4 (8.4-10.2) mg/dL Total Bilirubin 0.50 (0.2-1.3) mg/dL AST 24 (14-36) U/L ALT 11 (0-35) U/L Alkaline Phosphatase 109 (38-126) U/L Serum Total Protein 6.3 (6.3-8.2) g/dL Albumin 2.8 L (3.5-5.0) g/dL - Progress Progress: improved, pain not gone completely Progress Note: 06/06/21 03:07 Medical decision making: This patient has history of chronic profound anemia. Today her hemoglobin is 7.6 which is much better than what it usually is. Her tachycardia is slowing down. She has improved shortness of breath but still with intermittent chest pain. Patient's electrolytes are stable as is her kidney function. Her systolic blood pressures in the one thirties. I will discuss with patient's daughter regarding patient's DNR status and hospice care status. Will see patient in: office Counseled pt/family regarding: lab results, diagnosis - Departure Departure Disposition: Home Clinical Impression: Tachycardia, Shortness of breath, Intermittent chest pain Condition: Fair Critical Care Time: Yes Critical Care Time(excluding separately billable procedures): Critical 30-74 mins (30 minutes) Referrals: ALL TRAN [Primary Care Provider] - Follow up/PCP as directed Instructions: Chest Pain, Tachycardia Additional Instructions: Continue DNR and hospice status at the senior living. Continue all preemergency department orders.
[2021-06-06 01:05] LABS: Absolute Neutrophil Ct (ANC) 10.45 (1.4-6.9); Basophil (Absolute #) 0.02 (0-0.4); Eosinophil % 0.3 % (0.00-5.0); Eosinophil (Absolute #) 0.03 (0-0.5); Hematocrit 25.9 % (35-47); Hemoglobin 7.6 gm/dl (12.0-16.0); Lymphocyte (Absolute #) 0.65 (1.0-4.6); Lymphocytes % 5.5 % (24.0-44.0); Mean Cell Volume 96.6 fl (78-100); Mean Corpuscular Hemoglobin 28.4 pg (26-32); Mean Corpuscular Hgb Concent. 29.3 g/dl (32-36); Mean Platelet Volume 9.1 fl (7.5-11.0); Monocyte (Absolute #) 0.68 (0.0-1.3); Monocytes % 5.7 % (0.0-12.0); Neutrophil % 88.3 % (36.0-66.0); Platelet Count 158 K/mm3 (150-450); Red Blood Count 2.68 M/mm3 (4.1-5.4); Red Cell Distribution Width 19.2 % (11.5-14.0); White Blood Count 11.8 K/mm3 (4.0-10.5)
[2021-06-06 01:22] LABS: ALBUMIN 2.8 g/dL (3.5-5.0); ANION GAP 11.4 MEQ/L (5-15); BILIRUBIN,TOTAL 0.5 mg/dL (0.2-1.3); Calcium 8.4 mg/dL (8.4-10.2); Creatinine 1 1.24 mg/dL (0.52-1.04); EST GLOMERULAR FILTRATION RATE 44.8 ML/MIN; Potassium 4.6 mmol/L (3.5-5.1); Total Protein 6.3 g/dL (6.3-8.2)
[2021-06-06] MEDS ORDERED: LOPRESSOR 5 MG/5 ML INJECTION IV ONE (01:38)
[2021-06-06] MEDS: LOPRESSOR 5 MG/5 ML INJECTION IV ONE (01:42)
[2021-06-06] MEDS ORDERED: Zofran 4 MG/2 ML VIAL ONE (01:43)
[2021-06-06] MEDS ORDERED: MORPHINE SULFATE 4 MG INJ ONE (01:43)
[2021-06-06] MEDS: Zofran 4 MG/2 ML VIAL IV ONE (01:45)
[2021-06-06] MEDS: MORPHINE SULFATE 4 MG INJ IV ONE (01:46)
[2021-06-06 03:06] VITALS: BP 136/87; PULSE 120
[2021-06-06] MEDS ORDERED: PROTONIX 40 MG IV IV ONE (03:09)
[2021-06-06] MEDS: PROTONIX 40 MG IV IV ONE (03:10)
[2021-06-06 03:11] VITALS: O2SAT 99
== END 2021-06-06 03:54 ==
LOC: ED 00:01
DX: R00.0 Tachycardia, unspecified (principal); R06.02 Shortness of breath; R07.9 Chest pain, unspecified; E78.5 Hyperlipidemia, unspecified; I10 Essential (primary) hypertension; J44.9 Chronic obstructive pulmonary disease, unspecified; E11.9 Type 2 diabetes mellitus without complications; D64.9 Anemia, unspecified; I25.10 Atherosclerotic heart disease of native coronary artery without angina pectoris; Z79.891 Long term (current) use of opiate analgesic; Z79.899 Other long term (current) drug therapy
CPT/HCPCS: 36415; 80053; 85025; 96360; 96374; 96375; 99284; J2270; J2405